=== PATIENT | male | born 1955 | race Caucasian/White ===

== ENCOUNTER 2018-11-03 14:06 | Inpatient (IN) ==
[2018-11-03 16:13] LABS: URINE SOURCE CLEAN CATCH
[2018-11-03 16:16] LABS: BASO# 0.05 X1000 (0.0-0.2); BASO% 0.5 % (0.0-0.8); EOS# 0.14 X1000 (0.0-0.7); EOS% 1.4 % (0.0-10.0); HEMATOCRIT 35.3 % (42.0-52.0); IMM GRAN# 0.03 X1000 (0.0-0.04); IMM GRAN% 0.3 % (0.0-0.5); LYMPH# 1.68 X1000 (1.2-3.4); LYMPH% 16.9 % (20.5-51.1); MCH 27.2 PG (27-31); MCHC 31.2 g/dL (33-37); MCV 87.4 FL (81-99); MONO# 0.92 X1000 (0.11-0.59); MONO% 9.3 % (1.7-9.3); MPV 10.6 FL (7.4-10.4); NEUT% 71.6 % (42.2-75.2); PLT 271 X1000 (130-400); RBC 4.04 XMIL (4.7-6.1); RDW 17.8 % (11.5-14.5); WBC 9.92 X1000 (4.8-10.8)
[2018-11-03 16:20] LABS: BILIRUBIN URINE NEGATIVE (NEGATIVE); BLOOD URINE NEGATIVE (NEGATIVE); COLOR YELLOW; GLUCOSE URINE 100 mg/dL (NEGATIVE); KETONE URINE NEGATIVE (NEGATIVE); LEUKOCYTES URINE NEGATIVE (NEGATIVE); NITRITE URINE NEGATIVE (NEGATIVE); PROTEIN URINE 30 mg/dL (NEGATIVE); SP GRAVITY URINE 1.003; TURBIDITY URINE CLEAR (CLEAR); UROBILINOGEN URINE NORMAL (NORMAL)
[2018-11-03 16:21] LABS: UR EPITHELIAL CELLS <10 /HPF (<10); URINE BACTERIA NEGATIVE /HPF; URINE RBC <10 /HPF (<10); URINE WBC <10 /HPF (<10)
[2018-11-03 16:33] LABS: ALB/GLOB RATIO 1.2; ALBUMIN 3.8 g/dL (3.5-5.0); CALCIUM 8.9 mg/dL (8.8-10.2); CREATININE 3.8 mg/dL (0.7-1.2); POTASSIUM 4.4 mmol/L (3.5-5.1); TOTAL BILIRUBIN 0.21 mg/dL (0.20-1.00)
--- NOTE | 2018-11-03 16:39 | Diag Imaging Result Doc PS360 ---
CT HEAD W/O CONTRAST - 11/03/2018 INDICATION: syncope COMPARISON: 08/20/2018 FINDINGS: The ventricles and sulci are normal in size and contour. There is stable mild cerebral white matter chronic microvascular disease. No intracranial mass or hemorrhage. The skull is intact. The sinuses mastoids and middle ears are clear. IMPRESSION: No acute disease or change from prior. This exam was performed using automated exposure control, adjustment of mA or kV according to patient size, and/or use of iterative reconstruction technique Electronically signed by Prakash Butts 11/03/2018 4:37 PM
--- NOTE | 2018-11-03 17:52 | PROVIDER DOCUMENTATION ---
This chart was entered by Angelica Sullivan Scribe, acting as scribe for Andres Townsend MD. HPI-Syncope/Dizziness - General Chief Complaint: Syncope Stated Complaint: SYNCOPE Time Seen by Provider: 11/03/18 14:38 Source: patient, EMS Allergies/Adverse Reactions: Patient Allergies Allergy/AdvReac Type Severity Reaction Status Date / Time ketorolac tromethamine * Allergy Mild RASH Verified 10/14/18 16:54 [From Toradol] levofloxacin Allergy Mild SHORTNESS Verified 10/14/18 16:54 OF BREATH almond Allergy Unknown Verified 10/14/18 16:54 doxazosin mesylate * Allergy SHORTNESS Verified 10/14/18 16:54 [From Cardura] OF BREATH ibuprofen [From Motrin] Allergy FLUSHING Verified 10/14/18 16:54 Home Medications: Home Medication List Medication Instructions Recorded Confirmed Last Taken Type Aspirin [Ecotrin] 81 mg PO QAM 12/11/14 10/14/18 10/14/18 History Potassium Chloride 10 meq PO QAM 12/11/14 10/14/18 10/14/18 History ATORVAstatin [Lipitor] 40 mg PO QHS #90 tab 12/19/17 10/14/18 10/14/18 Rx Allopurinol [Zyloprim] 100 mg PO DAILY #30 tab 12/19/17 10/14/18 10/14/18 Rx Fluticasone/Salmet 250/50 INH 1 puff INH RTBID #1 inhaler 12/19/17 10/14/1803/27 Rx [Advair 250/50 Diskus] Insulin Glargine [Lantus] 120 unit SUBQ BID #2 insuln.pen 12/19/17 10/14/1803/27 Rx Montelukast Sodium [Singulair] 10 mg PO QHS #90 tab 12/19/17 10/14/18 10/14/18 Rx Clonidine HCl 0.2 mg PO TID #90 tab 01/10/18 10/14/18 10/14/18 Rx Isosorbide Dinitrate [Isordil] 20 mg PO TID 04/30/18 10/14/18 10/14/18 History Metoprolol Succinate E.r. [Toprol 50 mg PO BID 06/10/14/18 10/14/18 History Xl] Nitroglycerin [Nitroquick] 0.4 mg SL DIRECTED PRN 04/30/18 10/14/18 10/14/18 History [place]-3 Fatty Acids/Fish Oil [Fish 1 each PO DAILY 04/30/18 10/14/18 10/14/18 History Oil 1,000 mg Softgel] Omeprazole 40 mg PO DAILY 04/30/18 10/14/18 10/14/18 History Clobetasol Propionate 1 each TOP BID 05/11/18 10/14/18 10/14/18 History Clonazepam [Klonopin] 0.5 mg PO TID 05/11/18 10/14/18 10/14/18 History Folic Acid 1 mg PO DAILY #90 tab 08/26/18 10/14/18 10/14/18 Rx Amlodipine [Norvasc] 10 mg PO DAILY 30 Days #30 tab 09/19/18 10/14/18 10/14/18 Rx Furosemide [Lasix] 80 mg PO BID #90 tab 09/19/18 10/14/18 10/14/18 Rx Hydralazine [Apresoline] 100 mg PO TID #120 tab 09/19/18 10/14/18 10/14/18 Rx Hydrocodone/Acetaminophen 7.5 mg PO BID 10 Days #20 tab 09/19/18 10/14/18 Rx [Hydrocodone-Acetamin 7.5-325] Lactulose 30 ml PO BID udc 09/19/18 10/14/18 10/14/18 Rx Docusate Sodium [Colace] 100 mg PO DAILY PRN #20 cap 09/24/18 10/14/18 10/14/18 Rx Polyethylene Glycol 3350 [Miralax] 17 gm PO DAILY 09/24/18 10/14/18 10/14/18 History Triamcinolone [Kenalog in Orabase] 1 applicatn TOP BID 10/15/18 10/15/18 Unknown History ATORVAstatin [Lipitor] 40 mg PO QHS tablet 10/16/18 Unknown Rx Nitroglycerin Sl [Nitroglycerin] 0.4 mg SL Q5M PRN PRN tablet 10/16/18 Unknown Rx Tamsulosin [Flomax] 0.4 mg PO DAILY capsule 10/16/18 Unknown Rx - History of Present Illness-Syncope/Dizzy Nature of Presenting Problem: 63 yof presents with cc of syncope x3 today with dizziness past few days. Reports has had ringing in his ears since this morning. States witnessed syncopable episodes today where he was sitting on bed and just passed out for 15 minutes at a time. Denies cp,sob,fever. Reports hx of chf,[place] x4, stents, copd , diabetes, chronic back pain and arthritis. Reports unable to walk due to back and diabetes. States has felt confused since syncopable episodes. Has drunk feeling. Prior Episodes: reports: no prior history Onset/Duration: reports: this morning Timing: reports: intermittent Position/Activity at time of episode: reports: sitting Recently Seen Here or By Another Healthcare Provider: No Review of Systems - Adult - REVIEW OF SYSTEMS - ADULT Constitutional: denies: chills, fever, fatique Eyes: reports: no symptoms reported Ears, Nose, Mouth & Throat: reports: see HPI, tinnitus. denies: sinus problem, throat pain Cardiovascular: reports: syncope. denies: chest pain, irregular heart rate, orthopnea Respiratory: denies: cough, shortness of breath, wheezing Gastrointestinal: denies: abdominal pain, nausea, vomiting Genitourinary: reports: no symptoms reported Musculoskeletal: denies: bone pain, back pain, joint pain, joint swelling, muscle aches Integumentary: reports: no symptoms reported Neurological: reports: see HPI, syncope. denies: ataxia, dizziness/vertigo, headache/migraines, loss of balance, numbness, paresthesia, seizure, slurred speech, tremors Psychiatric: reports: no symptoms reported Endocrine: reports: no symptoms reported Hematologic/Lymphatic: reports: no symptoms reported Allergic/Immunologic: reports: no symptoms reported All Other Systems: Reviewed and Negative Past History - Adult - PAST MEDICAL HISTORY-ADULT Review of Records: reports: Nursing Assessment Review, Medications Reviewed Major Childhood Illnesses: reports: history unknown Cardiovascular: reports: CHF (ECHO 08/2015 EF 55% ), HTN, hyperlipidemia, [place] Respiratory: reports: asthma, COPD (severe on 4liters O2 qHS) Gastrointestinal: reports: GERD Obstetrical/Gynecological: reports: denies history Genitourinary: reports: kidney disease (CRI) Musculoskeletal: reports: arthritis, chronic pain Neurological: reports: denies history Psychiatric: reports: anxiety Endocrine/Immune: reports: Diabetes Other Conditions: reports: denies history - PRIOR SURGERIES/PROCEDURES Surgical/Procedure History: reports: cardiac stent (x2 last one 7 years ago), orthopedic (extremity) (thumb) - IMMUNIZATION STATUS Childhood Immunizations: See Nurse Assessment Flu Vaccine: See Nurse Assessment - FAMILY HISTORY Family History: reviewed, not pertinent - SOCIAL HISTORY Smoking: other (former) Substance Use: none/never Physical Exam-General - PHYSICAL EXAM-ADULT Initial Vital Signs Reviewed: Yes - CONSTITUTIONAL General Appearance: alert, no apparent distress, obese - EYES Eyes: PERRL/EOMI, pink conjunctivae - HEAD, EARS, NOSE, MOUTH & THROAT HENMT: moist mucous membranes, normal ENT inspection, TMs normal, pharynx normal - NECK Neck: non-tender, full range of motion, supple, normal inspection - RESPIRATORY Respiratory: chest non-tender, lungs clear, normal breath sounds, no pleuratic chest pain, no respiratory distress, no accessory muscle use - CARDIOVASCULAR Cardiovascular: regular rate, rhythm, no gallop, no JVD, no murmur, other ( distant heart sounds) - GASTROINTESTINAL (ABDOMEN) Abdominal Exam: non tender, soft, no organomegaly, no pulsatile mass - MUSCULOSKELETAL Extremity: normal range of motion, non-tender - SKIN Integumentary: normal color, warm/dry - 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 as 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, grossly normal, no motor/sensory deficits - PSYCHIATRIC Psych/Mental Status: normal mood/affect, normal thought content, normal thought process, oriented x 3 Progress - PLAN OF CARE/RESULTS Progress/Plan/Lab Results: Vital Signs - 8 hr 11/03/18 15:00 Pulse Rate 57 L Respiratory Rate 20 Blood Pressure 119/78 O2 Sat by Pulse Oximetry 100 Laboratory Results - last 24 hr 11/03/18 11/03/18 11/03/18 13:17 14:52 14:54 WBC RBC Hgb Hct MCV MCH MCHC RDW Std Deviation Plt Count MPV Immature Gran % (Auto) Neut % (Auto) Lymph % (Auto) [place] % (Auto) Eos % (Auto) Baso % (Auto) Immature Gran # (Auto) Neut # (Auto) Lymph # (Auto) [place] # (Auto) Eos # (Auto) Baso # (Auto) Sodium Potassium Chloride Carbon Dioxide Anion Gap BUN Creatinine Estimated GFR/1.73 m2 BUN/Creatinine Ratio Glucose POC Glucose 206 H Calculated Osmolality Calcium Total Bilirubin AST ALT Alkaline Phosphatase Troponin T < 0.010 Total Protein Albumin Globulin Albumin/Globulin Ratio Urine Source CLEAN CATCH Urine Color YELLOW Urine Turbidity CLEAR Urine pH 7.0 Ur Specific [place] 1.003 Urine Protein 30 A Ur Glucose (Stick) 100 A Ur Ketones (Stick) NEGATIVE Urine Blood NEGATIVE Urine Nitrite NEGATIVE Urine Bilirubin NEGATIVE Urobilinogen Dipstick NORMAL Urine Leukocytes NEGATIVE Urine WBC (Auto) <10 Urine RBC (Auto) <10 U Epithel Cells (Auto) <10 Urine Bacteria (Auto) NEGATIVE 11/03/18 11/03/18 14:54 14:54 WBC 9.92 RBC 4.04 L Hgb 11.0 L Hct 35.3 L MCV 87.4 MCH 27.2 MCHC 31.2 L RDW Std Deviation 17.8 H Plt Count 271 MPV 10.6 H Immature Gran % (Auto) 0.3 Neut % (Auto) 71.6 Lymph % (Auto) 16.9 L [place] % (Auto) 9.3 Eos % (Auto) 1.4 Baso % (Auto) 0.5 Immature Gran # (Auto) 0.03 Neut # (Auto) 7.10 H Lymph # (Auto) 1.68 [place] # (Auto) 0.92 H Eos # (Auto) 0.14 Baso # (Auto) 0.05 Sodium 142 Potassium 4.4 Chloride 97 L Carbon Dioxide 29 Anion Gap 16 BUN 56 H Creatinine 3.8 H Estimated GFR/1.73 m2 16 BUN/Creatinine Ratio 15 Glucose 209 H POC Glucose Calculated Osmolality 305 Calcium 8.9 Total Bilirubin 0.21 AST 11 ALT 15 Alkaline Phosphatase 133 H Troponin T Total Protein 7.0 Albumin 3.8 Globulin 3.2 Albumin/Globulin Ratio 1.2 Urine Source Urine Color Urine Turbidity Urine pH Ur Specific [place] Urine Protein Ur Glucose (Stick) Ur Ketones (Stick) Urine Blood Urine Nitrite Urine Bilirubin Urobilinogen Dipstick Urine Leukocytes Urine WBC (Auto) Urine RBC (Auto) U Epithel Cells (Auto) Urine Bacteria (Auto) Orders Category Date Time Status Orthostatic Vital Signs Q12-HR ASSESS Care 11/03/18 17:32 Active Diabetic Diet Diet 11/03/18 16:[address] HEAD W/O CONTRAST [CT] Stat Exams 11/03/18 15:56 Completed CBC WITH ELECTRONIC DIFF [HEME] Stat Lab 11/03/18 14:54 Completed CMP [COMPREHENSIVE METABOLIC PANEL] [CHEM] Stat Lab 11/03/18 14:54 Completed TROPONIN T Stat Lab 11/03/18 14:54 Completed URINALYSIS W/POSS RFLX CULT [URINALYSIS] Stat Lab 11/03/18 13:17 Completed EKG [EKG] Stat Ther 11/03/18 16:58 Ordered Result Diagrams: 11/03/18 14:54 11/03/18 14:54 - REASSESSMENT Reassessment #1 Time Reassessed: 16:02 Status: improving (Patient feel ok, denies complaints. vitals stable.) - EKG 1 Time of EKG reading by physician:: 14:32 EKG Read and Signed by:: Andres Townsend EKG Interpretation (*Must complete 3 of following elements*): Abnormal Rate: 58 Rhythm: sinus charlie [place]: normal QRS: RBB (incomplete) TN Interval: normal ST Wave: normal - CONSULTS/PCP/HOSPITALIST Notification #1 *Consult/PCP/Hospitalist*: LINE PALLETIZER Fabiana Time Discussed: 16:58 Consult Disposition: Admit (Accepted.) Departure - Departure Date of Disposition Decision: 11/03/18 Time of Disposition Decision: 16:58 DIAGNOSIS: Syncope Qualifiers: Syncope type: unspecified Qualified Code(s): R55 - Syncope and collapse Disposition: ADMITTED INPATIENT 09 Certified Medical Emergency: Emergent Condition: Stable Referrals and Follow-Ups: Terrie Judge [Primary Care Provider] - - Critical Care Note This patient required my direct & personal management of CC.: No Attestation - Physician/ KOJO Attestation Patient care was provided by Advanced Practice Provider:: No The physician spent face to face time with patient:: Yes Advanced Practice Provider documentation review:: Supervising physician onsite and consulted in the evaluation and care of this patient. The physician did have a face to face encounter with the patient. This chart was documented by the indicated scribe, (Angelica Sullivan Scribe) and accurately reflects the services I performed and decisions made by me, Andres Townsend MD, as attested by the provider's signature.
[2018-11-03] MEDS ORDERED: TYLENOL PO PRN (18:02)
[2018-11-03] MEDS ORDERED: DUONEB (A & A) INH PRN (18:02)
--- NOTE | 2018-11-03 19:54 | HISTORY AND PHYSICAL ---
PRIMARY CARE PROVIDER: Dr. Terrie Judge. Last time he followed up with her is around a month ago. He has another appointment for next December. CHIEF COMPLAINT: Passing out. HISTORY OF PRESENT ILLNESS: Mr. Adam La is a 63-year-old male who is very well known to our service and has had 17 ER visits this year and 10 admissions, including this one this year, all for different reasons, whether it be chest pain, shortness of breath, or COPD. This time he is being admitted for syncope. So, over the last couple of days he has complained of having this dizziness, drunk feeling, and a left-sided headache. 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 States that around 9:00 a.m. when she was making him breakfast, she noticed that he appeared to be passed out in bed. He was there for about 45 minutes, but she thought he was asleep. When he woke up he was complaining of buzzing in his ears, a left-sided headache, he felt dizzy and drunk and she said that his eyes did not look right. He continued to have these spells of dizziness and drunk feeling throughout the day along with the buzzing ears. He had a second time where he passed out around 2:30 and this time she called an ambulance. He feels like he hit his head on the bed. There is no obvious wound signs. His head CT was negative. He had a third time he passed out while he was in the ambulance on the way here. He claims that there have not been any changes in his medications and that he is taking all of his medications as prescribed. Currently, he still feels a little bit drunk, dizzy, and complaining of the tinnitus in both ears with the left headache. His heart rate is in the 50s and it is sinus rhythm or sinus bradycardia. He states that he routinely checks his oxygen saturation and the monitor always tells him his heart rate is in the 50s. He is on a beta trung. He is also on multiple antihypertensives. Blood pressure currently is stable at 119/78. First cardiac enzymes are negative. EKG is pending. Again, his head CT was negative for any acute findings. So, will admit for syncopal workup. PAST MEDICAL HISTORY: 1. COPD, on chronic home O2. 2. Diabetes mellitus, type 2, insulin dependent. 3. Hypertensive heart disease. 4. Chronic diastolic heart failure. 5. Chronic venous insufficiency. 6. Hyperlipidemia. 7. Obstructive sleep apnea. 8. Cor pulmonale. 9. CKD stage 4. 10.Morbid obesity with a BMI of currently 34.1. 11.Coronary artery disease, status post PTCA. 12.Irritable bowel syndrome. 13.Peripheral arterial disease. 14.Gout. PAST SURGICAL HISTORY: 1. Left hand surgery. 2. PTCA. SOCIAL HISTORY: Lives alone. He is from his , but his is his cloth cutting machine operator who comes over almost daily to care for him. He quit smoking around four years ago but prior to that smoked one pack per day for many years. Denies alcohol or illicit drug use. FAMILY HISTORY: Positive for diabetes and hypertension. ALLERGIES: Toradol, Levaquin, almonds, doxazosin, and Ibuprofen. HOME MEDICATIONS: Have not been fully verified, but he has several, several medications and he was most recently here earlier this month, so there is likely not a big change. He is on aspirin. There is: 1. Clobetasol propionate topical twice daily 2. Klonopin. 3. Isosorbide dinitrate. 4. Metoprolol twice a day or Toprol 50 once a day - that will have to be corrected. 5. Nitroglycerin 0.4 mg sublingual as needed for chest pain. 6. [place] 3 fish oil. 7. Omeprazole. 8. MiraLAX. 9. Potassium chloride. 10. Triamcinolone. 11. Lipitor. 12. Singulair. 13. Allopurinol. 14. Norvasc. 15. Clonidine. 16. Colace. 17. Advair 250/50. 18. Folic acid. 19. Lasix. 20. Apresoline. 21. [place] 7.5. 22. Insulin Lantus 120 twice a day. 23. Lactulose. 24. Flomax. Again, these medications have not been reconciled by the nurse. REVIEW OF SYSTEMS: A 14-point review of systems was complete, and all were negative except for those mentioned in the above HPI. He did note he had some sore throat and sinus drainage in addition to that. He denies any chest pain. PHYSICAL EXAMINATION: VITAL SIGNS: Temperature not recorded, heart rate 57, respiratory rate 20, blood pressure 119/78, O2 saturation is 100% on nasal cannula 2 L. He is 6 ft 4 inches tall, 280 pounds, with a BMI of 34.1. GENERAL: Mr. Adam La is a 63-year-old unkempt, male, well known to our service. He is in no acute distress. He is able to answer questions appropriately. HEENT: Atraumatic and normocephalic. Pupils are equal, round and reactive to light. Extraocular movements were intact. Mucous membranes are moist. NECK: Trachea midline. CARDIOVASCULAR: S1, S2. Bradycardic rate and rhythm. No rubs, gallops, or murmurs. 1 to 2+ lower extremity edema. Plus 1 dorsalis pedal pulses and +2 radial pulses. Negative for JVD or carotid bruits. PULMONARY: Clear to auscultation with bilateral breath sounds. No accessory muscle use or work of breathing noted. Tolerating nasal cannula. GASTROINTESTINAL: Soft, round, nondistended. Positive bowel sounds x4. EXTREMITIES: Moves all extremities equally with full range of motion. NEUROLOGICAL: Alert and oriented x3. Follows commands. Sensory is decreased in the lower extremities. SKIN: Warm, dry, and intact except for lower extremities chronic venous stasis. LABORATORY DATA: White blood cells 9,000, hemoglobin 11, hematocrit 35, platelet count 271. Sodium is 142, potassium 4.4, BUN is 56, creatinine 2.8, glucose 209, calcium 8.9, bilirubin 0.21, AST is 11, ALT is 15. Troponin less than 0.01. Albumin 3.8. Urinalysis with 30 protein, 100 glucose. IMAGING: Head CT with no acute disease or change from prior. EKG pending. ASSESSMENT AND PLAN: 1. Syncope. Possibly related to polypharmacy. He is on multiple antihypertensives. Blood pressure is currently stable. He has missed his 3:00 p.m. medication dosing , but he also had some posterior cerebral artery type symptoms, like tinnitus and feeling like he was drunk or dizzy. Initial head CT is negative. Will go ahead and get MRI/MRA of the brain and carotid ultrasound tomorrow. May possibly consult Cardiology tomorrow given his medical history. 2. Diabetes mellitus, type 2. Will do patterned blood glucose, sliding scale insulin, and follow up on his home dosing of insulin. 3. Chronic obstructive pulmonary disease, on home oxygen. No exacerbation. Continue home oxygen and nebulizers as needed. 4. Hypertension. Currently stable. Will need to resume some of his antihypertensives and likely his beta-trung back. 5. Chronic diastolic heart failure. No signs of acute heart failure at this time. 6. Chronic kidney disease, stage 4, currently at baseline. 7. Deep venous thrombosis prophylaxis with sequential compression devices for now. Dictated by ALPESH Sol for Charissa Zhang MD cc: ALPESH Sol MD I performed a face to face encounter on the patient. I reviewed all imaging and labs on the patient. I agree with the H&P as dictated. [facility]
--- NOTE | 2018-11-03 20:33 | Diag Imaging Result Doc PS360 ---
CHEST-PORTABLE - 11/03/2018 INDICATION: dyspnea COMPARISON: 10/15/2018 FINDINGS: Stable cardiomegaly and pulmonary vascular congestion. No overt edema. No pneumothorax or pleural effusion. No infiltrates. IMPRESSION: Cardiomegaly and pulmonary vascular congestion. Electronically signed by Parkash Butts 11/03/2018 8:31 PM
[2018-11-03] MEDS: HUMULIN R SUBQ SCH (20:48)
[2018-11-03] MEDS: NORCO-7.5 PO PRN (20:49)
[2018-11-03] MEDS: DUONEB (A & A) INH SCH (21:18)
[2018-11-03] MEDS: ADVAIR 250/50 DISKUS INH SCH (21:18)
[2018-11-04] MEDS: BASAGLAR SUBQ SCH ×3 (00:50→21:48)
[2018-11-04] MEDS ORDERED: INSULIN PEN NEEDLES ONE ×2 (00:51→21:39)
[2018-11-04] MEDS: LASIX PO SCH ×3 (00:54→21:48)
[2018-11-04] MEDS: SINGULAIR PO SCH ×2 (00:54→21:47)
[2018-11-04] MEDS: KLONOPIN PO SCH ×3 (00:54→21:47)
[2018-11-04] MEDS: LIPITOR PO SCH ×2 (00:55→21:48)
[2018-11-04 02:30] LABS: CK INDEX 1.9 (0.0-2.5); CK-MB 4.01 ng/mL (0.0-5.0)
[2018-11-04] MEDS: DUONEB (A & A) INH SCH ×4 (03:46→22:45)
[2018-11-04 05:55] LABS: BASO# 0.04 X1000 (0.0-0.2); BASO% 0.5 % (0.0-0.8); EOS# 0.11 X1000 (0.0-0.7); EOS% 1.4 % (0.0-10.0); HEMATOCRIT 32.3 % (42.0-52.0); IMM GRAN# 0.02 X1000 (0.0-0.04); IMM GRAN% 0.3 % (0.0-0.5); LYMPH# 1.85 X1000 (1.2-3.4); LYMPH% 24.3 % (20.5-51.1); MCH 27.2 PG (27-31); MCV 87.8 FL (81-99); MONO# 0.73 X1000 (0.11-0.59); MONO% 9.6 % (1.7-9.3); MPV 9.7 FL (7.4-10.4); NEUT# 4.86 X1000 (1.4-6.5); NEUT% 63.9 % (42.2-75.2); PLT 224 X1000 (130-400); RBC 3.68 XMIL (4.7-6.1); RDW 17.7 % (11.5-14.5); WBC 7.61 X1000 (4.8-10.8)
[2018-11-04 06:12] LABS: INR 0.99; PROTIME 13.9 Seconds (11.0-16.0)
[2018-11-04 06:13] LABS: PTT 43.2 Seconds (22.3-41.8)
[2018-11-04] MEDS: HUMULIN R SUBQ SCH ×4 (06:33→21:49)
[2018-11-04] MEDS: NORCO-7.5 PO PRN ×2 (06:41→23:19)
[2018-11-04 06:46] LABS: ALBUMIN 3.4 g/dL (3.5-5.0); CALCIUM 8.4 mg/dL (8.8-10.2); CREATININE 3.5 mg/dL (0.7-1.2); MAGNESIUM 2.2 mg/dL (1.5-2.7); POTASSIUM 3.6 mmol/L (3.5-5.1); TOTAL BILIRUBIN 0.19 mg/dL (0.20-1.00); TOTAL PROTEIN 6.8 g/dL (6.3-8.3)
--- NOTE | 2018-11-04 07:22 | EKG Report ---
Test Performed on : 11/04/2018 06:19:36 AM Test Reason : chest pain Blood Pressure : / mmHG Vent. Rate : 054 BPM Atrial Rate : 054 BPM P-R Int : 154 ms QRS Dur : 114 ms QT Int : 478 ms P-R-T Axes : 020 015 055 degrees QTc Int : 453 ms Sinus bradycardia. Nonspecific T wave abnormality Abnormal ECG When compared with ECG of 03-NOV-2018 14:32, (Unconfirmed) No significant change was found Confirmed by Shiloh MARINELLI, Abhijeet Can ([id number]) on 11/06/2018 8:45:09 AM
--- NOTE | 2018-11-04 07:27 | EKG Report ---
Test Performed on : 11/03/2018 2:32:19 PM Test Reason : syncope Blood Pressure : / mmHG Vent. Rate : 058 BPM Atrial Rate : 058 BPM P-R Int : 136 ms QRS Dur : 118 ms QT Int : 470 ms P-R-T Axes : 024 019 067 degrees QTc Int : 461 ms Sinus bradycardia. Incomplete right bundle branch block Borderline ECG When compared with ECG of 15-OCT-2018 07:06, Criteria for Septal infarct are no longer present Unconfirmed Result
[2018-11-04] MEDS: ADVAIR 250/50 DISKUS INH SCH ×2 (09:52→22:45)
[2018-11-04] MEDS: ASPIRIN EC PO SCH (10:08)
[2018-11-04] MEDS: FLOMAX PO SCH (10:09)
[2018-11-04 10:23] LABS: CK-MB 4.46 ng/mL (0.0-5.0)
--- NOTE | 2018-11-04 13:36 | CARDIOLOGY CONSULTATION ---
DATE: 11/04/2018 HISTORY OF PRESENT ILLNESS: The patient has multiple medical problems. A 63-year-old gentleman was trying to lift a heavy wood stove with his . After that, he felt dizzy, had to lay down. He did not pass out. Does not complain of chest pain. He has episodes of palpitations and at times, after taking all these medications, he feels dizzy. He has also noticed some buzzing in his ears. He came to the emergency room. At the time of my examination patient was pain-free, felt comfortable, did not complain of any chest pain. When he came to the emergency room, his blood pressure was 119/78. He is on multiple medications. He is noted to be in sinus bradycardia with heart rate of 50s. REVIEW OF SYSTEM: General: A fourteen-point review of systems was done. GI System: There is no history of nausea, vomiting, or diarrhea. There is no history of hematemesis or melena. Central nervous system: No focal weakness to suggest a CVA, TIA. System: There is no dysuria or hematuria. PAST MEDICAL HISTORY: 1. Chronic chest pain syndrome. 2. Known atherosclerotic disease; the last cardiac catheterization 2015 revealed patent stent to the left anterior descending artery. A 50 to 60 percent proximal RCA. Diffuse atherosclerosis in the other vessels. Ejection fraction 60%. 3. Chronic kidney disease. 4. Diastolic heart failure. 5. Obstructive sleep apnea. 6. Obesity. 7. Hypertension. 8. COPD on oxygen at home. 9. Cor pulmonale. 10. Peripheral arterial disease. 11. Gout. 12. Diabetes mellitus. 13. Left hand surgery. SOCIAL HISTORY: Lives at home. 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 ALLERGIES: He is allergic to Toradol, Levaquin, almonds, doxazosin and ibuprofen. HOME MEDICATIONS: His home medications include: 1. Potassium supplements. 2. Enteric-coated aspirin 81 mg a day. 3. Allopurinol 100 mg a day. 4. Atorvastatin 40. 5. Inhalers. 6. Clonidine 0.2 mg p.o. t.i.d. 7. Metoprolol 50 mg p.o. b.i.d., 8. Isosorbide dinitrate 60 mg p.o. t.i.d. 9. Clonazepam 0.4 p.o. q.a.m. 10. Folic acid. 11. Amlodipine 10. 12. Lasix 80 b.i.d. 13. Hydralazine 100 t.i.d. 14. Tamsulosin. 15. Clonazepam. 16. Insulin as directed PHYSICAL EXAMINATION: Vital Signs: On examination, blood pressure was 134/77. Cardiovascular System: Normal jugular venous pressure. There no thyromegaly. There is no carotid bruit. First and second heart sounds were heard. Respiratory System: Scattered expiratory wheeze. Abdomen: Soft, nontender. There was no guarding or rigidity. Bowel sounds were heard. Extremities: Examination of extremities revealed mild pedal edema. HEENT: Atraumatic, normocephalic. Pupils were equal and reacting to light. LABORATORY EXAMINATION: Revealed a sodium 141, potassium 3.6. BUN 53, creatinine 3.5. ProBNP was 421. Cardiac enzymes unremarkable. DIAGNOSTIC DATA: Chest x-ray revealed features of congestion and cardiomegaly. ASSESSMENT AND PLAN: Mr. Adam La is a 63-year-old gentleman with multiple medical problems including chronic chest pain syndrome, chronic kidney disease, coronary artery disease status post stent placement in the past, hypertension, diabetes, morbid obesity, chronic obstructive pulmonary disease, who comes in with complaints of having felt dizzy and has episodes of dizziness on taking his medications. He has also noticed some palpitations. RECOMMENDATIONS: 1. From a cardiac standpoint, I suspect his symptoms are secondary to polypharmacy and has multiple medications for hypertension as well. We will decrease his clonidine to 0.1 mg p.o. twice a day. 2. He is on Norvasc hydralazine, as well as beta blockers for hypertension, diastolic heart failure. I have not made any other changes to his medication. 3. History of diastolic heart failure. I have not made any other changes to medication. 4. Diabetes. Continue with his insulin. 5. For COPD, he is on oxygen and inhalers at home. I have not made any changes. Thank you for the consult. We will follow hospital course. cc: Juanpablo Leggett MD
--- NOTE | 2018-11-04 13:52 | Diag Imaging Result Doc PS360 ---
EXAM: MRI BRAIN W/O CONTRAST INDICATION: posterior cva symptoms COMPARISON: None. FINDINGS: There is mild patchy T2/FLAIR hyperintensity in the periventricular and subcortical white matter suggesting mild microangiopathy. There is no evidence of acute infarct. There is no discrete intracranial mass, mass effect, or intracranial hemorrhage. The surrounding soft tissues and bony structures are essentially unremarkable. IMPRESSION: Suggestion of mild white matter microangiopathy. No evidence of acute intracranial pathology. Electronically signed by Jake Serna 11/04/2018 1:50 PM
--- NOTE | 2018-11-04 14:02 | Diag Imaging Result Doc PS360 ---
EXAM: MRA BRAIN W/O CONTRAST INDICATION: posterior cva symptoms TECHNIQUE: 3-D [id number] axial images and 3-D MIPS were obtained in usual fashion. COMPARISON: None. FINDINGS: There is no evidence of flow-limiting stenosis, vascular malformation, or cerebral aneurysm involving the arteries comprising the [place] including the anterior, posterior, and middle circulations. The basilar artery and the distal ICAs are also patent. IMPRESSION: Unremarkable MRA brain with no evidence of flow-limiting stenosis. Electronically signed by Jake Serna 11/04/2018 2:00 PM
[2018-11-04] MEDS: VITAMIN D PO SCH (14:54)
--- NOTE | 2018-11-04 19:54 | PROGRESS NOTE ---
DATE: 11/04/2018 SUBJECTIVE: The patient states that he feels a lot better today than he did yesterday. He has had no further syncopal episodes while in the hospital. OBJECTIVE: Vital Signs: Temperature 98.3, blood pressure 171/70, heart rate 73 , respirations 18, O2 saturation 98% on 4 L nasal cannula. Urine output 1.7 L. General: This is a morbidly obese male lying in bed in no acute distress. HEENT: Head normocephalic, atraumatic. Heart: S1, S2 normal. Regular rate and rhythm. Lungs: Clear to auscultation bilaterally. Diminished breath sounds at the bases. Abdomen: Positive bowel sounds. Soft, obese, nontender. Extremities: Trace pedal edema. No cyanosis. No calf tenderness. Neurologic: The patient is alert and oriented x 3. LABS: White blood cell count 7.6, hemoglobin 10, hematocrit 32, platelets 224, 000. INR is 0.9. Sodium 141, potassium 3.6, chloride 99, CO2 27, BUN 53, creatinine 3.5, glucose 196, magnesium 2.2. AST 9, ALT 13, alkaline phosphatase 127. Albumin 3.4, vitamin D level 14. ASSESSMENT AND PLAN: 1. Syncope. The patient has been seen by Cardiology and the working diagnosis is possible polypharmacy. The patient's medications have been adjusted. We will continue to monitor the patient closely. 2. Chronic kidney disease stage IV. Stable. The patient is scheduled to follow up with Dr. Brown on 11/16/2018. We will continue on the current medications. 3. Chronic diastolic CHF. Stable. 4. Diabetes mellitus type 2. Continue on long-acting insulin plus sliding scale insulin. 5. Cor pulmonale. Aware. 6. Hypertension. Continue on the current antihypertensive regimen. 7. Morbid obesity. Aware. 8. COPD. Stable. Continue with bronchodilator therapy. 9. Anxiety disorder. Continue on Klonopin. 10. BPH. Continue on Flomax. 11. Vitamin D deficiency. Continue on vitamin D replacement. 12. DVT prophylaxis. Continue on heparin. cc: Charissa Zhang MD [facility]
[2018-11-05] MEDS: DUONEB (A & A) INH SCH ×4 (03:53→21:15)
[2018-11-05] MEDS: HUMULIN R SUBQ SCH ×4 (06:30→21:15)
[2018-11-05 06:59] LABS: HEMOGLOBIN 10.8 g/dL (14.0-18.0); MCH 27.3 PG (27-31); MCHC 30.9 g/dL (33-37); MCV 88.4 FL (81-99); MPV 10.4 FL (7.4-10.4); RBC 3.96 XMIL (4.7-6.1); RDW 17.8 % (11.5-14.5); WBC 7.97 X1000 (4.8-10.8)
[2018-11-05 07:33] LABS: CALCIUM 9.1 mg/dL (8.8-10.2); CREATININE 3.5 mg/dL (0.7-1.2); MAGNESIUM 2.3 mg/dL (1.5-2.7); POTASSIUM 3.6 mmol/L (3.5-5.1)
[2018-11-05] MEDS: BASAGLAR SUBQ SCH ×2 (09:21→21:16)
[2018-11-05] MEDS: ASPIRIN EC PO SCH (09:21)
[2018-11-05] MEDS: LASIX PO SCH ×2 (09:22→21:11)
[2018-11-05] MEDS: FLOMAX PO SCH (09:22)
[2018-11-05] MEDS: NORCO-7.5 PO PRN ×2 (09:30→21:31)
[2018-11-05] MEDS: KLONOPIN PO SCH ×2 (09:30→21:12)
[2018-11-05] MEDS: ADVAIR 250/50 DISKUS INH SCH ×2 (10:23→21:15)
--- NOTE | 2018-11-05 18:33 | PROGRESS NOTE ---
DATE: 11/05/2018 SUBJECTIVE: The patient states that he has not had a bowel movement yet. OBJECTIVE: Vital Signs: Temperature 98.1 degrees, blood pressure 150/80, heart rate 75, respirations 20, O2 saturation 98% on 4 L nasal cannula. General: This is a chronically ill- appearing elderly male lying in bed in no acute distress. Heart: S1, S2 normal. Regular rate and rhythm. Lungs: Equal air entry bilaterally. Mild expiratory wheezes at the bases. Abdomen: Positive bowel sounds. Soft, obese, nontender, nondistended. Extremities: No edema. No cyanosis. Neurologic: The patient is alert and oriented x3. LABS: Reviewed. ASSESSMENT AND PLAN: 1. Syncope. Likely medication induced. The patient has had no further syncopal episodes while hospitalized. His medications have been adjusted by the curriculum coordinator. 2. Constipation. We will start the patient on MiraLAX and lactulose. 3. Chronic kidney disease stage 4. Stable. 4. Chronic diastolic congestive heart failure. Stable. 5. Cor pulmonale. Aware. 6. Diabetes mellitus type 2. Continue on the current insulin regimen. 7. Hypertension. Continue on the current antihypertensive regimen. 8. Chronic obstructive pulmonary disease. Continue with bronchodilator therapy and supplemental oxygen. 9. Benign prostatic hypertrophy. Continue on Flomax. 10. Anxiety disorder. Continue on Klonopin. 11. Disposition. The patient can likely be discharged home once cleared by the curriculum coordinator. cc: Charissa Zhang MD
[2018-11-05] MEDS: APRESOLINE PO SCH ×2 (18:59→21:11)
[2018-11-05] MEDS: LACTULOSE PO SCH ×2 (19:00→23:22)
--- NOTE | 2018-11-05 19:03 | Carotid Study ---
DATE: 11/04/2018 PROCEDURE: Bilateral carotid duplex imaging. REFERRING PHYSICIAN: Dr. Zhang. INTERPRETING PHYSICIAN: Dr. Maria Antonia Bateman TECH: [place]. INDICATIONS: Syncope. OBSERVED DATA RIGHT LEFT Brachial Blood Pressure Carotid Pulse Bruits: Carotid/Sub DIAGRAM OF ULTRASOUND IMAGING R L RIGHT INT EXT INT EXT LEFT [place] (cm/s) [place] (cm/s) Subclavian 91/0 Subclavian 127/0 CCA Proximal 77/8 CCA Proximal 86/9 CCA Distal 62/9 CCA Distal 76/11 Bulb 54/8 Bulb 70/7 ICA Proximal 54/15 ICA Proximal 58/8 ICA Mid 82/16 ICA Mid 61/16 ICA Distal 100/14 ICA Distal 72/14 ECA 117/7 ECA 112/9 Vertebral 46/11 A Vertebral 44/11 A ICA/CCA Ratio 1.31 ICA/CCA Ratio 0.84 % Stenosis 0-39% % Stenosis 0-39% FINDINGS: Very minimal atherosclerotic changes noted bilaterally, most notable in the left carotid bulb and the proximal internal carotid artery, but no hemodynamically significant lesion noted. cc: MD Fabiana Martinez CRNP
[2018-11-05] MEDS: SINGULAIR PO SCH (21:10)
[2018-11-05] MEDS: LIPITOR PO SCH ×3 (21:11→21:47)
[2018-11-05] MEDS: TOPROL XL PO SCH (21:11)
[2018-11-05] MEDS: MIRALAX PO SCH (21:20)
[2018-11-06] MEDS ORDERED: HALL'S COUGH LOZENGE MT PRN (01:11)
[2018-11-06] MEDS: DUONEB (A & A) INH SCH ×4 (03:20→23:20)
[2018-11-06] MEDS: LACTULOSE PO SCH ×4 (06:31→22:34)
[2018-11-06] MEDS: HUMULIN R SUBQ SCH ×4 (06:33→22:43)
[2018-11-06 07:11] LABS: HEMOGLOBIN 11.3 g/dL (14.0-18.0); MCH 27.6 PG (27-31); MCHC 31.4 g/dL (33-37); MPV 10.3 FL (7.4-10.4); RBC 4.09 XMIL (4.7-6.1); RDW 17.6 % (11.5-14.5); WBC 8.45 X1000 (4.8-10.8)
[2018-11-06 07:48] LABS: CALCIUM 9.5 mg/dL (8.8-10.2); CREATININE 3.2 mg/dL (0.7-1.2); POTASSIUM 3.6 mmol/L (3.5-5.1)
--- NOTE | 2018-11-06 08:05 | Diag Imaging Result Doc PS360 ---
EXAM: CHEST-2 VIEWS 11/06/2018 HISTORY: hypoxia TECHNIQUE: PA and lateral chest COMMENT: There is some questionable opacity over the right upper lobe which may be due to overlying soft tissues. Compared to the previous study of 11/03/2018 the left lower lobe is better expanded and there is less atelectatic opacity. Otherwise, there has been no significant change. IMPRESSION: Improved left-sided atelectasis. Questionable right upper lobe opacity. Electronically signed by Jason Bernstein 11/06/2018 8:02 AM
[2018-11-06] MEDS: TOPROL XL PO SCH ×2 (08:08→22:31)
[2018-11-06] MEDS: ZYLOPRIM PO SCH (08:08)
[2018-11-06] MEDS: FLOMAX PO SCH (08:09)
[2018-11-06] MEDS: ASPIRIN EC PO SCH (08:09)
[2018-11-06] MEDS: LASIX PO SCH ×2 (08:09→22:31)
[2018-11-06] MEDS: BASAGLAR SUBQ SCH ×2 (08:10→22:32)
[2018-11-06] MEDS: NORVASC PO SCH (08:10)
[2018-11-06] MEDS: MIRALAX PO SCH ×2 (08:10→22:32)
[2018-11-06] MEDS: APRESOLINE PO SCH ×3 (08:10→17:15)
[2018-11-06] MEDS: KLONOPIN PO SCH ×2 (08:19→21:15)
[2018-11-06] MEDS ORDERED: KLONOPIN PO SCH (09:00)
[2018-11-06] MEDS ORDERED: PRILOSEC PO ONE (09:28)
[2018-11-06] MEDS ORDERED: KLONOPIN PO ONE (09:30)
[2018-11-06] MEDS: ADVAIR 250/50 DISKUS INH SCH ×2 (09:36→23:20)
[2018-11-06] MEDS: KLONOPIN PO PRN (15:20)
--- NOTE | 2018-11-06 18:45 | Diag Imaging Result Doc PS360 ---
EXAM: CT THORAX W/O CONTRAST 11/06/2018 HISTORY: pneumonia TECHNIQUE: This exam was performed using automated exposure control, adjustment of mA or kV according to patient size, and/or use of iterative reconstruction technique. COMMENT: The current examination is compared to the previous study of 12/12/2017. There is a small diverticulum apparently arising from the posterior lateral trachea on the right on image 13. This was present at the time the previous study. There is a calcified node in the right hilum. There is extensive coronary calcification particularly in the left anterior descending artery. There are patchy opacities present posteriorly in the left upper lobe including some tree-in-bud type opacities. This was not present at the time the previous study. It most likely represents bronchopneumonia. There is a small nodular opacity adjacent to the major fissure in the superior segment of the right lower lobe on image 66 which has not changed significantly since the previous study. There is a nodule in the right middle lobe on image 67 which if anything is slightly smaller and less dense than on the previous study. There is some apparent atelectasis or fibrosis in the posterior costophrenic sulcus of the right lower lobe which was at least in part present previously. IMPRESSION: Left upper lobe bronchopneumonia. Otherwise stable since 12/12/2017. Electronically signed by Jason Bernstein 11/06/2018 6:42 PM
[2018-11-06] MEDS: MAXIPIME 1 GM in NS 50 ML IV SCH (20:30)
--- NOTE | 2018-11-06 20:42 | PROGRESS NOTE ---
DATE: 11/06/2018 SUBJECTIVE: The patient is sitting up in bed resting. No acute events noted overnight. OBJECTIVE: Vital Signs: Temperature 98, blood pressure 161/74, heart rate 79, respirations 16, O2 saturations 99% on 4 L nasal cannula. General: This is a chronically ill- appearing, morbidly obese male sitting in bed in no acute distress. Heart: S1, S2 normal. Regular rate and rhythm. Lungs: Equal air entry bilaterally. Diminished breath sounds at the bases. Abdomen: Positive bowel sounds. Soft, nontender, nondistended. Extremities: No edema, no cyanosis. Neurologic: The patient is alert and oriented x3. LABS: White blood cell count 8.4, hemoglobin 11, hematocrit 36, platelets 264, 000, sodium 142, potassium 3.6, chloride 99, CO2 28, BUN 49, creatinine 3.2, glucose 69. ASSESSMENT AND PLAN: 1. Syncope. Likely medication induced. No further recurrence noted. 2. Pneumonia. The CT thorax shows pneumonia. Will start Cefepime and Zyvox. 3. Labile hypertension. The patient's antihypertensive is being adjusted by the pie chef. 4. Chronic kidney disease stage 4. Stable. 5. Constipation. Continue with scheduled laxative therapy. 6. Chronic diastolic congestive heart failure. Stable. 7. Cor pulmonale. Aware. 8. Diabetes mellitus type 2. Continue on the current insulin regimen. 9. Chronic obstructive pulmonary disease. Continue with bronchodilator therapy and supplemental oxygen. 10. Benign prostatic hypertrophy. Continue on Flomax. 11. Anxiety disorder. Continue on Klonopin. cc: Charissa Zhang MD [facility]
[2018-11-06] MEDS: NORCO-7.5 PO PRN (21:14)
[2018-11-06] MEDS: SINGULAIR PO SCH (22:31)
[2018-11-06] MEDS: LIPITOR PO SCH (22:31)
[2018-11-06] MEDS: MYCOLOG CREAM TOP SCH (22:32)
[2018-11-06] MEDS: ZYVOX 600 MG/D5W 600 MG/300 ML IVPB IV SCH (22:44)
[2018-11-07] MEDS: NORCO-7.5 PO PRN ×3 (03:27→21:15)
[2018-11-07] MEDS: DUONEB (A & A) INH SCH ×4 (03:50→21:46)
[2018-11-07 06:00] LABS: HEMATOCRIT 36.6 % (42.0-52.0); HEMOGLOBIN 11.4 g/dL (14.0-18.0); MCH 27.5 PG (27-31); MCHC 31.1 g/dL (33-37); MCV 88.2 FL (81-99); MPV 9.7 FL (7.4-10.4); RBC 4.15 XMIL (4.7-6.1); RDW 17.5 % (11.5-14.5); WBC 6.78 X1000 (4.8-10.8)
[2018-11-07] MEDS: LACTULOSE PO SCH ×4 (06:13→23:58)
[2018-11-07] MEDS: PRILOSEC PO SCH (06:14)
[2018-11-07] MEDS: MAXIPIME 1 GM in NS 50 ML IV SCH ×2 (06:14→18:09)
[2018-11-07] MEDS: HUMULIN R SUBQ SCH ×4 (06:34→21:18)
[2018-11-07 06:47] LABS: CALCIUM 9.5 mg/dL (8.8-10.2); CREATININE 3.5 mg/dL (0.7-1.2); POTASSIUM 3.7 mmol/L (3.5-5.1)
[2018-11-07] MEDS: ZYVOX 600 MG/D5W 600 MG/300 ML IVPB IV SCH ×2 (09:01→21:17)
[2018-11-07] MEDS: MIRALAX PO SCH ×2 (09:04→21:16)
[2018-11-07] MEDS: APRESOLINE PO SCH ×3 (09:05→16:43)
[2018-11-07] MEDS: TOPROL XL PO SCH ×2 (09:05→21:15)
[2018-11-07] MEDS: LASIX PO SCH ×2 (09:06→21:15)
[2018-11-07] MEDS: KLONOPIN PO PRN (09:06)
[2018-11-07] MEDS: ZYLOPRIM PO SCH (09:06)
[2018-11-07] MEDS: ASPIRIN EC PO SCH (09:06)
[2018-11-07] MEDS: FLOMAX PO SCH (09:06)
[2018-11-07] MEDS: BASAGLAR SUBQ SCH ×2 (09:06→21:15)
[2018-11-07] MEDS: NORVASC PO SCH (09:06)
[2018-11-07] MEDS: ADVAIR 250/50 DISKUS INH SCH ×2 (09:17→21:47)
[2018-11-07] MEDS: MYCOLOG CREAM TOP SCH ×2 (11:01→21:24)
--- NOTE | 2018-11-07 11:44 | PROGRESS NOTE ---
DATE: 11/07/2018 SUBJECTIVE: The patient is resting comfortably in bed. He has no complaints. OBJECTIVE: Vital Signs: Temperature 97.8 degrees, blood pressure 158/75, heart rate 69, respirations 16, oxygen saturation 98% on 4 L nasal cannula. General: This is a morbidly obese male, lying in bed, in no acute distress. Heart: S1, S2 normal. Regular rate and rhythm. Lungs: Equal air entry bilaterally. Diminished breath sounds at the bases. Abdomen: Positive bowel sounds. Soft, obese, nontender, nondistended. Extremities: No edema, no cyanosis. Neurologic: The patient is alert and oriented x3. LABS: Hemoglobin 11, hematocrit 36, platelets 232,000. Sodium 140, potassium 3.7, chloride 98, CO2 29, BUN 49, creatinine 3.5. ASSESSMENT AND PLAN: 1. Pneumonia. Continue on cefepime and Zyvox. 2. Syncope. Resolved. 3. Labile hypertension. Continue on the current antihypertensive regimen. 4. Chronic kidney disease stage 4. Stable. 5. Chronic diastolic congestive heart failure. Stable. 6. Cor pulmonale. Aware. 7. Diabetes mellitus type 2. Continue on the current insulin regimen. 8. Chronic obstructive pulmonary disease. Continue on bronchodilator therapy and supplemental oxygen. 9. Benign prostatic hypertrophy. Continue on Flomax. 10. Anxiety disorder. Continue on Klonopin. cc: Charissa Zhang MD
--- NOTE | 2018-11-07 14:42 | CARDIOLOGY PROGRESS NOTE ---
DATE: 11/07/2018 SUBJECTIVE: Mr. La reports he is doing well today. He has no complaints. His CT scan from the demonstrated a left upper lobe bronchopneumonia. PHYSICAL EXAMINATION: Vital Signs: He is afebrile. His heart rate is 70. His blood pressure is 146/83. General: He is in no acute distress. Cardiovascular: He sounds to be in a regular rate and rhythm with somewhat distant heart sounds. Warm and well perfused lower extremities. Chest: His chest exam is clear bilaterally. No increased work of breathing. Abdomen: Soft, nontender, nondistended. No obvious organomegaly. LAB DATA: Shows a white count of 6.7, hematocrit 36, platelet count 232,000. Sodium is 140, potassium 3.7, BUN 49, creatinine 3.5, which is relatively stable. ASSESSMENT: Mr. La is a 63-year-old gentleman will chronic kidney disease, obstructive sleep apnea and diastolic failure. PLAN: I have no acute recommendations from a cardiovascular standpoint. At this point, please contact us if we can be of further assistance. cc: Elijah Abdullahi MD
[2018-11-07] MEDS: SINGULAIR PO SCH (21:16)
[2018-11-07] MEDS: LIPITOR PO SCH (21:16)
[2018-11-07] MEDS: KLONOPIN PO SCH (21:27)
[2018-11-08] MEDS: DUONEB (A & A) INH SCH ×4 (03:30→23:15)
[2018-11-08] MEDS: LACTULOSE PO SCH ×5 (06:00→23:17)
[2018-11-08 06:08] LABS: HEMATOCRIT 34.8 % (42.0-52.0); HEMOGLOBIN 10.8 g/dL (14.0-18.0); MCH 27.3 PG (27-31); MCV 88.1 FL (81-99); MPV 9.4 FL (7.4-10.4); RBC 3.95 XMIL (4.7-6.1); RDW 17.4 % (11.5-14.5); WBC 6.82 X1000 (4.8-10.8)
[2018-11-08] MEDS: MAXIPIME 1 GM in NS 50 ML IV SCH ×4 (06:23→19:44)
[2018-11-08] MEDS: PRILOSEC PO SCH (06:24)
[2018-11-08] MEDS: HUMULIN R SUBQ SCH ×3 (06:24→21:31)
[2018-11-08 06:38] LABS: CALCIUM 8.3 mg/dL (8.8-10.2); CREATININE 3.8 mg/dL (0.7-1.2); POTASSIUM 3.3 mmol/L (3.5-5.1)
[2018-11-08] MEDS ORDERED: HUMALOG SUBQ SCH (07:00)
[2018-11-08] MEDS ORDERED: KLOR-CON PO ONE ×2 (08:00→16:30)
[2018-11-08] MEDS: ADVAIR 250/50 DISKUS INH SCH ×2 (09:32→23:15)
[2018-11-08] MEDS: FLOMAX PO SCH (10:26)
[2018-11-08] MEDS: ASPIRIN EC PO SCH (10:26)
[2018-11-08] MEDS: APRESOLINE PO SCH ×3 (10:26→19:48)
[2018-11-08] MEDS: NORVASC PO SCH (10:26)
[2018-11-08] MEDS: ZYLOPRIM PO SCH (10:27)
[2018-11-08] MEDS: BASAGLAR SUBQ SCH ×2 (10:27→21:33)
[2018-11-08] MEDS: MIRALAX PO SCH ×2 (10:27→21:32)
[2018-11-08] MEDS: TOPROL XL PO SCH ×2 (10:27→21:32)
[2018-11-08] MEDS: ZYVOX 600 MG/D5W 600 MG/300 ML IVPB IV SCH ×2 (10:32→21:33)
--- NOTE | 2018-11-08 15:17 | PROGRESS NOTE ---
DATE: 11/08/2018 SUBJECTIVE: The patient states that he feels sleepy this morning. Otherwise, he has no other complaints. OBJECTIVE: Vital Signs: Temperature 97.6 degrees, blood pressure 145/59, heart rate 71, respirations 16, O2 saturation is 100% on 4 L nasal cannula. General: This is a morbidly obese male lying in bed, in no acute distress. Head: Normocephalic, atraumatic. Heart: S1, S2 normal. Regular rate and rhythm. Lungs: Equal air entry bilaterally. Diminished breath sounds at the bases. Abdomen: Positive bowel sounds. Soft, obese, nontender, nondistended. Extremities: No edema. No cyanosis. No calf tenderness. Neurologic: The patient is alert and oriented x4. LABS: White blood cell count 6.8, hemoglobin 10.8, hematocrit 34.8, platelets 208,000. Sodium 142, potassium 3.3, chloride 99, CO2 30, BUN 46, creatinine 3.8, glucose 151, calcium 8.3. ASSESSMENT AND PLAN: 1. Left upper lobe pneumonia. Will order a two-view chest x-ray for tomorrow. Continue with broad-spectrum antibiotic therapy, as well as bronchodilator therapy. 2. Syncope. Resolved. 3. Hypertension. Continue on the current antihypertensive regimen. 4. Chronic kidney disease stage 4. The patient's creatinine is mildly elevated today. We will continue to monitor closely. Will hold the Lasix today. 5. Morbid obesity. Aware. 6. Chronic diastolic congestive heart failure. Stable. 7. Cor pulmonale. Aware. 8. Chronic obstructive pulmonary disease. Stable. Continue with bronchodilator therapy and supplemental oxygen. 9. Diabetes mellitus type 2. Continue with sliding scale insulin and long- acting insulin. 10. Benign prostatic hypertrophy. Continue on Flomax. 11. Anxiety disorder. Continue on Klonopin. 12. Will consult physical therapy. cc: Charissa Zhang MD [facility]
--- NOTE | 2018-11-08 16:08 | Diag Imaging Result Doc PS360 ---
EXAM: ABDOMEN FLAT/UPRIGHT INDICATION: constipation TECHNIQUE: 2 views COMPARISON: 11/10/2017 FINDINGS: There is abundant stool in the colon and rectum suggesting at least moderate constipation. There is no obstructive bowel pattern. There is no evidence of large volume free abdominal gas. IMPRESSION: Suggestion of constipation as described. Electronically signed by Jake Serna 11/08/2018 4:06 PM
[2018-11-08] MEDS: ZOFRAN IV PRN ×2 (16:35→21:35)
[2018-11-08] MEDS: NORCO-7.5 PO PRN (16:35)
[2018-11-08] MEDS: MYCOLOG CREAM TOP SCH ×2 (19:46→21:32)
[2018-11-08] MEDS: SINGULAIR PO SCH (21:32)
[2018-11-08] MEDS: KLONOPIN PO SCH (21:32)
[2018-11-08] MEDS: LIPITOR PO SCH (21:32)
[2018-11-08] MEDS: HEPARIN SUBQ SCH (21:33)
[2018-11-09] MEDS: DUONEB (A & A) INH SCH ×4 (03:30→21:50)
[2018-11-09 06:29] LABS: HEMATOCRIT 36.8 % (42.0-52.0); HEMOGLOBIN 11.3 g/dL (14.0-18.0); MCH 27.5 PG (27-31); MCHC 30.7 g/dL (33-37); MCV 89.5 FL (81-99); MPV 9.6 FL (7.4-10.4); RBC 4.11 XMIL (4.7-6.1); RDW 17.7 % (11.5-14.5); WBC 7.14 X1000 (4.8-10.8)
[2018-11-09] MEDS: MAXIPIME 1 GM in NS 50 ML IV SCH ×2 (06:33→18:46)
[2018-11-09] MEDS: LACTULOSE PO SCH ×5 (06:33→23:04)
[2018-11-09] MEDS: HUMULIN R SUBQ SCH ×6 (06:33→23:08)
[2018-11-09] MEDS: PRILOSEC PO SCH (06:34)
[2018-11-09] MEDS: ZOFRAN IV PRN ×3 (06:50→17:15)
[2018-11-09 07:21] LABS: ALBUMIN 3.9 g/dL (3.5-5.0); CALCIUM 9.5 mg/dL (8.8-10.2); CREATININE 3.5 mg/dL (0.7-1.2); DIRECT BILIRUBIN 0.1 mg/dL (0.00-0.20); POTASSIUM 4.1 mmol/L (3.5-5.1); TOTAL BILIRUBIN 0.34 mg/dL (0.20-1.00); TOTAL PROTEIN 7.9 g/dL (6.3-8.3)
[2018-11-09] MEDS: BASAGLAR SUBQ SCH ×2 (09:34→23:06)
[2018-11-09] MEDS: TOPROL XL PO SCH ×2 (09:40→23:05)
[2018-11-09] MEDS: APRESOLINE PO SCH ×3 (09:40→18:45)
[2018-11-09] MEDS: FLOMAX PO SCH (09:40)
[2018-11-09] MEDS: NORVASC PO SCH (09:41)
[2018-11-09] MEDS: KLONOPIN PO PRN ×2 (09:41→15:13)
[2018-11-09] MEDS ORDERED: INSULIN PEN NEEDLES ONE (09:41)
[2018-11-09] MEDS: ZYLOPRIM PO SCH (09:41)
[2018-11-09] MEDS: HEPARIN SUBQ SCH ×2 (09:41→23:05)
[2018-11-09] MEDS: MIRALAX PO SCH ×2 (09:43→23:05)
[2018-11-09] MEDS: ASPIRIN EC PO SCH (09:46)
[2018-11-09] MEDS: MYCOLOG CREAM TOP SCH ×2 (09:48→23:09)
[2018-11-09] MEDS: ZYVOX 600 MG/D5W 600 MG/300 ML IVPB IV SCH ×2 (09:49→23:07)
[2018-11-09] MEDS: ADVAIR 250/50 DISKUS INH SCH ×2 (10:06→21:50)
--- NOTE | 2018-11-09 10:48 | Diag Imaging Result Doc PS360 ---
EXAM: CHEST-1 VIEW 11/09/2018 HISTORY: SYNCOPE TECHNIQUE: AP upright portable at 1030 COMMENT: The appearance of the chest has not changed significantly since 11/06/2018. IMPRESSION: Stable chest. Electronically signed by Jason Bernstein 11/09/2018 10:46 AM
--- NOTE | 2018-11-09 12:50 | PROGRESS NOTE ---
DATE: 11/09/2018 SUBJECTIVE: The patient reports feeling better, no SOB but he reports feeling nauseated and it has been for a long period of time. OBJECTIVE: Vital Signs: Temperature 99.6 degrees, heart rate 88, respiratory rate 20, blood pressure 142/52, O2 saturation 99% on 4 L nasal cannula. General Examination: This is a chronically ill-looking, morbidly obese, 63-year-old male, lying in bed, in no acute. HEENT: Head is normocephalic, atraumatic. Neck: No JVD noted. No carotid bruits. Cardiovascular: S1, S2 heard. No murmurs, gallops, or rubs. Regular rate and rhythm. Respiratory: Decreased air entry globally, mostly noted in both bases. Patient is not using any accessory muscles or having work of breathing. Abdomen: Soft. Distended. Nontender to palpation. Bowel sounds present. No organomegaly. Extremities: No clubbing, cyanosis, or edema. Peripheral pulses present in both legs. Neurological: Patient is alert and oriented x3. Moves 4 extremities. LABORATORY DATA: CBC and BMP unremarkable. Blood sugar 112. ASSESSMENT AND PLAN: 1. Left upper lobe pneumonia. X-ray from today showed no changes. We will continue with Zyvox and cefepime, day #3 for both medications. 2. Syncope, resolved. 3. Hypertension. Blood pressure is under control. We will continue with same management. 4. Chronic kidney disease stage 4. Creatinine is at his baseline. We will continue with the same management. 5. Chronic diastolic congestive heart failure. Patient is on home medications. We will continue with the same management. 6. Chronic obstructive pulmonary disease, not in exacerbation. We will continue with breathing treatments as needed. 7. Diabetes mellitus type 2. We will continue with sliding scale insulin and Accu-Cheks before meals and also at bedtime. We are going to check hemoglobin A1c as well. 8. Benign prostatic hypertrophy. We will continue with Flomax. 9. Physical deconditioning. Physical therapy is working with this patient. 10. Recurrent nausea. I think this patient could have gastroparesis considering his history of diabetes, not well controlled. At this point, we are going to order a gastric emptying study and we will see what it shows. cc: MD JIM Benoit
[2018-11-09 12:52] LABS: HEMOGLOBIN A1C 8.9 % (4.8-6.0)
[2018-11-09] MEDS: SINGULAIR PO SCH (23:05)
[2018-11-09] MEDS: LIPITOR PO SCH (23:34)
[2018-11-09] MEDS: NORCO-7.5 PO PRN (23:35)
[2018-11-09] MEDS: KLONOPIN PO SCH (23:35)
[2018-11-10] MEDS: DUONEB (A & A) INH SCH ×4 (03:25→23:17)
[2018-11-10] MEDS: LACTULOSE PO SCH ×5 (05:53→23:38)
[2018-11-10 06:27] LABS: HEMATOCRIT 32.3 % (42.0-52.0); HEMOGLOBIN 10.1 g/dL (14.0-18.0); MCH 27.9 PG (27-31); MCHC 31.3 g/dL (33-37); MCV 89.2 FL (81-99); MPV 9.7 FL (7.4-10.4); RBC 3.62 XMIL (4.7-6.1); RDW 17.3 % (11.5-14.5); WBC 6.21 X1000 (4.8-10.8)
[2018-11-10] MEDS: HUMULIN R SUBQ SCH ×3 (06:30→18:15)
[2018-11-10] MEDS: PRILOSEC PO SCH (06:31)
[2018-11-10] MEDS: MAXIPIME 1 GM in NS 50 ML IV SCH (06:31)
[2018-11-10 06:59] LABS: CALCIUM 8.7 mg/dL (8.8-10.2); CREATININE 3.2 mg/dL (0.7-1.2); POTASSIUM 3.6 mmol/L (3.5-5.1)
[2018-11-10] MEDS: ADVAIR 250/50 DISKUS INH SCH ×2 (10:09→23:17)
[2018-11-10] MEDS: BASAGLAR SUBQ SCH (10:40)
[2018-11-10] MEDS: APRESOLINE PO SCH ×3 (10:40→16:50)
[2018-11-10] MEDS: ZYVOX 600 MG/D5W 600 MG/300 ML IVPB IV SCH ×2 (10:40→20:55)
[2018-11-10] MEDS: NORVASC PO SCH (10:40)
[2018-11-10] MEDS: MIRALAX PO SCH ×2 (10:41→21:36)
[2018-11-10] MEDS: TOPROL XL PO SCH ×2 (10:41→20:55)
[2018-11-10] MEDS: ASPIRIN EC PO SCH (10:41)
[2018-11-10] MEDS: HEPARIN SUBQ SCH ×2 (10:41→20:55)
[2018-11-10] MEDS: ZYLOPRIM PO SCH (10:41)
[2018-11-10] MEDS: FLOMAX PO SCH (10:42)
[2018-11-10] MEDS: ZOFRAN IV PRN ×2 (12:56→21:26)
[2018-11-10] MEDS: NORCO-7.5 PO PRN ×2 (14:53→21:26)
--- NOTE | 2018-11-10 15:47 | PROGRESS NOTE ---
DATE: 11/10/2018 SUBJECTIVE: Patient reports continuing to be nauseated. Even smelling food makes him feel sick. He is breathing better though. OBJECTIVE: Vital Signs: Temperature 98.0, heart rate 66, respiratory rate 16, blood pressure 154/80, O2 sat 99% on 2 L nasal cannula. General: This is a chronically ill- looking, morbidly obese 63-year-old male lying in bed in no acute distress. Cardiovascular: S1, S2 heard. No murmurs, gallops or rubs. Regular rate and rhythm. Respiratory: Clear bilaterally to auscultation. No work of breathing or using accessory muscles. Abdomen: Soft , nontender to palpation. Bowel sounds. No organomegaly. Extremities: Cyanosis. Mild edema in both lower extremities. Neurologic: Patient alert oriented x 3. Moves 4 extremities. LABORATORY DATA: Reviewed. ASSESSMENT AND PLAN: 1. Left upper lobe pneumonia. Patient is on Zyvox and cefepime, day #4 for both medications. Clinically, he is doing fine using oxygen at the same rate that he is using at home. We will continue with the same management. 2. Recurrent nausea and vomiting. We are going to do gastric emptying studies to confirm our suspicions which is diabetic gastroparesis. 3. Chronic kidney disease stage IV. Creatinine at baseline. We will continue with same management. 4. COPD. Patient is not in exacerbation. We will provide breathing treatment as needed. 5. Diabetes mellitus type 2. We will continue with sliding scale insulin. Accu -Chek performed before meals and also at bedtime. 6. Disposition: I think if this patient is better after the procedure and we confirm his diagnosis and we start Reglan on this patient, if that is okay we can discharge him day after tomorrow. cc: Ric Keith MD [facility]TDD
[2018-11-10] MEDS ORDERED: INSULIN PEN NEEDLES ONE (20:52)
[2018-11-10] MEDS: LIPITOR PO SCH (20:55)
[2018-11-10] MEDS: KLONOPIN PO SCH (20:55)
[2018-11-10] MEDS: SINGULAIR PO SCH (20:55)
[2018-11-11] MEDS: MYCOLOG CREAM TOP SCH ×3 (00:27→22:48)
[2018-11-11] MEDS: ZYVOX 600 MG/D5W 600 MG/300 ML IVPB IV SCH ×2 (00:27→15:29)
[2018-11-11] MEDS: HUMULIN R SUBQ SCH ×5 (00:28→22:49)
[2018-11-11] MEDS: BASAGLAR SUBQ SCH ×3 (00:28→22:56)
[2018-11-11] MEDS: DUONEB (A & A) INH SCH ×4 (03:59→21:10)
[2018-11-11] MEDS: MAXIPIME 1 GM in NS 50 ML IV SCH (06:09)
[2018-11-11] MEDS: LACTULOSE PO SCH ×6 (08:07→22:50)
[2018-11-11] MEDS: PRILOSEC PO SCH (08:09)
[2018-11-11] MEDS: APRESOLINE PO SCH ×4 (08:41→18:17)
--- NOTE | 2018-11-11 14:40 | Diag Imaging Result Doc PS360 ---
EXAM: GASTRIC EMPTYING HISTORY: recurrent vomiting. Long history of DM TECHNIQUE: Nuclear medicine gastric emptying exam COMPARISON: None. FINDINGS: 525 uCi of sulfur colloid taken with an egg. Imaging for two hours obtained. T1/2 is calculated to be 56 minutes. This falls within the normal range. IMPRESSION: Normal gastric emptying. Electronically signed by Jordan Madera 11/11/2018 2:37 PM
[2018-11-11] MEDS: MIRALAX PO SCH ×2 (15:11→21:27)
[2018-11-11] MEDS: ADVAIR 250/50 DISKUS INH SCH ×2 (15:15→21:10)
[2018-11-11] MEDS: NORCO-7.5 PO PRN (15:29)
[2018-11-11] MEDS: NORVASC PO SCH (15:30)
[2018-11-11] MEDS: HEPARIN SUBQ SCH ×2 (15:30→21:28)
[2018-11-11] MEDS: VITAMIN D PO SCH (15:30)
[2018-11-11] MEDS: FLOMAX PO SCH (15:30)
[2018-11-11] MEDS: ZYLOPRIM PO SCH (15:30)
[2018-11-11] MEDS: TOPROL XL PO SCH ×2 (15:30→21:28)
[2018-11-11] MEDS: ASPIRIN EC PO SCH (15:30)
[2018-11-11] MEDS: SINGULAIR PO SCH (21:27)
[2018-11-11] MEDS: LIPITOR PO SCH (21:28)
[2018-11-11] MEDS: KLONOPIN PO SCH (21:38)
[2018-11-12] MEDS: DUONEB (A & A) INH SCH ×2 (03:45→11:28)
--- NOTE | 2018-11-12 04:19 | PROGRESS NOTE ---
DATE: 11/11/2018 SUBJECTIVE: Patient seen. Notes that overall he is starting to feel a little bit better. Still having some fatigue and some nausea but states that the nausea is improving. Still having a cough but nonproductive. PHYSICAL EXAMINATION: Vital Signs: Temperature 98.3, pulse 63, respiratory rate 18, BP 168/71. General: The patient is awake and alert. He is currently ill-appearing but no current respiratory distress. HEENT: Normocephalic. Neck: Supple. Cardiovascular: Regular rate. No murmurs. Respiratory: No apparent crackles. Chest clear and unlabored. No wheezing. Abdomen: Soft, nondistended, nontender. Extremities: Moves all extremities. ASSESSMENT: 1. Left upper lobe pneumonia. 2. Recurrent nausea and vomiting. Gastric emptying studies are pending. 3. Chronic kidney disease. 4. Chronic obstructive pulmonary disease. 5. Diabetes. PLAN: We will continue Zyvox and cefepime. Continue to follow. We will adjust blood sugar medications. Further orders as needed. cc: Thanh Livingston MD
[2018-11-12] MEDS: ZYVOX 600 MG/D5W 600 MG/300 ML IVPB IV SCH (04:45)
[2018-11-12] MEDS: NORCO-7.5 PO PRN (04:46)
[2018-11-12] MEDS: PRILOSEC PO SCH ×2 (05:00→08:51)
[2018-11-12] MEDS: LACTULOSE PO SCH ×2 (05:03→12:01)
[2018-11-12 06:23] LABS: HEMATOCRIT 32.5 % (42.0-52.0); HEMOGLOBIN 10.1 g/dL (14.0-18.0); MCH 27.5 PG (27-31); MCHC 31.1 g/dL (33-37); MCV 88.6 FL (81-99); MPV 9.9 FL (7.4-10.4); RBC 3.67 XMIL (4.7-6.1); RDW 17.2 % (11.5-14.5); WBC 5.89 X1000 (4.8-10.8)
[2018-11-12 06:45] LABS: ALB/GLOB RATIO 0.8; ALBUMIN 3.4 g/dL (3.5-5.0); CALCIUM 8.9 mg/dL (8.8-10.2); CREATININE 3.1 mg/dL (0.7-1.2); MAGNESIUM 2.6 mg/dL (1.5-2.7); POTASSIUM 3.7 mmol/L (3.5-5.1); TOTAL BILIRUBIN 0.3 mg/dL (0.20-1.00); TOTAL PROTEIN 7.8 g/dL (6.3-8.3)
[2018-11-12] MEDS: MAXIPIME 1 GM in NS 50 ML IV SCH (07:57)
[2018-11-12] MEDS: HUMULIN R SUBQ SCH ×2 (08:52→12:01)
[2018-11-12] MEDS: HEPARIN SUBQ SCH (09:18)
[2018-11-12] MEDS: BASAGLAR SUBQ SCH (09:19)
[2018-11-12] MEDS: TOPROL XL PO SCH (09:19)
[2018-11-12] MEDS: FLOMAX PO SCH (09:19)
[2018-11-12] MEDS: ASPIRIN EC PO SCH (09:20)
[2018-11-12] MEDS: NORVASC PO SCH (09:20)
[2018-11-12] MEDS: ZYLOPRIM PO SCH (09:20)
[2018-11-12] MEDS: APRESOLINE PO SCH ×2 (09:20→12:15)
[2018-11-12] MEDS: MIRALAX PO SCH (09:24)
[2018-11-12] MEDS: MYCOLOG CREAM TOP SCH (09:36)
[2018-11-12] MEDS: ADVAIR 250/50 DISKUS INH SCH (11:30)
[2018-11-12] MEDS: KLONOPIN PO PRN (12:15)
[2018-11-12 15:13] VITALS: BP 183/138
--- NOTE | 2018-11-12 18:33 | DISCHARGE SUMMARY ---
ADMISSION DATE: 11/03/2018 DISCHARGE DATE: 11/12/2018 DISCHARGE DIAGNOSES: 1. Syncope, resolved. 2. Diabetes mellitus type 2. 3. Left upper lobe pneumonia. 4. Recurrent nausea and vomiting, resolved. 5. Chronic kidney disease stage IV, stable. 6. Chronic obstructive pulmonary disease. 7. Diabetes mellitus type 2.. CONSULTATIONS: Dr. Leggett from Cardiology. PROCEDURES: 1. Head CT showed no acute disease or change from prior. 2. Chest x-ray on admission showed cardiomegaly and pulmonary vascular congestion. 3. Brain MRI showed suggestion of mild white matter microangiopathy, but no evidence of acute intracranial pathology. 4. Brain MRA was unremarkable. 5. Carotid Doppler study showed very minimal atherosclerotic changes noted bilaterally. 6. CT of the thorax showed left upper lobe bronchopneumonia. 7. Gastric emptying studies showed normal gastric emptying. HOSPITAL COURSE: This is a 63-year-old male very well known to our service who apparently was admitted to the hospital because he passed out. When he woke up he was complaining of his ears with buzzing and left-sided headaches so he was admitted to the hospital for evaluation of syncope. Blood pressure was also low and we know that this patient also has history of polypharmacy. All the workup done as we mentioned above including MRI and MRA of the brain and carotid Doppler ultrasound was negative. He was having also for pronounced cough and the CT of the chest confirmed left bronchopneumonia, so he was started on cefepime and Zyvox. Apparently, he was complaining of some nausea related to this medication, but because of his long-term diabetes I prefer to do gastric emptying studies to rule out any gastroparesis, but the exam was completely normal. Considering he is breathing better, no complaint of any nausea or abdominal pain the patient is going to be discharged in stable condition with oral antibiotics. He is supposed to see his primary care physician in a week. DISCHARGE PHYSICAL EXAMINATION: Vital Signs: Temperature 98.2, heart rate 64, respiratory rate 20, blood pressure 152/67, O2 saturation 98% on 4 L nasal cannula. General: This is a chronically ill-looking and morbidly obese 63-year-old male, lying in bed in no acute distress. HEENT: Head is normocephalic, atraumatic. Neck: No JVD noted. No carotid bruits. No lymphadenopathy. No thyromegaly. Cardiovascular: S1, S2 heard. No murmurs , gallops or rubs. Regular rate and rhythm. Respiratory: Minimal coarse breath sounds in both bases. Patient not using any accessory muscles or having work of breathing. Abdomen: Soft, nontender to palpation. Bowel sounds present. No organomegaly. Extremities: No clubbing, cyanosis. Peripheral pulses present. Edema 1+ in both lower extremities. Neurologic: Patient is alert and oriented x 3. Moves 4 extremities. DISCHARGE DISPOSITION: Home to self-care. MEDICATIONS: 1. Cefuroxime 500 mg 1 tablet p.o. b.i.d. for a week. 2. Vitamin D 50,000 units oral per week. 3. DuoNeb every 4 hours as needed. 4. Potassium chloride 10 mEq 1 tablet p.o. daily. 5. Aspirin 81 mg 1 tablet p.o. daily. 6. Allopurinol 100 mg 1 tablet p.o. daily. 7. Atorvastatin 40 mg 1 tablet p.o. at bedtime. 8. Advair 250/50 one puff by inhalation twice daily. 9. Montelukast 10 mg 1 tab p.o. daily. 10. Clonidine 0.2 mg p.o. 3 times per day. 11. Metoprolol 50 mg 1 tablet p.o. b.i.d. 12. Isordil 60 mg 1 tablet p.o. 3 times per day. 13. Amlodipine 10 mg 1 tablet p.o. daily. 14. Lasix 80 mg p.o. b.i.d. 15. Hydralazine 100 mg p.o. 3 times per day. 16. Amlodipine 5 mg 1 tablet p.o. daily. 17. Flomax 0.4 mg 1 tablet p.o. daily. 18. Clonazepam 2 mg 1 tablet p.o. at bedtime. 19. Lantus 120 mg subcutaneous twice daily. TIME SPENT: Time to discharge the patient is 33 minutes. cc: MD JIM Benoit
== END 2018-11-12 16:54 | disposition home or self-care (01) | DRG 312 ==
LOC: ED 14:06 → SUATTDRO 18:36 → 4N 18:36 → EDIPHOLD 18:49 → 4N 21:13
PROVIDERS: ATTEND Internal Medicine
CPT/HCPCS: 36415; 70450; 70544; 70551; 71010; 71020; 71045; 71046; 71250; 74019; 74020; 78264; 80048; 80053; 80076; 81001; 82306; 82550; 82553; 82948; 83036; 83735; 83880; 84145; 84484; 85025; 85027; 85610; 85730; 93005; 93010; 93880; 94640; 94761; 94799; 96372; 99285; A9270; A9541; J0692; J1644; J1815; J2020; J2405; XXXXX

== ENCOUNTER 2018-11-23 22:45 | Inpatient (IN) ==
[2018-11-23] MEDS ORDERED: MORPHINE IV ONE (22:57)
[2018-11-23] MEDS ORDERED: NITROGLYCERIN TOP ONE (22:57)
[2018-11-23 23:20] LABS: BASO# 0.04 X1000 (0.0-0.2); BASO% 0.5 % (0.0-0.8); EOS% 1.3 % (0.0-10.0); HEMATOCRIT 34.3 % (42.0-52.0); HEMOGLOBIN 10.8 g/dL (14.0-18.0); IMM GRAN# 0.02 X1000 (0.0-0.04); IMM GRAN% 0.3 % (0.0-0.5); LYMPH# 1.41 X1000 (1.2-3.4); LYMPH% 18.1 % (20.5-51.1); MCH 27.4 PG (27-31); MCHC 31.5 g/dL (33-37); MCV 87.1 FL (81-99); MONO# 0.72 X1000 (0.11-0.59); MONO% 9.3 % (1.7-9.3); MPV 10.6 FL (7.4-10.4); NEUT# 5.48 X1000 (1.4-6.5); NEUT% 70.5 % (42.2-75.2); PLT 209 X1000 (130-400); RBC 3.94 XMIL (4.7-6.1); RDW 17.5 % (11.5-14.5); WBC 7.77 X1000 (4.8-10.8)
[2018-11-23 23:48] LABS: ALB/GLOB RATIO 1.1; ALBUMIN 3.7 g/dL (3.5-5.0); CALCIUM 8.6 mg/dL (8.8-10.2); CREATININE 3.2 mg/dL (0.7-1.2); POTASSIUM 4.2 mmol/L (3.5-5.1); TOTAL BILIRUBIN 0.19 mg/dL (0.20-1.00)
[2018-11-24] MEDS ORDERED: LASIX IV ONE ×2 (00:33→01:25)
[2018-11-24] MEDS ORDERED: HUMULIN R IV ONE (00:33)
--- NOTE | 2018-11-24 01:07 | PROVIDER DOCUMENTATION ---
This chart was entered by Kevin Rodriguez Scribe, acting as scribe for Ryanne Shrestha MD. HPI-Chest Pain - General Chief Complaint: Chest Pain Stated Complaint: cp Time Seen by Provider: 11/23/18 22:46 Source: patient Allergies/Adverse Reactions: Patient Allergies Allergy/AdvReac Type Severity Reaction Status Date / Time ketorolac tromethamine * Allergy Mild RASH Verified 10/14/18 16:54 [From Toradol] levofloxacin Allergy Mild SHORTNESS Verified 10/14/18 16:54 OF BREATH almond Allergy Unknown Verified 10/14/18 16:54 doxazosin mesylate * Allergy SHORTNESS Verified 10/14/18 16:54 [From Cardura] OF BREATH ibuprofen [From Motrin] Allergy FLUSHING Verified 10/14/18 16:54 Home Medications: Home Medication List Medication Instructions Recorded Confirmed Last Taken Type Aspirin [Ecotrin] 81 mg PO QAM 12/11/14 11/03/18 10/14/18 History Potassium Chloride 10 meq PO QAM 12/11/14 11/03/18 10/14/18 History ATORVAstatin [Lipitor] 40 mg PO QHS #90 tab 12/19/17 11/03/18 10/14/18 Rx Allopurinol [Zyloprim] 100 mg PO DAILY #30 tab 12/19/17 11/03/18 10/14/18 Rx Fluticasone/[place] 250/50 INH 1 puff INH RTBID #1 inhaler 12/19/17 11/03/1803/27 Rx [Advair 250/50 Diskus] Montelukast Sodium [Singulair] 10 mg PO QHS #90 tab 12/19/17 11/03/18 10/14/18 Rx Clonidine HCl 0.2 mg PO TID #90 tab 01/10/18 11/03/18 10/14/18 Rx Isosorbide Dinitrate [Isordil] 60 mg PO TID 04/30/18 11/03/18 10/14/18 History Metoprolol Succinate E.r. [Toprol 50 mg PO BID 04/30/18 11/03/18 10/14/18 History Xl] [place]-3 Fatty Acids/Fish Oil [Fish 1 each PO DAILY 04/30/18 11/03/18 10/14/18 History Oil 1,000 mg Softgel] Clobetasol Propionate 1 each TOP BID 05/11/18 11/03/18 10/14/18 History Clonazepam [Klonopin] 0.5 mg PO QAM 05/11/18 11/03/18 10/14/18 History Folic Acid 1 mg PO DAILY #90 tab 08/26/18 11/03/18 10/14/18 Rx Amlodipine [Norvasc] 10 mg PO DAILY 30 Days #30 tab 09/19/18 11/03/18 10/14/18 Rx Furosemide [Lasix] 80 mg PO BID #90 tab 09/19/18 11/03/18 10/14/18 Rx Hydralazine [Apresoline] 100 mg PO TID #120 tab 09/19/18 11/03/18 10/14/18 Rx Hydrocodone/Acetaminophen 7.5 mg PO BID 10 Days #20 tab 09/19/18 11/03/18 Rx [Hydrocodone-Acetamin 7.5-325] Tamsulosin [Flomax] 0.4 mg PO DAILY capsule 10/16/18 11/03/18 Unknown Rx Clonazepam 2 tab PO QHS 11/03/18 11/03/18 Unknown History Insulin Glargine [Lantus] 120 unit SUBQ BID 11/03/18 11/03/18 Unknown History Insulin NPH Hum/Reg Insulin Hm 35 unit SQ DIRECTED 11/03/18 11/03/18 Unknown History [Humulin 70/30 Kwikpen] Albuterol 2.5MG/Ipratrop 0.5MG 3 ml INH Q4H PRN PRN neb 11/12/18 Unknown Rx [Duoneb (A & A)] Cefuroxime Axetil [Cefuroxime] 500 mg PO BID #14 tab 11/12/18 Unknown Rx Ergocalciferol (Vitamin D2) 50,000 unit PO Q7D capsule 11/12/18 Unknown Rx [Vitamin D] - History of Present Illness-CP Nature of Presenting Problem: Pt is a 63 y/o m presents to the ED with chest pain that began around noon with SOB. He reports a pounding heart beat and pressure like sensation in his chest. With this had had dyspnea and diaphoresis. No cough, no fever, no recent illness. No pedal edema Pt wears 4L of O2 at home. Pt reports an extensive cardiac hx with stents. Location: reports: substernal Chest Pain Radiation: reports: back Quality of Pain: reports: aching Severity in ED: moderate Onset/Duration: this afternoon Timing: still present Context/Activities at Onset: reports: none Modifying Factors: improves with: nothing Associated Symptoms: reports: denies symptoms Aspirin Treatment Today: 325 mg x 1, provided by EMS Prior Chest Pain/Cardiac Workup: reports: cardiac cath Similar Symptoms Previously?: Yes Recently Seen Here or By Another Healthcare Provider: Yes Review of Systems - Adult - REVIEW OF SYSTEMS - ADULT Constitutional: denies: chills, fever Eyes: reports: no symptoms reported Ears, Nose, Mouth & Throat: reports: no symptoms reported Cardiovascular: reports: chest pain, palpitations. denies: edema Respiratory: reports: cough, shortness of breath Gastrointestinal: reports: no symptoms reported Genitourinary: reports: no symptoms reported Musculoskeletal: reports: no symptoms reported Integumentary: reports: no symptoms reported Neurological: reports: no symptoms reported Psychiatric: reports: no symptoms reported Endocrine: reports: no symptoms reported Hematologic/Lymphatic: reports: no symptoms reported Allergic/Immunologic: reports: no symptoms reported All Other Systems: Reviewed and Negative Past History - Adult - PAST MEDICAL HISTORY-ADULT Review of Records: reports: Old Records Reviewed, Nursing Assessment Review, Medications Reviewed Major Childhood Illnesses: reports: history unknown Cardiovascular: reports: CHF (ECHO 08/2015 EF 55% ), HTN, hyperlipidemia, [place] Respiratory: reports: asthma, COPD (severe on 4liters O2 qHS) Gastrointestinal: reports: GERD Obstetrical/Gynecological: reports: denies history Genitourinary: reports: kidney disease (CRI) Musculoskeletal: reports: arthritis, chronic pain Neurological: reports: denies history Psychiatric: reports: anxiety Endocrine/Immune: reports: Diabetes Other Conditions: reports: denies history - PRIOR SURGERIES/PROCEDURES Surgical/Procedure History: reports: cardiac stent (x2 last one 7 years ago), orthopedic (extremity) (thumb) - IMMUNIZATION STATUS Childhood Immunizations: See Nurse Assessment Flu Vaccine: See Nurse Assessment - FAMILY HISTORY Family History: reviewed, not pertinent - SOCIAL HISTORY Smoking: cigarettes, greater than 1 pack/day Substance Use: none/never Living Situation: family Physical Exam-General - PHYSICAL EXAM-ADULT Initial Vital Signs Reviewed: Yes - CONSTITUTIONAL General Appearance: alert, no apparent distress, obese, other (poor hygiene) - EYES Eyes: PERRL/EOMI, pink conjunctivae - HEAD, EARS, NOSE, MOUTH & THROAT HENMT: moist mucous membranes, pharynx normal - NECK Neck: non-tender, full range of motion, supple, normal inspection - RESPIRATORY Respiratory: lungs clear, normal breath sounds, no pleuratic chest pain, no respiratory distress, no accessory muscle use - CARDIOVASCULAR Cardiovascular: normal peripheral pulses, regular rate, rhythm - GASTROINTESTINAL (ABDOMEN) Abdominal Exam: non tender, soft - MUSCULOSKELETAL Back Exam: normal inspection, no CVA tenderness, no vertebral tenderness Extremity: normal range of motion, non-tender, normal gait, normal inspection, pedal edema - SKIN Integumentary: normal color, normal turgor, warm/dry - NEUROLOGIC Neurologic: grossly normal, no motor/sensory deficits - PSYCHIATRIC Psych/Mental Status: normal mood/affect, normal thought content, normal thought process, oriented x 3 Progress - PLAN OF CARE/RESULTS Progress/Plan/Lab Results: Vital Signs - 8 hr 11/23/18 22:55 Temperature 98.1 F Pulse Rate 70 Respiratory Rate 18 Blood Pressure 180/78 O2 Sat by Pulse Oximetry 99 Laboratory Results - last 24 hr 11/23/18 11/23/18 11/23/18 21:06 21:06 21:06 WBC 7.77 RBC 3.94 L Hgb 10.8 L Hct 34.3 L MCV 87.1 MCH 27.4 MCHC 31.5 L RDW Std Deviation 17.5 H Plt Count 209 MPV 10.6 H Immature Gran % (Auto) 0.3 Neut % (Auto) 70.5 Lymph % (Auto) 18.1 L [place] % (Auto) 9.3 Eos % (Auto) 1.3 Baso % (Auto) 0.5 Immature Gran # (Auto) 0.02 Neut # (Auto) 5.48 Lymph # (Auto) 1.41 [place] # (Auto) 0.72 H Eos # (Auto) 0.10 Baso # (Auto) 0.04 Sodium Potassium Chloride Carbon Dioxide Anion Gap BUN Creatinine Estimated GFR/1.73 m2 BUN/Creatinine Ratio Glucose Calculated Osmolality Calcium Total Bilirubin AST ALT Alkaline Phosphatase Troponin T 0.071 Why-F-Zrziiwnmmlf Pept 642 H Total Protein Albumin Globulin Albumin/Globulin Ratio Lipase 11/23/18 21:06 WBC RBC Hgb Hct MCV MCH MCHC RDW Std Deviation Plt Count MPV Immature Gran % (Auto) Neut % (Auto) Lymph % (Auto) [place] % (Auto) Eos % (Auto) Baso % (Auto) Immature Gran # (Auto) Neut # (Auto) Lymph # (Auto) [place] # (Auto) Eos # (Auto) Baso # (Auto) Sodium 138 Potassium 4.2 Chloride 96 L Carbon Dioxide 23 L Anion Gap 19 BUN 63 H Creatinine 3.2 H Estimated GFR/1.73 m2 20 BUN/Creatinine Ratio 20 Glucose 375 H Calculated Osmolality 309 Calcium 8.6 L Total Bilirubin 0.19 L AST 15 ALT 30 Alkaline Phosphatase 149 H Troponin T Avy-Y-Ufmfmbgzvuv Pept Total Protein 7.0 Albumin 3.7 Globulin 3.3 Albumin/Globulin Ratio 1.1 Lipase 61 H Orders Category Date Time Status IV Insertion ORDERED Care 11/23/18 22:57 Completed CHEST-1 VIEW [RAD] Stat Exams 11/23/18 22:57 Taken CBC WITH DIFF [HEME] Stat Lab 11/23/18 21:06 Completed COMPREHENSIVE METABOLIC PANEL [CHEM] Stat Lab 11/23/18 21:06 Completed LIPASE [CHEM] Stat Lab 11/23/18 21:06 Completed PRO B-NATRIURETIC PEPTIDE Stat Lab 11/23/18 21:06 Completed TROPONIN T Stat Lab 11/23/18 21:06 Completed Furosemide [Lasix] Med 11/24/18 00:33 Discontinued 40 mg IV NOW ONE Insulin Human Regular [Humulin R] Med 11/24/18 00:33 Discontinued 8 unit IV NOW ONE Morphine Med 11/23/18 22:57 Discontinued 4 mg IV NOW ONE Nitroglycerin Med 11/23/18 22:57 Discontinued 1 inch TOP NOW ONE chest pain and dyspnea will further evaluate for causes including but not limited to ACS, arrythmia, chf, pna, ptx, gi causes. Result Diagrams: 11/23/18 21:06 11/23/18 21:06 - REASSESSMENT Reassessment #1 Status: improving (feeling better, chest pain improved, mild CHF on CXR and mildly elevated BNP treated wtih lasix and will admit for further evaluation and treatment. Disucssed case with Dr. Carvalho, Hospitalist who will see and admit pt.) - EKG 1 Time of EKG reading by physician:: 23:10 EKG Read and Signed by:: Ryanne Shrestha EKG Interpretation (*Must complete 3 of following elements*): Normal Rate: 68 Rhythm: Sinus with PVC's QRS: RBB (Incomplete) Comments: Borderline ECG - XRAY 1 XRAY Study: Chest (poor inspiratory effort, no infiltrate, no ptx, slight pulmonary vascular congestion, cardiomegally) - CONSULTS/PCP/HOSPITALIST Notification #1 *Consult/PCP/Hospitalist*: Hospitalist- Dr Carvalho Time Discussed: 00:46 Reason/Comments: Review HPI for admission Consult Disposition: Will see in ED Departure - Departure Date of Disposition Decision: 11/24/18 Time of Disposition Decision: 00:55 DIAGNOSIS: Chest pain Qualifiers: Chest pain type: unspecified Qualified Code(s): R07.9 - Chest pain, unspecified CHF (congestive heart failure) Qualifiers: Heart failure type: unspecified Heart failure chronicity: unspecified Qualified Code(s): I50.9 - Heart failure, unspecified Disposition: ADMITTED INPATIENT 09 Certified Medical Emergency: Emergent Condition: Fair Referrals and Follow-Ups: Terrie Judge [Primary Care Provider] - - Critical Care Note This patient required my direct & personal management of CC.: No Attestation - Physician/ KOJO Attestation Patient care was provided by Advanced Practice Provider:: No The physician spent face to face time with patient:: Yes Advanced Practice Provider documentation review:: Supervising physician onsite and consulted in the evaluation and care of this patient. The physician did have a face to face encounter with the patient. This chart was documented by the indicated scribe, (Kevin Rodriguez Scribe) and accurately reflects the services I performed and decisions made by me, Ryanne Shrestha MD, as attested by the provider's signature.
[2018-11-24] MEDS ORDERED: DUONEB (A & A) INH ONE (01:25)
[2018-11-24] MEDS ORDERED: LASIX IV SCH (02:28)
[2018-11-24] MEDS: HEPARIN IV SCH ×3 (02:28→21:18)
[2018-11-24] MEDS ORDERED: TYLENOL PO PRN (02:28)
[2018-11-24] MEDS ORDERED: MORPHINE IV PRN (02:28)
[2018-11-24] MEDS ORDERED: ZOFRAN IV PRN (02:28)
--- NOTE | 2018-11-24 03:52 | HISTORY AND PHYSICAL ---
PRIMARY CARE PHYSICIAN: Terrie Judge MD REASON FOR ADMISSION: Chest pain and shortness of breath which started about 12 hours ago. HISTORY OF PRESENT ILLNESS: Mr Adam La is a 63-year-old man who is well known to our service. He was admitted on 11/03/2018 for a syncope spell and workup was essentially unremarkable. He comes in today complaining of sudden sharp pain, retrosternal , not radiating, associated with palpitations and worsening shortness of breath. He denies any antecedent PND, orthopnea or leg swelling. He says he is taking his home medications, i.e. blood pressure and pain medications appropriately. He says the pain continued to get progressively worse and he called his sister who measured his blood pressure and noticed his blood pressure had got up from his baseline in the 120s systolically ranging to 190s. He decided to come to get this assessed. Since he has been in the ER he has received Lasix, nitroglycerin paste and morphine, and says this has significantly helped his pain, reports only mild dull residual pain. He admits to having a 1-week antecedent history of coughing up whitish thick sputum, but no fever or chills. His exercise tolerance, he says, is slightly worsening. He denies any GI or complaints, no focal neurological complaints. No dizziness. REVIEW OF SYSTEMS: A 12-system review was only positive as per HPI. ALLERGIES: Toradol, Levaquin, almonds, Cardura and ibuprofen. HOME MEDICATIONS: DuoNebs q.4, allopurinol 100 mg daily, Norvasc 10 mg daily, aspirin 81 mg daily, atorvastatin 40 mg at bedtime, clobetasol cream 1 application twice daily , clonazepam 1 mg at bedtime and 0.5 mg in the morning, clonidine 0.2 mg t.i.d., Advair 250/350 one puff b.i.d., folic acid 1 mg daily, Lasix 80 mg b.i.d., hydralazine 100 mg t.i.d., [place] 7.5 mg b.i.d. p.r.n., Lantus 170 mg b.i.d., 70/30 Humulin 35 units as directed, Isordil 60 mg t.i.d., Toprol 60 mg b.i.d., Singulair 10 mg at bedtime, [place]-3 1000 mg daily, omeprazole 40 mg daily, Flomax 0.4 mg daily, potassium chloride 10 mEq daily. PAST SURGICAL HISTORY: He has had carpal tunnel surgery and debridement of infected left hand, stent placement. SOCIAL HISTORY: He lives alone. Smokes 1/2 pack a day. No illicit drug use or alcohol. FAMILY HISTORY: Notable for diabetes and heart disease. LABORATORY WORK: EKG not immediately available for my review, but chest x-ray shows borderline cardiomegaly with blunting of the left costophrenic angle and increased vascular marking. White count 7.5, hemoglobin 10, hematocrit 34, platelets 209,000. BUN 63, creatinine 3.2, glucose 375, alkaline phosphatase 149. ProBNP 643. Lipase 61. PAST MEDICAL HISTORY: COPD on home O2, type 2 diabetes insulin-dependent, hypertensive heart disease, chronic diastolic heart failure, chronic venous insufficiency, obstructive sleep apnea, hyperlipidemia, CKD stage 4, morbid obese, coronary artery disease with stents, peripheral arterial disease, gout and BPH. PHYSICAL EXAMINATION: GENERAL/VITAL SIGNS: Morbidly obese man who is 180/78 blood pressure , heart rate y0, respirations 18, temperature 98.1. He is 99% on 4 L. He is alert and oriented to person, place and time, resting comfortably in bed, not in acute distress. He is A and O x3 with normal mood and affect. HEENT: Head is normocephalic, atraumatic. Eyes: PERRLA. EOMI. He is anicteric and not pale. ENT and oropharynx exam is grossly normal. No central cyanosis. NECK: Short and thick. No JVD or carotid bruit. No thyromegaly noted. CHEST: Significantly decreased air entry in both lung dillon with no crepitations and a few wheezes. CARDIOVASCULAR: First and second heart sounds heard. No gallops, murmurs, rubs. Rhythm is regular. ABDOMEN: Protuberant, soft without tenderness or visceromegaly. Bowel sounds are hypoactive at this time. RECTAL: Deferred at this time. EXTREMITIES: The patient has no noticeable edema. His pulses distally have good volume, regular rhythm and are symmetrical in all extremities. The patient has no peripheral cyanosis or clubbing. The patient has 2+ peripheral pulses distally in his upper extremities and 1+ in his lower extremities. NEUROLOGICAL: No focal deficits, asterixis or tremors. SKIN: The patient has noticeable hyperpigmented changes over the distal aspect of his lower extremities consistent with chronic venous insufficiency. NEUROMUSCULAR: Exam is grossly normal. ASSESSMENT: 1. Acute diastolic heart failure. 2. Chest pain syndrome probably related to congestive heart failure, cannot rule out underlying ischemic etiology. 3. Hypertensive heart disease. 4. Type 2 diabetes with nephropathy. 5. Hyperlipidemia. 6. Obstructive sleep apnea. 7. Gout. 8. Benign prostatic hypertrophy. 9. Peripheral arterial disease. 10.Chronic venous insufficiency. 11.Chronic obstructive pulmonary disease on home O2. PLAN: Will do serial cardiac enzymes. Will then do follow-up echocardiogram to ensure that the patient has not progressed to worsening LV function which may affect his eventual management of his medications. I would suggest increasing the dose of Lasix from 80 mg b.i.d. to t.i.d. to achieve optimal diuresis and blood pressure control in this patient, and because he has up until this point of time normal EF, no role for PILI inhibitors, ARBs and Aldactone. Will also apply nitroglycerin paste to help with blood pressure and perceived chest pain. P.r.n. morphine for pain control. DuoNebs will also be administered to assist with dyspnea. Regarding diuresis Zaroxolyn would have been helpful, however, the patient has a history of gout and this may exacerbate this. The patient's blood sugars are notably elevated and may consider increasing the dose of Lantus from 120 b.i.d. to 124 b.i.d. In the interim will recommend starting the patient on moderate dose insulin. DVT prophylaxis will be continued for now with use of heparin. cc: MD Laci Celis MD MTDD
[2018-11-24] MEDS: DUONEB (A & A) INH SCH ×5 (03:55→22:55)
[2018-11-24] MEDS: NITROGLYCERIN TOP SCH ×4 (05:09→22:56)
--- NOTE | 2018-11-24 07:25 | Diag Imaging Result Doc PS360 ---
EXAM: CHEST-1 VIEW 11/23/2018 HISTORY: chest pain TECHNIQUE: AP portable at 2314 COMMENT: The heart size and pulmonary vascularity are within normal limits. There is ill-defined opacity in the left apex which is worse than on 11/09/2018 or 11/06/2018. IMPRESSION: Left upper lobe pneumonia. Advise follow-up until clear or stable. Follow-up with upright PA and lateral radiographs may be desirable. Electronically signed by Jason Bernstein 11/24/2018 7:23 AM
[2018-11-24] MEDS: PRILOSEC PO SCH (07:42)
[2018-11-24] MEDS: HUMULIN R SUBQ SCH ×4 (08:07→21:27)
[2018-11-24] MEDS ORDERED: KLONOPIN PO PRN (08:16)
[2018-11-24] MEDS ORDERED: VANCOMYCIN IV PER PHARMACY MISC SCH (08:30)
[2018-11-24] MEDS ORDERED: CATAPRES PO SCH (09:00)
[2018-11-24] MEDS ORDERED: KLONOPIN PO SCH ×2 (09:00→21:00)
[2018-11-24] MEDS ORDERED: LANTUS SUBQ SCH (09:00)
[2018-11-24] MEDS ORDERED: ASPIRIN PO SCH (09:00)
--- NOTE | 2018-11-24 09:10 | EKG Report ---
Test Performed on : 11/23/2018 11:10:49 PM Test Reason : ED. NO EKG ORDER FOR MUSE Blood Pressure : / mmHG Vent. Rate : 068 BPM Atrial Rate : 068 BPM P-R Int : 166 ms QRS Dur : 106 ms QT Int : 432 ms P-R-T Axes : 016 010 007 degrees QTc Int : 459 ms Sinus rhythm. with occasional premature ventricular complexes. Incomplete right bundle branch block Borderline ECG When compared with ECG of 04-NOV-2018 06:19, premature ventricular complexes. are now present Unconfirmed Result
[2018-11-24] MEDS: ADVAIR 250/50 DISKUS INH SCH ×2 (10:00→20:02)
[2018-11-24] MEDS: VANCOMYCIN 2 GM in NS 500 ML IV SCH (10:02)
[2018-11-24] MEDS: APRESOLINE PO SCH ×3 (10:32→17:57)
[2018-11-24] MEDS: FOLIC ACID PO SCH (10:33)
[2018-11-24] MEDS: FLOMAX PO SCH (10:33)
[2018-11-24] MEDS: ASPIRIN EC PO SCH (10:33)
[2018-11-24] MEDS: NORCO-7.5 PO SCH ×2 (10:35→21:16)
[2018-11-24] MEDS: KLOR-CON PO SCH (10:35)
[2018-11-24] MEDS: NORVASC PO SCH (10:36)
[2018-11-24] MEDS: ZYLOPRIM PO SCH (10:37)
[2018-11-24] MEDS: TOPROL XL PO SCH ×2 (10:37→21:16)
--- NOTE | 2018-11-24 11:17 | Diag Imaging Result Doc PS360 ---
EXAM: CT THORAX W/O CONTRAST INDICATION: ? pneumonia, ? CHF TECHNIQUE: This exam was performed using automated exposure control, adjustment of mA or kV according to patient size, and/or use of iterative reconstruction technique. COMPARISON: 11/06/2018 FINDINGS: The left upper lobe consolidation seen on the previous study has worsened indicating worsening pneumonia. There is mild fullness of the left hilum that is probably due to reactive lymph nodes. However, there is narrowing of a few of the central branches of the left mainstem bronchus leading to the left upper lobe and one becomes focally occluded. This is probably due to mucous plugging. However, an obstructing central bronchial lesion is difficult to completely exclude leading to postobstructive pneumonia. Note that no well-defined mass can be identified. There are a few small nodules in the right lung that are unchanged compared to the recent prior study. There is no pleural fluid collection and no pneumothorax. The heart is not significantly enlarged. There are calcified right hilar lymph nodes indicating prior granulomatous disease. Limited views of the upper abdomen are essentially unremarkable. IMPRESSION: 1.Interval worsening of the left upper lobe pneumonia with narrowing of a few of the central branches of the left mainstem bronchus indicating at least mucous plugging. Please see above discussion. 2.Otherwise, the chest is essentially stable. Electronically signed by Jake Serna 11/24/2018 11:15 AM
[2018-11-24] MEDS ORDERED: BASAGLAR SUBQ SCH (11:30)
[2018-11-24] MEDS: TEMOVATE 0.05% CREAM TOP SCH ×2 (11:38→21:23)
[2018-11-24] MEDS: MAXIPIME 2 GM in NS 100 ML IV SCH (12:50)
--- NOTE | 2018-11-24 13:48 | PROGRESS NOTE ---
DATE: 11/24/2018 Patient pain much improved. Blood pressure was significantly elevated to 180/ 78 on admission somewhat improved now. 158/69 last check. Concern for volume overload related to heart failure on admission. Related to diastolic heart failure on admission. However CT chest suggests a left upper lobe pneumonia with partial occlusion of the left main branches suggestive of most likely mucous plugging but endobronchial lesion is not entirely excluded. Does not show clear evidence of CHF. Will back off on aggressive diuresis. Start on antibiotics with vanc and cefepime given recent hospitalization also with pneumonia. Otherwise largely stable. Will consult wine master for mucous plugging versus endobronchial lesion. [facility]
[2018-11-24] MEDS: LASIX IV SCH (21:16)
[2018-11-24] MEDS: LIPITOR PO SCH (21:16)
--- NOTE | 2018-11-24 22:48 | ECHO REPORT ---
ORDER DATE: 11/24/2018 SUMMARY: 1. Very difficult study for interpretation due to very limited acoustic window quality. 2. Aortic valve was without evidence of structural abnormality and opens adequately on 2- dimensional images. Peak gradient across aortic valve is less than 10 mmHg. Mitral and tricuspid valves are without gross structural abnormality with trace tricuspid regurgitation. Pulmonic valve not seen. Aortic root is normal in size. 3. Normal left ventricular chamber size with moderate concentric left hypertrophy suggested. Estimated left ejection fraction appears to be at least 60%. No obvious wall motion abnormality can be appreciated. Left atrium is moderately enlarged. Right atrium, right ventricle are grossly normal in size with grossly preserved right ventricular systolic function. 4. No pericardial effusion. 5. Appearance of inferior vena cava suggests normal central venous pressure. cc: MD Laci Vallejo MD
[2018-11-25] MEDS: DUONEB (A & A) INH SCH ×5 (01:46→21:44)
[2018-11-25] MEDS: NITROGLYCERIN TOP SCH ×3 (04:34→17:33)
[2018-11-25 06:17] LABS: BASO# 0.04 X1000 (0.0-0.2); BASO% 0.5 % (0.0-0.8); EOS# 0.17 X1000 (0.0-0.7); HEMATOCRIT 33.8 % (42.0-52.0); HEMOGLOBIN 10.6 g/dL (14.0-18.0); IMM GRAN# 0.02 X1000 (0.0-0.04); IMM GRAN% 0.2 % (0.0-0.5); LYMPH# 1.61 X1000 (1.2-3.4); LYMPH% 19.1 % (20.5-51.1); MCH 27.4 PG (27-31); MCHC 31.4 g/dL (33-37); MCV 87.3 FL (81-99); MONO# 0.72 X1000 (0.11-0.59); MONO% 8.5 % (1.7-9.3); MPV 10.3 FL (7.4-10.4); NEUT# 5.88 X1000 (1.4-6.5); NEUT% 69.7 % (42.2-75.2); PLT 217 X1000 (130-400); RBC 3.87 XMIL (4.7-6.1); RDW 17.5 % (11.5-14.5); WBC 8.44 X1000 (4.8-10.8)
[2018-11-25] MEDS: HUMULIN R SUBQ SCH ×4 (06:32→23:06)
[2018-11-25] MEDS: PRILOSEC PO SCH (06:32)
[2018-11-25 07:11] LABS: AGAP 15; BUN 62 mg/dL (8-22); CALCIUM 8.4 mg/dL (8.8-10.2); CHLORIDE 99 mmol/L (98-107); CHOLESTEROL 112 mg/dL (0-200); COSMO 299; ESTIMATED GFR 21; GLUCOSE 139 mg/dL (70-104); HDL 24 mg/dL (35-55); LDL 41 mg/dL; MAGNESIUM 1.9 mg/dL (1.5-2.7); POTASSIUM 3.7 mmol/L (3.5-5.1); SODIUM 140 mmol/L (136-145); TCO2 26 mmol/L (25-35); TRIGLYCERIDES 237 mg/dL (39-160); VLDL 47 mg/dL
--- NOTE | 2018-11-25 08:19 | Diag Imaging Result Doc PS360 ---
EXAM: CHEST-2 VIEWS - 11/25/2018 HISTORY: Chest Pain TECHNIQUE: Chest two views COMPARISON: 11/23/2018 one view chest FINDINGS: Heart size appears within normal limits. There is infiltrate with possible subsegmental atelectasis at the superior left upper lobe. This appears stable to mildly decreased compared to prior. There is minimal linear atelectasis at the right base. There is no other consolidation, pleural effusion, or pneumothorax identified. IMPRESSION: Infiltrate at superior left upper lobe. This appears stable to mildly decreased compared to prior. Electronically signed by Haresh Higgins 11/25/2018 8:16 AM
[2018-11-25] MEDS: ADVAIR 250/50 DISKUS INH SCH ×2 (09:00→21:44)
[2018-11-25] MEDS: NORCO-7.5 PO SCH ×2 (09:08→23:12)
[2018-11-25] MEDS: MAXIPIME 2 GM in NS 100 ML IV SCH (10:16)
[2018-11-25] MEDS: APRESOLINE PO SCH ×3 (10:17→23:07)
[2018-11-25] MEDS: ZYLOPRIM PO SCH (10:17)
[2018-11-25] MEDS: NORVASC PO SCH (10:17)
[2018-11-25] MEDS: FLOMAX PO SCH (10:17)
[2018-11-25] MEDS: ASPIRIN EC PO SCH (10:17)
[2018-11-25] MEDS: TOPROL XL PO SCH ×2 (10:18→22:58)
[2018-11-25] MEDS: FOLIC ACID PO SCH (10:18)
[2018-11-25] MEDS: KLOR-CON PO SCH (10:18)
[2018-11-25] MEDS: HEPARIN IV SCH ×2 (10:18→22:59)
[2018-11-25] MEDS: LASIX IV SCH ×2 (10:19→22:59)
[2018-11-25] MEDS: MUCOMYST 20% INH SCH ×2 (12:37→21:44)
[2018-11-25] MEDS: TEMOVATE 0.05% CREAM TOP SCH ×2 (13:00→23:10)
--- NOTE | 2018-11-25 13:23 | PROGRESS NOTE ---
DATE: 11/25/2018 INTERVAL HISTORY: The patient's respiratory status continues to improve slowly. He reports significantly less dyspnea on exertion this morning. No further major elevations in blood pressure. No acute events overnight. REVIEW OF SYSTEMS: 12-point review of systems negative as per interval history. LABS: WBC 8.4, hemoglobin 10.6, hematocrit 36.8, platelets 217,000, BUN 62, creatinine 3, glucose 155 to 339. VITALS: T-max 98.5 degrees, pulse 61, respirations 20, blood pressure 155/68, O2 saturation 99% on 4 L by nasal cannula. IMAGING: Chest x-ray with infiltrates. Left upper lobe chest CT with interval worsening of left upper lobe pneumonia nearing a few central branches of the left mainstem bronchus including mucus plugging versus endobronchial mass. PHYSICAL EXAMINATION: General: No acute distress. Vitals: As above. HEENT: Normocephalic, atraumatic. Moist mucous membranes. No cervical adenopathy. Cardiovascular: Regular rate and rhythm. No murmurs, rubs, or gallops. Pulmonary: Moderately decreased air entry throughout. No wheezing, rales, or rhonchi identified. Abdomen: Obese, soft, nontender. Bowel sounds positive. Extremity: Trace edema bilaterally. No chronic venous stasis changes. Neurologic: Cranial nerves 2 through 12 grossly intact. No focal deficits identified. Psychiatric normal mood and affect. Awake, alert, and oriented x 3. Skin: Hyperpigmentation associated with venous stasis of the lower extremities. No new rashes or lesions identified. ASSESSMENT AND PLAN: 1. Left upper lobe pneumonia. Patient with admission a few weeks ago for the same although in a different location. On antibiotics with vancomycin and cefepime given healthcare associated pneumonia. Given repeated pneumonia as well as possible mucous plugging versus endobronchial lesion noted on CT, we are asking pulmonology to evaluate the patient. May end up needing bronchoscopy. Symptomatically improving on antibiotics as above. Continue to monitor and wean oxygen if possible. 2. COPD and chronic hypoxic respiratory failure. The patient with COPD and possible Pickwickian syndrome on 2 L of oxygen at home. Pretty close to that here. No wheezing to suggest COPD exacerbation. 3. Chronic diastolic CHF. BNP only mildly elevated and similar to what he has had in the past. No convincing evidence of edema on chest CT. Low suspicion for CHF exacerbation at this point. We will continue Lasix at current dosing which is similar to what he takes at home. 4. Hypertension. Moderate elevations but no major increased blood pressure as he had on admission. On Lasix, hydralazine 100 t.i.d., and Toprol-XL 50 b.i.d. Will consider adding clonidine versus isosorbide if blood pressure remains elevated. 5. Diabetes mellitus. Glucose control is suboptimal on current sliding scale insulin. Will restart basal insulin and monitor. 6. Hyperlipidemia. Continue statin. 7. CKD 4. Creatinine stable. Monitor labs. 8. Gout. Continue home allopurinol. 9. Coronary artery disease. Continue home aspirin and statin. 10. Deep vein thrombosis prophylaxis, heparin. MTDD
[2018-11-25] MEDS: BASAGLAR SUBQ SCH ×2 (17:03→22:58)
[2018-11-25] MEDS: LIPITOR PO SCH (22:58)
[2018-11-26] MEDS: NITROGLYCERIN TOP SCH ×4 (01:32→17:40)
[2018-11-26] MEDS: DUONEB (A & A) INH SCH ×4 (03:14→21:05)
--- NOTE | 2018-11-26 06:11 | CONSULTATION ---
DATE OF CONSULTATION: 11/25/2018 REQUESTING PROVIDER: Dr. Bruce Reno. REASON FOR CONSULTATION: Recurrent pneumonia, mucous plug versus lesion on CT. HISTORY OF PRESENT ILLNESS: This is a 63-year-old male, who is very well known to our service. He had frequent ER visits last year for chest pain, shortness of breath, and COPD. He was last admitted on 11/03/2018 to 11/12/2018 for syncope and left lower lobe pneumonia. He has a medical history as noted below, including chronic chest pain syndrome, congestive heart failure, hypertensive heart disease, hyperlipidemia, diabetes, coronary artery disease, asthma, COPD, gastroesophageal reflux disease, morbid obesity with obstructive sleep apnea, cor pulmonale, benign prostatic hyperplasia, etc. He presented to the ER on 11/23/2018, with acute chest pain, shortness of breath and diaphoresis. His blood pressure upon arrival was significantly elevated to 180/78. ProBNP was mildly elevated at 642, troponin T 0.071, BUN 63, creatinine 3.2, glucose 375, lipase 61. Chest x-ray revealed a left upper lobe pneumonia. Chest CT on the next day revealed interval worsening left upper lobe pneumonia, with narrowing of a few of the central branches of the left mainstem bronchus, indicating at least mucous plugging, and an obstructing central bronchial lesion which is difficult to completely exclude, leading to post obstructive pneumonia. The patient has been admitted inpatient to the medical floor for further evaluation and treatment. At the time of my examination, he states he always has severe dyspnea on exertion and severe back pain so that he is unable to ambulate. He is able to take 2 or 3 steps and transfer himself, but become very winded while trying to get to his power chair. He also has paroxysmal nocturnal dyspnea secondary to CHF. He reports a productive cough, with white creamy sputum. He had pounding heart beats before arrival, which is resolved at this time. He denies chest pain and palpitations at this time. He has irritable bowel syndrome, and has constipation most of the time. He denied fever, headache, nausea, vomiting. PAST MEDICAL AND SURGICAL HISTORY: 1. Chronic chest pain syndrome. 2. Congestive heart failure, diastolic. Left ventriculogram on 09/23/2016 showed EF 60%. He has PND and is on home portable Trilogy ventilator to help his breathing at bedtime. 3. Hypertensive heart disease. 4. Hyperlipidemia. 5. Diabetes mellitus type 2, insulin-dependent. 6. Nonatherosclerotic coronary disease, status post myocardial infarction x4, status post PCI, with cardiac stent x2, last one done over 10 years ago at [facility] in [place], [place]. The last cardiac catheterization in 09/2016. 7. Asthma. 8. COPD, severe, on chronic home oxygen at 4 L at bedtime. He takes Advair 250/ 50, and Singulair 10 mg at home. 9. Gastroesophageal reflux disease. 10. Chronic kidney disease stage 4. 11. Arthritis. 12. Anxiety. 13. Chronic venous insufficiency. 14. Peripheral arterial disease. 15. Gout. 16. Morbid obesity, with obstructive sleep apnea. BMI currently 34.1. He sleeps with a Trilogy ventilator. 17. Cor pulmonale. 18. Benign prostatic hyperplasia. 19. Irritable bowel syndrome with constipation. 20. Left hand carpal tunnel surgery and debridement. SOCIAL HISTORY: The patient lives at home. He is from his , and is currently being cared for by his . She comes to take care of him on a daily basis. He is on disability secondary to severe chronic back pain. He has a more than [id number] history of smoking, but has been weaning down to 1 cigar every meal, for more than 5 years. He denies any history of alcohol or illicit drug use. FAMILY HISTORY: Both of his parents are secondary to lung cancer of unclear etiology. He has 1 sister who is secondary lung cancer, too. She was an extensive smoker. ALLERGIES: Toradol, Levaquin, almond, doxazosin,and ibuprofen. REVIEW OF SYSTEMS: A 10-point review of systems was conducted, and the pertinent is listed within the HPI, otherwise noncontributory. PHYSICAL EXAMINATION: Vital Signs: Temperature 97.9, blood pressure 162/71, pulse 64, respiratory rate 18, oxygen saturation 98% on nasal cannula at 4. General: Morbidly obese, middle aged male, lying in bed, in no acute distress. He is alert, responsive, and cooperative. HEENT: Atraumatic. Neck: Trachea midline. Respiratory: The patient is not using accessory muscles to facilitate respirations at this time. Expiration prolonged, with diminished breathing sounds bibasilarly, otherwise, clear to auscultation. No wheezing or crackles. Cardiovascular: Regular rate and rhythm, without appreciable murmur. Gastrointestinal: Normoactive bowel sounds in all 4 quadrants. Soft, nontender, distended. Extremities: No pedal edema. No cyanosis. Grade 1 clubbing noted. Lichenification of the skin of lower extremities bilaterally, likely related to chronic venous stasis. Otherwise, no breakdown noted. Onychomycosis of the toenails noted. Neurologic: Alert, oriented x3. Able to follow commands. Speech is fluent. DIAGNOSTIC DATA: Chest x-ray reveals stable to mildly decreased infiltrates at superior left upper lobe. LAB DATA: White blood cells 8.44, hemoglobin 10.6, hematocrit 33.8, platelets 217,000. Sodium 140, potassium 3.7, chloride 99, carbon dioxide 26, BUN 62, creatinine 3.0, glucose 139. ASSESSMENT AND PLAN: This is a 63-year-old male with a medical history of chronic chest pain syndrome, congestive heart failure, diastolic, hypertensive heart disease, hyperlipidemia, diabetes type 2, known atherosclerotic coronary disease, asthma, COPD, gastroesophageal reflux disease, chronic kidney disease stage 4, arthritis, anxiety, chronic venous insufficiency, peripheral arterial disease, gout, morbid obesity with obstructive sleep apnea, cor pulmonale, benign prostatic hyperplasia, irritable bowel syndrome. The patient has been admitted inpatient to the medical floor with diastolic heart failure exacerbation with chest pain syndrome and recurrent MARIBEL pneumonia. 1. Diastolic heart failure exacerbation, with chest pain syndrome and PND. Lab with serial cardiac enzymes is negative. Has been on aggressive diuresis on admission, and is currently back off. 2. Recurrent pneumonia. Continue two broad-spectrum antibiotics as prescribed. 3. Mucus plugging versus endobronchial lesion. Will consider bronchoscopy if appropriate. 4. Dyspnea. Continue supplemental oxygen and bronchodilators. Patient is currently on a NC with oxygen 4L and at home he only uses oxygen at bedtime. Dyspnea noted when he gets up from bed. 5. Obstructive sleep apnea. The patient is going to use his portable Trilogy ventilator at bedtime. 6. Continue GI and DVT prophylaxis. Thank you for the courtesy of this consult. Dictated by ALPESH Goode for Michael Guevara MD cc: ALPESH Goode MD [facility]
[2018-11-26] MEDS: PRILOSEC PO SCH (06:49)
[2018-11-26] MEDS: HUMULIN R SUBQ SCH ×4 (06:51→23:53)
[2018-11-26] MEDS: MAXIPIME 2 GM in NS 100 ML IV SCH (10:11)
[2018-11-26] MEDS: BASAGLAR SUBQ SCH ×2 (10:13→23:52)
[2018-11-26] MEDS: LASIX IV SCH ×2 (10:14→23:52)
[2018-11-26] MEDS: APRESOLINE PO SCH ×3 (10:14→17:39)
[2018-11-26] MEDS: HEPARIN IV SCH ×2 (10:14→23:52)
[2018-11-26] MEDS: NORCO-7.5 PO SCH ×2 (10:15→23:51)
[2018-11-26] MEDS: ZYLOPRIM PO SCH (10:15)
[2018-11-26] MEDS: KLOR-CON PO SCH (10:15)
[2018-11-26] MEDS: FOLIC ACID PO SCH (10:15)
[2018-11-26] MEDS: TOPROL XL PO SCH ×2 (10:15→23:51)
[2018-11-26] MEDS: ASPIRIN EC PO SCH (10:15)
[2018-11-26] MEDS: NORVASC PO SCH (10:15)
[2018-11-26] MEDS: TEMOVATE 0.05% CREAM TOP SCH (10:17)
[2018-11-26] MEDS: FLOMAX PO SCH (10:17)
[2018-11-26] MEDS ORDERED: INSULIN PEN NEEDLES ONE (10:20)
[2018-11-26] MEDS: ADVAIR 250/50 DISKUS INH SCH ×2 (11:09→21:05)
[2018-11-26] MEDS: MUCOMYST 20% INH SCH ×2 (11:09→21:05)
[2018-11-26] MEDS: VANCOMYCIN 2 GM in NS 500 ML IV SCH (11:43)
[2018-11-26] MEDS: LIPITOR PO SCH (23:52)
[2018-11-27] MEDS: TEMOVATE 0.05% CREAM TOP SCH ×3 (00:08→21:46)
[2018-11-27] MEDS: DUONEB (A & A) INH SCH ×6 (03:35→21:00)
--- NOTE | 2018-11-27 04:37 | PROGRESS NOTE ---
DATE: 11/26/2018 SUBJECTIVE: The patient has no major complaints. Breathing is better, but still kind of marginal. He is coughing up a decent amount of sputum. OBJECTIVE: Blood pressure 134/52, heart rate of 75, respiratory rate of 20, and temperature 97.9 degrees.Cardiovascular: Regular rate and rhythm. Pulmonary: Bilateral breath sounds diminished at the bases. GI: Soft, nontender, and nondistended. Bowel sounds are positive. PROBLEM LIST: 1. Congestive heart failure exacerbation and left upper lobe pneumonia with possible mucus plug. He is on vancomycin and cefepime. He is complaining that with these medications he does not feel good with them, but there is concern that he may still be mucous plugging. Dr. Guevara has evaluated the patient and repeating a CT tomorrow, and to decide about bronchoscopy and intervention. 2. Chronic obstructive pulmonary disease exacerbation. Continue treatment. He is on oxygen and intermittent BiPAP. 3. Chronic diastolic heart failure is stable. Continue his regular medications. 4. Hypertension is overall improved. We will continue his current medications. 5. Diabetes. We will continue insulin and follow closely. 6. Chronic renal stage 4. His kidney function has been so far stable. We will continue to monitor. DISPOSITION: Pending his clinical status. cc: Fredo Carbajal MD
[2018-11-27] MEDS: PRILOSEC PO SCH (06:33)
[2018-11-27] MEDS: HUMULIN R SUBQ SCH ×4 (06:35→21:35)
[2018-11-27 07:16] LABS: BASO# 0.04 X1000 (0.0-0.2); BASO% 0.5 % (0.0-0.8); EOS# 0.24 X1000 (0.0-0.7); EOS% 2.9 % (0.0-10.0); HEMATOCRIT 34.2 % (42.0-52.0); HEMOGLOBIN 10.8 g/dL (14.0-18.0); IMM GRAN# 0.02 X1000 (0.0-0.04); IMM GRAN% 0.2 % (0.0-0.5); LYMPH# 1.46 X1000 (1.2-3.4); LYMPH% 17.8 % (20.5-51.1); MCH 27.5 PG (27-31); MCHC 31.6 g/dL (33-37); MONO# 0.83 X1000 (0.11-0.59); MONO% 10.1 % (1.7-9.3); MPV 10.1 FL (7.4-10.4); NEUT# 5.61 X1000 (1.4-6.5); NEUT% 68.5 % (42.2-75.2); PLT 248 X1000 (130-400); RBC 3.93 XMIL (4.7-6.1); RDW 17.2 % (11.5-14.5)
[2018-11-27] MEDS: MUCOMYST 20% INH SCH ×2 (07:19→21:00)
[2018-11-27] MEDS: ADVAIR 250/50 DISKUS INH SCH ×2 (07:19→21:00)
[2018-11-27 07:51] LABS: CALCIUM 9.2 mg/dL (8.8-10.2); CREATININE 3.2 mg/dL (0.7-1.2); POTASSIUM 3.5 mmol/L (3.5-5.1)
[2018-11-27] MEDS: NORVASC PO SCH (09:37)
[2018-11-27] MEDS: IMDUR PO SCH (09:37)
[2018-11-27] MEDS: KLOR-CON PO SCH (09:37)
[2018-11-27] MEDS: FLOMAX PO SCH (09:38)
[2018-11-27] MEDS: APRESOLINE PO SCH ×3 (09:38→16:32)
[2018-11-27] MEDS: TOPROL XL PO SCH ×2 (09:38→21:33)
[2018-11-27] MEDS: FOLIC ACID PO SCH (09:38)
[2018-11-27] MEDS: ASPIRIN EC PO SCH (09:38)
[2018-11-27] MEDS: ZYLOPRIM PO SCH (09:38)
[2018-11-27] MEDS: LASIX IV SCH (09:39)
[2018-11-27] MEDS: HEPARIN IV SCH ×2 (09:39→21:42)
[2018-11-27] MEDS: BASAGLAR SUBQ SCH ×2 (09:40→21:36)
[2018-11-27] MEDS: NORCO-7.5 PO SCH ×2 (09:43→21:33)
[2018-11-27] MEDS: MAXIPIME 2 GM in NS 100 ML IV SCH (09:49)
--- NOTE | 2018-11-27 09:50 | Diag Imaging Result Doc PS360 ---
EXAM: CT THORAX W/O CONTRAST INDICATION: SOB TECHNIQUE: This exam was performed using automated exposure control, adjustment of mA or kV according to patient size, and/or use of iterative reconstruction technique. COMPARISON: 11/24/2018 FINDINGS: The left upper lobe consolidation near the apex has improved slightly. The narrowing of a few of the central branches of the left mainstem bronchus seen on the previous study appears to have improved. This was probably due to mucous plugging. Still no discrete mass can be identified. There are stable right lung nodules discussed on the recent previous study. There is no pleural fluid collection and no pneumothorax. The mediastinum is unchanged. No new lymphadenopathy is identified. IMPRESSION: Slightly improved left upper lobe pneumonia. Electronically signed by Jake Serna 11/27/2018 9:48 AM
--- NOTE | 2018-11-27 18:11 | PROGRESS NOTE ---
DATE: 11/27/2018 SUBJECTIVE: The patient has no major complaints. He is sitting up in bed off his BiPAP. He is doing pretty well. OBJECTIVE: Vital Signs: Blood pressure is 141/70, heart rate of 77, respiratory rate 17, temperature 97.9 degrees. He is afebrile, O2 requirement is stable. Cardiovascular: Regular rate and rhythm. Pulmonary: Bilateral breath sounds clear to auscultation. Gastrointestinal: Abdomen soft, nontender, nondistended. Bowel sounds are positive. His lungs are really clear from my perspective. PROBLEM LIST: 1. Left upper lobe pneumonia. His CT appears better so I think the mucus plug has broken up. He is on vancomycin and cefepime. I would consider discharging him on Omnicef or Ceftin per recommendations from Dr. Guevara. 2. Congestive heart failure appears to be fairly well compensated. We will continue his regular medications. 3. Chronic obstructive pulmonary disease. He is on oxygen and it looks like he has trilogy or home vent that seems to be assisting him. 4. Diabetes appears to be fairly well controlled. He is still on diuretics. I think I am going to switch him to p.o. though. DISPOSITION: I anticipate discharge soon. We will see what Dr. Guevara says. I think he could probably go home either later today or in the morning. cc: Fredo Carbajal MD
[2018-11-27] MEDS: LIPITOR PO SCH (21:33)
[2018-11-27] MEDS: LASIX PO SCH (21:42)
[2018-11-27] MEDS ORDERED: INSULIN PEN NEEDLES ONE (21:43)
[2018-11-28] MEDS: DUONEB (A & A) INH SCH ×3 (03:18→16:14)
[2018-11-28] MEDS: HUMULIN R SUBQ SCH ×3 (06:24→17:05)
[2018-11-28] MEDS: PRILOSEC PO SCH (06:24)
[2018-11-28 06:37] LABS: BASO# 0.05 X1000 (0.0-0.2); BASO% 0.6 % (0.0-0.8); EOS# 0.28 X1000 (0.0-0.7); EOS% 3.3 % (0.0-10.0); HEMATOCRIT 34.5 % (42.0-52.0); HEMOGLOBIN 10.8 g/dL (14.0-18.0); IMM GRAN# 0.02 X1000 (0.0-0.04); IMM GRAN% 0.2 % (0.0-0.5); LYMPH# 1.65 X1000 (1.2-3.4); LYMPH% 19.6 % (20.5-51.1); MCH 27.6 PG (27-31); MCHC 31.3 g/dL (33-37); MONO# 0.86 X1000 (0.11-0.59); MONO% 10.2 % (1.7-9.3); MPV 10.2 FL (7.4-10.4); NEUT# 5.55 X1000 (1.4-6.5); NEUT% 66.1 % (42.2-75.2); PLT 254 X1000 (130-400); RBC 3.92 XMIL (4.7-6.1); RDW 17.2 % (11.5-14.5); WBC 8.41 X1000 (4.8-10.8)
[2018-11-28 07:00] LABS: CREATININE 3.2 mg/dL (0.7-1.2)
[2018-11-28] MEDS: ADVAIR 250/50 DISKUS INH SCH (10:14)
[2018-11-28] MEDS: MUCOMYST 20% INH SCH (10:15)
[2018-11-28] MEDS: VANCOMYCIN 2 GM in NS 500 ML IV SCH (10:30)
[2018-11-28] MEDS: NORVASC PO SCH (10:31)
[2018-11-28] MEDS: ASPIRIN EC PO SCH (10:32)
[2018-11-28] MEDS: TOPROL XL PO SCH (10:33)
[2018-11-28] MEDS: IMDUR PO SCH (10:33)
[2018-11-28] MEDS: KLOR-CON PO SCH (10:33)
[2018-11-28] MEDS: APRESOLINE PO SCH ×2 (10:33→15:35)
[2018-11-28] MEDS: FOLIC ACID PO SCH (10:33)
[2018-11-28] MEDS: ZYLOPRIM PO SCH (10:34)
[2018-11-28] MEDS: LASIX PO SCH (10:34)
[2018-11-28] MEDS: FLOMAX PO SCH (10:34)
[2018-11-28] MEDS: TEMOVATE 0.05% CREAM TOP SCH (10:34)
[2018-11-28] MEDS: HEPARIN IV SCH (10:35)
[2018-11-28] MEDS: MAXIPIME 2 GM in NS 100 ML IV SCH (10:35)
[2018-11-28] MEDS: BASAGLAR SUBQ SCH (10:35)
[2018-11-28] MEDS: NORCO-7.5 PO SCH (10:44)
[2018-11-28 16:50] VITALS: BP 106/62
--- NOTE | 2018-11-28 21:51 | DISCHARGE SUMMARY ---
ADMISSION DATE: 11/24/2018 DISCHARGE DATE: 11/28/2018 DISCHARGE DIAGNOSIS: 1. Was left upper lobe pneumonia. 2. Congestive heart failure with mild exacerbation. 3. Chronic obstructive pulmonary disease with exacerbation . 4. Diabetes. CONSULTATIONS: Dr. Guevara. PROCEDURES: None. IMAGING: Echocardiogram on 11/24 showing an EF of 60%, left ventricular hypertrophy. No major abnormality but had poor acoustic windows. Chest CT showed left upper lobe pneumonia with concern over mucus plugging of left mainstem, repeat chest CT on the showed improved left upper lobe pneumonia no mass. Briefly this 63-year-old male obese with sleep apnea and shortness of breath on chronic home oxygen. He came in with elevated blood pressure. He was treated mostly for cardiovascular illness initially felt to be diastolic failure. He had chest pains. Workup was really unremarkable. He was seen by Dr. Jduge. Echocardiogram though showed a normal EF so he had at best diastolic dysfunction. Dr. Reno evaluated patient and his blood pressure was adjusted. CT of the chest was analyzed. Pulmonary was consulted. He was given vancomycin and cefepime. He slowly clinically improved. Dr. Guevara recommended pneumonia treatment and follow. Repeat chest CT which was done on the showed improvement in left upper lobe consolidation as well as decrease in the mucus plugging or absence the mucus plugging. He was breathing comfortably on 96% on his usual oxygen of 4 L. He was afebrile, felt to be stable for discharge on the . DISCHARGE MEDICATIONS: Klonopin 2 at bedtime mg, aspirin 81 daily, Klonopin 0.5 in the morning, Lantus 120 daily, he is also on 70/30 NPH regular 35 units if his blood sugars above 350, Isordil 60 t.i.d., Toprol 50 b.i.d., fish oil daily, Prilosec 40 daily, Klor-Con 10 daily, Lipitor 40 daily, Singulair 10 daily, DuoNeb q.4, Zyloprim 100 daily, Norvasc 10 daily, Augmentin 875 1 p.o. q.12 for 10 days new medication, clonidine 0.2 t.i.d., Advair 250/50 inhaled b.i.d., folic acid 1 daily, Lasix 80 b.i.d., hydralazine 100 t.i.d., [place] 7.5 b.i.d. p.r.n., Flomax 0.4 daily. DISCHARGE CONDITION: Is stable. Hemoglobin and hematocrit 10, 34, white count 8, BUN and creatinine is 60 and 3.2. Left upper lobe pneumonia. Will treat with antibiotics and see how he does. Follow up with Dr. Guevara 2 to 4 weeks, he will need followup chest x-ray that time, follow up with PCP in 1 week. Return for worsening shortness of breath, cough or fever. TIME SPENT: 35 minutes. cc: Michael Guevara MD
== END 2018-11-28 18:36 | disposition home or self-care (01) | DRG 291 ==
LOC: ED 22:45 → EDIPHOLD 11-24 02:42 → SUATTDRO 11-24 02:42 → 3N 11-24 18:37
PROVIDERS: ATTEND Internal Medicine
CPT/HCPCS: 36415; 71010; 71020; 71045; 71046; 71250; 80048; 80053; 80061; 82948; 83690; 83735; 83880; 84484; 85025; 93005; 93306; 94640; 94667; 94668; 94761; 94799; 96365; 96366; 96367; 96372; 96375; 96376; 99285; A9270; C8929; J0692; J1644; J1940; J2270; J3370; J7040; Q9957; XXXXX

== ENCOUNTER 2019-01-21 10:34 | Inpatient (IN) ==
--- NOTE | 2019-01-21 10:49 | EKG Report ---
Test Performed on : 01/21/2019 10:45:56 AM Test Reason : cp/sob Blood Pressure : / mmHG Vent. Rate : 066 BPM Atrial Rate : 066 BPM P-R Int : 152 ms QRS Dur : 108 ms QT Int : 414 ms P-R-T Axes : 048 044 063 degrees QTc Int : 434 ms Normal sinus rhythm. Incomplete right bundle branch block Nonspecific T wave abnormality Abnormal ECG When compared with ECG of 23-NOV-2018 23:10, (Unconfirmed) premature ventricular complexes. are no longer present Nonspecific T wave abnormality, worse in Lateral leads Unconfirmed Result
--- NOTE | 2019-01-21 11:16 | Diag Imaging Result Doc PS360 ---
CHEST-2 VIEWS - 01/21/2019 INDICATION: cp/sob COMPARISON: 11/25/2018 FINDINGS: There is worsening in a dense focal infiltrate in the left upper lobe. Stable cardiomegaly and pulmonary vascular congestion. No pneumothorax or pleural effusion. IMPRESSION: Worsening dense consolidation/pneumonia in the left upper lobe. Electronically signed by Prakash Butts 01/21/2019 11:14 AM
[2019-01-21 11:37] LABS: BASO# 0.03 X1000 (0.0-0.2); BASO% 0.3 % (0.0-0.8); EOS# 0.12 X1000 (0.0-0.7); EOS% 1.2 % (0.0-10.0); HEMATOCRIT 34.5 % (42.0-52.0); HEMOGLOBIN 10.8 g/dL (14.0-18.0); IMM GRAN# 0.02 X1000 (0.0-0.04); IMM GRAN% 0.2 % (0.0-0.5); LYMPH# 1.65 X1000 (1.2-3.4); LYMPH% 16.9 % (20.5-51.1); MCH 26.7 PG (27-31); MCHC 31.3 g/dL (33-37); MCV 85.2 FL (81-99); MONO# 0.87 X1000 (0.11-0.59); MONO% 8.9 % (1.7-9.3); MPV 10.4 FL (7.4-10.4); NEUT# 7.07 X1000 (1.4-6.5); NEUT% 72.5 % (42.2-75.2); PLT 219 X1000 (130-400); RBC 4.05 XMIL (4.7-6.1); RDW 16.7 % (11.5-14.5); WBC 9.76 X1000 (4.8-10.8)
[2019-01-21 11:43] LABS: INR 1.03; PROTIME 14.4 Seconds (11.0-16.0)
[2019-01-21 12:09] LABS: ALB/GLOB RATIO 0.9; ALBUMIN 3.9 g/dL (3.5-5.0); CALCIUM 9.5 mg/dL (8.8-10.2); CREATININE 3.1 mg/dL (0.7-1.2); POTASSIUM 3.6 mmol/L (3.5-5.1); TOTAL BILIRUBIN 0.32 mg/dL (0.20-1.00); TOTAL PROTEIN 8.1 g/dL (6.3-8.3)
--- NOTE | 2019-01-21 13:59 | EKG Report ---
Test Performed on : 01/21/2019 1:39:05 PM Test Reason : chest pain Blood Pressure : / mmHG Vent. Rate : 060 BPM Atrial Rate : 060 BPM P-R Int : 140 ms QRS Dur : 116 ms QT Int : 470 ms P-R-T Axes : -07 027 048 degrees QTc Int : 470 ms Normal sinus rhythm. Incomplete right bundle branch block Nonspecific T wave abnormality Prolonged QT Abnormal ECG When compared with ECG of 21-JAN-2019 10:45, (Unconfirmed) No significant change was found Unconfirmed Result
[2019-01-21] MEDS ORDERED: ROCEPHIN 1 GM in NS 50 ML IV ONE (15:36)
[2019-01-21] MEDS ORDERED: ZITHROMAX 500 MG/NS 500 MG/250 ML IVPB IV ONE (15:37)
--- NOTE | 2019-01-21 16:29 | PROVIDER DOCUMENTATION ---
This chart was entered by Janie Forrest Scribe, acting as scribe for Ange Majano CRNP. HPI-Respiratory General - General Chief Complaint: Chest Pain Stated Complaint: cp Time Seen by Provider: 01/21/19 15:12 Source: patient Allergies/Adverse Reactions: Patient Allergies Allergy/AdvReac Type Severity Reaction Status Date / Time ketorolac tromethamine * Allergy Mild RASH Verified 10/14/18 16:54 [From Toradol] levofloxacin Allergy Mild SHORTNESS Verified 10/14/18 16:54 OF BREATH almond Allergy Unknown Verified 10/14/18 16:54 doxazosin mesylate * Allergy SHORTNESS Verified 10/14/18 16:54 [From Cardura] OF BREATH ibuprofen [From Motrin] Allergy FLUSHING Verified 10/14/18 16:54 Home Medications: Home Medication List Medication Instructions Recorded Confirmed Last Taken Type Aspirin [Ecotrin] 81 mg PO QAM 12/11/14 11/24/18 11/23/18 07:00 History Potassium Chloride 10 meq PO QAM 12/11/14 11/24/18 11/23/18 07:00 History ATORVAstatin [Lipitor] 40 mg PO QHS #90 tab 12/19/17 11/24/18 11/22/18 20:00 Rx Allopurinol [Zyloprim] 100 mg PO DAILY #30 tab 12/19/17 11/24/18 11/23/18 07:00 Rx Fluticasone/Salmet 250/50 INH 1 puff INH RTBID #1 inhaler 12/19/17 11/24/18 11/23/18 07:00 Rx [Advair 250/50 Diskus] Montelukast Sodium [Singulair] 10 mg PO QHS #90 tab 12/19/17 11/24/18 11/22/18 20:00 Rx Clonidine HCl 0.2 mg PO TID #90 tab 01/10/18 11/24/18 11/23/18 13:00 Rx Isosorbide Dinitrate [Isordil] 60 mg PO TID 04/30/18 11/24/18 11/23/18 13:00 History Metoprolol Succinate E.r. [Toprol 50 mg PO BID 04/30/18 11/24/18 11/23/18 07:00 History Xl] Summers-3 Fatty Acids/Fish Oil [Fish 1 each PO DAILY 04/30/18 11/24/18 11/23/18 07:00 History Oil 1,000 mg Softgel] Clobetasol Propionate 1 each TOP BID 05/11/18 11/24/18 11/23/18 07:00 History Clonazepam [Klonopin] 0.5 mg PO QAM 05/11/18 11/24/18 11/23/18 07:00 History Folic Acid 1 mg PO DAILY #90 tab 08/26/18 11/24/18 11/23/18 07:00 Rx Amlodipine [Norvasc] 10 mg PO DAILY 30 Days #30 tab 09/19/18 11/24/18 11/23/18 07:00 Rx Furosemide [Lasix] 80 mg PO BID #90 tab 09/19/18 11/24/18 11/23/18 07:00 Rx Hydralazine [Apresoline] 100 mg PO TID #120 tab 09/19/18 11/24/18 11/23/18 13:00 Rx Hydrocodone/Acetaminophen 7.5 mg PO BID 10 Days #20 tab 09/19/18 11/24/18 10/14/18 Rx [Hydrocodone-Acetamin 7.5-325] Tamsulosin [Flomax] 0.4 mg PO DAILY capsule 10/16/18 11/24/18 11/23/18 07:00 Rx Clonazepam 2 tab PO QHS 11/03/18 11/24/18 11/22/18 20:00 History Insulin Glargine [Lantus] 120 unit SUBQ BID 11/03/18 11/24/18 11/23/18 07:00 History Insulin NPH Hum/Reg Insulin Hm 35 unit SQ DIRECTED 11/03/18 11/24/18 Unknown History [Humulin 70/30 Kwikpen] Albuterol 2.5MG/Ipratrop 0.5MG 3 ml INH Q4H PRN PRN neb 11/12/18 11/24/18 Unknown Rx [Duoneb (A & A)] Omeprazole 40 mg PO DAILY 11/24/18 11/24/18 11/23/18 07:00 History Amoxicillin/Potassium Clav 1 ea PO Q12H #20 tab 11/28/18 Unknown Rx [Augmentin 875-125 Tablet] CefDINIR [Omnicef] 300 mg PO BID #14 cap 11/30/18 Unknown Rx - History of Present Illness-Resp Nature of Presenting Problem: 63 yowm presents to the ed with c/o sob and chest wall pain. worsening chest wall pain x2 days. also c/o productive cough x1 week. denies any fever/chills. pt was in pt with PNA 2 months prior and sts he feels the same. has hx of COPD, CHF, ND, DM. Quality of Pain: reports: fullness Severity in ED: reports: moderate Onset/Duration: reports: 2 days ago (CP), 1 week ago (Productive cough) Timing: reports: still present, constant Exposure: reports: unknown cause Cough Quality/Degree: reports: moderate, productive cough Episode Frequency: frequent episodes Current Respiratory Medication Therapy: Initiated see nurses note Modifying Factors: improves with: oxygen, sitting upright. worse with: exertion, lying down Associated Symptoms: reports: chest pain/soreness, cough, dizziness, hurts to breathe, shortness of breath, short of breath. denies: fever/chills, muscle/bodyaches, nasal congestion, wheezing Similar Symptoms Previously?: Yes (pna 2 months prior) Recently seen or treated by another doctor?: No Review of Systems - Adult - REVIEW OF SYSTEMS - ADULT Constitutional: denies: chills, fever Eyes: reports: no symptoms reported Ears, Nose, Mouth & Throat: reports: no symptoms reported Cardiovascular: reports: see HPI, chest pain (with cough). denies: palpitations, syncope Respiratory: reports: see HPI, cough, dyspnea on exertion, excessive sputum production, shortness of breath. denies: hemoptysis, wheezing Gastrointestinal: denies: abdominal pain, diarrhea, nausea, vomiting Genitourinary: reports: no symptoms reported Musculoskeletal: denies: back pain, neck pain Integumentary: reports: no symptoms reported Neurological: reports: no symptoms reported. denies: headache/migraines, numbness, paresthesia, slurred speech, syncope, tremors Psychiatric: reports: no symptoms reported Endocrine: reports: no symptoms reported Hematologic/Lymphatic: reports: no symptoms reported Allergic/Immunologic: reports: no symptoms reported All Other Systems: Reviewed and Negative Past History - Adult - PAST MEDICAL HISTORY-ADULT Review of Records: reports: Old Records Reviewed, Nursing Assessment Review, Medications Reviewed, Social history reviewed & non-contributory. Major Childhood Illnesses: reports: history unknown Cardiovascular: reports: CAD, CHF (ECHO 08/2015 EF 55% ), HTN, hyperlipidemia, ND Respiratory: reports: asthma, COPD (severe on 4liters O2 qHS), pneumonia Gastrointestinal: reports: GERD Genitourinary: reports: kidney disease (CRI) Musculoskeletal: reports: arthritis, chronic pain Neurological: reports: denies history Psychiatric: reports: anxiety Endocrine/Immune: reports: Diabetes Diabetes Type: Type 2 Other Conditions: reports: denies history - PRIOR SURGERIES/PROCEDURES Surgical/Procedure History: reports: cardiac stent (x2 last one 7 years ago), orthopedic (extremity) (thumb) - IMMUNIZATION STATUS Childhood Immunizations: See Nurse Assessment Flu Vaccine: See Nurse Assessment - FAMILY HISTORY Family History: reviewed, not pertinent - SOCIAL HISTORY Smoking: cigarettes, greater than 1 pack/day Provider spent 3-5 mins advising pt. on dangers of tobacco.: Discussed manners to quit use, and f/u contacts for add'l counseling. Substance Use: denies Living Situation: family Physical Exam-General - PHYSICAL EXAM-ADULT Initial Vital Signs Reviewed: Yes - CONSTITUTIONAL General Appearance: alert, mild distress, obese - EYES Eyes: PERRL/EOMI, pink conjunctivae - HEAD, EARS, NOSE, MOUTH & THROAT HENMT: normocephalic/atraumatic, moist mucous membranes, dental decay - NECK Neck: full range of motion, supple, normal inspection - RESPIRATORY Respiratory: no accessory muscle use, decreased breath sounds (L lobe), rhonchi, increased rate (22) - CARDIOVASCULAR Cardiovascular: normal peripheral pulses, regular rate, rhythm, no gallop - GASTROINTESTINAL (ABDOMEN) Abdominal Exam: normal bowel sounds, soft, tenderness (chronic constipation). negative: rigid, rebound - LYMPHATIC Lymphatic: no adenopathy - MUSCULOSKELETAL Back Exam: normal inspection, no CVA tenderness, no vertebral tenderness - SKIN Integumentary: normal color, normal turgor, warm/dry - NEUROLOGIC Neurologic: grossly normal, no motor/sensory deficits - PSYCHIATRIC Psych/Mental Status: normal mood/affect, normal thought content, normal thought process, oriented x 3 - HEART Score HEART Score: History: Slightly Suspicious HEART Score: ECG: Non-Specific Repolarization Disturbance/LBBB/PM HEART Score: Age: 45-65 Years HEART Score: Risk Factors for Atherosclerotic Disease: > or = 3 Risk Factors or History of Atherosclerotic Disease HEART Score: Troponin: 1-3x Normal Limit Total HEART Score:: 5 Progress - PLAN OF CARE/RESULTS Progress/Plan/Lab Results: Vital Signs - 8 hr 01/21/19 13:28 Temperature 98.8 F Pulse Rate 58 L Respiratory Rate 18 Blood Pressure 139/77 O2 Sat by Pulse Oximetry 96 Laboratory Results - last 24 hr 01/21/19 01/21/19 01/21/19 10:50 10:50 10:50 WBC 9.76 RBC 4.05 L Hgb 10.8 L Hct 34.5 L MCV 85.2 MCH 26.7 L MCHC 31.3 L RDW Std Deviation 16.7 H Plt Count 219 MPV 10.4 Immature Gran % (Auto) 0.2 Neut % (Auto) 72.5 Lymph % (Auto) 16.9 L Crook % (Auto) 8.9 Eos % (Auto) 1.2 Baso % (Auto) 0.3 Immature Gran # (Auto) 0.02 Neut # (Auto) 7.07 H Lymph # (Auto) 1.65 Crook # (Auto) 0.87 H Eos # (Auto) 0.12 Baso # (Auto) 0.03 PT INR PTT (Actin FS) Sodium 140 Potassium 3.6 Chloride 98 Carbon Dioxide 26 Anion Gap 16 BUN 59 H Creatinine 3.1 H Estimated GFR/1.73 m2 20 BUN/Creatinine Ratio 19 Glucose 106 H Calculated Osmolality 296 Calcium 9.5 Total Bilirubin 0.32 AST 10 ALT 15 Alkaline Phosphatase 151 H Creatine Kinase 132 Troponin T Qga-S-Pvsqnourofw Pept 396 H Total Protein 8.1 Albumin 3.9 Globulin 4.2 Albumin/Globulin Ratio 0.9 01/21/19 01/21/19 01/21/19 10:50 10:50 13:35 WBC RBC Hgb Hct MCV MCH MCHC RDW Std Deviation Plt Count MPV Immature Gran % (Auto) Neut % (Auto) Lymph % (Auto) Crook % (Auto) Eos % (Auto) Baso % (Auto) Immature Gran # (Auto) Neut # (Auto) Lymph # (Auto) Crook # (Auto) Eos # (Auto) Baso # (Auto) PT 14.4 INR 1.03 PTT (Actin FS) 43.0 H Sodium Potassium Chloride Carbon Dioxide Anion Gap BUN Creatinine Estimated GFR/1.73 m2 BUN/Creatinine Ratio Glucose Calculated Osmolality Calcium Total Bilirubin AST ALT Alkaline Phosphatase Creatine Kinase 163 Troponin T 0.110 H Uvw-Y-Pqsebfuxwsa Pept Total Protein Albumin Globulin Albumin/Globulin Ratio 01/21/19 13:35 WBC RBC Hgb Hct MCV MCH MCHC RDW Std Deviation Plt Count MPV Immature Gran % (Auto) Neut % (Auto) Lymph % (Auto) [place] % (Auto) Eos % (Auto) Baso % (Auto) Immature Gran # (Auto) Neut # (Auto) Lymph # (Auto) Crook # (Auto) Eos # (Auto) Baso # (Auto) PT INR PTT (Actin FS) Sodium Potassium Chloride Carbon Dioxide Anion Gap BUN Creatinine Estimated GFR/1.73 m2 BUN/Creatinine Ratio Glucose Calculated Osmolality Calcium Total Bilirubin AST ALT Alkaline Phosphatase Creatine Kinase Troponin T 0.105 H Ogh-U-Ajzwkxzgucd Pept Total Protein Albumin Globulin Albumin/Globulin Ratio Orders Category Date Time Status Saline Loc NOW Care 01/21/19 15:35 Active CHEST-2 VIEWS [RAD] Stat Exams 01/21/19 10:44 Completed BLOOD CULTURE [BLDCUL] Stat Lab 01/21/19 15:59 Results CBC WITH ELECTRONIC DIFF [HEME] Stat Lab 01/21/19 10:50 Completed CK PROFILE [SP CHEM] Stat Lab 01/21/19 10:50 Completed CK PROFILE [SP CHEM] Stat Lab 01/21/19 13:35 Completed COMPREHENSIVE METABOLIC PANEL [CHEM] Stat Lab 01/21/19 10:50 Completed PRO B-NATRIURETIC PEPTIDE Stat Lab 01/21/19 10:50 Completed PROTIME WITH INR [COAG] Stat Lab 01/21/19 10:50 Completed PTT [COAG] Stat Lab 01/21/19 10:50 Completed TROPONIN T Stat Lab 01/21/19 10:50 Completed TROPONIN T Stat Lab 01/21/19 13:35 Completed Azithromycin 500 mg/Ns [Zithromax 500 mg/Ns] Med 01/21/19 15:37 Discontinued 500 mg in 250 ml IV NOW CefTRIAXONE [Rocephin] 1 gm Med 01/21/19 15:36 Discontinued 0.9% Sodium Chloride Inj [Ns] 50 ml IV NOW CP/SOB/Palp >45 yrs of Age Stat Oth 01/21/19 10:44 Ordered EKG [EKG] Stat Ther 01/21/19 10:44 Draft EKG [EKG] Stat Ther 01/21/19 13:29 Draft Transfer/Admit Order [TRANSFER] Routine Transfer 01/21/19 16:07 Ordered Result Diagrams: 01/21/19 10:50 01/21/19 10:50 - REASSESSMENT Reassessment #1 Time Reassessed: 15:01 Status: unchanged Reassessment #2 Time Reassessed: 15:36 Status: unchanged - EKG 1 Time of EKG reading by physician:: 10:45 EKG Read and Signed by:: Jose Sullivan EKG Interpretation (*Must complete 3 of following elements*): Abnormal Rate: 66 Rhythm: nsr [place]: normal QRS: RBB (incomplete) NH Interval: normal ST Wave: normal Comments: nonspecific T wave abnormality - XRAY 1 XRAY: Bilateral XRAY Study: Chest Impression: See EMR Report (CHEST-2 VIEWS - 01/21/2019 INDICATION: cp/sob COMPARISON: 11/25/2018 FINDINGS: There is worsening in a dense focal infiltrate in the left upper lobe. Stable cardiomegaly and pulmonary vascular congestion. No pneumothorax or pleural effusion. IMPRESSION: Worsening dense consolidation/pneumonia in the left upper lobe. Electronically signed by Prakash Butts 01/21/2019 11:14 AM 01/21/19 1114 Interpreting Physician: Prakash Butts MD Dictated Date/Time: 01/21/19 1113 cc: Jose Sullivan MD; Terrie Judge) - CONSULTS/PCP/HOSPITALIST Notification #1 *Consult/PCP/Hospitalist*: dr russo ([facility]) hospitalist Time Discussed: 15:37 Consult Disposition: Admit Departure - Departure Date of Disposition Decision: 01/21/19 Time of Disposition Decision: 15:36 DIAGNOSIS: SOB (shortness of breath), COPD with exacerbation, Tobacco use disorder Dyspnea Qualifiers: Dyspnea type: dyspnea on exertion Qualified Code(s): R06.09 - Other forms of dyspnea Pneumonia Qualifiers: Pneumonia type: due to unspecified organism Laterality: unspecified laterality Lung location: unspecified part of lung Qualified Code(s): J18.9 - Pneumonia, unspecified organism Disposition: ADMITTED INPATIENT 09 Certified Medical Emergency: Emergent Condition: Stable Referrals and Follow-Ups: Terrie Judge [Primary Care Provider] - - Critical Care Note This patient required my direct & personal management of CC.: Yes Total Time (mins): 36 Critical Care Statement: This patient required my direct personal management to treat or rule out processes, the absence of which, could potentiallly result in sudden, clinically significant life or limb threatening deterioration. Attestation - Physician/ KOJO Attestation Patient care was provided by Advanced Practice Provider:: Yes Advanced Practice Provider:: Ange Majano Advanced Practice Provider documentation review:: The Mid-level provider documentation, treatment plan and medical decision making was reviewed by the physician who agrees with all treatment and medical decision making by the MLP. The physician spent face to face time with patient:: No Advanced Practice Provider documentation review:: Supervising physician onsite and consulted in the evaluation and care of this patient. The physician did not have a face to face encounter with the patient. This chart was documented by the indicated scribe, (Janie Forrest Scribe) and accurately reflects the services I performed and decisions made by me, Ange Majano CRNP, as attested by the provider's signature.
--- NOTE | 2019-01-21 17:12 | HISTORY AND PHYSICAL ---
PRIMARY CARE PHYSICIAN: Dr. Terrie Judge. CHIEF COMPLAINT: Difficulty in breathing and pleuritic chest pain. HISTORY OF PRESENT ILLNESS: This is a 63-year-old male, very well known to our service for multiple admissions to the hospital. He was recently admitted here in November 2017 for pneumonia. This time he reports that 1 week ago he started noticing shortness of breath that is getting progressively worse and also chest wall pain. That pain is getting worse for the last couple of days. He also is producing more cough with frothy sputum for a week. He denies any fever or chills. He denies any sick contacts. He reports that he has the same symptoms that he had in November. Upon ER evaluation, the x-ray revealed worsening dense consolidation versus pneumonia in the left upper lobe, so we are going to admitted him for further evaluation and treatment. PAST MEDICAL HISTORY: 1. COPD, on home oxygen 3 L. 2. Diabetes mellitus type 2, insulin dependent. 3. Hypertensive heart disease. 4. Chronic diastolic heart failure. 5. Chronic venous insufficiency. 6. Hyperlipidemia. 7. Obstructive sleep apnea. 8. Cor pulmonale. 9. CKD stage 4. 10. Morbid obesity with BMI of 34. 11. Coronary artery disease status post PTCA. 12. Irritable bowel syndrome. 13. Peripheral arterial disease. 14. Gout. PAST SURGICAL HISTORY: 1. Left hand surgery. 2. PTCA. SOCIAL HISTORY: The patient is but his ex- takes care of him. He apparently quit smoking 6 years ago but he was smoking 1 pack per day for many years before. He denies drinking alcohol or using illicit drugs. FAMILY HISTORY: Positive for diabetes and hypertension. ALLERGIES: The patient is allergic to Toradol, Levaquin, almonds, doxazosin, and ibuprofen. REVIEW OF SYSTEMS: Eleven systems were reviewed and all symptoms are related to HPI. PHYSICAL EXAMINATION: VITAL SIGNS: Temperature 97.4 degrees, heart rate 58, respiratory rate 18, blood pressure 139/77, O2 saturation 96% on room air. GENERAL EXAMINATION: This is a chronically ill-appearing, 63-year-old male, lying in bed, in no acute distress. HEENT: Head is normocephalic, atraumatic. Mucous membranes dry. Pupils equal, round, reactive to light and accommodation. NECK: Supple. No JVD noted. No carotid bruits. No lymphadenopathy. No thyromegaly. CARDIOVASCULAR: S1, S2 heard. No murmurs, gallops, or rubs. Regular rate and rhythm. RESPIRATORY: Decreased breath sounds with minimal wheezing in both pulmonary bases. The patient is not using any accessory muscles or having work of breathing. ABDOMEN: Soft. Nontender to palpation. Bowel sounds present. No organomegaly. EXTREMITIES: No clubbing or cyanosis. Mild pedal edema in both lower extremities. NEUROLOGICAL: Patient is alert and oriented x3. Moves 4 extremities. LABORATORY DATA: White cell count 9.76, hemoglobin 10.8, hematocrit 34.5, platelets 219,000. BMP remarkable for creatinine 3.1. Troponin today is 0.105. ASSESSMENT AND PLAN: 1. Left upper lobe pneumonia. That is the reason why this patient is going to be admitted to the hospital. We will start broad-spectrum antibiotics with Teflaro and Zosyn, doses renally adjusted. We are going to provide breathing treatments, in this case it is DuoNeb every 4 hours scheduled and every 2 hours p.r.n. Considering his history of diabetes and the fact that his blood sugars tend to go really high with steroids and the fact that this patient is not requiring any oxygen supplementation at this time considering that he uses 3 L of oxygen at home, I prefer to just continue with the medication that we described before but no IV steroids at this point. 2. Chronic kidney disease stage 3. Creatinine is at its baseline. We will continue to monitor BMP. 3. Diastolic congestive heart failure. Not in exacerbation. We will continue home medications. 4. Hypertension. Blood pressure is in the ER is under control, in the range of 120s and 130s, so we will continue with the same management. 5. Chronic obstructive pulmonary disease, in mild exacerbation. We will provide breathing treatments that were mentioned before. We will continue to monitor this patient closely. cc: Ric Keith MD
[2019-01-21] MEDS ORDERED: ZOFRAN IV PRN (20:13)
[2019-01-21] MEDS: DUONEB (A & A) INH SCH ×2 (20:41→22:32)
[2019-01-21] MEDS: ADVAIR 250/50 DISKUS INH SCH (20:42)
[2019-01-21] MEDS ORDERED: TEFLARO IV SCH (21:00)
[2019-01-21] MEDS: TEFLARO 400 MG in NS 250 ML IV SCH (23:50)
[2019-01-21] MEDS: ZOSYN 2.25 GM in NS 50 ML IV SCH (23:50)
[2019-01-21] MEDS: BASAGLAR SUBQ SCH (23:54)
[2019-01-21] MEDS: LOVENOX SUBQ SCH (23:55)
[2019-01-21] MEDS: APRESOLINE PO SCH (23:55)
[2019-01-21] MEDS: ISORDIL PO SCH (23:56)
[2019-01-21] MEDS: LIPITOR PO SCH (23:56)
[2019-01-21] MEDS: LASIX PO SCH (23:56)
[2019-01-22 01:14] LABS: BASO# 0.03 X1000 (0.0-0.2); BASO% 0.3 % (0.0-0.8); EOS# 0.14 X1000 (0.0-0.7); EOS% 1.6 % (0.0-10.0); HEMATOCRIT 33.1 % (42.0-52.0); HEMOGLOBIN 10.3 g/dL (14.0-18.0); IMM GRAN# 0.02 X1000 (0.0-0.04); IMM GRAN% 0.2 % (0.0-0.5); LYMPH# 1.64 X1000 (1.2-3.4); LYMPH% 18.8 % (20.5-51.1); MCH 26.8 PG (27-31); MCHC 31.1 g/dL (33-37); MONO# 0.82 X1000 (0.11-0.59); MONO% 9.4 % (1.7-9.3); MPV 9.7 FL (7.4-10.4); NEUT# 6.07 X1000 (1.4-6.5); NEUT% 69.7 % (42.2-75.2); PLT 218 X1000 (130-400); RBC 3.85 XMIL (4.7-6.1); RDW 16.7 % (11.5-14.5); WBC 8.72 X1000 (4.8-10.8)
[2019-01-22 01:32] LABS: CALCIUM 8.3 mg/dL (8.8-10.2); CREATININE 3.2 mg/dL (0.7-1.2); POTASSIUM 3.4 mmol/L (3.5-5.1)
[2019-01-22] MEDS: ZOSYN 2.25 GM in NS 50 ML IV SCH ×4 (03:04→22:04)
[2019-01-22] MEDS: DUONEB (A & A) INH SCH ×6 (03:07→23:38)
[2019-01-22] MEDS: ADVAIR 250/50 DISKUS INH SCH ×2 (07:58→19:14)
[2019-01-22] MEDS: PRILOSEC PO SCH (09:07)
[2019-01-22] MEDS: ISORDIL PO SCH ×3 (09:07→18:42)
[2019-01-22] MEDS: ZYLOPRIM PO SCH (09:07)
[2019-01-22] MEDS: APRESOLINE PO SCH ×3 (09:07→18:42)
[2019-01-22] MEDS: FLOMAX PO SCH (09:07)
[2019-01-22] MEDS: BASAGLAR SUBQ SCH ×2 (09:08→22:04)
[2019-01-22] MEDS: NORVASC PO SCH (09:08)
[2019-01-22] MEDS: KLOR-CON PO SCH (09:08)
[2019-01-22] MEDS: LASIX PO SCH ×2 (09:08→22:04)
[2019-01-22] MEDS: FOLIC ACID PO SCH (09:08)
[2019-01-22] MEDS: ASPIRIN EC PO SCH (09:08)
[2019-01-22] MEDS: TEFLARO 400 MG in NS 250 ML IV SCH (09:22)
--- NOTE | 2019-01-22 14:26 | PROGRESS NOTE ---
DATE: 01/22/2019 SUBJECTIVE: Patient reports a little bit better. Less frothy sputum noted. No pleuritic chest pain noted today. OBJECTIVE: Vital Signs: Temperature 97.8 degrees, heart rate 74, respiratory rate 18, blood pressure 175/85, O2 saturation 99% on room air. General Examination: This is a chronically ill- appearing, 63-year-old, obese male lying in bed, in no acute distress. Cardiovascular: S1, S2 heard. No murmurs, gallops, or rubs. Regular rate and rhythm. Respiratory: Decreased breath sounds globally. Minimal wheezing in both pulmonary bases, mostly noted in the left base. The patient is not using any accessory muscles or having work of breathing. Abdomen: Soft. Nontender to palpation. Bowel sounds present. No organomegaly. Extremities: No clubbing or cyanosis. Mild pedal edema in both lower extremities. Neurological: Patient is alert and oriented x3. Moves 4 extremities. LABORATORY DATA: Reviewed. ASSESSMENT AND PLAN: 1. Left upper lobe pneumonia. Patient continues to be on Teflaro and Zosyn. Clinically the patient is doing good. The patient at home usually uses 2 L of oxygen but here he is sometimes on room air or 1 L/minute. In any case, we will continue to monitor this patient here in the hospital. We do not want to start steroids on him considering that every time he is on those blood sugars going really high. At this point, we will continue with the same management. 2. Chronic kidney disease stage 3. Creatinine is at his baseline. We will continue to monitor BMP. 3. Diastolic congestive heart failure. Not in exacerbation. We will continue to monitor. 4. Hypertension. Blood pressure is a little bit elevated. We are going to restart blood pressure medications from home. 5. Chronic obstructive pulmonary disease, mild exacerbation. We will provide breathing treatments, in this case DuoNeb every 4 hours scheduled. 6. Disposition. We will continue to monitor this patient closely. cc: Ric Keith MD
[2019-01-22] MEDS: LACTULOSE PO SCH ×2 (14:46→21:55)
[2019-01-22] MEDS: MIRALAX PO SCH ×2 (14:46→21:54)
[2019-01-22] MEDS: TEMOVATE 0.05% CREAM TOP SCH ×2 (14:48→22:11)
[2019-01-22] MEDS: LOVENOX SUBQ SCH (22:04)
[2019-01-22] MEDS: KLONOPIN PO SCH (22:04)
[2019-01-22] MEDS: LIPITOR PO SCH (22:04)
[2019-01-22] MEDS: TOPROL XL PO SCH (22:04)
[2019-01-22] MEDS: NORCO-7.5 PO SCH (22:05)
[2019-01-23] MEDS: DUONEB (A & A) INH SCH ×6 (03:39→22:57)
[2019-01-23] MEDS: ZOSYN 2.25 GM in NS 50 ML IV SCH ×4 (05:21→22:06)
[2019-01-23] MEDS: TEFLARO 400 MG in NS 250 ML IV SCH ×2 (05:45→16:16)
[2019-01-23] MEDS: ADVAIR 250/50 DISKUS INH SCH ×2 (08:00→19:19)
[2019-01-23] MEDS: SPIRIVA INH SCH ×2 (08:01→08:29)
--- NOTE | 2019-01-23 09:41 | PROGRESS NOTE ---
DATE: 01/23/2019 SUBJECTIVE: This patient states that he is feeling better. He has no wheezing today, but as per the patient, he is always short of breath early in the morning. He uses a trilogy machine. He stopped smoking around 5 years ago. He has been having bowel movements. I will repeat the x-ray tomorrow morning to see how he does. Because of his recurrent infections, I will ask for immunoglobulin levels. OBJECTIVE: Vital Signs: Temperature 98.1 degrees, pulse 77, respiratory rate 20, blood pressure 140/66, oxygen saturation 98 on 2 L of nasal cannula. HEENT: Head normocephalic. No trauma. PERRLA. Neck: Supple. No JVD. Central trachea. Chest: Decreased breath sounds globally, no wheezing. Prolonged expiratory phase. Some crepitus at the bases, mostly on the left side, and some crepitus also at the level of the left upper lung area. Abdomen: Soft, obese, protuberant. Positive bowel sounds. Extremities: No clubbing. No cyanosis. 1+ edema. Neurological examination: Alert and oriented x3. No focal deficits. LABORATORY: Glucose 199. ASSESSMENT AND PLAN: 1. Left upper lobe pneumonia. This patient has been having this recurrent infection. The patient has been placed on Zosyn and Teflaro. Clinically he seems to be doing better. He uses a trilogy machine at home and also here. We did not start this patient on steroids because of his severe hyperglycemia with this kind of treatment. I will ask for immunoglobulin levels as well. 2. Chronic kidney disease stage III, baseline. Continue to monitor. 3. Diastolic congestive heart failure not in exacerbation. We will continue to monitor. 4. Hypertension. Blood sugar seems to be more stable today compared with yesterday. 5. Chronic obstructive pulmonary disease, mild exacerbation, improved with breathing treatment. No steroids for now. 6. Disposition: I will ask for a new x-ray in the morning. I asked for immunoglobulin levels. We will monitor this patient closely. Apparently this patient is not able to walk, even though I know he has been walking to the bathroom. cc: Tyrone Lorenzo MD
[2019-01-23] MEDS: MIRALAX PO SCH ×2 (10:20→20:56)
[2019-01-23] MEDS: APRESOLINE PO SCH ×3 (10:20→20:57)
[2019-01-23] MEDS: TOPROL XL PO SCH ×2 (10:21→20:57)
[2019-01-23] MEDS: FLOMAX PO SCH (10:21)
[2019-01-23] MEDS: NORVASC PO SCH (10:21)
[2019-01-23] MEDS: LASIX PO SCH ×2 (10:21→20:57)
[2019-01-23] MEDS: ZYLOPRIM PO SCH (10:21)
[2019-01-23] MEDS: LACTULOSE PO SCH ×3 (10:22→21:01)
[2019-01-23] MEDS: ISORDIL PO SCH ×3 (10:22→20:56)
[2019-01-23] MEDS: KLONOPIN PO SCH ×2 (10:22→20:57)
[2019-01-23] MEDS: FOLIC ACID PO SCH (10:22)
[2019-01-23] MEDS: PRILOSEC PO SCH (10:22)
[2019-01-23] MEDS: KLOR-CON PO SCH (10:22)
[2019-01-23] MEDS: ASPIRIN EC PO SCH (10:22)
[2019-01-23] MEDS: TEMOVATE 0.05% CREAM TOP SCH ×2 (10:24→20:57)
[2019-01-23] MEDS: NORCO-7.5 PO SCH ×2 (10:33→20:57)
[2019-01-23] MEDS: BASAGLAR SUBQ SCH ×2 (11:00→20:55)
[2019-01-23] MEDS: TESSALON PO SCH (16:16)
[2019-01-23] MEDS: LOVENOX SUBQ SCH (20:57)
[2019-01-23] MEDS: LIPITOR PO SCH (20:57)
[2019-01-24] MEDS: ZOSYN 2.25 GM in NS 50 ML IV SCH ×4 (03:49→22:21)
[2019-01-24] MEDS: DUONEB (A & A) INH SCH ×6 (03:50→23:19)
[2019-01-24] MEDS: TEFLARO 400 MG in NS 250 ML IV SCH ×2 (04:27→17:34)
[2019-01-24 06:47] LABS: BASO# 0.02 X1000 (0.0-0.2); BASO% 0.2 % (0.0-0.8); EOS# 0.22 X1000 (0.0-0.7); EOS% 2.7 % (0.0-10.0); HEMATOCRIT 31.8 % (42.0-52.0); HEMOGLOBIN 9.6 g/dL (14.0-18.0); LYMPH# 1.15 X1000 (1.2-3.4); MCH 26.6 PG (27-31); MCHC 30.2 g/dL (33-37); MCV 88.1 FL (81-99); MONO# 0.83 X1000 (0.11-0.59); MONO% 10.1 % (1.7-9.3); MPV 9.9 FL (7.4-10.4); NEUT# 5.98 X1000 (1.4-6.5); PLT 222 X1000 (130-400); RBC 3.61 XMIL (4.7-6.1); RDW 16.6 % (11.5-14.5)
[2019-01-24 07:22] LABS: ALBUMIN 3.5 g/dL (3.5-5.0); CALCIUM 8.6 mg/dL (8.8-10.2); CREATININE 4.3 mg/dL (0.7-1.2); POTASSIUM 4.1 mmol/L (3.5-5.1); TOTAL BILIRUBIN 0.25 mg/dL (0.20-1.00)
[2019-01-24] MEDS: ADVAIR 250/50 DISKUS INH SCH ×2 (07:46→20:11)
[2019-01-24] MEDS: SPIRIVA INH SCH (07:46)
--- NOTE | 2019-01-24 08:19 | Diag Imaging Result Doc PS360 ---
CHEST-PORTABLE - 01/24/2019 INDICATION: dyspnea COMPARISON: 01/21/2019 FINDINGS: Lung volumes are much lower. Stable cardiomegaly and pulmonary vascular congestion. Stable left upper lobe infiltrate or atelectasis. No new infiltrates. IMPRESSION: Lower lung volumes. Otherwise no change from prior. Electronically signed by Prakash Butts 01/24/2019 8:17 AM
[2019-01-24] MEDS: TESSALON PO SCH ×3 (09:39→22:21)
[2019-01-24] MEDS: APRESOLINE PO SCH ×3 (09:39→22:21)
[2019-01-24] MEDS: LASIX PO SCH ×2 (09:39→22:21)
[2019-01-24] MEDS: FLOMAX PO SCH (09:39)
[2019-01-24] MEDS: NORVASC PO SCH (09:39)
[2019-01-24] MEDS: TOPROL XL PO SCH ×2 (09:39→22:21)
[2019-01-24] MEDS: ASPIRIN EC PO SCH (09:39)
[2019-01-24] MEDS: ZYLOPRIM PO SCH (09:40)
[2019-01-24] MEDS: FOLIC ACID PO SCH (09:40)
[2019-01-24] MEDS: ISORDIL PO SCH ×3 (09:40→22:21)
[2019-01-24] MEDS: PRILOSEC PO SCH (09:40)
[2019-01-24] MEDS: TEMOVATE 0.05% CREAM TOP SCH ×2 (09:41→22:21)
[2019-01-24] MEDS: NORCO-7.5 PO SCH ×2 (09:41→22:22)
[2019-01-24] MEDS: LACTULOSE PO SCH ×2 (09:41→22:17)
[2019-01-24] MEDS: KLOR-CON PO SCH (09:41)
[2019-01-24] MEDS: KLONOPIN PO SCH ×2 (09:41→22:21)
[2019-01-24] MEDS: MIRALAX PO SCH ×2 (09:41→22:21)
[2019-01-24] MEDS ORDERED: BASAGLAR SUBQ ONE (09:52)
[2019-01-24] MEDS: BASAGLAR SUBQ SCH ×2 (09:57→20:43)
[2019-01-24 11:05] LABS: ALLEN TEST YES; BE 3.7 mmoll (-3.0-3.0); BLOOD TYPE ARTERIAL; HCO3-(ACT) 27.8 mmoll (20.0-26.0); METHB 0.5 % (0.0-1.5); O2(CT) 15.3 mL/dL (15.0-23.0); O2HB 96.3 % (95.0-99.0); PCO2(98.6) 43 mmHg (35-45); PO2(98.6) 89 mmHg (60-100); SAMPLE BLOOD; SAO2 97.5 % (95.0-100.0); THB 11.2 g/dL (11.5-17.4); pH(98.6) 7.43 (7.35-7.45)
[2019-01-24 11:06] LABS: MODALITY CANNULA
--- NOTE | 2019-01-24 11:59 | PROGRESS NOTE ---
DATE: 01/24/2019 SUBJECTIVE: It looks like this patient had an episode of hypoglycemia during the night. I will decrease the amount of insulin that he is getting on a daily basis. I have requested an evaluation by Pulmonary Department. This patient has a chronic respiratory issue, COPD, and now he is coming with recurrent pneumonia. He has been placed on antibiotics. He has been using the Trilogy machine at home and also during this hospitalization. OBJECTIVE: Vital Signs: Temperature 98 degrees, pulse 75, respiratory rate 21, blood pressure 148/72, oxygen saturation 97% on 4 L of nasal cannula. HEENT: Head normocephalic. No trauma. PERRLA. Neck: Supple. No JVD. No masses. Central trachea. Chest: Decreased breath sounds globally. No wheezing. Prolonged expiratory phase. Some crepitus at the bases, mostly on the left side with some rhonchi/crepitus at the level of the left upper lung area. Abdomen: Soft, obese, protuberant. Positive bowel sounds. Extremities: No clubbing, no cyanosis, 1+ edema. Neurological: Alert and oriented x3. LABORATORY: WBC 8.2, hemoglobin 9.6, hematocrit 31.8, platelets 222,000. Sodium 142, potassium 4.1, chloride 99, bicarbonate 29, BUN 60, creatinine 4.3, glucose 146, calcium 8.6. ASSESSMENT AND PLAN: 1. Left upper lobe pneumonia. This patient has been having recurrent infections. This patient has been placed on Zosyn and Teflaro. Clinically he seems to be a little bit better compared with admission, but he is still complaining of shortness of breath. We did not put this patient on steroids because of his severe hyperglycemia with this kind of treatment, pending immunoglobulin levels, resolved. I have requested an evaluation by Pulmonary Department. 2. Chronic kidney disease stage 3. This is his baseline. Continue to monitor. 3. Diastolic congestive heart failure, not in exacerbation. Continue to monitor. Continue with the same management that he is getting at home. 4. Hypertension. Stable. 5. Diabetes. It looks like he got an episode of borderline low blood sugar and he had some symptoms because of that, I will decrease the dose of the insulin that he has been getting twice a day and will monitor. cc: Tyrone Lorenzo MD
--- NOTE | 2019-01-24 14:10 | Diag Imaging Result Doc PS360 ---
CT THORAX W/O CONTRAST - 01/24/2019 INDICATION: MARIBEL obstruction COMPARISON: 11/27/2018 FINDINGS: The airways are all clear. On some of the prior CTs, there was apparent obstruction of the apical segmental bronchus of the left upper lobe. There is a persistent left upper lobe infiltrate that has been waxing and waning since 11/06/2018. There are a few air bronchograms in side. No other significant infiltrates. Heart size remains normal. Stable severe coronary artery disease. IMPRESSION: Waxing and waning infiltrate in the medial left upper lobe. No airway obstruction at this time. This exam was performed using automated exposure control, adjustment of mA or kV according to patient size, and/or use of iterative reconstruction technique Electronically signed by Prakash Butts 01/24/2019 2:08 PM
[2019-01-24] MEDS: MUCOMYST 20% INH SCH (20:11)
--- NOTE | 2019-01-24 20:54 | PULMONOLOGY CONSULTATION ---
DATE: 01/24/2019 PULMONARY CONSULTATION: REQUESTING PHYSICIAN: Dr. Loco. REASON FOR CONSULTATION: Left upper lobe pneumonia with respiratory failure. HISTORY OF PRESENT ILLNESS: Mr. La is a 63-year-old white male with severe COPD on a Trilogy device, obesity, chronic renal insufficiency, with multiple admissions to the hospital. His most recent hospitalizations have included CT scans with infiltrates in the left upper lobe. Most recent CT scan before this admission was in mid November. The patient presented to the emergency room 01/21/2019 with shortness of breath with increased cough and sputum production for approximately 1 week. He denied fevers or chills. He reports he has not been evaluated since his discharge in November and, therefore, no chest x-ray has documented clearing of his left upper lobe pneumonia. PAST MEDICAL HISTORY: 1. COPD. 2. Obesity with weight loss over the last 2 years. 3. Chronic hypoxemic respiratory failure. 4. Chronic hypercapnic respiratory failure on a Trilogy device. 5. Pneumonia in the left upper lobe diagnosed in October and November. 6. Diabetes mellitus. 7. Cor pulmonale/pulmonary hypertension. 8. Diastolic heart failure. 9. Chronic venous insufficiency. 10. Obstructive sleep apnea. 11. Stage 4 chronic kidney disease. 12. Coronary artery disease status post PTCA. 13. Peripheral vascular disease. SOCIAL HISTORY: The patient has been a nonsmoker for over 5 years. He currently lives with his ex-. No alcohol or drug use. FAMILY HISTORY: Positive for hypertension and diabetes mellitus. REVIEW OF SYSTEMS: As noted in HPI. PHYSICAL EXAMINATION: General: Reveals an obese white male resting comfortably in no distress. Vital Signs: BP 145/75, heart rate 80, respiratory rate 20, oxygen saturation 98% on 4 L per nasal cannula. HEENT: Pupils are equal and reactive. Oropharynx is clear. Neck: Supple. Chest: Reveals prolonged expiratory phase. Cardiac: S1, S2. Abdomen: Obese and soft. Extremities: Without cyanosis or edema. There is chronic venous insufficiency. LABORATORY DATA: CT scan of the thorax was ordered after I reviewed his chest x-ray. All airways appeared patent in the left upper lobe. Previous left upper lobe segment appeared to be obstructed. There is an infiltrate in the left upper lobe, which has been waxing and waning over the last 3 months. Arterial blood gas with pH 7.43, pCO2 43, PO2 of 89. White blood count 8.20, hemoglobin 9.6, platelet count 222,000. IMPRESSION: A 63-year-old male with severe chronic obstructive pulmonary disease, chronic hypoxemic respiratory failure, with consolidation/mass in the left upper lobe. It is not clear if this represents a recurrent pneumonia or represents a single process. His airways do appear to be patent. Bronchoscopy would be considered, but with the current radiographic findings I think the yield might be low. At this juncture, recommend a course of antibiotics and steroids along with enhanced mucolytics. 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 RECOMMENDATIONS: 1. Continue current regimen of antibiotics. 2. Initiate steroids. 3. Add Mucomyst to his current regimen. 4. Recommend a 3-to-4 week course of prednisone at 20 mg per day with followup CT scan in 4-to-5 weeks. cc: Kale Yo MD MTDD
[2019-01-24] MEDS: LIPITOR PO SCH (22:21)
[2019-01-24] MEDS: LOVENOX SUBQ SCH (22:22)
[2019-01-25] MEDS: DUONEB (A & A) INH SCH ×6 (03:51→23:21)
[2019-01-25] MEDS: ZOSYN 2.25 GM in NS 50 ML IV SCH ×4 (04:30→21:42)
[2019-01-25] MEDS: PREDNISONE PO SCH ×2 (05:38→09:15)
[2019-01-25] MEDS: TEFLARO 400 MG in NS 250 ML IV SCH ×2 (05:40→17:59)
[2019-01-25 07:33] LABS: ALB/GLOB RATIO 0.9; ALBUMIN 3.5 g/dL (3.5-5.0); CALCIUM 8.5 mg/dL (8.8-10.2); CREATININE 4.3 mg/dL (0.7-1.2); TOTAL BILIRUBIN 0.16 mg/dL (0.20-1.00); TOTAL PROTEIN 7.4 g/dL (6.3-8.3)
[2019-01-25] MEDS ORDERED: MUCOMYST 20% ONE (07:55)
[2019-01-25] MEDS: SPIRIVA INH SCH (07:55)
[2019-01-25] MEDS: ADVAIR 250/50 DISKUS INH SCH ×2 (07:56→19:30)
[2019-01-25] MEDS: MUCOMYST 20% INH SCH ×2 (07:56→19:30)
[2019-01-25] MEDS: TEMOVATE 0.05% CREAM TOP SCH ×2 (09:05→20:42)
[2019-01-25] MEDS: ASPIRIN EC PO SCH (09:10)
[2019-01-25] MEDS: TOPROL XL PO SCH ×2 (09:10→20:22)
[2019-01-25] MEDS: NORVASC PO SCH (09:10)
[2019-01-25] MEDS: PRILOSEC PO SCH (09:10)
[2019-01-25] MEDS: APRESOLINE PO SCH ×3 (09:10→16:57)
[2019-01-25] MEDS: NORCO-7.5 PO SCH ×2 (09:11→20:21)
[2019-01-25] MEDS: FLOMAX PO SCH (09:12)
[2019-01-25] MEDS: LASIX PO SCH ×2 (09:12→20:22)
[2019-01-25] MEDS: TESSALON PO SCH ×3 (09:12→16:57)
[2019-01-25] MEDS: FOLIC ACID PO SCH (09:12)
[2019-01-25] MEDS: ISORDIL PO SCH ×3 (09:12→17:58)
[2019-01-25] MEDS: ZYLOPRIM PO SCH (09:12)
[2019-01-25] MEDS: KLOR-CON PO SCH (09:12)
[2019-01-25] MEDS: BASAGLAR SUBQ SCH ×2 (09:13→20:22)
[2019-01-25] MEDS: KLONOPIN PO SCH ×2 (09:21→20:21)
--- NOTE | 2019-01-25 10:52 | PROGRESS NOTE ---
DATE: 01/25/2019 SUBJECTIVE: This patient has been evaluated by the Pulmonary Department. He has some infiltrates at the level of the left upper lobe, no airway obstruction at this time. He has been placed on steroids. I will increase he is insulin again to his home dose because now he is getting steroids. He seems to be feeling a little bit better. We will continue to monitor. OBJECTIVE: Vital Signs: Temperature 97.8 degrees, pulse 71, respiratory rate 20, blood pressure 160/72, oxygen saturation 96 on 4 L of nasal cannula. HEENT: Head normocephalic. No trauma. PERRLA. Neck: Supple. No JVD. No masses. Central trachea. Chest: Decreased breath sounds globally. No wheezing. Prolonged expiratory phase. Some crepitus at the bases and left upper thoracic area. Abdomen: Soft, obese, protuberant. Nontender, nondistended. No hepatosplenomegaly. Extremities: No clubbing. No cyanosis. 1+ edema. Neurological: Alert and oriented x3. No focal deficits. LABORATORY DATA: Sodium 141, potassium 4, chloride 101, bicarbonate 27, BUN 58, creatinine 4.3, glucose 203, calcium 8.5, alkaline phosphatase 114. ASSESSMENT AND PLAN: 1. Left upper lobe pneumonia. Continue with antibiotics. Pulmonary department following this patient. CT scan showed infiltrate in the medial left upper lobe, no airway obstruction at this time. He has been recommended to continue with current antibiotics, steroids. Add Mucomyst to his current regimen and follow up with a CT scan in 4 to 5 weeks. 2. Chronic obstructive pulmonary disease, not in exacerbation at this time. We will continue with the same management. 3. Chronic kidney disease stage 3. This is his baseline. Continue to monitor. 4. Diastolic congestive heart failure, not in exacerbation. Continue to monitor. Continue with same management. 5. Hypertension, stable. 6. Diabetes I have increased the dose of his insulin again to his home dose due to his current steroid use. 7. Obesity with a body mass index of 34.1, aware. Diet and exercise have been discussed. cc: Tyrone Lorenzo MD [facility]
[2019-01-25] MEDS: MIRALAX PO SCH ×2 (12:05→20:24)
[2019-01-25] MEDS: LACTULOSE PO SCH ×2 (12:05→20:24)
[2019-01-25] MEDS: LIPITOR PO SCH (20:22)
[2019-01-25] MEDS: LOVENOX SUBQ SCH (20:22)
[2019-01-26] MEDS: DUONEB (A & A) INH SCH ×6 (03:20→23:25)
[2019-01-26] MEDS: ZOSYN 2.25 GM in NS 50 ML IV SCH ×4 (04:22→22:15)
[2019-01-26] MEDS: TEFLARO 400 MG in NS 250 ML IV SCH ×2 (04:52→18:30)
[2019-01-26 06:47] LABS: BASO# 0.03 X1000 (0.0-0.2); BASO% 0.4 % (0.0-0.8); EOS% 1.2 % (0.0-10.0); HEMATOCRIT 30.7 % (42.0-52.0); HEMOGLOBIN 9.1 g/dL (14.0-18.0); IMM GRAN# 0.02 X1000 (0.0-0.04); IMM GRAN% 0.2 % (0.0-0.5); LYMPH# 1.32 X1000 (1.2-3.4); LYMPH% 16.1 % (20.5-51.1); MCH 26.2 PG (27-31); MCHC 29.6 g/dL (33-37); MCV 88.5 FL (81-99); MONO% 12.2 % (1.7-9.3); MPV 9.6 FL (7.4-10.4); NEUT# 5.71 X1000 (1.4-6.5); NEUT% 69.9 % (42.2-75.2); PLT 240 X1000 (130-400); RBC 3.47 XMIL (4.7-6.1); RDW 16.7 % (11.5-14.5); WBC 8.18 X1000 (4.8-10.8)
[2019-01-26] MEDS: MUCOMYST 20% INH SCH ×2 (07:27→19:20)
[2019-01-26] MEDS: ADVAIR 250/50 DISKUS INH SCH ×2 (07:28→19:20)
[2019-01-26] MEDS: SPIRIVA INH SCH (07:28)
[2019-01-26 07:46] LABS: CALCIUM 8.5 mg/dL (8.8-10.2); CREATININE 4.8 mg/dL (0.7-1.2); POTASSIUM 3.8 mmol/L (3.5-5.1)
[2019-01-26] MEDS: ISORDIL PO SCH ×3 (09:02→17:45)
[2019-01-26] MEDS: NORVASC PO SCH (09:03)
[2019-01-26] MEDS: KLOR-CON PO SCH (09:03)
[2019-01-26] MEDS: PRILOSEC PO SCH (09:03)
[2019-01-26] MEDS: FOLIC ACID PO SCH (09:03)
[2019-01-26] MEDS: PREDNISONE PO SCH (09:03)
[2019-01-26] MEDS: TOPROL XL PO SCH ×2 (09:03→22:17)
[2019-01-26] MEDS: LASIX PO SCH ×2 (09:04→22:18)
[2019-01-26] MEDS: ASPIRIN EC PO SCH (09:05)
[2019-01-26] MEDS: FLOMAX PO SCH (09:05)
[2019-01-26] MEDS: ZYLOPRIM PO SCH (09:05)
[2019-01-26] MEDS: LACTULOSE PO SCH ×2 (09:05→22:18)
[2019-01-26] MEDS: APRESOLINE PO SCH ×3 (09:05→17:45)
[2019-01-26] MEDS: TESSALON PO SCH ×3 (09:05→17:35)
[2019-01-26] MEDS: MIRALAX PO SCH ×2 (09:06→22:19)
[2019-01-26] MEDS: BASAGLAR SUBQ SCH ×2 (09:07→22:16)
[2019-01-26] MEDS: TEMOVATE 0.05% CREAM TOP SCH ×2 (09:09→22:17)
[2019-01-26] MEDS: NORCO-7.5 PO SCH ×2 (09:32→22:38)
[2019-01-26] MEDS: KLONOPIN PO SCH ×2 (09:32→22:38)
--- NOTE | 2019-01-26 14:21 | PROGRESS NOTE ---
DATE: 01/26/2019 SUBJECTIVE: The patient states that he is feeling a little bit better. BUN and creatinine trending up. I have decreased the dose of the Lasix today. Will continue to monitor. We will continue with the same management otherwise. OBJECTIVE: Vital Signs: Temperature 98.5 degrees, pulse 75, respiratory rate 22, blood pressure 159/76, oxygen saturation 95 on nasal cannula. HEENT: Head normocephalic. No trauma. PERRLA. Neck: Supple. No JVD. No masses. Central trachea. Chest: Decreased breath sounds globally. No wheezing. Prolonged expiratory phase. Crepitus at the bases and left upper thoracic area. Abdomen: Soft, protuberant, nontender, nondistended. No hepatosplenomegaly. Extremities: There is 1+ lower extremity edema. No clubbing. No cyanosis. Neurological examination: The patient is alert and oriented x3. No focal deficits. LABORATORY: WBC 8.1, hemoglobin 9.1, hematocrit 30.7, platelets 240. Sodium 142, potassium 3.8, chloride 101, bicarbonate 26. BUN 60, creatinine 4.8, glucose 135, calcium 8.5. ASSESSMENT AND PLAN: 1. Left upper lobe pneumonia. Continue with antibiotics. Pulmonary Department following this patient. CT scan showed infiltrates in the medial left upper lobe. No airway obstruction at this time. He has been recommended to continue with antibiotics and steroids. Add Mucomyst to his medications, and likely CT scan in 4 to 5 weeks. 2. Chronic obstructive pulmonary disease, not in exacerbation at this time. We will continue with the same management. 3. Chronic kidney disease stage III. The BUN and creatinine increasing. I have decreased the dose of the Lasix for now. Will monitor. 4. Diastolic congestive heart failure not in exacerbation. Continue to monitor. Continue with diuretics, but the dose has been decreased. 5. Hypertension, stable. 6. Diabetes. I will continue with the same management. 7. Obesity with a body mass index of 34.1, aware. Diet and exercise have been discussed. cc: Tyrone Lorenzo MD
[2019-01-26] MEDS ORDERED: INSULIN PEN NEEDLES ONE (14:46)
--- NOTE | 2019-01-26 21:38 | PULMONOLOGY PROGRESS NOTE ---
DATE: 01/26/2019 SUBJECTIVE: The patient is awake, alert, and conversant. He reports his shortness of breath is decreasing. OBJECTIVE: Vital Signs: The patient has been afebrile for the last 24 hours. Blood pressure 155/84, heart rate 77, respiratory rate 22, oxygen saturation 99% on 2 L per nasal cannula. HEENT: Pupils are equal and reactive. Oropharynx is clear. Neck: Reveals prolonged expiratory phase. Cardiac exam: S1, S2. Abdomen: Soft and obese. Extremities: Without edema. IMPRESSION: A 63-year-old with: 1. Severe chronic obstructive pulmonary disease. 2. Chronic hypoxemic respiratory failure. 3. Consolidation/mass in the left upper lobe, which has been waxing and waning since November of this year. No definite endobronchial obstruction. RECOMMENDATIONS: 1. Continue current antibiotic regimen. 2. Continue steroids. 3. Continue bronchial hygiene and Mucomyst. 4. Two-view chest x-ray tomorrow. The patient has only been on steroids for 48 hours, but a chest x-ray will be performed to see if he has had any clinical improvement. cc: Kale Yo MD
[2019-01-26] MEDS: LIPITOR PO SCH (22:16)
[2019-01-26] MEDS: LOVENOX SUBQ SCH (22:19)
[2019-01-27] MEDS: DUONEB (A & A) INH SCH ×6 (03:15→23:17)
[2019-01-27] MEDS: ZOSYN 2.25 GM in NS 50 ML IV SCH ×4 (04:09→21:43)
[2019-01-27] MEDS: TEFLARO 400 MG in NS 250 ML IV SCH (04:57)
[2019-01-27] MEDS: MUCOMYST 20% INH SCH ×2 (07:30→19:40)
[2019-01-27] MEDS: ADVAIR 250/50 DISKUS INH SCH ×2 (07:31→19:41)
[2019-01-27] MEDS: SPIRIVA INH SCH (07:31)
[2019-01-27 08:04] LABS: ALBUMIN 3.4 g/dL (3.5-5.0); CALCIUM 8.3 mg/dL (8.8-10.2); CREATININE 4.6 mg/dL (0.7-1.2); POTASSIUM 3.8 mmol/L (3.5-5.1); TOTAL BILIRUBIN 0.15 mg/dL (0.20-1.00); TOTAL PROTEIN 6.7 g/dL (6.3-8.3)
--- NOTE | 2019-01-27 08:52 | Diag Imaging Result Doc PS360 ---
EXAM: CHEST-2 VIEWS 01/27/2019 HISTORY: abnormal exam TECHNIQUE: PA and lateral chest COMMENT: There is volume loss and opacity in the posterior left upper lobe. This was also apparently present on 01/24/2019 and 01/21/2019. There may be adenopathy or a mass in the left hilum superiorly. Some degree of atelectasis was also present in the left upper lobe on 11/25/2018. The heart size is at the upper limits of normal. The pulmonary vascularity is also prominent. Review of the CT of the chest on 11/27/2018 and the subsequent examination on 01/24/2019 reveals persistent stenosis of the apical posterior segmental bronchus on the left. The possibility of an endobronchial mass cannot be excluded and further evaluation is recommended. IMPRESSION: Persistent atelectasis and possible postobstructive pneumonia in the left upper lobe. Advise further evaluation. Electronically signed by Jason Bernstein 01/27/2019 8:49 AM
[2019-01-27] MEDS: ISORDIL PO SCH ×3 (10:02→19:27)
[2019-01-27] MEDS: PRILOSEC PO SCH (10:02)
[2019-01-27] MEDS: BASAGLAR SUBQ SCH ×2 (10:02→21:44)
[2019-01-27] MEDS: MIRALAX PO SCH ×2 (10:02→21:45)
[2019-01-27] MEDS: LACTULOSE PO SCH ×2 (10:05→21:45)
[2019-01-27] MEDS: FLOMAX PO SCH (10:05)
[2019-01-27] MEDS: ZYLOPRIM PO SCH (10:06)
[2019-01-27] MEDS: ASPIRIN EC PO SCH (10:06)
[2019-01-27] MEDS: TOPROL XL PO SCH ×2 (10:06→21:46)
[2019-01-27] MEDS: NORVASC PO SCH (10:06)
[2019-01-27] MEDS: TESSALON PO SCH ×3 (10:06→19:27)
[2019-01-27] MEDS: FOLIC ACID PO SCH (10:06)
[2019-01-27] MEDS: APRESOLINE PO SCH ×4 (10:06→19:26)
[2019-01-27] MEDS: KLOR-CON PO SCH (10:06)
[2019-01-27] MEDS: LASIX PO SCH ×2 (10:07→21:44)
[2019-01-27] MEDS: PREDNISONE PO SCH (10:12)
[2019-01-27] MEDS: TEMOVATE 0.05% CREAM TOP SCH ×2 (10:12→22:02)
[2019-01-27] MEDS: KLONOPIN PO SCH ×2 (10:25→21:57)
[2019-01-27] MEDS: NORCO-7.5 PO SCH ×2 (10:25→21:58)
--- NOTE | 2019-01-27 12:20 | PROGRESS NOTE ---
DATE: 01/27/2019 SUBJECTIVE: This patient is feeling a little bit better. Creatinine is decreased a little bit compared with yesterday. The patient is making good urine. We will continue with the same management. X-ray today showed a persistent atelectasis and possible postobstructive pneumonia in the left upper lobe. Pulmonary Department is following this patient. I will follow his recommendations. OBJECTIVE: Vital Signs: Temperature 98.5 degrees, pulse 66, respiratory rate 20, blood pressure 153/75, and oxygen saturation 99 on room air. HEENT: Head normocephalic. No trauma. PERRLA. Neck: Supple. No JVD. No masses. Central trachea. Chest: Decreased breath sounds globally. No wheezing. Prolonged expiratory phase. Crepitus at the left base and the left upper thoracic area. Abdomen: Soft, protuberant, nontender, and nondistended. No hepatosplenomegaly. Extremities: 1+ lower extremity edema. No clubbing. No cyanosis. Neurological: The patient is alert and oriented x3. No focal deficits. LABORATORY: Sodium 142, potassium 3.8, chloride 103, bicarbonate 25, BUN 67, creatinine 4.6, glucose 174, calcium 8.3, and albumin 3. ASSESSMENT AND PLAN: 1. Left upper lobe pneumonia. Continue with antibiotics. Pulmonary Department is on board. X- ray showed a persistent atelectasis and possible post obstructive pneumonia in the left upper lobe. We will continue with the same management for now. I will await for recommendations. 2. Chronic obstructive pulmonary disease, not in exacerbation at this time. We will continue with the same management. This patient is using a Trilogy machine. 3. Chronic kidney disease stage 3. BUN and creatinine a little bit elevated compared with his baseline, but he is making good urine. We will monitor. 4. Diastolic CHF, not in exacerbation. Continue to monitor. Continue with diuretics, but I have decreased the dose a little bit. 5. Hypertension stable. 6. Diabetes. Continue with same management. 7. Obesity with a body mass index of 34.1. Aware. Diet and exercise has been discussed. cc: Tyrone Lorenzo MD
[2019-01-27] MEDS: LIPITOR PO SCH (21:44)
[2019-01-27] MEDS: LOVENOX SUBQ SCH (21:45)
[2019-01-27] MEDS: TEFLARO 300 MG in NS 250 ML IV SCH (21:46)
[2019-01-27] MEDS: NS 1,000 ML IV SCH (21:58)
--- NOTE | 2019-01-27 21:59 | PULMONOLOGY PROGRESS NOTE ---
DATE: 01/27/2019 NOTE: A full note was dictated prior to this note. The system did not prompt me at the completion of the note, so it is not clear that it was transcribed. In brief, chest x-ray continues to reveal consolidation/masslike area in the left upper lobe worrisome for possible endobronchial obstruction. A bronchoscopy will be scheduled and performed on Friday morning. This has been discussed with the patient. cc: Kale Yo MD
--- NOTE | 2019-01-27 22:02 | PULMONOLOGY PROGRESS NOTE ---
DATE: 01/27/2019 SUBJECTIVE: The patient is awake, alert and conversant. He is without new complaints. OBJECTIVE: Blood pressure 148/77, heart rate 73, respiratory rate 20, oxygen saturation 94% on 2 L per nasal cannula. HEENT: Pupils are equal and reactive. Oropharynx is clear. Neck is supple. Chest reveals prolonged expiratory phase. Cardiac exam: S1, S2. Abdomen is obese and soft. Extremities are without edema. DIAGNOSTIC DATA: Chest x-ray 01/27/2019 reveals continued atelectasis versus pneumonia in the left upper lobe. LABORATORY DATA: Microbiology: Sputum cultures reveal no growth. IMPRESSION: A 63-year-old with: 1. Severe chronic obstructive pulmonary disease. 2. Chronic hypoxemic respiratory failure. 3. Consolidation/mass in the left upper lobe, which has been waxing and waning but has never resolved. RECOMMENDATIONS: 1. Continue current antibiotic regimen. 2. Continue steroids. 3. Continue bronchial hygiene and Mucomyst. 4. We will plan on bronchoscopy on Friday morning to rule out airway obstruction in the left upper lobe. cc: Kale Yo MD
[2019-01-28] MEDS: ZOSYN 2.25 GM in NS 50 ML IV SCH ×4 (03:13→22:54)
[2019-01-28] MEDS: DUONEB (A & A) INH SCH ×6 (03:21→23:15)
[2019-01-28] MEDS ORDERED: INSULIN PEN NEEDLES ONE (06:31)
[2019-01-28] MEDS: ADVAIR 250/50 DISKUS INH SCH ×2 (07:53→19:15)
[2019-01-28] MEDS: MUCOMYST 20% INH SCH ×2 (07:53→19:15)
[2019-01-28] MEDS: SPIRIVA INH SCH (07:54)
[2019-01-28 08:08] LABS: CALCIUM 8.5 mg/dL (8.8-10.2); CREATININE 4.1 mg/dL (0.7-1.2); POTASSIUM 3.9 mmol/L (3.5-5.1)
[2019-01-28] MEDS: BASAGLAR SUBQ SCH ×2 (10:12→20:49)
[2019-01-28] MEDS: NORCO-7.5 PO SCH ×2 (10:13→20:47)
[2019-01-28] MEDS: MIRALAX PO SCH ×2 (10:14→20:42)
[2019-01-28] MEDS: KLONOPIN PO SCH ×2 (10:14→20:47)
[2019-01-28] MEDS: LACTULOSE PO SCH ×2 (10:15→20:42)
[2019-01-28] MEDS: NORVASC PO SCH (10:15)
[2019-01-28] MEDS: APRESOLINE PO SCH ×3 (10:16→20:47)
[2019-01-28] MEDS: ISORDIL PO SCH ×3 (10:16→20:47)
[2019-01-28] MEDS: FLOMAX PO SCH (10:16)
[2019-01-28] MEDS: PRILOSEC PO SCH (10:17)
[2019-01-28] MEDS: PREDNISONE PO SCH (10:17)
[2019-01-28] MEDS: TESSALON PO SCH ×3 (10:17→20:47)
[2019-01-28] MEDS: ZYLOPRIM PO SCH (10:17)
[2019-01-28] MEDS: TOPROL XL PO SCH ×2 (10:17→20:48)
[2019-01-28] MEDS: KLOR-CON PO SCH (10:17)
[2019-01-28] MEDS: FOLIC ACID PO SCH (10:18)
[2019-01-28] MEDS: LASIX PO SCH ×2 (10:18→20:46)
--- NOTE | 2019-01-28 11:59 | PROGRESS NOTE ---
DATE: 01/28/2019 SUBJECTIVE: No big changes compared with yesterday. BUN and creatinine are getting better. Patient is making urine. X-ray showed a persistent atelectasis and possible post obstructive pneumonia in the left upper lobe. Pulmonary Department evaluated this patient, and they will schedule this patient for a bronchoscopy tomorrow. OBJECTIVE: Vital Signs: Temperature 97.2 degrees, pulse 71, respiratory rate 22, blood pressure 183/80, and oxygen saturation 100% on 4 L of nasal cannula. HEENT: Head normocephalic. No trauma. PERRLA. Neck: Supple. No JVD. No masses. Central trachea. Chest: Decreased breath sounds globally. No wheezing. Prolonged expiratory phase. Crepitus at the level of the left base and left upper thoracic area. Abdomen: Soft, protuberant, nontender, and nondistended. No hepatosplenomegaly. Extremities: 1+ lower extremity edema. No clubbing. No cyanosis. Neurological: The patient is alert and oriented x3. No focal deficits. LABORATORY: Sodium 143, potassium 3.9, chloride 103, bicarbonate 26, BUN 64, creatinine 4.1, glucose 182, and calcium 8.5. ASSESSMENT AND PLAN: 1. Left upper lobe pneumonia. Continue with antibiotics. Pulmonary Department following this patient, and they will try to do a bronchoscopy tomorrow. X-ray showed a persistent atelectasis and possible postobstructive pneumonia in the left upper lobe. We will continue with the same management for now. I will continue to follow with recommendations. 2. Chronic obstructive pulmonary disease, not in exacerbation at this time. Continue with same management. 3. Chronic kidney disease stage 3. BUN and creatinine are getting better, continue to monitor. 4. Diastolic CHF, not in exacerbation. Continue to monitor. Continue with gentle diuresis. 5. Hypertension stable. 6. Diabetes. Continue with same management. 7. Obesity with a body mass index of 34.1. Diet and exercise have been discussed. cc: Tyrone Lorenzo MD
[2019-01-28] MEDS: TEFLARO 300 MG in NS 250 ML IV SCH ×2 (12:00→20:42)
[2019-01-28] MEDS: TEMOVATE 0.05% CREAM TOP SCH ×2 (12:04→22:55)
--- NOTE | 2019-01-28 20:08 | PULMONOLOGY PROGRESS NOTE ---
DATE: 01/28/2019 SUBJECTIVE: The patient reports he has shortness of breath, but it has improved since admission. OBJECTIVE: Vital Signs: The patient has been afebrile for the last 24 hours. Blood pressure 114/55, heart rate 79, respiratory rate 22, oxygen saturation 99% on 4 L per nasal cannula. HEENT: Pupils are equal and reactive. Oropharynx is clear. Neck: Supple. Chest: Reveals prolonged expiratory phase. Cardiac: S1, S2. Abdomen: Soft and obese. Extremities: Reveal trace edema. LABORATORIES: Sodium 143, potassium 3.9, chloride 103, bicarbonate 26, BUN 64, creatinine 4.1, glucose 182. IMPRESSION: A 63-year-old with: 1. Persistent consolidation in the left upper lobe dating back to November. 2. Severe COPD. 3. Chronic hypoxemic respiratory failure. 4. Chronic kidney failure. RECOMMENDATIONS: 1. Schedule patient for bronchoscopy tomorrow morning. 2. N.p.o. after midnight. 3. Continue current antibiotic regimen. 4. Continue steroids. 5. Continue bronchial hygiene and Mucomyst. 6. All questions were answered. The patient is aware that the risks for the procedure include acute respiratory failure due to his marginal pulmonary status, hemoptysis, pneumothorax, and infection. cc: Kale Yo MD
[2019-01-28] MEDS: LIPITOR PO SCH (20:47)
[2019-01-28] MEDS: NS 1,000 ML IV SCH (20:49)
[2019-01-29] MEDS: DUONEB (A & A) INH SCH ×6 (03:15→23:25)
[2019-01-29] MEDS: ZOSYN 2.25 GM in NS 50 ML IV SCH ×4 (04:05→23:52)
[2019-01-29] MEDS ORDERED: XYLOCAINE-MPF 2% ONE (07:04)
[2019-01-29] MEDS ORDERED: DIPRIVAN 1% ONE (07:04)
[2019-01-29 07:06] LABS: BASO# 0.08 X1000 (0.0-0.2); EOS# 0.06 X1000 (0.0-0.7); EOS% 0.8 % (0.0-10.0); HEMATOCRIT 31.3 % (42.0-52.0); HEMOGLOBIN 9.2 g/dL (14.0-18.0); IMM GRAN# 0.09 X1000 (0.0-0.04); IMM GRAN% 1.1 % (0.0-0.5); LYMPH# 1.71 X1000 (1.2-3.4); LYMPH% 21.6 % (20.5-51.1); MCH 26.4 PG (27-31); MCHC 29.4 g/dL (33-37); MCV 89.7 FL (81-99); MONO# 1.03 X1000 (0.11-0.59); MPV 9.5 FL (7.4-10.4); NEUT# 4.94 X1000 (1.4-6.5); NEUT% 62.5 % (42.2-75.2); PLT 258 X1000 (130-400); RBC 3.49 XMIL (4.7-6.1); RDW 16.9 % (11.5-14.5); WBC 7.91 X1000 (4.8-10.8)
[2019-01-29] MEDS: MUCOMYST 20% INH SCH ×2 (07:31→19:34)
[2019-01-29] MEDS: ADVAIR 250/50 DISKUS INH SCH ×2 (07:32→19:34)
[2019-01-29] MEDS: SPIRIVA INH SCH (07:32)
[2019-01-29] MEDS ORDERED: XYLOCAINE 1% ONE (07:34)
[2019-01-29] MEDS ORDERED: XYLOCAINE 2% VISCOUS ONE (07:38)
[2019-01-29] MEDS ORDERED: XYLOCAINE 2% ONE (07:38)
[2019-01-29] MEDS ORDERED: ROBINUL ONE ×2 (07:51→09:57)
[2019-01-29] MEDS ORDERED: ZOFRAN ONE (07:51)
[2019-01-29] MEDS ORDERED: DECADRON ONE (07:51)
[2019-01-29] MEDS: APRESOLINE PO SCH ×4 (08:01→20:42)
[2019-01-29] MEDS: ISORDIL PO SCH ×4 (08:01→20:41)
[2019-01-29] MEDS: LACTULOSE PO SCH ×3 (08:01→20:42)
[2019-01-29] MEDS: MIRALAX PO SCH ×3 (08:02→20:42)
[2019-01-29] MEDS: TESSALON PO SCH ×4 (08:03→20:42)
[2019-01-29] MEDS: BASAGLAR SUBQ SCH ×2 (08:09→20:43)
[2019-01-29] MEDS ORDERED: SODIUM CHLORIDE 0.9% 20 ML ONE ×2 (08:10→09:52)
[2019-01-29] MEDS ORDERED: EPINEPHRINE ONE ×2 (08:11→09:52)
[2019-01-29 08:24] LABS: CALCIUM 8.3 mg/dL (8.8-10.2); CREATININE 4.3 mg/dL (0.7-1.2); POTASSIUM 4.3 mmol/L (3.5-5.1)
[2019-01-29] MEDS ORDERED: VENTOLIN HFA ONE (09:22)
[2019-01-29] MEDS ORDERED: NEOSTIGMINE ONE (09:57)
[2019-01-29] MEDS: FLOMAX PO SCH (11:11)
[2019-01-29] MEDS: PRILOSEC PO SCH (11:11)
[2019-01-29] MEDS: KLONOPIN PO SCH ×2 (11:11→20:43)
[2019-01-29] MEDS: ZYLOPRIM PO SCH (11:11)
[2019-01-29] MEDS: KLOR-CON PO SCH (11:12)
[2019-01-29] MEDS: NORVASC PO SCH (11:12)
[2019-01-29] MEDS: FOLIC ACID PO SCH (11:12)
[2019-01-29] MEDS: TOPROL XL PO SCH ×2 (11:13→20:41)
[2019-01-29] MEDS: PREDNISONE PO SCH (11:13)
[2019-01-29] MEDS: LASIX PO SCH ×2 (11:13→20:42)
[2019-01-29] MEDS: NORCO-7.5 PO SCH ×2 (11:15→20:41)
[2019-01-29] MEDS: TEMOVATE 0.05% CREAM TOP SCH ×2 (11:18→20:51)
--- NOTE | 2019-01-29 11:45 | OPERATIVE NOTE ---
PROCEDURE DATE: PROCEDURE PERFORMED: Bronchoscopy with endobronchial biopsies. CLINICAL INDICATIONS: Persistent atelectasis of the left upper lobe. FINDINGS: 1. Cobblestoning of the vocal cord mucosa. 2. Necrotic debris with possible tumor in the apical segment of the right upper lobe. 3. 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 4. Small nodule at the entrance of the basilar segments of the left lower lobe. DESCRIPTION OF PROCEDURE: The patient was identified in the holding area in the operating room prior to the procedure. All questions were answered. This case discussed with Anesthesia, and due to his obesity and degree of COPD, an LMA route with general anesthesia was discussed and pursued. The patient was re-identified in the operating room. The patient had already been sedated and an LMA was in place. Radiology was therefore fluoroscopy assistance, but this was not utilized, and they were subsequently dismissed. A time-out was performed and all agreed with the procedure and the patient identifiers. The bronchoscope was advanced through an established LMA. The vocal cords were visualized, and due to general anesthesia were not moving, and therefore movement could not be evaluated. The vocal cords were thickened with cobblestoning bilaterally, and an ENT evaluation might be considered in the future. The bronchoscope was advanced through the vocal cords into the trachea. There was increased tracheal secretions noted which were suctioned for culture and cytology. The bronchoscope was advanced. No endotracheal lesions were identified. The bronchoscope was directed to the right mainstem and subsequent right upper lobe. In the right upper lobe, necrotic appearing debris could be seen in the apical segment of the right upper lobe. Video image was obtained. With washing, this was removed. The airway was edematous with possible tumor present. Multiple biopsies were taken from this area and labeled right upper lobe. Airways to the right middle lobe and right lower lobe were patent without lesions. Evaluation of the left bronchial tree revealed tumor at the dividing point of the anterior and apical posterior segment. This had the appearance of a malignancy. Video image was obtained. The bronchoscope was directed toward the lower lobes. On the anterior wall of the entrance of the lower lobe just prior to the airflow dividers of the basilar segments, a nodule could be identified which obscured less than 5% of the airway. Video image was obtained. Multiple biopsies were taken from this area and the area was flat at the completion of the biopsies. A followup image was obtained. The bronchoscope was retracted back to the left upper lobe. Multiple biopsies were taken from the tumor affecting the left upper lobe entrance. When the tumor was adequately biopsied, both airway segments to the left upper lobe could be identified. IMPRESSION: 1. Cobblestoning of the vocal cords as outlined above. 2. Necrotic-appearing material with mucous obstruction of the apically directed segment of the right upper lobe. This airway segment was suctioned clear and multiple biopsies were taken. 3. Tumor obstructing the left upper lobe entrance as outlined above. Multiple biopsies were taken. 4. Small nodule just prior to entrance of the left lower lobe. Multiple biopsies were taken. 5. The patient had transient hypoxemia during the procedure. His oxygen saturation improved with placing him in reverse Trendelenburg. cc: MD Michael Thorpe MD MTDD
[2019-01-29] MEDS: TEFLARO 300 MG in NS 250 ML IV SCH ×2 (12:38→20:50)
--- NOTE | 2019-01-29 16:03 | PROGRESS NOTE ---
DATE: 01/29/2019 SUBJECTIVE: This patient had a bronchoscopy done today. The bronchoscopy report showed a cobblestoning of the vocal cords, necrotic-appearing material with mucous obstruction of the typically directed segment of the right upper lobe. This airway segment was suctioned clear and multiple biopsies were taken. Tumor obstructing the left upper lobe entrance, multiple biopsies were taken. A small nodule just prior to entrance of the left lower lobe with multiple biopsies were taken as well. The patient had a transient hypoxemia during the procedure. His oxygen saturation improved with placing him in reverse Trendelenburg. At the moment of my physical exam after the procedure, he was more stable. He was using oxygen supplementation, and the oxygen saturation was stable, as well as heart rate and respiratory rate. We will go ahead and continue with the same management and, hopefully in the next 24 to 48 hours, I will send this patient home. He will continue with his trilogy machine and follow up with Pulmonary Department as an outpatient for biopsy results and further treatment. OBJECTIVE: Vital Signs: Temperature 98 degrees, pulse 85, respiratory rate 18, blood pressure 144/85, oxygen saturation 100% on 4 L of nasal cannula. HEENT: Head normocephalic. No trauma. PERRLA. Neck: Supple. No JVD. No masses. Central trachea. Chest: Decreased breath sounds globally. No wheezing. Prolonged expiratory phase. Crepitus at the level of the left base and left upper thoracic area. Abdomen: Soft, protuberant, nontender, nondistended. No hepatosplenomegaly. Extremities: 1+ extremity edema. No clubbing. No cyanosis. Neurological examination: This patient is alert and oriented x3. No focal neurological deficits. LABORATORY: WBC 7.9, hemoglobin 9.2, hematocrit 31.3, platelets 258. Sodium 148, potassium 4.3, chloride 106, bicarbonate 28. BUN 72, creatinine 4.3, glucose 219, calcium 8.3. ASSESSMENT AND PLAN: 1. Left upper lobe pneumonia. Continue with antibiotics, breathing treatment, oxygen supplementation. 2. Possible malignancy at the level of the left upper and right upper lobe, pending biopsy results. Also, there is a small nodule to the entrance of the left lower lobe. 3. Chronic obstructive pulmonary disease, not in exacerbation at this time. Continue with the same management. 4. Chronic kidney disease stage III. BUN and creatinine stable. Continue to monitor. 5. Diastolic congestive heart failure, not in exacerbation. Continue to monitor. Continue with gentle diuresis. 6. Hypertension, stable. 7. Diabetes. Continue with same management. 8. Obesity with a body mass index of 34.1, Diet and exercise have been discussed. cc: Tyrone Lorenzo MD
[2019-01-29] MEDS: NS 1,000 ML IV SCH (20:38)
[2019-01-29] MEDS: LIPITOR PO SCH (20:42)
[2019-01-29] MEDS ORDERED: INSULIN PEN NEEDLES ONE (20:49)
[2019-01-30] MEDS: DUONEB (A & A) INH SCH ×7 (03:20→23:03)
[2019-01-30] MEDS: ZOSYN 2.25 GM in NS 50 ML IV SCH ×4 (05:38→23:36)
[2019-01-30 07:39] LABS: BASO# 0.02 X1000 (0.0-0.2); BASO% 0.2 % (0.0-0.8); HEMATOCRIT 30.1 % (42.0-52.0); HEMOGLOBIN 8.7 g/dL (14.0-18.0); IMM GRAN# 0.11 X1000 (0.0-0.04); IMM GRAN% 1.2 % (0.0-0.5); LYMPH# 1.11 X1000 (1.2-3.4); LYMPH% 12.5 % (20.5-51.1); MCH 25.8 PG (27-31); MCHC 28.9 g/dL (33-37); MCV 89.3 FL (81-99); MONO# 1.21 X1000 (0.11-0.59); MONO% 13.6 % (1.7-9.3); MPV 9.8 FL (7.4-10.4); NEUT# 6.45 X1000 (1.4-6.5); NEUT% 72.5 % (42.2-75.2); PLT 256 X1000 (130-400); RBC 3.37 XMIL (4.7-6.1); RDW 17.1 % (11.5-14.5)
[2019-01-30 08:17] LABS: CALCIUM 8.4 mg/dL (8.8-10.2); CREATININE 4.3 mg/dL (0.7-1.2); POTASSIUM 3.8 mmol/L (3.5-5.1)
[2019-01-30] MEDS: APRESOLINE PO SCH ×3 (08:57→21:11)
[2019-01-30] MEDS: ZYLOPRIM PO SCH (08:57)
[2019-01-30] MEDS: LASIX PO SCH ×2 (08:57→21:10)
[2019-01-30] MEDS: TOPROL XL PO SCH ×2 (08:57→21:10)
[2019-01-30] MEDS: MIRALAX PO SCH ×2 (08:57→21:11)
[2019-01-30] MEDS: PRILOSEC PO SCH (08:57)
[2019-01-30] MEDS: KLONOPIN PO SCH ×2 (08:57→21:12)
[2019-01-30] MEDS: TESSALON PO SCH ×3 (08:57→21:11)
[2019-01-30] MEDS: LACTULOSE PO SCH ×2 (08:58→21:12)
[2019-01-30] MEDS: NORVASC PO SCH (08:58)
[2019-01-30] MEDS: FOLIC ACID PO SCH (08:58)
[2019-01-30] MEDS: ISORDIL PO SCH ×3 (08:58→21:10)
[2019-01-30] MEDS: FLOMAX PO SCH (08:59)
[2019-01-30] MEDS: NORCO-7.5 PO SCH ×2 (08:59→21:11)
[2019-01-30] MEDS: PREDNISONE PO SCH ×2 (08:59→14:28)
[2019-01-30] MEDS: KLOR-CON PO SCH (08:59)
[2019-01-30] MEDS: BASAGLAR SUBQ SCH ×2 (08:59→21:25)
[2019-01-30] MEDS: TEMOVATE 0.05% CREAM TOP SCH ×2 (10:31→21:12)
[2019-01-30] MEDS: MUCOMYST 20% INH SCH ×2 (11:18→19:27)
[2019-01-30] MEDS: ADVAIR 250/50 DISKUS INH SCH ×2 (11:25→19:36)
[2019-01-30] MEDS: SPIRIVA INH SCH (11:25)
[2019-01-30] MEDS: TEFLARO 300 MG in NS 250 ML IV SCH ×2 (11:35→21:12)
[2019-01-30] MEDS: ASPIRIN EC PO SCH (11:35)
--- NOTE | 2019-01-30 12:30 | PROGRESS NOTE ---
DATE: 01/30/2019 SUBJECTIVE: As per the patient, he was confused during the night. His sodium level is 149. At this moment, he is oriented, he is following commands. I asked the patient to drink more free water today. I will continue with the same management and hopefully today in the afternoon or tomorrow morning I will discharge this patient home. OBJECTIVE: Vital Signs: Temperature 97.5 degrees, pulse 80, respiratory rate 18, blood pressure 150/89, oxygen saturation 95% on nasal cannula. HEENT: Head normocephalic, no trauma. PERRLA. Neck: Neck is supple. No JVD. No masses. Central trachea. Chest: Decreased breath sounds globally. No wheezing. Prolonged expiratory phase. Crepitus at the level of the left base and a little bit at the level of the left upper thoracic area. Abdomen: Soft, protuberant, nontender, nondistended. No hepatosplenomegaly. Extremities: 1+ lower extremity edema. No clubbing. No cyanosis. Neurological examination: The patient at this moment is alert and oriented x3, but he felt confused during the night multiple times. No focal deficits. LABORATORY: WBC 8.9, hemoglobin 8.7, hematocrit 30.1, platelets 256. Sodium 149, potassium 3.8, chloride 107, bicarbonate 23. BUN 73, calcium 4.3, glucose 158, calcium 8.4. ASSESSMENT AND PLAN: 1. Left upper lobe pneumonia. Continue with antibiotics, breathing treatment, oxygen supplementation. 2. Possible malignancy at the level of the left upper and right upper lobe, pending biopsy results. Also, there is a small nodule in the entrance of the left lower lobe. 3. Chronic obstructive pulmonary disease, not in exacerbation at this time. Continue with the same management. 4. Hypernatremia with some confusion during the night. I will increase the free water on this patient. We will monitor. I will ask for a new basic metabolic panel in the afternoon. 5. Chronic kidney disease, stage III-IV. Continue with same management, stable. 6. Diastolic congestive heart failure, not in exacerbation. 7. Hypertension, stable. 8. Diabetes. Continue with same management. 9. Obesity with a body mass index of 34.1. Diet and exercise has been discussed. cc: Tyrone Lorenzo MD
--- NOTE | 2019-01-30 13:50 | Diag Imaging Result Doc PS360 ---
EXAM: CHEST-2 VIEWS INDICATION: atelectasis TECHNIQUE: 2 views COMPARISON: 01/27/2019 FINDINGS: The dense left upper lobe consolidation is stable. No new consolidation is appreciated. Cardiac silhouette is stable. IMPRESSION: Stable chest. Electronically signed by Jake Serna 01/30/2019 1:48 PM
[2019-01-30 17:01] LABS: CALCIUM 8.4 mg/dL (8.8-10.2); CREATININE 3.9 mg/dL (0.7-1.2); POTASSIUM 4.4 mmol/L (3.5-5.1)
--- NOTE | 2019-01-30 19:37 | PULMONOLOGY PROGRESS NOTE ---
DATE: 01/30/2019 SUBJECTIVE: The patient is awake, alert, and conversant. By report, he had some confusion earlier in the day but this has resolved. He reports his breathing has improved. OBJECTIVE: Vital Signs: The patient has been afebrile over the last 24 hours. Blood pressure 150/64, heart rate 70, respiratory rate 16, oxygen saturation 97% on 4 L per nasal cannula. HEENT: Pupils are equal and reactive. Oropharynx appears clear. Neck: Is supple. Chest: Reveals good air entry bilaterally without wheezing or rhonchi. Cardiac exam: S1-S2. Abdomen: Is obese and soft. Extremities: Without edema. LABORATORIES: Chest x-ray reveals slight decrease consolidation atelectasis in the left upper lobe although the radiologist indicates no change. Washings of the trachea revealed no growth. White blood count 8.9, hemoglobin 8.7, platelet count 256,000. Sodium 149 (normal saline discontinued), potassium 3.8, chloride 107, bicarbonate 23, BUN 73 and stable, creatinine 4.3 and stable. IMPRESSION: A 63-year-old with lesion at entrance of the right upper lobe, lesion at the entrance of the left upper lobe with atelectasis, bronchial nodule at the entrance of the left lower lobe, chronic hypoxemic respiratory failure, morbid obesity, chronic renal insufficiency. Biopsies have been performed and are pending. RECOMMENDATIONS: 1. Agree with discontinuing normal saline. 2. Continue current antibiotic regimen. 3. Begin steroid weaning. 4. Anticipate discharge 01/31/2019 if he continues to improve. 5. The patient is scheduled to follow up in my office at 11 o'clock on Friday morning 02/03/2019. He should attempt to be at the office 15 minutes prior to that visit. The patient will need outpatient PET scan pending results of his biopsies. Malignancy is anticipated. cc: Kale Yo MD
[2019-01-30] MEDS: LOVENOX SUBQ SCH (21:11)
[2019-01-30] MEDS: LIPITOR PO SCH (21:11)
[2019-01-30] MEDS ORDERED: INSULIN PEN NEEDLES ONE (21:13)
[2019-01-31] MEDS: DUONEB (A & A) INH SCH ×3 (03:08→11:01)
[2019-01-31] MEDS: ZOSYN 2.25 GM in NS 50 ML IV SCH (05:24)
[2019-01-31 07:59] LABS: CALCIUM 8.2 mg/dL (8.8-10.2); CREATININE 3.8 mg/dL (0.7-1.2); POTASSIUM 3.9 mmol/L (3.5-5.1)
[2019-01-31] MEDS: MUCOMYST 20% INH SCH (08:12)
[2019-01-31 08:14] VITALS: BP 149/76
[2019-01-31] MEDS: ADVAIR 250/50 DISKUS INH SCH (08:32)
[2019-01-31] MEDS: SPIRIVA INH SCH (08:33)
[2019-01-31] MEDS: BASAGLAR SUBQ SCH (09:40)
[2019-01-31] MEDS: NORVASC PO SCH (09:41)
[2019-01-31] MEDS: PREDNISONE PO SCH (09:41)
[2019-01-31] MEDS: TOPROL XL PO SCH (09:41)
[2019-01-31] MEDS: ISORDIL PO SCH (09:41)
[2019-01-31] MEDS: LASIX PO SCH (09:42)
[2019-01-31] MEDS: PRILOSEC PO SCH (09:42)
[2019-01-31] MEDS: ASPIRIN EC PO SCH (09:44)
[2019-01-31] MEDS: FLOMAX PO SCH (09:44)
[2019-01-31] MEDS: ZYLOPRIM PO SCH (09:45)
[2019-01-31] MEDS: TESSALON PO SCH (09:45)
[2019-01-31] MEDS: KLONOPIN PO SCH (09:46)
[2019-01-31] MEDS: APRESOLINE PO SCH (09:46)
[2019-01-31] MEDS: KLOR-CON PO SCH (09:46)
[2019-01-31] MEDS: LACTULOSE PO SCH (09:47)
[2019-01-31] MEDS: FOLIC ACID PO SCH (09:47)
[2019-01-31] MEDS: NORCO-7.5 PO SCH (09:47)
[2019-01-31] MEDS: MIRALAX PO SCH (09:47)
[2019-01-31] MEDS: TEMOVATE 0.05% CREAM TOP SCH (09:49)
--- NOTE | 2019-01-31 15:10 | DISCHARGE SUMMARY ---
ADMISSION DATE: 01/21/2019 DISCHARGE DATE: 01/31/2019 ADMITTING DIAGNOSES: 1. Left upper lobe pneumonia. 2. Chronic kidney disease stage 3. 3. Diastolic congestive heart failure. 4. Hypertension. 5. Chronic obstructive pulmonary disease exacerbation. 6. Obstructive sleep apnea. 7. Cor pulmonale. 8. Morbid obesity. 9. Coronary artery disease. 10.Irritable bowel syndrome. 11.Peripheral arterial disease. 12.Gout. DISCHARGE DIAGNOSES: 1. Left upper lobe pneumonia. 2. Possible malignancy at the level of the left upper and right upper lobe, status post bronchoscopy. 3. Chronic kidney disease stage 3. 4. Diastolic congestive heart failure. 5. Hypertension. 6. Chronic obstructive pulmonary disease exacerbation. 7. Obstructive sleep apnea. 8. Cor pulmonale. 9. Morbid obesity. 10.Coronary artery disease. 11.Irritable bowel syndrome. 12.Peripheral arterial disease. 13.Gout. CONSULTATIONS: Dr. Kale oY with Pulmonary. DIAGNOSTIC PROCEDURES AND FINDINGS: Chest x-ray on 01/21/2019 shows worsening dense consolidation and pneumonia in the left upper lobe. EKG on 01/21/2019 is sinus rhythm with nonspecific T changes. Chest x-ray on 01/24/2019 with lower lung volumes. No change from prior chest CT. On 01/24/2019, waxing and waning infiltrate in the medial left upper lobe, no airway obstruction at this time. Chest x-ray on 01/27/2019 shows persistent atelectasis and possible postobstructive pneumonia in the left upper lobe, advise further evaluation. Chest x-ray on 01/30/2019 shows the dense left upper lobe consolidation is stable. No new consolidations appreciated. OPERATIVE PROCEDURES: Bronchoscopy with endobronchial biopsies by Dr. Yo on 01/29/2019 showed cobblestoning of the vocal cords, necrotic appearing material with mucus obstruction of the atypically directed segment of the right upper lobe. The airway segment was suctioned clear. Multiple biopsies taken. Tumor obstructing the left upper lobe entrance. Small nodule prior to the entrance of the left upper lobe. HOSPITAL COURSE: Mr. La is a 63-year-old male well known to our service with multiple admissions, admitted for progressive shortness of breath. Found to have left upper lobe pneumonia. He has multiple other comorbidities and quit smoking 6 years prior. He was admitted. Blood cultures were obtained. He was started on antibiotics, and we also consulted Pulmonary. He did not have any improvement with antibiotics, breathing treatments and pulmonary toilet, and CT revealed possibility of something more nefarious than just pneumonia, possibly postobstruction. The plan then was to do a bronchoscopy which Dr. Yo did on 01/29/2019. During the bronchoscopy, he noted obstructing tumor at the entrance of the left upper lobe and necrotic debris with possible tumor in the apical segment of the left upper lobe. Biopsies were taken and are currently pending. He did experience some transient hypoxia just after his procedure. He was placed in reverse Trendelenburg and high flow O2 which improved. Over the next 24 to 48 hours, he improved symptomatically. Chest x-ray done on 01/30/2019 did show stable dense left upper lobe consolidation. It was felt ultimately that the patient could go home now that biopsies have been taken. He is feeling better. He will be following up with Dr. Yo on 02/03/2019 for his biopsy results, but there is high likelihood, per Dr. Yo's notes, that this is malignant in nature. Overall, he is stable for discharge, and he has reached maximum benefit of inpatient hospitalization. DISCHARGE MEDICATIONS: Potassium chloride 10 mEq p.o. daily, aspirin 81 mg daily, allopurinol 100 mg daily, atorvastatin 40 mg daily, Singulair 10 mg at bedtime, clonidine 0.2 mg p.o. t.i.d., fish oil 1 daily, metoprolol XL 50 mg daily, isosorbide dinitrate 60 mg t.i.d., clobetasol propionate cream as directed, Klonopin 0.5 mg p.o. t.i.d., folic acid 1 mg daily, Norvasc 10 mg daily, hydralazine 100 mg p.o. t.i.d., [place] 7.5, Flomax 0.4 mg daily, Lantus insulin 120 units subcutaneously b.i.d., DuoNeb SIS 3 mL inhaled q.4 hours as needed, omeprazole 40 mg p.o. daily, Lispro insulin 100 units subcutaneously before meals and at bedtime, Spiriva 1 puff daily, Advair 250/50 Diskus 1 puff b.i.d., lactulose 30 mL b.i.d., Lasix 40 mg b.i.d., MiraLAX 17 g b.i.d., Tessalon Perles 100 mg p.o. t.i.d., prednisone 10 mg daily, doxycycline 100 mg daily, Augmentin 875/125 one p.o. daily. DISCHARGE DIET: Diabetic. DISCHARGE ACTIVITY: Resume activity as tolerated. DISCHARGE LABS: Chemistry shows sodium 143, potassium 3.9, chloride 105, CO2 is 24, anion gap 14, BUN is 17, creatinine 3.8, glucose 235, calcium 8.2. DISPOSITION AND OTHER DISCHARGE INSTRUCTIONS: The patient is discharged home to self care. He is to follow up with Dr. Yo on 02/03/2019 as directed. He is to continue home medications and return to the ER or call 911 with worsening complaints or concerns. All questions answered. Discharge time is greater than 35 minutes. Dictated by ALPESH Guajardo for Tyrone Lorenzo MD cc: ALPESH Guajardo MD James E. Boyle, MD
--- NOTE | 2019-01-31 16:41 | PULMONOLOGY PROGRESS NOTE ---
DATE: 01/31/2019 SUBJECTIVE: The patient is awake, alert, and conversant. He reports his breathing has actually improved. OBJECTIVE: Vital Signs: The patient has been afebrile for the last 24 hours. Blood pressure 139/41, heart rate 67, respiratory rate 17, oxygen saturation 97% on 4 L per nasal cannula. HEENT: Pupils are equal and reactive. Oropharynx is clear. Neck: Is supple . Chest: Reveals prolonged expiratory phase. Cardiac exam: Distant heart sounds. Normal S1, normal S2. Abdomen: Obese and soft. Extremities: Reveal trace edema. LABORATORIES: Bronchial washings from the trachea reveal no growth. IMPRESSION: 63-year-old status post bronchoscopy. The patient had a lesion in the right upper lobe and a lesion in the left lower lobe along with a small endobronchial nodule just prior to the entrance of the basilar segments of the left lower lobe. Biopsies from all of these areas were obtained on Friday and pathology reports are pending. The patient's hyponatremia has resolved. He is anxious to be discharged home. He will follow up in my clinic next Friday on 02/03/2019. The patient is aware of that followup and he did repeat the time and date this morning. RECOMMENDATIONS: 1. Continue bronchial hygiene at discharge. 2. Continue steroid weaning. 3. Follow up in my office as outlined above. cc: Kale Yo MD
== END 2019-01-31 13:15 | disposition home or self-care (01) | DRG 180 ==
LOC: SUPCPDRO → ED 10:34 → SUATTDRO 19:57 → 3N 19:57
PROVIDERS: ATTEND Internal Medicine
CPT/HCPCS: 71010; 71020; 71045; 71046; 71250; 80048; 80053; 82550; 82784; 82805; 82948; 83880; 84484; 85025; 85610; 85730; 87015; 87040; 87070; 87102; 87116; 87147; 87205; 87206; 88305; 89220; 93005; 94640; 94761; 96365; 96366; 96367; 99285; 99291; A9270; J0171; J0456; J0696; J0712; J1100; J1650; J2405; J2543; J7030; J7050; J7506; J7512; XXXXX

== ENCOUNTER 2019-02-09 01:00 | Inpatient (IN) ==
[2019-02-09] MEDS ORDERED: ASPIRIN ONE (01:15)
[2019-02-09] MEDS ORDERED: SOLU-MEDROL IV ONE (01:15)
[2019-02-09] MEDS ORDERED: DUONEB (A & A) INH ONE (01:15)
[2019-02-09 01:38] LABS: ALLEN TEST YES; BE -4.2 mmoll (-3.0-3.0); BLOOD TYPE ARTERIAL; HCO3-(ACT) 21.6 mmoll (20.0-26.0); METHB 0.5 % (0.0-1.5); PCO2(98.6) 42 mmHg (35-45); PO2(98.6) 106 mmHg (60-100); SAMPLE BLOOD; SAO2 98.1 % (95.0-100.0); THB 8.9 g/dL (11.5-17.4); pH(98.6) 7.32 (7.35-7.45)
[2019-02-09 01:40] LABS: MODALITY CANNULA
[2019-02-09] MEDS ORDERED: ROCEPHIN 1 GM in NS 50 ML IV ONE (01:51)
[2019-02-09 01:56] LABS: BASO# 0.05 X1000 (0.0-0.2); BASO% 0.7 % (0.0-0.8); EOS# 0.05 X1000 (0.0-0.7); EOS% 0.7 % (0.0-10.0); HEMATOCRIT 29.1 % (42.0-52.0); HEMOGLOBIN 8.7 g/dL (14.0-18.0); LYMPH# 1.05 X1000 (1.2-3.4); LYMPH% 15.4 % (20.5-51.1); MCHC 29.9 g/dL (33-37); MCV 90.4 FL (81-99); MONO# 0.87 X1000 (0.11-0.59); MONO% 12.8 % (1.7-9.3); MPV 11.7 FL (7.4-10.4); NEUT# 4.79 X1000 (1.4-6.5); NEUT% 70.4 % (42.2-75.2); PLT 214 X1000 (130-400); RBC 3.22 XMIL (4.7-6.1); RDW 18.8 % (11.5-14.5); WBC 6.81 X1000 (4.8-10.8)
--- NOTE | 2019-02-09 02:00 | PROVIDER DOCUMENTATION ---
This chart was entered by Shirley Serna Scribe, acting as scribe for Rajesh Frias MD. HPI-Respiratory General - General Source: patient - History of Present Illness-Resp Quality of Pain: reports: pressure Severity in ED: reports: mild <Rajesh Frias - Last Filed: 02/09/19 02:00> <Marlon Walter - Last Filed: 02/09/19 03:31> - General Chief Complaint: Shortness of Breath Stated Complaint: resp. distress Time Seen by Provider: 02/09/19 01:01 Allergies/Adverse Reactions: Patient Allergies Allergy/AdvReac Type Severity Reaction Status Date / Time ketorolac tromethamine * Allergy Mild RASH Verified 10/14/18 16:54 [From Toradol] levofloxacin Allergy Mild SHORTNESS Verified 10/14/18 16:54 OF BREATH almond Allergy Unknown Verified 10/14/18 16:54 doxazosin mesylate * Allergy SHORTNESS Verified 10/14/18 16:54 [From Cardura] OF BREATH ibuprofen [From Motrin] Allergy FLUSHING Verified 10/14/18 16:54 Home Medications: Home Medication List Medication Instructions Recorded Confirmed Last Taken Type Aspirin [Ecotrin] 81 mg PO QAM 12/11/14 01/22/19 01/21/19 History Potassium Chloride 10 meq PO QAM 12/11/14 01/22/19 01/21/19 History ATORVAstatin [Lipitor] 40 mg PO QHS #90 tab 12/19/17 01/22/19 01/21/19 Rx Allopurinol [Zyloprim] 100 mg PO DAILY #30 tab 12/19/17 01/22/19 01/21/19 Rx Fluticasone/Salmet 250/50 INH 1 puff INH RTBID #1 inhaler 12/19/17 11/24/18 11/23/18 07:00 Rx [Advair 250/50 Diskus] Montelukast Sodium [Singulair] 10 mg PO QHS #90 tab 12/19/17 11/24/18 11/22/18 20:00 Rx Isosorbide Dinitrate [Isordil] 60 mg PO TID 04/30/18 01/22/19 01/21/19 History Metoprolol Succinate E.r. [Toprol 50 mg PO BID 04/30/18 01/22/19 01/21/19 History Xl] Lawrence-3 Fatty Acids/Fish Oil [Fish 1 each PO DAILY 04/30/18 01/22/19 01/21/19 History Oil 1,000 mg Softgel] Clobetasol Propionate 1 each TOP BID 05/11/18 11/24/18 11/23/18 07:00 History Clonazepam [Klonopin] 0.5 mg PO TID 05/11/18 01/22/19 01/21/19 History Folic Acid 1 mg PO DAILY #90 tab 08/26/18 01/22/19 01/21/19 Rx Amlodipine [Norvasc] 10 mg PO DAILY 30 Days #30 tab 09/19/18 01/22/19 01/21/19 Rx Hydralazine [Apresoline] 100 mg PO TID #120 tab 09/19/18 01/22/19 11/23/18 13:00 Rx Hydrocodone/Acetaminophen 7.5 mg PO BID 10 Days #20 tab 09/19/18 01/22/19 01/20/19 Rx [Hydrocodone-Acetamin 7.5-325] Tamsulosin [Flomax] 0.4 mg PO DAILY capsule 10/16/18 01/22/19 01/21/19 Rx Insulin Glargine [Lantus] 120 unit SUBQ BID 11/03/18 01/22/19 01/21/19 History Albuterol 2.5MG/Ipratrop 0.5MG 3 ml INH Q4H PRN PRN neb 11/12/18 01/22/19 01/21/19 Rx [Duoneb (A & A)] Omeprazole 40 mg PO DAILY 11/24/18 01/22/19 01/21/19 History Fluticasone/Salmet 250/50 INH 1 puff PO BID 01/22/19 01/22/19 01/21/19 History [Advair 250/50 Diskus] Insulin Lispro [Humalog Kwikpen 100 unit SQ AC + HS 01/22/19 01/22/19 01/21/19 History U-100] Tiotropium [place] Inhaler 1 puff PO DAILY 01/22/19 01/22/19 01/21/19 History [Spiriva] Amoxicillin/Potassium Clav 1 ea PO Q12H #8 tab 01/31/19 Unknown Rx [Augmentin 875-125 Tablet] Benzonatate [Tessalon] 100 mg PO TID #15 cap 01/31/19 Unknown Rx Doxycycline 100 mg PO BID #8 tab 01/31/19 Unknown Rx Furosemide [Lasix] 40 mg PO BID #120 tab 01/31/19 Unknown Rx Lactulose 30 ml PO BID udc 01/31/19 Unknown Rx Polyethylene Glycol 3350 [Miralax] 17 gm PO BID powder, packet 01/31/19 Unknown Rx Prednisone 10 mg PO DAILY #10 tab 01/31/19 Unknown Rx - History of Present Illness-Resp Nature of Presenting Problem: 63 yom c/o sob getting worse as day progresses and cp substernal and 05/19 w/consistent pain. pt states pain started at 1900. pt has hx chf, mi, copd, and ckd. pt was admitted 01/21 for left lower lobe pneumonia. pt denies nvd, headache, and fever. (Rajesh Frias) Review of Systems - Adult - REVIEW OF SYSTEMS - ADULT Constitutional: reports: no symptoms reported. denies: chills, fever Eyes: reports: no symptoms reported Ears, Nose, Mouth & Throat: reports: no symptoms reported Cardiovascular: reports: see HPI, chest pain (substernal). denies: irregular heart rate, orthopnea, palpitations, syncope Respiratory: reports: see HPI, shortness of breath. denies: chronic cough, coug h, dyspnea on exertion, wheezing Gastrointestinal: reports: no symptoms reported. denies: diarrhea, nausea, vomiting Genitourinary: reports: no symptoms reported Musculoskeletal: reports: no symptoms reported Integumentary: reports: no symptoms reported Neurological: reports: no symptoms reported. denies: headache/migraines Psychiatric: reports: no symptoms reported Endocrine: reports: no symptoms reported Hematologic/Lymphatic: reports: no symptoms reported Allergic/Immunologic: reports: no symptoms reported All Other Systems: Reviewed and Negative <Rajesh Frias - Last Filed: 02/09/19 02:00> Past History - Adult - PAST MEDICAL HISTORY-ADULT Review of Records: reports: Old Records Reviewed, Nursing Assessment Review, Medications Reviewed, Social history reviewed & non-contributory. Major Childhood Illnesses: reports: history unknown Cardiovascular: reports: CHF (ECHO 08/2015 EF 55% ), HTN, hyperlipidemia, DC Respiratory: reports: asthma, COPD (severe on 4liters O2 qHS) Gastrointestinal: reports: GERD Obstetrical/Gynecological: reports: denies history Genitourinary: reports: kidney disease (CRI) Musculoskeletal: reports: arthritis, chronic pain Neurological: reports: denies history Psychiatric: reports: anxiety Endocrine/Immune: reports: Diabetes Other Conditions: reports: denies history - PRIOR SURGERIES/PROCEDURES Surgical/Procedure History: reports: cardiac stent (x2 last one 7 years ago), orthopedic (extremity) (thumb) - IMMUNIZATION STATUS Childhood Immunizations: See Nurse Assessment Flu Vaccine: See Nurse Assessment - FAMILY HISTORY Family History: reviewed, not pertinent - SOCIAL HISTORY Smoking: other (former) Substance Use: none/never <Rajesh Frias - Last Filed: 02/09/19 02:00> - PAST MEDICAL HISTORY-ADULT Review of Records: reports: Old Records Reviewed <Marlon Walter - Last Filed: 02/09/19 03:31> Physical Exam-General - PHYSICAL EXAM-ADULT Initial Vital Signs Reviewed: Yes - CONSTITUTIONAL General Appearance: alert, moderate distress - EYES Eyes: PERRL/EOMI - HEAD, EARS, NOSE, MOUTH & THROAT HENMT: normocephalic/atraumatic, moist mucous membranes, normal ENT inspection - NECK Neck: non-tender, full range of motion, supple, normal inspection - RESPIRATORY Respiratory: chest non-tender, lungs clear, normal breath sounds, no pleuratic chest pain, no respiratory distress, no accessory muscle use. negative: respira tory distress, decreased breath sounds, crackles, rales, rhonchi, stridor, wheezing - CARDIOVASCULAR Cardiovascular: normal peripheral pulses, regular rate, rhythm, no edema, no gallop, no JVD, no murmur. negative: JVD, bradycardia, tachycardia - GASTROINTESTINAL (ABDOMEN) Abdominal Exam: normal bowel sounds, non tender, soft. negative: guarding, rigid, rebound - LYMPHATIC Lymphatic: no adenopathy - MUSCULOSKELETAL Back Exam: normal inspection, no CVA tenderness, no vertebral tenderness Extremity: normal range of motion, non-tender, normal inspection Peripheral Pulses: radial (R): 2+, radial (L): 2+ - SKIN Integumentary: normal color, normal turgor, warm/dry - NEUROLOGIC Neurologic: development associate II-XII nml as tested, grossly normal, no motor/sensory deficits - PSYCHIATRIC Psych/Mental Status: normal mood/affect, normal thought content, normal thought process, oriented x 3 <Rajesh Frias - Last Filed: 02/09/19 02:00> - HEART Score HEART Score: History: Slightly Suspicious HEART Score: ECG: Non-Specific Repolarization Disturbance/LBBB/PM HEART Score: Age: 45-65 Years HEART Score: Risk Factors for Atherosclerotic Disease: 1 or 2 Risk Factors HEART Score: Troponin: < or = Normal Limit Total HEART Score:: 3 <Marlon Walter - Last Filed: 02/09/19 03:31> Progress - PLAN OF CARE/RESULTS Result Diagrams: 02/09/19 01:19 - EKG 1 Time of EKG reading by physician:: 01:08 EKG Read and Signed by:: Rajesh Frias EKG Interpretation (*Must complete 3 of following elements*): Abnormal Rate: 63 Rhythm: NSR QRS: RBB (incomplete rbb) ST Wave: normal - CHANGE OF SHIFT REPORT (ED Provider) 1 Report Given and Care Transferred to:: marlon walter Time of Transfer: 01:59 Items Pending: Labs <Rajesh Frias - Last Filed: 02/09/19 02:00> - PLAN OF CARE/RESULTS Result Diagrams: 02/09/19 01:19 02/09/19 01:19 - REASSESSMENT Reassessment #1 Time Reassessed: 03:30 Status: worsening (JUST AFTER TALKING TO DR LOPEZ, PT BEGAN TO C/O CRAMPING PAIN IN PMI AREA OF CHEST: REPEATING EKG N TROPONIN) - CONSULTS/PCP/HOSPITALIST Notification #1 *Consult/PCP/Hospitalist*: DR LOPEZ Time Discussed: 03:26 Consult Disposition: Admit <Marlon Walter - Last Filed: 02/09/19 03:31> - PLAN OF CARE/RESULTS Progress/Plan/Lab Results: Vital Signs - 8 hr 02/09/19 01:00 02/09/19 01:20 02/09/19 02:02 Temperature 98.7 F Pulse Rate 63 89 60 Respiratory Rate 14 22 18 Blood Pressure 180/83 181/79 O2 Sat by Pulse Oximetry 99 100 99 02/09/19 02:16 02/09/19 02:20 02/09/19 02:30 Temperature Pulse Rate 59 L 59 L 64 Respiratory Rate 18 14 19 Blood Pressure O2 Sat by Pulse Oximetry 99 99 98 02/09/19 02:32 02/09/19 02:40 Temperature Pulse Rate 61 57 L Respiratory Rate 21 18 Blood Pressure 170/89 O2 Sat by Pulse Oximetry 99 99 Laboratory Results - last 24 hr 02/09/19 02/09/19 02/09/19 01:19 01:19 01:19 WBC 6.81 RBC 3.22 L Hgb 8.7 L Hct 29.1 L MCV 90.4 MCH 27.0 MCHC 29.9 L RDW Std Deviation 18.8 H Plt Count 214 MPV 11.7 H Neut % (Auto) 70.4 Lymph % (Auto) 15.4 L [place] % (Auto) 12.8 H Eos % (Auto) 0.7 Baso % (Auto) 0.7 Neut # (Auto) 4.79 Lymph # (Auto) 1.05 L [place] # (Auto) 0.87 H Eos # (Auto) 0.05 Baso # (Auto) 0.05 Specimen Type Sample Site pH pCO2 pO2 HCO3 Base Excess Oxyhemoglobin ABG O2 Sat (Calculated) ABG O2 Saturation ABG Carboxyhemoglobin ABG Methemoglobin Abhijeet Test A-a O2 Difference Total Hemoglobin Lactate Liter Flow Blood Gas Modality FiO2 % Sodium 138 Potassium 4.9 Chloride 100 Carbon Dioxide 22 L Anion Gap 16 BUN 73 H Creatinine 3.4 H Estimated GFR/1.73 m2 18 BUN/Creatinine Ratio 21 Glucose 685 H* Calculated Osmolality 330 Calcium 8.4 L Total Bilirubin 0.16 L AST 26 ALT 102 H Alkaline Phosphatase 181 H Creatine Kinase 139 Troponin T 0.072 Total Protein 6.6 Albumin 3.6 Globulin 3.0 Albumin/Globulin Ratio 1.2 Lipase 61 H Plasma Lactate 02/09/19 02/09/19 01:28 01:47 WBC RBC Hgb Hct MCV MCH MCHC RDW Std Deviation Plt Count MPV Neut % (Auto) Lymph % (Auto) [place] % (Auto) Eos % (Auto) Baso % (Auto) Neut # (Auto) Lymph # (Auto) [place] # (Auto) Eos # (Auto) Baso # (Auto) Specimen Type ARTERIAL Sample Site L RADIAL pH 7.32 L pCO2 42 pO2 106 H HCO3 21.6 Base Excess -4.2 L Oxyhemoglobin 94.0 L ABG O2 Sat (Calculated) 12.0 L ABG O2 Saturation 98.1 ABG Carboxyhemoglobin 3.70 H ABG Methemoglobin 0.5 Abhijeet Test YES A-a O2 Difference 127.0 Total Hemoglobin 8.9 L Lactate 1.40 Liter Flow 5.0 Blood Gas Modality CANNULA FiO2 % 40.0 Sodium Potassium Chloride Carbon Dioxide Anion Gap BUN Creatinine Estimated GFR/1.73 m2 BUN/Creatinine Ratio Glucose Calculated Osmolality Calcium Total Bilirubin AST ALT Alkaline Phosphatase Creatine Kinase Troponin T Total Protein Albumin Globulin Albumin/Globulin Ratio Lipase Plasma Lactate 1.5 Orders Category Date Time Status Saline Loc NOW Care 02/09/19 01:13 Active CHEST-2 VIEWS [RAD] Stat Exams 02/09/19 01:15 Taken ABG [RESP] Routine Lab 02/09/19 01:28 Completed BLOOD CULTURE [BLDCUL] Stat Lab 02/09/19 01:19 Results CBC WITH ELECTRONIC DIFF [HEME] Stat Lab 02/09/19 01:19 Completed CK PROFILE [SP CHEM] Stat Lab 02/09/19 01:19 Completed COMPREHENSIVE METABOLIC PANEL [CHEM] Stat Lab 02/09/19 01:19 Completed LACTATE, PLASMA [CHEM] Stat Lab 02/09/19 01:47 Completed LIPASE [CHEM] Stat Lab 02/09/19 01:19 Completed TROPONIN T Stat Lab 02/09/19 01:19 Completed 0.9% Sodium Chloride Inj [Ns] 1,000 ml Med 02/09/19 02:35 Active IV 999 mls/hr 0.9% Sodium Chloride Inj [Ns] 100 ml Med 02/09/19 02:45 Active Insulin Human Regular [Humulin R] 100 unit IV 6 mls/hr Albuterol 2.5MG/Ipratrop 0.5MG [Duoneb (A & A)] Med 02/09/19 01:15 Discontinued 3 ml INH NOW ONE Aspirin Med 02/09/19 01:15 Discontinued 325 mg .ROUTE .STK-MED ONE CefTRIAXONE [Rocephin] 1 gm Med 02/09/19 01:51 Discontinued 0.9% Sodium Chloride Inj [Ns] 50 ml IV NOW Insulin Human Regular [Humulin R] Med 02/09/19 02:35 Discontinued 10 unit IV NOW ONE Methylprednisolone Sod Succ [Solu-Medrol] Med 02/09/19 01:15 Discontinued 60 mg IV NOW ONE Aerosol Treatments Routine Oth 02/09/19 01:16 Active Aerosol Treatments Stat Oth 02/09/19 01:16 Active EKG [EKG] Stat Ther 02/09/19 01:00 Ordered Departure <Rajesh Frias - Last Filed: 02/09/19 02:00> - Departure Date of Disposition Decision: 02/09/19 Time of Disposition Decision: 03:26 Certified Medical Emergency: Emergent - Critical Care Note This patient required my direct & personal management of CC.: No <Marlon Walter - Last Filed: 02/09/19 03:31> - Departure DIAGNOSIS: CHF (congestive heart failure), COPD (chronic obstructive pulmonary disease), SOB (shortness of breath), Renal insufficiency, Hyperglycemia, unspecified, Chest pain of uncertain etiology Disposition: ADMITTED INPATIENT 09 Condition: Stable Referrals and Follow-Ups: Terrie Judge [Primary Care Provider] - Attestation - Physician/ KOJO Attestation Patient care was provided by Advanced Practice Provider:: No The physician spent face to face time with patient:: Yes Advanced Practice Provider documentation review:: Supervising physician onsite and consulted in the evaluation and care of this patient. The physician did have a face to face encounter with the patient. <Rajesh Frias - Last Filed: 02/09/19 02:00> - Physician/ KOJO Attestation Patient care was provided by Advanced Practice Provider:: No The physician spent face to face time with patient:: Yes Advanced Practice Provider documentation review:: Supervising physician onsite and consulted in the evaluation and care of this patient. The physician did have a face to face encounter with the patient. <Marlon Walter - Last Filed: 02/09/19 03:31> This chart was documented by the indicated scribe, (Shirley eSrna Scribe) and accurately reflects the services I performed and decisions made by me, Rajesh Frias MD, as attested by the provider's signature.
[2019-02-09 02:23] LABS: ALB/GLOB RATIO 1.2; ALBUMIN 3.6 g/dL (3.5-5.0); CALCIUM 8.4 mg/dL (8.8-10.2); CREATININE 3.4 mg/dL (0.7-1.2); POTASSIUM 4.9 mmol/L (3.5-5.1); TOTAL BILIRUBIN 0.16 mg/dL (0.20-1.00); TOTAL PROTEIN 6.6 g/dL (6.3-8.3)
[2019-02-09] MEDS ORDERED: NS 1,000 ML IV ONE (02:35)
[2019-02-09] MEDS ORDERED: HUMULIN R IV ONE (02:35)
[2019-02-09] MEDS ORDERED: HUMULIN R 100 UNIT in NS 100 ML IV SCH ×2 (02:45→08:57)
[2019-02-09] MEDS ORDERED: ZOFRAN IV PRN (04:03)
[2019-02-09] MEDS ORDERED: LASIX IV ONE (04:27)
[2019-02-09] MEDS: HEPARIN SUBQ SCH ×3 (05:30→20:47)
[2019-02-09 05:51] LABS: URINE SOURCE CATH
[2019-02-09 05:58] LABS: BILIRUBIN URINE NEGATIVE (NEGATIVE); BLOOD URINE NEGATIVE (NEGATIVE); COLOR STRAW; GLUCOSE URINE >1000 mg/dL (NEGATIVE); KETONE URINE NEGATIVE (NEGATIVE); LEUKOCYTES URINE NEGATIVE (NEGATIVE); NITRITE URINE NEGATIVE (NEGATIVE); PH URINE 5.5; PROTEIN URINE 50 mg/dL (NEGATIVE); TURBIDITY URINE CLEAR (CLEAR); UROBILINOGEN URINE NORMAL (NORMAL)
[2019-02-09 05:59] LABS: UR EPITHELIAL CELLS <10 /HPF (<10); URINE BACTERIA NEGATIVE /HPF; URINE RBC <10 /HPF (<10); URINE WBC <10 /HPF (<10)
[2019-02-09] MEDS: DOXYCYCLINE 100 MG in NS 250 ML IV SCH ×2 (06:35→17:50)
--- NOTE | 2019-02-09 07:39 | EKG Report ---
Test Performed on : 02/09/2019 01:08:40 AM Test Reason : SOB Blood Pressure : / mmHG Vent. Rate : 063 BPM Atrial Rate : 063 BPM P-R Int : 128 ms QRS Dur : 108 ms QT Int : 436 ms P-R-T Axes : 016 037 048 degrees QTc Int : 446 ms Normal sinus rhythm. Incomplete right bundle branch block Borderline ECG When compared with ECG of 21-JAN-2019 13:39, (Unconfirmed) No significant change was found Unconfirmed Result
--- NOTE | 2019-02-09 07:48 | Diag Imaging Result Doc PS360 ---
EXAM: CHEST-2 VIEWS HISTORY: CP/SOB TECHNIQUE: Chest two views COMPARISON: 01/30/2019 FINDINGS: The lungs are well expanded. The heart is not enlarged. The vessels are mildly distended. There are no infiltrates. There is a tiny left pleural effusion. IMPRESSION: Mild pulmonary edema with a tiny left pleural effusion Electronically signed by Jordan Madera 02/09/2019 7:46 AM
--- NOTE | 2019-02-09 08:26 | EKG Report ---
Test Performed on : 02/09/2019 03:29:30 AM Test Reason : CP Blood Pressure : / mmHG Vent. Rate : 065 BPM Atrial Rate : 065 BPM P-R Int : 124 ms QRS Dur : 106 ms QT Int : 436 ms P-R-T Axes : 019 026 017 degrees QTc Int : 453 ms Normal sinus rhythm. with sinus arrhythmia. Incomplete right bundle branch block Borderline ECG When compared with ECG of 09-FEB-2019 01:08, (Unconfirmed) Nonspecific T wave abnormality now evident in Inferior leads Unconfirmed Result
[2019-02-09 08:37] LABS: MAGNESIUM 1.9 mg/dL (1.5-2.7); PHOSPHORUS 4.8 mg/dL (2.7-4.5)
--- NOTE | 2019-02-09 08:46 | HISTORY AND PHYSICAL ---
PRIMARY CARE PROVIDER: Terrie Judge MD CHIEF COMPLAINT: Shortness of breath. HISTORY OF PRESENT ILLNESS: Mr. La is a 63-year-old male very well known to our service, has had multiple admissions to the hospital. He is followed outpatient by Dr. Terrie Judge. He was last admitted to our service on 01/21/2019. The patient has multiple medical issues such as COPD with home O2, diabetes mellitus, CKD stage 4, cor pulmonale, obstructive sleep apnea. He is morbidly obese. Coronary artery disease. The patient was concerned about having increased swelling in bilateral lower extremities. He increased his Lasix which was not helping. Started having cramping in his legs and chest. When he started having pleuritic chest pain with increased shortness of breath he came into the emergency room. He will be admitted for further evaluation and treatment. PAST MEDICAL HISTORY: COPD with chronic 3 L home O2, diabetes mellitus type 2 insulin-dependent, hypertensive heart disease, chronic diastolic heart failure, chronic venous insufficiency, hyperlipidemia, obstructive sleep apnea, cor pulmonale, CKD stage 4, morbid obesity with a BMI of 35, coronary artery disease status post PTCA, irritable bowel syndrome, peripheral artery disease, gout. PREVIOUS SURGICAL HISTORY: Left hand surgery, PTCA. SOCIAL HISTORY: , but his ex- takes care of him. Quit smoking around 6 years ago, was a 1-pack per day smoker for many years before that. Denies alcohol or illicit drugs. FAMILY HISTORY: Positive for diabetes and hypertension. ALLERGIES: Levaquin, Toradol, almonds, doxazosin and ibuprofen. HOME MEDICATIONS: A list of home medications has not been reconciled. An order was placed for Nursing to reconcile home medications in the computer. REVIEW OF SYSTEMS: Fourteen-point review of systems gone over with the patient. Pertinent positives listed above in the HPI. All other systems reviewed and found to be negative. PHYSICAL EXAMINATION: VITAL SIGNS: Temperature 98.7, pulse 61, respirations 21, blood pressure 170/89, oxygen saturation 99% on 4 L nasal cannula. GENERAL: Unkept, chronically ill-appearing 63-year-old male lying in the ER stretcher, answers all questions appropriately, is in no acute distress. HEENT: Head is atraumatic, normocephalic. Pupils equal, round, reactive to light. Extraocular eye movements intact. Sclerae are anicteric. Conjunctivae are pale. Oral mucosa is moist. NECK: Short and thick. JVD cannot be assessed. No carotid bruit. No thyromegaly. Trachea is midline. CARDIAC: S1, S2 appreciated. No murmurs, gallops, rubs. LUNGS: Decreased bilaterally. Mild expiratory wheezing. Crepitations noted in bilateral bases. No increased work of breathing. No accessory muscle use. Symmetric rise and fall with respirations. ABDOMEN: Protuberant, soft, nondistended, nontender. Bowel sounds present in all 4 quadrants, normoactive. No pulsatile mass. No organomegaly. EXTREMITIES: No cyanosis. Grade 1 clubbing; 2 to 3+ bilateral lower extremity edema with color change related to chronic venous stasis. One-plus pedal pulses. GENITOURINARY: No bladder distention. Otherwise deferred. NEUROLOGICAL: Alert and oriented x3. No focal motor deficits. Otherwise nonfocal examination. DIAGNOSTIC DATA: Chest x-ray shows cardiomegaly, increased pulmonary vascular congestion, however, the film is poorly penetrated related to body habitus. LABORATORY DATA: WBC 6.81, hemoglobin 8.7, hematocrit 29.1, platelet count 214,000. ABGs: pH 7.32, pCO2 42, pO2 106, bicarbonate 21.6. Sodium 138, potassium 4.9, chloride 100, carbon dioxide 22, BUN 73, creatinine 3.4, glucose 685. After recheck he is at 297. Plasma lactate 1.5. ASSESSMENT AND PLAN: 1. Congestive heart failure with exacerbation. Will give 80 of Lasix. In the emergency room he was originally given a fluid bolus. Will continue Lasix 40 mg IV q.12 hours. Rodriguez catheter will be placed. Strict intake and output. 2. Congestive heart failure with mild exacerbation. Mr. La's blood sugars tend to run very high. He was given Solu-Medrol in the emergency room. Will not continue this. Will use his home bronchodilators and inhaled steroids as well as DuoNebs. Will place the patient on doxycycline 100 mg IV q.12 hours. 3. Mild open anion gap acidosis. This is compensated and will likely resolve. 4. Diabetes mellitus type [address] on ICU insulin protocol and then transition to sliding scale insulin. Will check phosphorus, magnesium, potassium, BMP every 4 hours x4 checks. 5. Chest pain rule out acute myocardial infarction. Trend cardiac enzymes. Repeat EKG. Further recommendations per the patient's clinical course. Dictated by ALPESH Alcantara for Tacos Henley MD I have performed a face to face diagnostic evaluation. Lab/ Xrays- reviewed. Exam- chest - rales, CV- regular. A/P- CHF exacerbation- Admit, IV lasix, cardiology consult. Dr. Henley cc: MD Will Celis CRNP Lloyd James, MD [facility]
[2019-02-09 08:55] LABS: CREATININE 3.3 mg/dL (0.7-1.2); POTASSIUM 4.8 mmol/L (3.5-5.1)
[2019-02-09] MEDS: HUMULIN R 100 UNIT in NS 100 ML IV SCH ×8 (09:14→20:51)
[2019-02-09] MEDS: DUONEB (A & A) INH SCH ×3 (09:49→22:05)
[2019-02-09] MEDS: ADVAIR 250/50 DISKUS INH SCH ×2 (09:49→22:05)
[2019-02-09] MEDS: SPIRIVA INH SCH (09:49)
[2019-02-09] MEDS: CATAPRES PO SCH ×2 (10:10→20:43)
[2019-02-09] MEDS: APRESOLINE PO SCH ×3 (10:10→21:40)
[2019-02-09] MEDS: ZYLOPRIM PO SCH (10:10)
[2019-02-09] MEDS: ASPIRIN EC PO SCH (10:10)
[2019-02-09] MEDS: TOPROL XL PO SCH ×2 (10:10→20:44)
[2019-02-09] MEDS: NORVASC PO SCH (10:10)
[2019-02-09] MEDS: ISORDIL PO SCH ×3 (10:10→21:39)
[2019-02-09] MEDS: FLOMAX PO SCH (10:10)
[2019-02-09] MEDS: OXY IR PO PRN ×3 (10:23→21:39)
[2019-02-09 12:09] LABS: CALCIUM 8.9 mg/dL (8.8-10.2); CREATININE 3.6 mg/dL (0.7-1.2)
[2019-02-09 12:15] LABS: ALLEN TEST YES; BE -4.4 mmoll (-3.0-3.0); BLOOD TYPE ARTERIAL; HCO3-(ACT) 21.5 mmoll (20.0-26.0); METHB 0.8 % (0.0-1.5); O2(CT) 12.5 mL/dL (15.0-23.0); O2HB 94.9 % (95.0-99.0); PCO2(98.6) 39 mmHg (35-45); PO2(98.6) 83 mmHg (60-100); SAMPLE BLOOD; SAO2 96.9 % (95.0-100.0); THB 9.3 g/dL (11.5-17.4); pH(98.6) 7.34 (7.35-7.45)
[2019-02-09 12:17] LABS: MODALITY CANNULA
[2019-02-09 12:24] LABS: BASO# 0.03 X1000 (0.0-0.2); BASO% 0.3 % (0.0-0.8); EOS# 0.01 X1000 (0.0-0.7); EOS% 0.1 % (0.0-10.0); HEMATOCRIT 29.6 % (42.0-52.0); HEMOGLOBIN 9.1 g/dL (14.0-18.0); IMM GRAN# 0.05 X1000 (0.0-0.04); IMM GRAN% 0.6 % (0.0-0.5); LYMPH# 0.51 X1000 (1.2-3.4); LYMPH% 5.8 % (20.5-51.1); MCH 26.5 PG (27-31); MCHC 30.7 g/dL (33-37); MCV 86.3 FL (81-99); MONO# 0.26 X1000 (0.11-0.59); NEUT# 7.93 X1000 (1.4-6.5); NEUT% 90.2 % (42.2-75.2); PLT 232 X1000 (130-400); RBC 3.43 XMIL (4.7-6.1); RDW 18.3 % (11.5-14.5); WBC 8.79 X1000 (4.8-10.8)
[2019-02-09 13:01] LABS: LYMPHS 4 % (21-51); MONO 2 % (1-9); SEGS 94 % (42-75)
[2019-02-09] MEDS: LASIX IV SCH (16:55)
[2019-02-09] MEDS: LIPITOR PO SCH (21:40)
[2019-02-09 23:19] LABS: CREATININE 3.8 mg/dL (0.7-1.2); POTASSIUM 4.7 mmol/L (3.5-5.1)
[2019-02-10] MEDS: OXY IR PO PRN ×4 (01:17→22:26)
[2019-02-10 02:48] LABS: CALCIUM 8.6 mg/dL (8.8-10.2); CREATININE 3.7 mg/dL (0.7-1.2); POTASSIUM 4.3 mmol/L (3.5-5.1)
[2019-02-10] MEDS: DUONEB (A & A) INH SCH ×4 (03:05→21:59)
[2019-02-10] MEDS: DOXYCYCLINE 100 MG in NS 250 ML IV SCH ×2 (04:05→18:12)
[2019-02-10] MEDS: LASIX IV SCH ×2 (04:05→17:34)
[2019-02-10] MEDS: HEPARIN SUBQ SCH ×3 (04:06→21:21)
[2019-02-10] MEDS ORDERED: HUMULIN R SUBQ SCH (05:00)
[2019-02-10] MEDS: HUMULIN R SUBQ SCH ×5 (05:02→21:23)
[2019-02-10 05:20] LABS: BASO# 0.02 X1000 (0.0-0.2); BASO% 0.2 % (0.0-0.8); EOS# 0.06 X1000 (0.0-0.7); EOS% 0.6 % (0.0-10.0); HEMATOCRIT 26.8 % (42.0-52.0); HEMOGLOBIN 8.2 g/dL (14.0-18.0); IMM GRAN# 0.04 X1000 (0.0-0.04); IMM GRAN% 0.4 % (0.0-0.5); LYMPH# 1.72 X1000 (1.2-3.4); LYMPH% 16.1 % (20.5-51.1); MCH 26.3 PG (27-31); MCHC 30.6 g/dL (33-37); MCV 85.9 FL (81-99); MONO# 1.13 X1000 (0.11-0.59); MONO% 10.6 % (1.7-9.3); MPV 11.2 FL (7.4-10.4); NEUT# 7.71 X1000 (1.4-6.5); NEUT% 72.1 % (42.2-75.2); PLT 228 X1000 (130-400); RBC 3.12 XMIL (4.7-6.1); RDW 18.4 % (11.5-14.5); WBC 10.68 X1000 (4.8-10.8)
[2019-02-10 06:10] LABS: AGAP 13; ALBUMIN 3.2 g/dL (3.5-5.0); ALKALINE PHOSPHATASE 131 U/L (32-122); BUN 77 mg/dL (8-22); CALCIUM 8.7 mg/dL (8.8-10.2); CHLORIDE 104 mmol/L (98-107); COSMO 305; CREATININE 3.5 mg/dL (0.7-1.2); ESTIMATED GFR 18; GLUCOSE 154 mg/dL (70-104); GOT 18 U/L (10-34); GPT 71 U/L (10-44); POTASSIUM 4.4 mmol/L (3.5-5.1); SODIUM 140 mmol/L (136-145); TCO2 23 mmol/L (25-35); TOTAL BILIRUBIN < 0.15 mg/dL (0.20-1.00); TOTAL PROTEIN 6.4 g/dL (6.3-8.3)
[2019-02-10] MEDS: ISORDIL PO SCH ×3 (09:06→21:21)
[2019-02-10] MEDS: TOPROL XL PO SCH ×2 (09:09→21:21)
[2019-02-10] MEDS: NORVASC PO SCH (09:09)
[2019-02-10] MEDS: APRESOLINE PO SCH ×3 (09:09→21:21)
[2019-02-10] MEDS: ASPIRIN EC PO SCH (09:09)
[2019-02-10] MEDS: FLOMAX PO SCH (09:09)
[2019-02-10] MEDS: CATAPRES PO SCH ×2 (09:09→21:21)
[2019-02-10] MEDS: ZYLOPRIM PO SCH (09:09)
[2019-02-10] MEDS: ADVAIR 250/50 DISKUS INH SCH ×2 (09:30→21:59)
[2019-02-10] MEDS: SPIRIVA INH SCH (09:31)
[2019-02-10] MEDS: MUCOMYST 20% INH SCH ×2 (09:38→22:01)
--- NOTE | 2019-02-10 10:10 | PROGRESS NOTE ---
DATE: 02/10/2019 SUBJECTIVE: This patient is feeling better today. He is complaining of mild shortness of breath, blood sugar better controlled. I will put this patient on his home dose of insulin to see how he does, and I will monitor this patient closely. Pulmonary Department has been consulted, as well as Oncology Department. 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 OBJECTIVE: Vital signs: Temperature 98.1 degrees, pulse 64, respiratory rate 22, blood pressure 179/94, oxygen saturation 97% on 4 L of nasal cannula. HEENT: Head normocephalic, no trauma. PERRLA. Neck: Neck is supple. No JVD. Central trachea. Chest: Coarse breath sounds bilaterally. Prolonged expiratory phase. Decreased breath sounds mostly at the bases and expiratory wheezing. Abdomen: Soft, protuberant, nontender, nondistended. No hepatosplenomegaly. Extremities: 1+ lower extremity edema. No clubbing. No cyanosis. Neurological examination: The patient is alert and oriented x3. No focal deficits. LABORATORY: WBC 10.6, hemoglobin 8.2, hematocrit 26.8, platelets 228. Sodium 140, potassium 4.4, chloride 104, bicarbonate 23. BUN 77, creatinine 3.5, glucose 154, calcium 8.7. AST 18, ALT 71, alkaline phosphatase 131, albumin 3.2. ASSESSMENT AND PLAN: 1. Likely chronic obstructive pulmonary disease exacerbation in a patient with severe chronic obstructive pulmonary disease and chronic respiratory failure. We will continue with the same management. He is still complaining of some mild shortness of breath. We will continue with Lasix every 12 hours, strict intake and output. 2. Chronic obstructive pulmonary disease with mild exacerbation. He received a dose of steroids in the emergency department. We will continue with bronchodilator, inhaled steroids and DuoNeb. I will put also this patient on Mucomyst inhaler. Continue with antibiotics. 3. Uncontrolled type 2 diabetes. He was placed on insulin protocol and then he has been transitioned to sliding scale insulin. I will add today his home dose of Lantus to see how he does. We will continue with pattern of blood sugar. 4. 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 I will get Hematology/Oncology Department to evaluate this patient. 5. Chronic kidney disease stage III-IV. Continue with same management. Stable. 6. Diastolic congestive heart failure as per #1. 7. Hypertension. I put this patient back on his home medications. I will monitor. Blood pressure is still elevated. 8. Diabetes. Continue with same management. 9. Obesity with a body mass index of 39.2, aware. Diet and exercise has been discussed. During his previous hospitalization, his body mass index was 34.1. 10. History of gout, stable. 11. History of irritable bowel syndrome, aware. No issues at this moment. 12. History of coronary artery disease. No chest pain at this moment. 13. Peripheral vascular disease, aware. 14. Obstructive sleep apnea. I do believe this patient is using a Trilogy machine at home. We will encourage the patient to continue with this treatment. cc: Tyrone Lorenzo MD
[2019-02-10] MEDS ORDERED: INSULIN PEN NEEDLES ONE (10:18)
[2019-02-10] MEDS: BASAGLAR SUBQ SCH ×2 (10:34→21:22)
[2019-02-10] MEDS ORDERED: HALL'S COUGH LOZENGE MT PRN (12:51)
--- NOTE | 2019-02-10 20:15 | PULMONOLOGY CONSULTATION ---
DATE: 02/10/2019 REQUESTING PHYSICIAN: Tyrone Lorenzo MD. REASON FOR CONSULTATION: Severe COPD, lung cancer. HISTORY OF PRESENT ILLNESS: Mr. La is a 63-year-old male, with severe COPD who has had atelectasis in the left upper lobe intermittently since November. The patient was admitted to the hospital from 01/21/2019 until 01/31/2019 with left upper lobe pneumonia and a COPD exacerbation. The patient was evaluated by this practitioner and bronchoscopy was performed which revealed lesions in the left and right upper lobe entrances. Video images are available on the system for review. Both lesions were biopsied and revealed squamous cell carcinoma. The patient was scheduled to follow up in my office last week, but canceled that appointment when he developed diarrhea. He presented to the emergency room yesterday with chest pain and increasing shortness of breath. He reports his symptoms have resolved. PAST MEDICAL HISTORY/PROBLEM LIST: 1. Recent diagnosis of right upper lobe cancer as per above. 2. Recent diagnosis of left upper lobe cancer as per above. 3. Morbid obesity. 4. Diabetes mellitus. 5. Chronic hypoxemic respiratory failure on a Trilogy device due to prior chronic hypercapnic respiratory failure. 6. Cor pulmonale/pulmonary hypertension. 7. Diastolic heart failure. 8. Chronic venous insufficiency. 9. Obstructive sleep apnea. 10. Coronary artery disease status post PTCA. 11. Peripheral vascular disease. SOCIAL HISTORY: The patient lives with his ex-. He has been a nonsmoker for the last 5 years. No alcohol use. FAMILY HISTORY: Positive for hypertension and diabetes mellitus. REVIEW OF SYSTEMS: As noted in the HPI. PHYSICAL EXAMINATION: General: Reveals an obese white male, resting comfortably and in no distress. He is without specific complaints. Vital Signs: Blood pressure 156/63, heart rate 58, respiratory rate 20, oxygen saturation 100% on 4 L per nasal cannula. HEENT: Pupils are equal and reactive. Oropharynx is clear. Neck: Supple. Chest: Reveals prolonged expiratory phase. Cardiac: S1, S2. Abdomen: Obese and soft. Extremities: Reveal chronic venous insufficiency. LABORATORIES: Chest x-ray reveals clearing of left upper lobe atelectasis/infiltrate. He has significant flattening of the diaphragms on the lateral few. Generous cardiac silhouette. White blood count 10.68, hemoglobin 8.2, platelet count 228,000. Sodium 140, potassium 4.4, chloride 104, bicarbonate 23, BUN 77, creatinine 3.5, glucose 154. IMPRESSION: 1. A 63-year-old with squamous cell carcinoma involving the right upper lobe entrance and the left upper lobe entrance. I suspect that these are 2 separate primaries. He has not yet undergone a PET scan. He is not a candidate for a right upper lobectomy or a left upper lobectomy. 2. The patient has chronic kidney disease which appears stable. 3. The patient has chronic hypoxemic respiratory failure. 4. The patient has morbid obesity. RECOMMENDATIONS: 1. Agree with treatment of COPD exacerbation as you are doing. 2. Continue oxygen and nocturnal Trilogy for hypoxemic and hypercapnic respiratory failure. 3. Agree with oncology evaluation. The patient may be a candidate for stereotactic body radiotherapy to the entrance of the right upper lobe and the left upper lobe. I have discussed this with Dr. Cardozo and she will evaluate this possibility. cc: Kale Yo MD
[2019-02-10] MEDS: LIPITOR PO SCH (21:21)
[2019-02-11] MEDS: HUMULIN R SUBQ SCH ×6 (01:33→20:47)
[2019-02-11] MEDS: NORCO-7.5 PO SCH ×3 (03:34→20:47)
[2019-02-11] MEDS: DUONEB (A & A) INH SCH ×4 (03:35→21:27)
[2019-02-11 05:28] LABS: ALLEN TEST YES; BLOOD TYPE ARTERIAL; HCO3-(ACT) 22.6 mmoll (20.0-26.0); METHB 0.2 % (0.0-1.5); O2(CT) 14.2 mL/dL (15.0-23.0); O2HB 95.6 % (95.0-99.0); PCO2(98.6) 48 mmHg (35-45); PO2(98.6) 83 mmHg (60-100); SAMPLE BLOOD; THB 10.5 g/dL (11.5-17.4)
[2019-02-11 05:29] LABS: MODALITY CANNULA
[2019-02-11] MEDS: LASIX IV SCH ×2 (06:16→17:23)
[2019-02-11] MEDS: PRILOSEC PO SCH (06:16)
[2019-02-11] MEDS: HEPARIN SUBQ SCH ×3 (06:17→20:46)
[2019-02-11] MEDS: DOXYCYCLINE 100 MG in NS 250 ML IV SCH ×2 (06:17→17:28)
--- NOTE | 2019-02-11 07:18 | Diag Imaging Result Doc PS360 ---
EXAM: CHEST-PORTABLE 02/11/2019 HISTORY: dyspnea TECHNIQUE: AP portable at 0611 COMMENT: The central pulmonary vascularity is enlarged. There is some increase in interstitial opacity compared to the previous study of 02/09/2019. The left hemidiaphragm and heart border are more obscured. Some of this may be technical and due to differences in inspiration however. IMPRESSION: Worsened pulmonary edema. Electronically signed by Jason Bernstein 02/11/2019 7:16 AM
[2019-02-11 07:28] LABS: BASO# 0.04 X1000 (0.0-0.2); BASO% 0.5 % (0.0-0.8); EOS# 0.15 X1000 (0.0-0.7); HEMATOCRIT 27.6 % (42.0-52.0); HEMOGLOBIN 8.3 g/dL (14.0-18.0); IMM GRAN# 0.04 X1000 (0.0-0.04); IMM GRAN% 0.5 % (0.0-0.5); LYMPH% 23.7 % (20.5-51.1); MCH 26.2 PG (27-31); MCHC 30.1 g/dL (33-37); MCV 87.1 FL (81-99); MONO# 0.84 X1000 (0.11-0.59); MONO% 11.1 % (1.7-9.3); MPV 10.9 FL (7.4-10.4); NEUT# 4.71 X1000 (1.4-6.5); NEUT% 62.2 % (42.2-75.2); PLT 214 X1000 (130-400); RBC 3.17 XMIL (4.7-6.1); RDW 18.5 % (11.5-14.5); WBC 7.58 X1000 (4.8-10.8)
[2019-02-11 07:44] LABS: AGAP 16; ALBUMIN 3.2 g/dL (3.5-5.0); ALKALINE PHOSPHATASE 132 U/L (32-122); BUN 76 mg/dL (8-22); CALCIUM 8.2 mg/dL (8.8-10.2); CHLORIDE 103 mmol/L (98-107); COSMO 306; CREATININE 3.8 mg/dL (0.7-1.2); ESTIMATED GFR 16; GLUCOSE 145 mg/dL (70-104); GOT 12 U/L (10-34); GPT 53 U/L (10-44); POTASSIUM 3.9 mmol/L (3.5-5.1); SODIUM 141 mmol/L (136-145); TCO2 22 mmol/L (25-35); TOTAL BILIRUBIN < 0.15 mg/dL (0.20-1.00); TOTAL PROTEIN 6.4 g/dL (6.3-8.3)
[2019-02-11] MEDS: OXY IR PO PRN ×3 (08:08→21:52)
[2019-02-11] MEDS: NORVASC PO SCH (08:48)
[2019-02-11] MEDS: ISORDIL PO SCH ×3 (08:48→20:45)
[2019-02-11] MEDS: ASPIRIN EC PO SCH (08:49)
[2019-02-11] MEDS: ZYLOPRIM PO SCH (08:49)
[2019-02-11] MEDS: FOLIC ACID PO SCH (08:49)
[2019-02-11] MEDS: CATAPRES PO SCH ×2 (08:49→20:46)
[2019-02-11] MEDS: APRESOLINE PO SCH ×3 (08:49→20:46)
[2019-02-11] MEDS: FISH OIL CONCENTRATE PO SCH (08:49)
[2019-02-11] MEDS: FLOMAX PO SCH (08:49)
[2019-02-11] MEDS: TOPROL XL PO SCH ×2 (08:49→20:45)
[2019-02-11] MEDS: BASAGLAR SUBQ SCH ×3 (08:50→20:47)
--- NOTE | 2019-02-11 09:31 | CONSULTATION ---
DATE OF CONSULTATION: 02/11/2019 REQUESTING PHYSICIAN: Kale Yo MD REASON FOR CONSULTATION: Newly diagnosed lung cancer. I saw Mr. La briefly today at the request of Dr. Yo. He has been recently diagnosed with what looks to be 2 early stage lung cancers, one in each lung. He had been seen by Dr. Najera earlier today and is going to have completion of his staging over the next several days. If he is not found to have additional disease, I think he will be an excellent candidate for some sort of focused radiation, possibly stereotactic radiation therapy. I would like to get a PET scan as an outpatient to help localize the cancers, as they are not entirely evident on CT scan. My plan at this point is to see him when he gets discharged from the hospital. At that point, I will complete whatever workup necessary and get him started on treatment. cc: Petrona Cardozo MD
[2019-02-11] MEDS: SPIRIVA INH SCH (10:54)
[2019-02-11] MEDS: MUCOMYST 20% INH SCH ×2 (10:54→21:27)
[2019-02-11] MEDS: ADVAIR 250/50 DISKUS INH SCH ×2 (10:55→21:29)
--- NOTE | 2019-02-11 13:42 | PROGRESS NOTE ---
DATE: 02/11/2019 SUBJECTIVE: This patient is feeling better. He is still complaining of some shortness of breath, but compared with admission is better. Blood sugar controlled. We will try to do some images on this patient, so he can be discharged and follow up as an outpatient with Hematology/Oncology Department and probably Radiation Oncology. OBJECTIVE: Vital Signs: Temperature 98.1 degrees, pulse 64, respiratory rate 18, blood pressure 134/54, and oxygen saturation 94% on 4 L of nasal cannula. HEENT: Head normocephalic. No trauma. PERRLA. Neck: Supple. No JVD. Central trachea. Chest: Coarse breath sounds bilaterally. Prolonged expiratory phase. Decreased breath sounds mostly at the bases. Abdomen: Soft, protuberant, nontender, and nondistended. No hepatosplenomegaly. Extremities: 1+ lower extremity edema. No clubbing. No cyanosis. Neurological: The patient is alert and oriented x3. No focal deficits. LABORATORY: WBC 7.5, hemoglobin 8.3, hematocrit 27.6, and platelets 214,000. Sodium 141, potassium 3.9, chloride 103, bicarbonate 22, BUN 76, creatinine 3.8, glucose 145, calcium 8.2, AST 12, ALT 53, alkaline phosphatase 132, and albumin 3.2. ASSESSMENT AND PLAN: 1. Chronic obstructive pulmonary disease exacerbation in a patient with severe chronic obstructive pulmonary disease and chronic respiratory failure. We will continue with the same management. He is still a little bit short of breath, but he is getting much better. 2. Diastolic heart failure. Continue with the same management. He is on diuretics. 3. Uncontrolled type 2 diabetes. When this patient was admitted, he was placed on insulin drip. Now, I put him back on his home dose of Lantus and he is doing good. We will continue to monitor. 4. Right upper lobe and left upper lobe. Biopsy showed poorly-differentiated squamous cell carcinoma with tumour necrosis. Hematology/Oncology on board as well as Pulmonary Department. Radiation Oncology already evaluated this patient as well. Likely, we will get more some more images and probably this patient can be discharged in the next 24 hours. 5. CKD stage 3 to 4. Continue with same management. Stable. 6. Hypertension. Continue with home medications. 7. Diabetes. Continue with same management. 8. Obesity with a body mass index of 39.2, aware. Diet and exercise has been discussed. During his recent previous hospitalization, his body mass index was 34.1. 9. History of gout, stable. 10. History of IBS, aware. 11. History of coronary artery disease, no chest pain at this moment. 12. Peripheral vascular disease, aware. 13. Obstructive sleep apnea, continue with the Trilogy machine. cc: Tyrone Lorenzo MD
--- NOTE | 2019-02-11 14:18 | Diag Imaging Result Doc PS360 ---
MRI BRAIN W/WO CONTRAST - 02/11/2019 INDICATION: r/o mets COMPARISON: 11/04/2018 FINDINGS: There is no area of restricted diffusion. There is no intracranial mass or hemorrhage. There is no abnormal contrast enhancement. The ventricles and sulci are normal in size and contour. There is stable mild periventricular white matter chronic microvascular disease. IMPRESSION: No acute disease or change from prior. Electronically signed by Prakash Butts 02/11/2019 2:16 PM
--- NOTE | 2019-02-11 14:28 | Diag Imaging Result Doc PS360 ---
CT ABDOMEN/PELVIS W/O CONTRAST - 02/11/2019 INDICATION: r/o mets COMPARISON: 09/24/2018 FINDINGS: The lung bases are clear and the heart size is normal. There is a stable small nonobstructing stone in the lower pole the right kidney measuring about 2 mm. No hydronephrosis or hydroureter. No bowel obstruction or inflammation. Urinary bladder, prostate, and rectum are normal. There is significant body wall edema that has worsened since prior. No mass or adenopathy. There are moderate degenerative changes of the spine. No acute or suspicious bony lesion. IMPRESSION: Stable nonobstructing right renal stone. Stable vascular disease. Worsening body wall edema, nonspecific. This exam was performed using automated exposure control, adjustment of mA or kV according to patient size, and/or use of iterative reconstruction technique Electronically signed by Prakash Butts 02/11/2019 2:26 PM
[2019-02-11] MEDS: LIPITOR PO SCH (20:46)
[2019-02-12] MEDS: DUONEB (A & A) INH SCH ×4 (04:00→21:17)
[2019-02-12] MEDS: DOXYCYCLINE 100 MG in NS 250 ML IV SCH ×2 (05:59→18:02)
[2019-02-12] MEDS: LASIX IV SCH ×2 (06:01→18:05)
[2019-02-12] MEDS: HUMULIN R SUBQ SCH ×5 (06:01→22:32)
[2019-02-12] MEDS: HEPARIN SUBQ SCH ×3 (06:01→22:32)
[2019-02-12] MEDS: PRILOSEC PO SCH (07:42)
[2019-02-12] MEDS: FISH OIL CONCENTRATE PO SCH (09:46)
[2019-02-12] MEDS: ZYLOPRIM PO SCH (09:46)
[2019-02-12] MEDS: CATAPRES PO SCH ×2 (09:47→22:31)
[2019-02-12] MEDS: FLOMAX PO SCH (09:47)
[2019-02-12] MEDS: NORCO-7.5 PO SCH ×2 (09:47→22:31)
[2019-02-12] MEDS: ASPIRIN EC PO SCH (09:47)
[2019-02-12] MEDS: ISORDIL PO SCH ×3 (09:47→22:30)
[2019-02-12] MEDS: APRESOLINE PO SCH ×3 (09:47→22:30)
[2019-02-12] MEDS: FOLIC ACID PO SCH (09:47)
[2019-02-12] MEDS: TOPROL XL PO SCH ×2 (09:47→22:30)
[2019-02-12] MEDS: BASAGLAR SUBQ SCH ×2 (09:48→22:32)
[2019-02-12] MEDS: NORVASC PO SCH (09:51)
[2019-02-12] MEDS: OXY IR PO PRN ×2 (09:52→22:36)
[2019-02-12] MEDS: MUCOMYST 20% INH SCH ×2 (09:54→19:27)
[2019-02-12] MEDS: ADVAIR 250/50 DISKUS INH SCH ×2 (09:55→19:31)
[2019-02-12] MEDS: SPIRIVA INH SCH (09:55)
[2019-02-12 10:13] LABS: ALB/GLOB RATIO 1.1; ALBUMIN 3.2 g/dL (3.5-5.0); CALCIUM 8.2 mg/dL (8.8-10.2); CREATININE 3.5 mg/dL (0.7-1.2); POTASSIUM 3.9 mmol/L (3.5-5.1); TOTAL BILIRUBIN 0.15 mg/dL (0.20-1.00); TOTAL PROTEIN 6.1 g/dL (6.3-8.3)
--- NOTE | 2019-02-12 11:06 | PROGRESS NOTE ---
DATE: 02/12/2019 SUBJECTIVE: Patient is feeling better, his pain is better controlled, Hematology/Oncology Department has requested a bone scan. We will continue with the same management. OBJECTIVE: Vital Signs: Temperature 98.6 degrees, pulse 63, respiratory rate 18, blood pressure 154/72 oxygen saturation 98 on 4 L of nasal cannula. HEENT: Head normocephalic, no trauma. PERRLA. Neck: Supple. No JVD. Central trachea. Chest: Coarse breath sounds bilaterally. Prolonged expiratory phase. Decreased breath sounds at the bases. Abdomen: Soft, protuberant, nontender, nondistended. No hepatosplenomegaly. Extremities: 1+ lower extremity edema. No clubbing. No cyanosis. Neurological examination: The patient is alert and oriented x3. No focal deficits. LABORATORY: Sodium 145, potassium 3.9, chloride 106, bicarbonate 21. BUN 74, creatinine 3.5, glucose 80, calcium 8.2. ASSESSMENT AND PLAN: 1. Chronic obstructive pulmonary disease exacerbation in a patient with severe chronic obstructive pulmonary disease and chronic respiratory failure. Continue with the same management. He is still a little bit short of breath mostly with a little bit of physical activity, but he is getting better. 2. Diastolic heart failure. Continue with same management. He is on diuretics. 3. Uncontrolled type 2 diabetes. He was placed on an insulin drip upon admission, but now we put him back on his home Lantus, which I have decreased the dose because he has been having some hypoglycemia, mostly in the morning. I will decrease it from 120 twice a day to 80 twice a day to see how he does. 4. Right upper lobe and left upper lobe squamous cell carcinoma with tumor necrosis, probably two primary tumors. Hematology/Oncology Department and Pulmonary Department following this patient closely. Also Radiation Oncology evaluated this patient. Today he will have a bone scan. 5. Chronic kidney disease stage III-IV. Continue with same management. Stable. 6. Hypertension, stable. 7. Diabetes. Like I mentioned before, I have decreased the dose of the insulin Lantus because this patient is having some hypoglycemia. We will monitor. 8. History of gout, stable. 9. History of irritable bowel syndrome, aware. 10. History of coronary artery disease. No chest pain at this moment. 11. Peripheral vascular disease, aware. 12. Obstructive sleep apnea. Continue with the same management and trilogy machine. cc: Tyrone Lorenzo MD
--- NOTE | 2019-02-12 15:44 | Diag Imaging Result Doc PS360 ---
EXAM: BONE SCAN, TOTAL BODY 02/11/2019 HISTORY: R/o mets TECHNIQUE: 29.7 mCi of technetium 99m MDP with multiple spot images. COMMENT: There is activity present in the right axillary region and over the lower mid and left lower chest. Some of this may be due to skin contamination. The lateral views of the chest demonstrates a very superficial activity, however there may be abnormal uptake in the lower body of the sternum. No previous studies are available for comparison. There are no definite abnormality seen on the CT of the abdomen dated 02/11/2019 to correspond with the areas of abnormal uptake over the left upper quadrant. No abnormalities are demonstrated on the CT of the thorax dated 01/24/2019 corresponding to the right axillary activity. There are subchondral cysts present in the right glenoid however. There is increased activity in the acromioclavicular joints and right shoulder, which are probably due to arthritic change, similarly there is increased activity in the knees. IMPRESSION: No definite evidence of osseous metastatic disease. Electronically signed by Jason Bernstein 02/12/2019 3:41 PM
--- NOTE | 2019-02-12 20:32 | PULMONOLOGY PROGRESS NOTE ---
DATE: 02/12/2019 SUBJECTIVE: The patient is without specific complaints today. He looks considerably different with a shaved face and a shaved head. He previously had a mustache and long hair. OBJECTIVE: Vital Signs: Blood pressure 134/64, heart rate 61, temperature 98.1 degrees, oxygen saturation 94%. HEENT: Pupils are equal and reactive. Oropharynx is clear. Neck: Is supple. Chest: Reveals prolonged expiratory phase. Cardiac exam: S1, S2. Abdomen: Is obese and soft. Extremities: Reveal trace edema. LABORATORIES: MRI of the brain reveals no evidence of acute disease. CT scan of the abdomen and pelvis reveals body wall edema with nonobstructing right renal stone but no other evidence of metastasis. Bone scan reveals no evidence of osseous metastatic disease. IMPRESSION: A 63-year-old with presumptive early stage lung cancer in the right upper lobe, early stage lung cancer in the left upper lobe, severe chronic obstructive pulmonary disease, morbid obesity, diastolic heart failure, chronic hypoxemic respiratory failure on a Trilogy device at home, cor pulmonale/pulmonary hypertension, diastolic heart failure. Clinically, he is improving. He is being worked up for evidence of metastatic disease, but none has yet been found. RECOMMENDATIONS: 1. Complete workup for early stage lung cancer bilaterally and consider radiation therapy to the right upper lobe and left upper lobe to be decided by Dr. Petrona Cardozo. 2. Continue oxygen for hypoxemic respiratory failure. 3. Continue Trilogy for hypercapnic respiratory failure. 4. Recommend weight loss as a long-term goal. cc: Kale Yo MD
[2019-02-12] MEDS: LIPITOR PO SCH (22:31)
[2019-02-13] MEDS: HUMULIN R SUBQ SCH ×4 (04:21→15:10)
[2019-02-13] MEDS: HEPARIN SUBQ SCH ×2 (05:47→18:13)
[2019-02-13] MEDS: LASIX IV SCH (06:11)
[2019-02-13] MEDS: PRILOSEC PO SCH (06:11)
[2019-02-13] MEDS: DOXYCYCLINE 100 MG in NS 250 ML IV SCH (06:11)
[2019-02-13 08:04] LABS: ALB/GLOB RATIO 1.1; ALBUMIN 3.3 g/dL (3.5-5.0); CALCIUM 8.1 mg/dL (8.8-10.2); CREATININE 3.7 mg/dL (0.7-1.2); POTASSIUM 4.2 mmol/L (3.5-5.1); TOTAL BILIRUBIN 0.27 mg/dL (0.20-1.00); TOTAL PROTEIN 6.4 g/dL (6.3-8.3)
[2019-02-13 08:19] VITALS: BP 146/75
[2019-02-13] MEDS: FISH OIL CONCENTRATE PO SCH (08:41)
[2019-02-13] MEDS: FLOMAX PO SCH (08:41)
[2019-02-13] MEDS: CATAPRES PO SCH (08:41)
[2019-02-13] MEDS: ISORDIL PO SCH ×2 (08:41→16:00)
[2019-02-13] MEDS: ASPIRIN EC PO SCH (08:42)
[2019-02-13] MEDS: ZYLOPRIM PO SCH (08:42)
[2019-02-13] MEDS: TOPROL XL PO SCH (08:42)
[2019-02-13] MEDS: APRESOLINE PO SCH ×2 (08:42→16:00)
[2019-02-13] MEDS: FOLIC ACID PO SCH (08:42)
[2019-02-13] MEDS: BASAGLAR SUBQ SCH (08:44)
[2019-02-13] MEDS: NORCO-7.5 PO SCH (08:45)
[2019-02-13] MEDS: NORVASC PO SCH (11:04)
[2019-02-13] MEDS: DUONEB (A & A) INH SCH ×2 (11:52→16:24)
[2019-02-13] MEDS: MUCOMYST 20% INH SCH ×2 (11:52→19:03)
[2019-02-13] MEDS: ADVAIR 250/50 DISKUS INH SCH ×2 (11:54→19:05)
[2019-02-13] MEDS: SPIRIVA INH SCH (11:57)
--- NOTE | 2019-02-13 22:05 | DISCHARGE SUMMARY ---
ADMISSION DATE: 02/09/2019 DISCHARGE DATE: 02/13/2019 DIAGNOSES: 1. Chronic obstructive pulmonary disease acute on chronic exacerbation. 2. Chronic hypoxemic respiratory failure on home Trilogy device. 3. Diastolic heart failure. 4. Uncontrolled diabetes type 2. 5. Chronic kidney disease stage 3 to 4. 6. Hypertension. 7. History of gout. 8. History of irritable bowel syndrome. 9. Coronary artery disease. 10. Peripheral vascular disease . 11. Obstructive sleep apnea. 12. Right upper lobe and left upper lobe squamous cell carcinoma. CONSULTS: 1. Dr. Kale Yo, pulmonology. 2. Dr. Petrona Cardozo, radiation. DIAGNOSTICS: 1. 02/09/2019 chest x-ray revealed mild pulmonary edema with a tiny left pleural effusion. 2. 02/11/2019 chest x-ray revealed worsening pulmonary edema. 3. 02/11/2019 CT of the abdomen and pelvis revealed stable nonobstructing right renal stone approximately 2 mm, stable vascular disease, worsening body wall edema nonspecific. 4. 02/11/2019 brain MRI revealed no acute disease . 5. Body scan nuclear revealed no definite evidence of osseous metastatic disease. 6. Microbiology, blood cultures x2 revealed no growth after 48 hours . 7. Sputum culture revealed normal joslyn. HOSPITAL COURSE: Mr. La presented to emergency room complaining of shortness of breath. He was found to be in a congestive heart failure exacerbation for which he was diuresed with IV Lasix for accumulative negative balance of 6796 mL, he was initially placed on insulin protocol insulin drip. He was able to be transferred over to his home Lantus although he had been having episodes of hypoglycemia therefore his home medications insulin dosages were decreased . Blood sugars have been in the 119 to 220 range. He did have chest pain. He was ruled out. DISCHARGE PHYSICAL EXAM: Vital signs: Blood pressure is 146/75 with a heart rate of 62, respirations are 16, temperature is 99.1 degrees with O2 saturation 100% on nasal cannula. Cardiovascular: Regular rate and rhythm. S1 and S2 appreciated. He has no murmur. He does have 1+ bilateral lower extremity edema. Calves are nontender bilateral with peripheral pulses palpable x4 extremities. Pulmonary: Is coarse breath sounds throughout, expiratory phase is prolonged. Chest rises and falls symmetric with respiration. Chest wall is nontender to palpation. Gastrointestinal: Abdomen soft, nontender, nondistended with bowel sounds in all 4 quadrants. Neurologic: He is alert, oriented x3. DISCHARGE MEDICATIONS: 1. Spiriva 1 puff q.a.m. 2. Potassium chloride 10 mEq q.a.m. 3. OxyIR 5 mg p.o. q.6 hours p.r.n. 4. Lactulose 30 mL p.o. b.i.d. 5. Humalog. 6. Lasix 40 mg p.o. b.i.d. 7. Folic acid 1 mg p.o. daily. 8. Clonazepam 0.5 p.o. as directed. 9. Duo nebs q.4 hours p.r.n. wheezing. 10. Tamsulosin 0.4 mg p.o. daily. 11. Omeprazole 40 mg p.o. daily. 12. [place]-3 fatty acids 1 p.o. daily. 13. Metoprolol succinate ER 50 mg p.o. b.i.d. 14. Isordil 60 mg p.o. t.i.d. 15. Lantus insulin 120 mg subcu b.i.d. 16. Hydralazine 100 mg p.o. t.i.d. 17. Folic acid 1 mg p.o. daily. 18. Advair 50/250 one puff b.i.d. 19. Clonidine 0.2 mg p.o. b.i.d. 20. Atorvastatin 40 mg p.o. at bedtime. 21. Enteric-coated aspirin 81 mg p.o. daily. 22. Amlodipine 10 mg p.o. daily. 23. Allopurinol 100 mg p.o. q.a.m. FOLLOWUP: 1. Dr. Odell Najera 02/15/2019 at 10:30. 2. Kale Yo [id number] at 3:45. 3. Terrie Judge 02/16/2019 at 3:15. 4. Petrona Cardozo her office will call and schedule a followup. 5. He is being discharged home in stable condition with family members. TIME SPENT: Greater than 30 minutes. Dictated by ALPESH Turner for Tyrone Lorenzo MD This chart was documented by, ALPESH Turner and accurately reflects the services performed, treatment plan and medical decisions as attested by the providers signature Tyrone Lorenzo MD. cc: MD Tyrone Mcclellan MD MTDD
== END 2019-02-13 19:40 | disposition home health service (06) | DRG 291 ==
LOC: SUPCPDRO → ED 01:00 → SUATTDRO 04:33 → EDIPHOLD 04:33 → 3S 21:37 → 3N 02-10 16:23
PROVIDERS: ATTEND Internal Medicine
CPT/HCPCS: 70553; 71010; 71020; 71045; 71046; 74176; 78306; 80048; 80053; 81001; 82550; 82805; 82948; 83605; 83690; 83735; 84100; 84484; 85025; 87040; 87070; 87205; 93005; 94640; 94761; 94762; 94799; 96365; 96366; 96372; 96375; 96376; 99285; A9270; A9503; A9579; J0696; J1644; J1940; J2405; J2930; J7030; J7050; XXXXX

== ENCOUNTER 2019-02-18 21:25 | Inpatient (IN) ==
[2019-02-18 22:50] LABS: BASO# 0.04 X1000 (0.0-0.2); BASO% 0.6 % (0.0-0.8); EOS# 0.18 X1000 (0.0-0.7); EOS% 2.7 % (0.0-10.0); HEMATOCRIT 28.2 % (42.0-52.0); HEMOGLOBIN 8.5 g/dL (14.0-18.0); IMM GRAN# 0.03 X1000 (0.0-0.04); IMM GRAN% 0.5 % (0.0-0.5); LYMPH# 1.39 X1000 (1.2-3.4); LYMPH% 20.9 % (20.5-51.1); MCH 26.5 PG (27-31); MCHC 30.1 g/dL (33-37); MCV 87.9 FL (81-99); MONO# 0.78 X1000 (0.11-0.59); MONO% 11.7 % (1.7-9.3); MPV 10.2 FL (7.4-10.4); NEUT# 4.23 X1000 (1.4-6.5); NEUT% 63.6 % (42.2-75.2); PLT 182 X1000 (130-400); RBC 3.21 XMIL (4.7-6.1); RDW 18.7 % (11.5-14.5); WBC 6.65 X1000 (4.8-10.8)
[2019-02-18 23:31] LABS: AGAP 12; ALB/GLOB RATIO 1.2; ALBUMIN 3.5 g/dL (3.5-5.0); ALKALINE PHOSPHATASE 145 U/L (32-122); BUN 56 mg/dL (8-22); CALCIUM 8.2 mg/dL (8.8-10.2); CHLORIDE 103 mmol/L (98-107); COSMO 307; CREATININE 3.5 mg/dL (0.7-1.2); ESTIMATED GFR 18; GLUCOSE 243 mg/dL (70-104); GOT 11 U/L (10-34); GPT 25 U/L (10-44); POTASSIUM 4.6 mmol/L (3.5-5.1); SODIUM 142 mmol/L (136-145); TCO2 27 mmol/L (25-35); TOTAL BILIRUBIN < 0.15 mg/dL (0.20-1.00); TOTAL PROTEIN 6.4 g/dL (6.3-8.3)
[2019-02-19] MEDS ORDERED: SOLU-MEDROL IV ONE (00:22)
[2019-02-19] MEDS ORDERED: ROCEPHIN 1 GM in NS 50 ML IV ONE (00:26)
[2019-02-19] MEDS ORDERED: ZITHROMAX 500 MG/NS 500 MG/250 ML IVPB IV ONE (00:26)
[2019-02-19] MEDS ORDERED: DUONEB (A & A) INH ONE (00:27)
[2019-02-19] MEDS ORDERED: LASIX IV ONE ×2 (00:27→01:08)
--- NOTE | 2019-02-19 00:50 | PROVIDER DOCUMENTATION ---
This chart was entered by Shirley Serna Scribe, acting as scribe for Kp Gil MD. HPI-Respiratory General - General Chief Complaint: Shortness of Breath Stated Complaint: sob Time Seen by Provider: 02/18/19 22:12 Source: patient Allergies/Adverse Reactions: Patient Allergies Allergy/AdvReac Type Severity Reaction Status Date / Time ketorolac tromethamine * Allergy Mild RASH Verified 02/09/19 05:43 [From Toradol] levofloxacin Allergy Mild SHORTNESS Verified 02/09/19 05:43 OF BREATH almond Allergy Unknown Verified 02/09/19 05:43 doxazosin mesylate * Allergy SHORTNESS Verified 02/09/19 05:43 [From Cardura] OF BREATH ibuprofen [From Motrin] Allergy FLUSHING Verified 02/09/19 05:43 Home Medications: Home Medication List Medication Instructions Recorded Confirmed Last Taken Type Aspirin [Ecotrin] 81 mg PO QAM 12/11/14 02/09/19 02/08/19 09:00 History Potassium Chloride 10 meq PO QAM 12/11/14 02/09/19 02/08/19 09:00 History ATORVAstatin [Lipitor] 40 mg PO QHS #90 tab 12/19/17 02/09/19 02/08/19 21:00 Rx Fluticasone/[place] 250/50 INH 1 puff INH RTBID #1 inhaler 12/19/17 02/09/19 02/08/19 09:00 Rx [Advair 250/50 Diskus] Isosorbide Dinitrate [Isordil] 60 mg PO TID 04/30/18 02/09/19 02/08/19 21:00 History Metoprolol Succinate E.r. [Toprol 50 mg PO BID 04/30/18 02/09/19 02/08/19 09:00 History Xl] [place]-3 Fatty Acids/Fish Oil [Fish 1 each PO DAILY 04/30/18 02/09/19 01/21/19 History Oil 1,000 mg Softgel] Folic Acid 1 mg PO DAILY #90 tab 08/26/18 02/09/19 01/21/19 Rx Amlodipine [Norvasc] 10 mg PO DAILY 30 Days #30 tab 09/19/18 02/09/19 02/08/19 09:00 Rx Hydralazine [Apresoline] 100 mg PO TID #120 tab 09/19/18 02/09/19 02/08/19 21:00 Rx Tamsulosin [Flomax] 0.4 mg PO DAILY capsule 10/16/18 02/09/19 02/08/19 09:00 Rx Insulin Glargine [Lantus] 120 unit SUBQ BID 11/03/18 02/09/19 02/08/19 21:00 History Albuterol 2.5MG/Ipratrop 0.5MG 3 ml INH Q4H PRN PRN neb 11/12/18 02/09/19 01/21/19 Rx [Duoneb (A & A)] Omeprazole 40 mg PO DAILY 11/24/18 02/09/19 02/08/19 09:00 History Furosemide [Lasix] 40 mg PO BID #120 tab 01/31/19 02/09/19 02/08/19 09:00 Rx Lactulose 30 ml PO BID udc 01/31/19 02/09/19 Unknown Rx Allopurinol 100 mg PO QAM 02/09/19 02/09/19 Unknown History Clonazepam 1 ea PO DIRECTED 02/09/19 02/09/19 Unknown History Clonidine HCl 0.2 mg PO BID 02/09/19 02/09/19 Unknown History Folic Acid 1 mg PO QAM 02/09/19 02/09/19 Unknown History Insulin Lispro [Humalog Kwikpen 1 ea SUBQ DIRECTED 02/09/19 02/09/19 Unknown History U-100] Tiotropium [place] Inhaler 1 ea INH QAM 02/09/19 02/09/19 02/08/19 09:00 History [Spiriva] Doxycycline 100 mg PO BID #10 tab 02/11/19 Unknown Rx Oxycodone I.r. [Oxy Ir] 5 mg PO Q6H PRN PRN #20 tab 02/11/19 Unknown Rx - History of Present Illness-Resp Nature of Presenting Problem: 63 yom c/o sob for few days and progressively gotten worse. pt on 4 liters of o2 at home. pt has hx of lung cancer, chf, dm, mi, htn and copd. pt states he may be fluid overloaded, gained 1-2 pounds and noticeable swelling in legs. pt is a former smoker. Quality of Pain: reports: none Severity in ED: reports: mild Review of Systems - Adult - REVIEW OF SYSTEMS - ADULT Constitutional: reports: no symptoms reported Eyes: reports: no symptoms reported Ears, Nose, Mouth & Throat: reports: no symptoms reported Cardiovascular: reports: no symptoms reported. denies: chest pain Respiratory: reports: no symptoms reported, shortness of breath. denies: cough, excessive sputum production, hemoptysis, pleurisy, wheezing Gastrointestinal: reports: no symptoms reported Genitourinary: reports: no symptoms reported Musculoskeletal: reports: no symptoms reported Integumentary: reports: no symptoms reported Neurological: reports: no symptoms reported Psychiatric: reports: no symptoms reported Endocrine: reports: no symptoms reported Hematologic/Lymphatic: reports: no symptoms reported Allergic/Immunologic: reports: no symptoms reported All Other Systems: Reviewed and Negative Past History - Adult - PAST MEDICAL HISTORY-ADULT Review of Records: reports: Old Records Reviewed, Nursing Assessment Review, Medications Reviewed, Social history reviewed & non-contributory. Major Childhood Illnesses: reports: history unknown Cardiovascular: reports: CHF (ECHO 08/2015 EF 55% ), HTN, hyperlipidemia, [place] Respiratory: reports: asthma, COPD (severe on 4liters O2 qHS), cancer (lung) Gastrointestinal: reports: GERD Obstetrical/Gynecological: reports: denies history Genitourinary: reports: kidney disease (CRI) Musculoskeletal: reports: arthritis, chronic pain Neurological: reports: denies history Psychiatric: reports: anxiety Endocrine/Immune: reports: Diabetes Other Conditions: reports: denies history - PRIOR SURGERIES/PROCEDURES Surgical/Procedure History: reports: cardiac stent (x2 last one 7 years ago), orthopedic (extremity) (thumb) - IMMUNIZATION STATUS Childhood Immunizations: See Nurse Assessment Flu Vaccine: See Nurse Assessment - FAMILY HISTORY Family History: reviewed, not pertinent - SOCIAL HISTORY Smoking: cigarettes, other (former) Substance Use: none/never Physical Exam-General - PHYSICAL EXAM-ADULT Initial Vital Signs Reviewed: Yes - CONSTITUTIONAL General Appearance: appears well, alert, no apparent distress - EYES Eyes: PERRL/EOMI, pink conjunctivae - HEAD, EARS, NOSE, MOUTH & THROAT HENMT: normocephalic/atraumatic, moist mucous membranes, normal ENT inspection - NECK Neck: non-tender, full range of motion, supple, normal inspection - RESPIRATORY Respiratory: chest non-tender, lungs clear, normal breath sounds, no pleuratic chest pain, no respiratory distress, no accessory muscle use, other (pt on 2 liters of o2 and 95% sat). negative: respiratory distress, decreased breath sounds, accessory muscle use - CARDIOVASCULAR Cardiovascular: normal peripheral pulses, regular rate, rhythm, no edema, no gallop, no JVD, no murmur. negative: JVD, bradycardia, tachycardia - GASTROINTESTINAL (ABDOMEN) Abdominal Exam: non tender, soft - LYMPHATIC Lymphatic: no adenopathy - MUSCULOSKELETAL Back Exam: normal inspection, no CVA tenderness, no vertebral tenderness Extremity: normal range of motion, non-tender, normal inspection Peripheral Pulses: radial (R): 2+, radial (L): 2+ - SKIN Integumentary: normal color, normal turgor, warm/dry - NEUROLOGIC Neurologic: grossly normal, no motor/sensory deficits - PSYCHIATRIC Psych/Mental Status: normal mood/affect, normal thought content, normal thought process, oriented x 3 Progress - PLAN OF CARE/RESULTS Progress/Plan/Lab Results: Vital Signs - 8 hr 02/18/19 21:45 02/18/19 23:30 02/19/19 00:47 Temperature 98.9 F 98.1 F Pulse Rate 70 54 L 66 Respiratory Rate 18 22 22 Blood Pressure 173/73 165/82 O2 Sat by Pulse Oximetry 96 96 96 Laboratory Results - last 24 hr 02/18/19 02/18/19 02/18/19 22:38 22:38 22:38 WBC 6.65 RBC 3.21 L Hgb 8.5 L Hct 28.2 L MCV 87.9 MCH 26.5 L MCHC 30.1 L RDW Std Deviation 18.7 H Plt Count 182 MPV 10.2 Immature Gran % (Auto) 0.5 Neut % (Auto) 63.6 Lymph % (Auto) 20.9 [place] % (Auto) 11.7 H Eos % (Auto) 2.7 Baso % (Auto) 0.6 Immature Gran # (Auto) 0.03 Neut # (Auto) 4.23 Lymph # (Auto) 1.39 [place] # (Auto) 0.78 H Eos # (Auto) 0.18 Baso # (Auto) 0.04 Sodium 142 Potassium 4.6 Chloride 103 Carbon Dioxide 27 Anion Gap 12 BUN 56 H Creatinine 3.5 H Estimated GFR/1.73 m2 18 BUN/Creatinine Ratio 16 Glucose 243 H Calculated Osmolality 307 Calcium 8.2 L Total Bilirubin < 0.15 L AST 11 ALT 25 Alkaline Phosphatase 145 H Troponin T Sre-M-Cxpdxfcodnq Pept 1055 H Total Protein 6.4 Albumin 3.5 Globulin 2.9 Albumin/Globulin Ratio 1.2 02/18/19 22:38 WBC RBC Hgb Hct MCV MCH MCHC RDW Std Deviation Plt Count MPV Immature Gran % (Auto) Neut % (Auto) Lymph % (Auto) [place] % (Auto) Eos % (Auto) Baso % (Auto) Immature Gran # (Auto) Neut # (Auto) Lymph # (Auto) [place] # (Auto) Eos # (Auto) Baso # (Auto) Sodium Potassium Chloride Carbon Dioxide Anion Gap BUN Creatinine Estimated GFR/1.73 m2 BUN/Creatinine Ratio Glucose Calculated Osmolality Calcium Total Bilirubin AST ALT Alkaline Phosphatase Troponin T 0.068 Gzg-G-Cxkqebjfwer Pept Total Protein Albumin Globulin Albumin/Globulin Ratio Orders Category Date Time Status Nursing- Obtain EKG ONCE Care 02/18/19 22:18 Active cxr [CHEST-1 VIEW] [RAD] Stat Exams 02/18/19 22:17 Taken CBC WITH ELECTRONIC DIFF [HEME] Stat Lab 02/18/19 22:38 Completed COMPREHENSIVE METABOLIC PANEL [CHEM] Stat Lab 02/18/19 22:38 Completed PRO B-NATRIURETIC PEPTIDE Stat Lab 02/18/19 22:38 Completed TROPONIN T Stat Lab 02/18/19 22:38 Completed Albuterol 2.5MG/Ipratrop 0.5MG [Duoneb (A & A)] Med 02/19/19 00:27 Disco ntinued 3 ml INH NOW ONE Azithromycin 500 mg/Ns [Zithromax 500 mg/Ns] Med 02/19/19 00:26 Active 500 mg in 250 ml IV NOW CefTRIAXONE [Rocephin] 1 gm Med 02/19/19 00:26 Active 0.9% Sodium Chloride Inj [Ns] 50 ml IV NOW Furosemide [Lasix] Med 02/19/19 00:27 Discontinued 40 mg IV NOW ONE Methylprednisolone Sod Succ [Solu-Medrol] Med 02/19/19 00:22 Discontinued 125 mg IV NOW ONE Aerosol Treatments Routine Oth 02/19/19 00:27 Completed Aerosol Treatments Stat Oth 02/19/19 00:27 Completed EKG [EKG] Stat Ther 02/18/19 22:18 Ordered Result Diagrams: 02/18/19 22:38 02/18/19 22:38 - EKG 1 Time of EKG reading by physician:: 22:32 EKG Read and Signed by:: Kp Gil EKG Interpretation (*Must complete 3 of following elements*): Abnormal (borderline) Rate: 59 Rhythm: Sinus bradycardia [place]: normal QRS: RBB (incomoplete) Departure - Departure Date of Disposition Decision: 02/19/19 Time of Disposition Decision: 00:50 DIAGNOSIS: CHF exacerbation Qualifiers: Heart failure type: unspecified Qualified Code(s): I50.9 - Heart failure, unspecified Disposition: ADMITTED INPATIENT 09 Certified Medical Emergency: Emergent Condition: Stable Referrals and Follow-Ups: Terrie Judge [Primary Care Provider] - - Critical Care Note This patient required my direct & personal management of CC.: No Attestation - Physician/ KOJO Attestation Patient care was provided by Advanced Practice Provider:: No The physician spent face to face time with patient:: Yes Advanced Practice Provider documentation review:: Supervising physician onsite and consulted in the evaluation and care of this patient. The physician did have a face to face encounter with the patient. This chart was documented by the indicated scribe, (Shirley Serna, Dez) and accurately reflects the services I performed and decisions made by me, Kp Gil MD, as attested by the provider's signature.
[2019-02-19] MEDS ORDERED: NITROGLYCERIN SL PRN (01:27)
[2019-02-19] MEDS ORDERED: ZOFRAN IV PRN (01:27)
[2019-02-19] MEDS ORDERED: TYLENOL PO PRN (01:27)
[2019-02-19] MEDS ORDERED: LASIX IV SCH (01:30)
[2019-02-19] MEDS: OXY IR PO PRN ×3 (02:15→22:15)
[2019-02-19] MEDS: HEPARIN SUBQ SCH ×2 (02:15→15:01)
--- NOTE | 2019-02-19 02:50 | HISTORY AND PHYSICAL ---
PRIMARY CARE PHYSICIAN: Dr. Terrie Judge. REASON FOR ADMISSION: A 3 to 4 day history of worsening shortness of breath. HISTORY OF PRESENT ILLNESS: Mr. Adam La is a 63-year-old, man with past medical history of COPD on home O2, diastolic heart failure, coronary artery disease, peripheral arterial disease, chronic venous stasis, type 2 diabetes, gout, hyperlipidemia, obstructive sleep apnea, stage IV CKD, and more recently lung cancer within the last 1 month. Also, has a history of seasonal allergic rhinitis, BPH. Comes in today complaining of 3 to 4 day history of worsening acute on chronic dyspnea. The patient has also noticed simultaneous lower extremity swelling and abdominal distention. Complains of orthopnea, but very minimal cough. No chest pain per se. No PND. Also complains of easy satiety with meals. Denies any fever or chills. Denies any genitourinary complaints. Also complains of intermittent constipation. No bleeding from any orifice. No polyuria or polydipsia. He does admit to drinking a can or 2 of soda. Denies any pxln-rdn-panrczj use of NSAIDs. Denies any focal neurological complaints. REVIEW OF SYSTEMS: Twelve system review was done, positive for findings in HPI. ALLERGIES TO: Toradol, Levaquin, almonds, Cardura, and ibuprofen. HOME MEDICATIONS: Have not been reconciled at this point in time. SURGICAL HISTORY: Carpal tunnel surgery, debridement of the left hand, coronary stent placement. SOCIAL HISTORY: Patient lives alone. States he stopped smoking early this year. No alcohol or illicit drug use. FAMILY HISTORY: Notable for heart disease and diabetes. Both parents of cancer, cannot remember what type of cancer. LABORATORY DATA: White count 6000, hemoglobin and hematocrit 18 and 28, platelets 182,000. BUN is 56, creatinine 3.5. Glucose is 243. Troponin is 0.068. ProBNP 1065. Alkaline phosphatase 145. IMAGING: Chest x-ray reviewed by me shows poorly penetrated film, poor inspiratory film. However, patient does have cardiomegaly, possible left pleural effusion, and significantly increased marked vascular markings. EKG was ordered, it shows sinus bradycardia, rate of 59. Incomplete right bundle branch block. PHYSICAL EXAMINATION: GENERAL: Obese, middle-aged man who is in mild respiratory distress. He is alert and oriented to person, place, and time. Normal mood and affect. VITAL SIGNS: Blood pressure 165/82, pulse rate 60, respirations 22, temperature 98.1, saturation is 96% on 4 L nasal cannula. HEENT: Head is normocephalic, atraumatic. Eyes, DWAIN, EOMI. He is anicteric, but mildly pale. ENT and oropharynx exam is grossly normal. No central cyanosis. NECK: Short and thick. No visible JVD noted. No thyromegaly visualized. No carotid bruit. CHEST: Surprisingly significant good air in both lung dillon, but otherwise clear to auscultation. CARDIOVASCULAR: First and second heart sounds heard. No gallops, no rubs. Rhythm is regular. ABDOMEN: Distended, soft. No focal areas of tenderness. No masses appreciated. Bowel sounds are normal. RECTAL: Deferred at this time. EXTREMITIES: The patient has diminished pulse volume in all extremities. Rhythm is regular and symmetrical. Lower extremities show 1 to 2+ pitting edema in lower extremities. The left lower extremity is chronically erythematous. There is grade 1 clubbing but no peripheral cyanosis. NEUROLOGIC: No gross focal deficits and no tremors. SKIN: Grossly intact. No breakdown, lesions, or erythema noted elsewhere. MUSCULOSKELETAL: Grossly normal. ASSESSMENT: 1. Acute diastolic heart failure. 2. Acute on chronic respiratory failure secondary to acute diastolic heart failure and underlying chronic obstructive pulmonary disease. 3. Chronic obstructive pulmonary disease. 4. Coronary artery disease. 5. Peripheral artery disease. 6. Type 2 diabetes. 7. Hyperlipidemia. 8. Sleep apnea. 9. Gout. 10. Recently diagnosed for lung cancer, per patient. 11. Chronic kidney disease, stage 4. PLAN: The patient will be aggressively diuresed. I do suspect that when he is discharged they will have to alter the dose of his diuretics. Also, his blood pressure medications needs to optimize, as I feel that this is partly due to poorly controlled hypertension. Yet to review med rec as it has not been reconciled. Will make such modifications once reconciliation is done. Will continue with nebulizer treatments, both short and long-acting. Repeat chest film in 24 hours to document objective improvement. Follow up electrolytes closely also. Patient will benefit from dietary instruction regarding his meals. cc: MD Terrie Rosas MD [facility] HOSPITALShelly
[2019-02-19] MEDS: DUONEB (A & A) INH SCH ×5 (03:49→22:13)
[2019-02-19] MEDS: PRILOSEC PO SCH (06:53)
[2019-02-19] MEDS: HUMALOG SUBQ SCH ×3 (06:55→16:35)
--- NOTE | 2019-02-19 07:03 | EKG Report ---
Test Performed on : 02/18/2019 10:32:46 PM Test Reason : sob Blood Pressure : / mmHG Vent. Rate : 059 BPM Atrial Rate : 059 BPM P-R Int : 138 ms QRS Dur : 104 ms QT Int : 472 ms P-R-T Axes : -20 020 030 degrees QTc Int : 467 ms Sinus bradycardia. Incomplete right bundle branch block Borderline ECG When compared with ECG of 09-FEB-2019 03:29, (Unconfirmed) No significant change was found Unconfirmed Result
[2019-02-19] MEDS: BROVANA NEB INH SCH ×2 (08:00→19:34)
--- NOTE | 2019-02-19 08:01 | Diag Imaging Result Doc PS360 ---
EXAM: CHEST-1 VIEW INDICATION: sob TECHNIQUE: One view COMPARISON: 02/11/2019 FINDINGS: Pulmonary venous congestion and interstitial edema is approximately stable as compared to the previous study. No new consolidation is identified. There is cardiomegaly that is essentially stable. IMPRESSION: Approximately stable pulmonary edema. Electronically signed by Jkae Serna 02/19/2019 7:58 AM
[2019-02-19] MEDS: ASPIRIN EC PO SCH (09:58)
[2019-02-19] MEDS: CATAPRES PO SCH ×3 (09:58→22:03)
[2019-02-19] MEDS: APRESOLINE PO SCH ×3 (09:58→22:02)
[2019-02-19] MEDS: KLONOPIN PO SCH ×2 (09:59→22:02)
[2019-02-19] MEDS: FLOMAX PO SCH (09:59)
[2019-02-19] MEDS: KLOR-CON PO SCH (10:00)
[2019-02-19] MEDS: LACTULOSE PO SCH ×3 (10:00→22:21)
[2019-02-19] MEDS: NORVASC PO SCH (10:01)
[2019-02-19] MEDS ORDERED: INSULIN PEN NEEDLES ONE (10:02)
[2019-02-19] MEDS: TOPROL XL PO SCH ×2 (10:02→22:02)
[2019-02-19] MEDS: ISORDIL PO SCH ×3 (10:04→22:02)
[2019-02-19] MEDS: BASAGLAR SUBQ SCH ×2 (10:04→22:17)
[2019-02-19] MEDS: ZYLOPRIM PO SCH (10:05)
[2019-02-19] MEDS: LASIX IV SCH (15:00)
[2019-02-19] MEDS ORDERED: HALL'S COUGH LOZENGE MT PRN (20:47)
[2019-02-19] MEDS ORDERED: HUMULIN R SUBQ SCH (21:00)
[2019-02-19] MEDS: LIPITOR PO SCH (22:03)
[2019-02-20] MEDS: DUONEB (A & A) INH SCH ×4 (03:20→22:09)
[2019-02-20] MEDS: LASIX IV SCH ×2 (05:01→17:08)
[2019-02-20] MEDS: HEPARIN SUBQ SCH ×2 (05:02→17:08)
[2019-02-20] MEDS: PRILOSEC PO SCH (06:13)
[2019-02-20] MEDS: HUMULIN R SUBQ SCH ×4 (06:36→21:03)
[2019-02-20 07:23] LABS: BASO# 0.01 X1000 (0.0-0.2); BASO% 0.1 % (0.0-0.8); EOS# 0.02 X1000 (0.0-0.7); EOS% 0.2 % (0.0-10.0); HEMATOCRIT 27.3 % (42.0-52.0); HEMOGLOBIN 8.3 g/dL (14.0-18.0); LYMPH# 0.95 X1000 (1.2-3.4); LYMPH% 10.2 % (20.5-51.1); MCH 26.5 PG (27-31); MCHC 30.4 g/dL (33-37); MCV 87.2 FL (81-99); MONO# 0.82 X1000 (0.11-0.59); MONO% 8.8 % (1.7-9.3); MPV 10.4 FL (7.4-10.4); NEUT# 7.48 X1000 (1.4-6.5); NEUT% 80.7 % (42.2-75.2); PLT 191 X1000 (130-400); RBC 3.13 XMIL (4.7-6.1); RDW 18.3 % (11.5-14.5); WBC 9.28 X1000 (4.8-10.8)
[2019-02-20 07:48] LABS: CREATININE 3.2 mg/dL (0.7-1.2); MAGNESIUM 2.1 mg/dL (1.5-2.7); POTASSIUM 4.3 mmol/L (3.5-5.1)
[2019-02-20] MEDS: KLONOPIN PO SCH ×2 (08:14→21:03)
[2019-02-20] MEDS: LACTULOSE PO SCH ×2 (08:14→21:03)
[2019-02-20] MEDS: BASAGLAR SUBQ SCH (08:14)
[2019-02-20] MEDS: APRESOLINE PO SCH ×3 (08:14→21:02)
[2019-02-20] MEDS: ASPIRIN EC PO SCH (08:14)
[2019-02-20] MEDS: KLOR-CON PO SCH (08:14)
[2019-02-20] MEDS: TOPROL XL PO SCH ×2 (08:14→21:03)
[2019-02-20] MEDS: CATAPRES PO SCH ×3 (08:14→21:02)
[2019-02-20] MEDS: ZYLOPRIM PO SCH (08:15)
[2019-02-20] MEDS: ISORDIL PO SCH ×3 (08:15→21:02)
[2019-02-20] MEDS: FLOMAX PO SCH (08:15)
[2019-02-20] MEDS: OXY IR PO PRN ×2 (08:15→17:09)
[2019-02-20] MEDS: NORVASC PO SCH (08:15)
[2019-02-20] MEDS ORDERED: BROVANA NEB ONE (09:51)
[2019-02-20] MEDS: BROVANA NEB INH SCH ×2 (10:47→22:08)
--- NOTE | 2019-02-20 14:26 | Diag Imaging Result Doc PS360 ---
EXAM: CHEST-PORTABLE 02/20/2019 HISTORY: dyspnea TECHNIQUE: AP upright portable at 1354 COMMENT: The inspiration is slightly less optimal than on 02/18/2019. There is cardiomegaly and increased pulmonary vascularity. There is minimal platelike atelectasis in the left upper and lower lobes. This appears slightly improved since the previous study as more of the left heart border is visible at this time. IMPRESSION: Improved atelectasis versus pneumonia on the left. Cardiomegaly. Electronically signed by Jason Bernstein 02/20/2019 2:23 PM
--- NOTE | 2019-02-20 20:06 | PROGRESS NOTE ---
DATE: 02/20/2019 SUBJECTIVE: The patient is sitting up at the edge of the bed. He states that his breathing has improved overnight. No acute events noted overnight. OBJECTIVE: Vital Signs: Temperature 97.8, blood pressure 113/85, heart rate 57, respirations 18, O2 saturations 100% on 4 L nasal cannula. General: This is a morbidly obese male, sitting at the edge of the bed, in no acute distress. Heart: S1, S2 normal. Bradycardic. Lungs: Equal air entry bilaterally. No wheezing. No rales. No rhonchi. Abdomen: Positive bowel sounds. Soft, nontender, nondistended. Extremities: Trace pedal edema with chronic venous stasis. Neuro: The patient is alert and oriented x4. LABS: White blood cell count 9.2, hemoglobin 8.3, hematocrit 27, platelets 191. Sodium 138, potassium 4.3, chloride 99, CO2 of 25, BUN 68, creatinine 3.2, glucose 295. ASSESSMENT AND PLAN: 1. Acute on chronic diastolic congestive heart failure exacerbation. Improved. Continue with diuretic therapy. The patient has already improved clinically and on imaging. We will likely be able to transition back to oral diuretic therapy tomorrow. 2. Stage 4 chronic kidney disease. Stable. 3. Uncontrolled insulin-dependent diabetes mellitus. Will restart the patient's home dosage of glargine. Continue with sliding scale insulin. 4. Morbid obesity. Aware. 5. Squamous cell lung cancer. The patient is followed by Dr. Najera and has an appointment with him on Friday. 6. Hypertension. Continue on current antihypertensive regimen. 7. Obstructive sleep apnea. Continue with CPAP at night. 8. Chronic obstructive pulmonary disease. Stable. Continue with bronchodilator therapy. 9. Benign prostatic hypertrophy. Continue on Flomax. cc: Charissa Zhang MD MTDD
[2019-02-20] MEDS: LIPITOR PO SCH (21:03)
[2019-02-21] MEDS: DUONEB (A & A) INH SCH ×2 (03:16→09:55)
[2019-02-21] MEDS: PRILOSEC PO SCH (06:16)
[2019-02-21] MEDS: LASIX IV SCH (06:17)
[2019-02-21] MEDS: HUMULIN R SUBQ SCH ×2 (06:17→12:31)
[2019-02-21] MEDS ORDERED: BROVANA NEB ONE (07:35)
[2019-02-21 07:43] LABS: HEMATOCRIT 26.5 % (42.0-52.0); HEMOGLOBIN 7.9 g/dL (14.0-18.0); MCH 26.2 PG (27-31); MCHC 29.8 g/dL (33-37); MCV 87.7 FL (81-99); MPV 10.6 FL (7.4-10.4); RBC 3.02 XMIL (4.7-6.1); RDW 18.3 % (11.5-14.5); WBC 6.57 X1000 (4.8-10.8)
[2019-02-21 07:48] VITALS: BP 151/70
[2019-02-21 08:03] LABS: ALBUMIN 3.4 g/dL (3.5-5.0); CALCIUM 8.3 mg/dL (8.8-10.2); CREATININE 3.5 mg/dL (0.7-1.2); PHOSPHORUS 5.6 mg/dL (2.7-4.5); POTASSIUM 4.1 mmol/L (3.5-5.1)
[2019-02-21] MEDS ORDERED: BASAGLAR SUBQ SCH (09:00)
[2019-02-21] MEDS: BROVANA NEB INH SCH (09:54)
[2019-02-21] MEDS: TOPROL XL PO SCH (10:38)
[2019-02-21] MEDS: KLONOPIN PO SCH (10:38)
[2019-02-21] MEDS: ISORDIL PO SCH ×2 (10:38→15:00)
[2019-02-21] MEDS: ZYLOPRIM PO SCH (10:38)
[2019-02-21] MEDS: FLOMAX PO SCH (10:38)
[2019-02-21] MEDS: ASPIRIN EC PO SCH (10:38)
[2019-02-21] MEDS: APRESOLINE PO SCH ×2 (10:38→15:01)
[2019-02-21] MEDS: OXY IR PO PRN (10:38)
[2019-02-21] MEDS: NORVASC PO SCH (10:38)
[2019-02-21] MEDS: KLOR-CON PO SCH (10:38)
[2019-02-21] MEDS: CATAPRES PO SCH ×2 (10:38→15:01)
[2019-02-21] MEDS: LACTULOSE PO SCH (10:42)
[2019-02-21] MEDS: HEPARIN SUBQ SCH (10:42)
--- NOTE | 2019-02-25 01:54 | DISCHARGE SUMMARY ---
ADMISSION DATE: 02/19/2019 DISCHARGE DATE: 02/21/2019 FINAL DISCHARGE DIAGNOSES: 1. Acute on chronic diastolic congestive heart failure exacerbation. 2. Stage 4 chronic kidney disease. 3. Uncontrolled insulin-dependent diabetes mellitus. 4. Morbid obesity. 5. Squamous cell lung cancer. 6. Hypertension. 7. Obstructive sleep apnea. 8. Chronic obstructive pulmonary disease. 9. Benign prostatic hypertrophy. HOSPITAL COURSE: Mr. La is a 63-year-old male with a history of multiple admissions for CHF and COPD, who presented to the ER with a chief complaint of increased swelling and shortness of breath. On admission, the patient was noted to be in a heart failure exacerbation. The patient was admitted to the hospitalist service and started on diuretic therapy. The patient is under the care of Dr. Najera for squamous cell lung cancer. The patient responded well to diuretic therapy and his oxygen requirements returned to his baseline. The patient continued to improve clinically and was ultimately cleared for discharge home. DISCHARGE MEDICATIONS: 1. Potassium chloride 10 mEq oral every morning. 2. Aspirin 81 mg p.o. every morning. 3. Lipitor 40 mg p.o. at bedtime. 4. Toprol-XL 50 mg p.o. twice a day. 5. Isordil 60 mg p.o. 3 times a day. 6. Folic acid 1 mg p.o. daily. 7. Norvasc 10 mg p.o. daily. 8. Hydralazine 100 mg oral 3 times a day. 9. Flomax 0.4 mg p.o. daily. 10. Lantus 120 units subcutaneous twice a day. 11. Omeprazole 40 mg p.o. daily. 12. Lactulose 30 mL oral twice a day. 13. Lasix 40 mg p.o. twice a day. 14. Allopurinol 100 mg p.o. every morning. 15. Clonidine 0.2 mg oral 3 times a day. 16. Spiriva 18 mcg inhaled every morning. 17. Clonazepam 0.5 mg oral in the morning. 18. Oxy-IR 5 mg oral every 6 hours p.r.n. 19. Clonazepam 1 mg oral at bedtime. 20. DuoNeb 3 mL and nebulized every 6 hours p.r.n. for shortness of breath. 21. Advair 250/50 one puff inhaled twice a day. DISCHARGE DIET: An 1800 ADA diet, low-sodium diet. ACTIVITY: As tolerated. FOLLOWUP INSTRUCTIONS: The patient is scheduled to follow up with Dr. Najera for further discussion of his lung cancer treatment. The patient has been advised to keep that appointment as scheduled. cc: Charissa Zhang MD
== END 2019-02-21 16:16 | disposition home or self-care (01) | DRG 291 ==
LOC: ED 21:25 → EDIPHOLD 02-19 02:20 → SUATTDRO 02-19 02:20 → 3N 02-19 14:55
PROVIDERS: ATTEND Internal Medicine
CPT/HCPCS: 71010; 71045; 80048; 80053; 80069; 82948; 83735; 83880; 84145; 84443; 84484; 85025; 85027; 93005; 94640; 94761; 96365; 96367; 96372; 96375; 96376; 99285; A9270; J0456; J0696; J1644; J1815; J1940; J2930; XXXXX

== ENCOUNTER 2019-03-01 16:48 | Inpatient (IN) ==
[2019-03-01] MEDS ORDERED: NITROGLYCERIN TOP ONE (17:45)
[2019-03-01] MEDS ORDERED: LASIX IV ONE (17:45)
[2019-03-01 18:13] LABS: BASO# 0.05 X1000 (0.0-0.2); BASO% 0.6 % (0.0-0.8); EOS# 0.09 X1000 (0.0-0.7); EOS% 1.1 % (0.0-10.0); HEMOGLOBIN 8.7 g/dL (14.0-18.0); IMM GRAN# 0.04 X1000 (0.0-0.04); IMM GRAN% 0.5 % (0.0-0.5); LYMPH# 1.31 X1000 (1.2-3.4); LYMPH% 15.6 % (20.5-51.1); MCH 26.3 PG (27-31); MCV 87.6 FL (81-99); MONO# 0.82 X1000 (0.11-0.59); MONO% 9.8 % (1.7-9.3); MPV 10.5 FL (7.4-10.4); NEUT# 6.09 X1000 (1.4-6.5); NEUT% 72.4 % (42.2-75.2); PLT 223 X1000 (130-400); RBC 3.31 XMIL (4.7-6.1); RDW 18.7 % (11.5-14.5)
--- NOTE | 2019-03-01 18:14 | Diag Imaging Result Doc PS360 ---
EXAM: CHEST-2 VIEWS 03/01/2019 HISTORY: sob, chf TECHNIQUE: AP and lateral chest COMMENT: There is cardiomegaly and increased pulmonary vascularity. This was also the case on 02/24/2019. There is alveolar opacity in the left upper lobe posteriorly silhouetting the major fissure. This was also present previously. IMPRESSION: Cardiomegaly and increased pulmonary vascularity. Left upper lobe pneumonia. Electronically signed by Jason Bernstein 03/01/2019 6:12 PM
[2019-03-01] MEDS ORDERED: ROCEPHIN 1 GM in NS 50 ML IV ONE (18:31)
[2019-03-01 19:14] LABS: ALB/GLOB RATIO 0.9; ALBUMIN 3.5 g/dL (3.5-5.0); CALCIUM 8.7 mg/dL (8.8-10.2); CREATININE 3.2 mg/dL (0.7-1.2); POTASSIUM 4.4 mmol/L (3.5-5.1); TOTAL BILIRUBIN 0.22 mg/dL (0.20-1.00); TOTAL PROTEIN 7.3 g/dL (6.3-8.3)
[2019-03-01] MEDS: HEPARIN SUBQ SCH (22:27)
[2019-03-01] MEDS: LASIX IV SCH (22:27)
--- NOTE | 2019-03-01 22:47 | HISTORY AND PHYSICAL ---
PRIMARY CARE PHYSICIAN: Dr. Judge. CHIEF COMPLAINT: Lower extremity edema and shortness of breath. HISTORY OF PRESENTING ILLNESS: A 63-year-old obese male with a history of diabetes mellitus type 2, lung cancer, CHF, diastolic dysfunction, peripheral arterial disease, chronic kidney disease, COPD on home O2 had presented to emergency department with several days history of worsening shortness of breath and lower extremity edema. The patient states that his legs were getting more swollen and painful and subsequently he had come to the emergency department. In the ED, he was evaluated and due to his presenting symptoms, it was thought that he would need admission for further management. At the time of my examination, he had denied any headache, fever, chills, nausea, vomiting, diarrhea, hemoptysis, but complained of shortness of breath and lower extremity edema. PAST MEDICAL HISTORY: Includes lung cancer, diabetes mellitus type 2, CHF, diastolic dysfunction, hypertension peripheral artery disease, hyperlipidemia, chronic kidney disease stage 4, coronary artery disease, COPD on home O2, chronic venous stasis. PAST SURGICAL HISTORY: Coronary stent, left hand surgery. ALLERGIES: Levaquin, Toradol, Cardura, ibuprofen. CURRENT MEDICATIONS: Include: 1. DuoNebs q.6 hours. 2. Allopurinol 100 mg p.o. q.a.m. 3. Norvasc 10 mg p.o. daily. 4. Aspirin 81 mg p.o. q.a.m. 5. Lipitor 40 mg p.o. at bedtime. 6. Clonazepam 0.5 mg p.o. daily and 1 p.o. q. p.m. 7. Clonidine 0.2 mg p.o. t.i.d. 8. Folic acid 1 mg p.o. daily. 9. Lasix 40 mg p.o. b.i.d. 10. Hydralazine 100 mg p.o. t.i.d. 11. Lantus 120 units subcutaneous b.i.d. 12. Humalog sliding scale. 13. Isosorbide dinitrate 60 mg p.o. t.i.d. 14. Lactulose 30 mL p.o. b.i.d. 15. Omeprazole 40 mg p.o. daily. 16. Oxycodone 5 mg p.o. q.6 hours. 17. Flomax 0.4 mg p.o. daily. SOCIAL HISTORY: He is a former smoker. No history of alcohol or illicit drug use. FAMILY HISTORY: No history of coronary disease. REVIEW OF SYSTEMS: Fourteen-point review of systems is as in HPI. Other systems negative. PHYSICAL EXAMINATION: GENERAL: Cooperative, friendly male. He is resting more comfortably now. VITAL SIGNS: Temperature 98.4 degrees, pulse 76, respirations 20, blood pressure 133/90. He is saturating 93% on room air. HEENT: Atraumatic, normocephalic. Extraocular movements intact. PERRLA. NECK: No masses. CHEST: Bibasilar rales. CARDIOVASCULAR: Regular rate and rhythm. ABDOMEN: Soft. Positive bowel sounds. Obese. EXTREMITIES: +2-3 edema. NEUROLOGIC: He is awake, alert, oriented x3. GENITOURINARY: No bladder distention. SKIN: Warm. LABORATORIES AND STUDIES: Sodium 143, potassium 4.4, chloride 105, CO2 24, BUN is 43, creatinine is 3.2, glucose is 288. Troponin 0.093. ProBNP 1172. WBCs 8.40, hemoglobin 8.7, hematocrit 29.0. Platelets 223,000. ASSESSMENT: A 63-year-old male with a history of multiple medical problems including lung cancer, diabetes mellitus type 2, congestive heart failure, diastolic dysfunction, hypertension, chronic kidney disease, coronary artery disease, and chronic obstructive pulmonary disease who had presented to emergency department with complaint of worsening lower extremity edema and shortness of breath. He was evaluated in the emergency department. Due to his presenting symptoms, he will need admission for further management. 1. Acute congestive heart failure, diastolic dysfunction. 2. Lower extremity edema. 3. Coronary artery disease. 4. Elevated troponin in setting of chronic kidney disease. 5. Chronic kidney disease stage 4. 6. Diabetes mellitus type 2. 7. Hypertension. 8. Chronic obstructive pulmonary disease. PLAN: 1. We will admit patient to medical floor with telemetry. 2. We will continue with diuresis with Lasix. 3. We will trend his troponins. 4. We will monitor blood glucose, put patient on sliding scale insulin regimen. 5. We will monitor blood pressure, resume antihypertensive agent. 6. Continue with DuoNebs p.r.n. 7. We will continue to monitor his renal function. 8. Put patient on DVT prophylaxis with heparin. 9. We will continue to follow and reassess and make further recommendations based on patient's clinical course. cc: Tacos Henley MD MTDShelly
--- NOTE | 2019-03-01 22:55 | PROVIDER DOCUMENTATION ---
This chart was entered by Kevin Rodriguez Scribe, acting as scribe for Andres Harrison MD. HPI-General Adult - General Chief Complaint: Edema Stated Complaint: edema Time Seen by Provider: 03/01/19 17:32 Source: patient Allergies/Adverse Reactions: Patient Allergies Allergy/AdvReac Type Severity Reaction Status Date / Time doxazosin mesylate * Allergy Severe SHORTNESS Verified 02/19/19 01:19 [From Cardura] OF BREATH ketorolac tromethamine * Allergy Severe SHORTNESS Verified 02/19/19 01:19 [From Toradol] OF BREATH almond Allergy Intermediate RASH Verified 02/19/19 01:19 ibuprofen [From Motrin] AdvReac Intermediate FLUSHING Verified 02/19/19 01:19 levofloxacin AdvReac Mild NAUSEA Verified 02/19/19 01:19 Home Medications: Home Medication List Medication Instructions Recorded Confirmed Last Taken Type Aspirin [Ecotrin] 81 mg PO QAM 12/11/14 03/01/19 02/18/19 History Potassium Chloride 10 meq PO QAM 12/11/14 03/01/19 02/18/19 History ATORVAstatin [Lipitor] 40 mg PO QHS #90 tab 12/19/17 03/01/19 02/18/19 Rx Isosorbide Dinitrate [Isordil] 60 mg PO TID 04/30/18 03/01/19 02/18/19 History Metoprolol Succinate E.r. [Toprol 50 mg PO BID 04/30/18 03/01/19 02/18/19 History Xl] Folic Acid 1 mg PO DAILY #90 tab 08/26/18 03/01/19 02/18/19 Rx Amlodipine [Norvasc] 10 mg PO DAILY 30 Days #30 tab 09/19/18 03/01/19 02/18/19 Rx Hydralazine [Apresoline] 100 mg PO TID #120 tab 09/19/18 03/01/19 02/18/19 Rx Tamsulosin [Flomax] 0.4 mg PO DAILY capsule 10/16/18 03/01/19 02/18/19 Rx Insulin Glargine [Lantus] 120 unit SUBQ BID 11/03/18 03/01/19 02/18/19 History Omeprazole 40 mg PO DAILY 11/24/18 03/01/19 02/18/19 History Furosemide [Lasix] 40 mg PO BID #120 tab 01/31/19 03/01/19 02/18/19 Rx Lactulose 30 ml PO BID udc 01/31/19 03/01/19 02/18/19 Rx Allopurinol 100 mg PO QAM 02/09/19 03/01/19 02/18/19 History Clonazepam 0.5 mg PO DAILY 02/09/19 03/01/19 02/18/19 History Clonidine HCl 0.2 mg PO TID 02/09/19 03/01/19 02/18/19 History Insulin Lispro [Humalog Kwikpen See Protocol SUBQ DIRECTED 02/09/19 03/01/19 Unknown History [id number]] Tiotropium [place] Inhaler 1 cap INH QAM 02/09/19 03/01/19 02/18/19 History [Spiriva] Oxycodone I.r. [Oxy Ir] 5 mg PO Q6H PRN PRN #20 tab 02/11/19 03/01/19 02/18/19 Rx Albuterol 2.5MG/Ipratrop 0.5MG 3 ml INH Q6H PRN PRN 02/19/19 03/01/19 02/18/19 History [Duoneb (A & A)] Clonazepam 1 mg PO QPM 02/19/19 03/01/19 02/18/19 History Fluticasone/[place] 250/50 INH 1 puff INH RTBID 02/19/19 03/01/19 02/18/19 History [Advair 250/50 Diskus] Nitroglycerin 0.4 mg SUBLINGUAL Q5MX3 02/19/19 03/01/19 Unknown History [place]-3 Fatty Acids/Fish Oil [Fish 1 ea PO DAILY 02/19/19 03/01/19 Unknown History Oil 1,000 mg Softgel] Oxycodone I.r. [Oxy Ir] 5 mg PO Q6H PRN PRN #30 tab 02/21/19 03/01/19 Unknown Rx - History of Present Illness -Gen Adult Nature of Presenting Problems: Pt is a 63 y/o M returns to the ED for bilateral leg edema and pain with some SOB. He reports being D/C FROM HOSPITAL last week for CHF exceberation. He reports at home he sleeps in the recliner. denies fever, chills or chest pain. Location of Pain/Injury: reports: lower body (edema) Pain Radiation: reports: no radiation Quality of Pain: reports: dull Severity: reports: moderate Onset/Duration: reports: 1 week ago Timing: reports: getting worse Context/Activities at Onset: reports: none Modifying Factors: improves with: nothing Associated Symptoms: reports: shortness of breath. denies: back/neck pain, cough, dizziness, EENT symptoms, fever/chills, sinus congestion/drainage Similar Symptoms Previously?: Yes Recently seen or treated by another doctor?: Yes Review of Systems - Adult - REVIEW OF SYSTEMS - ADULT Constitutional: denies: chills, fever Eyes: reports: redness Ears, Nose, Mouth & Throat: denies: ear pain, throat pain Cardiovascular: reports: edema, orthopnea. denies: chest pain, palpitations Respiratory: reports: shortness of breath. denies: cough, wheezing Gastrointestinal: denies: abdominal pain, nausea, vomiting Genitourinary: denies: dysuria, discharge Musculoskeletal: denies: back pain, joint pain Integumentary: denies: itching, rash Neurological: denies: dizziness/vertigo, headache/migraines Hematologic/Lymphatic: reports: no symptoms reported Allergic/Immunologic: reports: no symptoms reported Past History - Adult - PAST MEDICAL HISTORY-ADULT Review of Records: reports: Old Records Reviewed, Nursing Assessment Review, Medications Reviewed Major Childhood Illnesses: reports: history unknown Cardiovascular: reports: CHF (ECHO 08/2015 EF 55% ), HTN, hyperlipidemia, [place] Respiratory: reports: asthma, COPD (severe on 4liters O2 qHS) Gastrointestinal: reports: GERD Obstetrical/Gynecological: reports: denies history Genitourinary: reports: kidney disease (CRI) Musculoskeletal: reports: arthritis, chronic pain Neurological: reports: denies history Psychiatric: reports: anxiety Endocrine/Immune: reports: Diabetes Other Conditions: reports: denies history - PRIOR SURGERIES/PROCEDURES Surgical/Procedure History: reports: cardiac stent (x2 last one 7 years ago), orthopedic (extremity) (thumb) - IMMUNIZATION STATUS Childhood Immunizations: See Nurse Assessment Flu Vaccine: See Nurse Assessment - FAMILY HISTORY Family History: reviewed, not pertinent - SOCIAL HISTORY Smoking: non-smoker, quit less than 1 year Living Situation: family Physical Exam-General - PHYSICAL EXAM-ADULT Initial Vital Signs Reviewed: Yes - CONSTITUTIONAL General Appearance: alert, mild distress - EYES Eyes: PERRL/EOMI - HEAD, EARS, NOSE, MOUTH & THROAT HENMT: moist mucous membranes, normal ENT inspection, pharynx normal - NECK Neck: non-tender, full range of motion, supple, normal inspection - RESPIRATORY Respiratory: lungs clear, normal breath sounds - CARDIOVASCULAR Cardiovascular: normal peripheral pulses, regular rate, rhythm, no murmur - GASTROINTESTINAL (ABDOMEN) Abdominal Exam: normal bowel sounds, non tender, soft - MUSCULOSKELETAL Back Exam: normal inspection, no CVA tenderness, no vertebral tenderness Extremity: normal range of motion, non-tender, erythema (B/L LE chronic), pedal edema (3+ bilateral lower extremities up to knees). negative: tenderness - NEUROLOGIC Neurologic: grossly normal, no motor/sensory deficits Progress - PLAN OF CARE/RESULTS Progress/Plan/Lab Results: Vital Signs - 8 hr 03/01/19 17:05 03/01/19 17:08 Temperature 98.4 F Pulse Rate 76 Respiratory Rate 20 Blood Pressure 133/90 O2 Sat by Pulse Oximetry 93 L Laboratory Results - last 24 hr 03/01/19 18:02 WBC 8.40 RBC 3.31 L Hgb 8.7 L Hct 29.0 L MCV 87.6 MCH 26.3 L MCHC 30.0 L RDW Std Deviation 18.7 H Plt Count 223 MPV 10.5 H Immature Gran % (Auto) 0.5 Neut % (Auto) 72.4 Lymph % (Auto) 15.6 L [place] % (Auto) 9.8 H Eos % (Auto) 1.1 Baso % (Auto) 0.6 Immature Gran # (Auto) 0.04 Neut # (Auto) 6.09 Lymph # (Auto) 1.31 [place] # (Auto) 0.82 H Eos # (Auto) 0.09 Baso # (Auto) 0.05 Orders Category Date Time Status cxr [CHEST-2 VIEWS] [RAD] Stat Exams 03/01/19 17:45 Completed BNP [PRO B-NATRIURETIC PEPTIDE] Stat Lab 03/01/19 18:02 Received CBC WITH ELECTRONIC DIFF [HEME] Stat Lab 03/01/19 18:02 Completed COMPREHENSIVE METABOLIC PANEL [CHEM] Stat Lab 03/01/19 18:02 Received TROPONIN T Stat Lab 03/01/19 18:02 Received CefTRIAXONE [Rocephin] 1 gm Med 03/01/19 18:31 Active 0.9% Sodium Chloride Inj [Ns] 50 ml IV NOW Furosemide [Lasix] Med 03/01/19 17:45 Discontinued 80 mg IV NOW ONE Nitroglycerin Med 03/01/19 17:45 Discontinued 0.5 inch TOP NOW ONE EKG [EKG] Stat Ther 03/01/19 17:44 Ordered Result Diagrams: 03/01/19 18:02 03/01/19 18:02 - REASSESSMENT Reassessment #1 Time Reassessed: 19:10 Status: improving - XRAY 1 XRAY Study: Chest Impression: Abnormal (EXAM: CHEST-2 VIEWS 03/01/2019 HISTORY: sob, chf TECHNIQUE: AP and lateral chest COMMENT: There is cardiomegaly and increased pulmonary vascularity. This was also the case on 02/24/2019. There is alveolar opacity in the left upper lobe posteriorly silhouetting the major fissure. This was also present previously. IMPRESSION: Cardiomegaly and increased pulmonary vascularity. Left upper lobe pneumonia. Electronically signed by Jason Bernstein 03/01/2019 6:12 PM) - CONSULTS/PCP/HOSPITALIST Notification #1 *Consult/PCP/Hospitalist*: Dr. Tacos Henley Time Discussed: 20:00 Consult Disposition: Admit (Hx, PE and patient care discussed, admitted.) Departure - Departure Date of Disposition Decision: 03/01/19 Time of Disposition Decision: 20:01 DIAGNOSIS: Pneumonia Qualifiers: Pneumonia type: due to unspecified organism Laterality: left Lung location: upper lobe of lung Qualified Code(s): J18.1 - Lobar pneumonia, unspecified organism CHF exacerbation Qualifiers: Heart failure type: unspecified Qualified Code(s): I50.9 - Heart failure, un specified Disposition: ADMITTED INPATIENT 09 Certified Medical Emergency: Emergent Condition: Stable - Critical Care Note This patient required my direct & personal management of CC.: No Attestation - Physician/ KOJO Attestation Patient care was provided by Advanced Practice Provider:: No The physician spent face to face time with patient:: Yes Advanced Practice Provider documentation review:: Supervising physician onsite and consulted in the evaluation and care of this patient. The physician did have a face to face encounter with the patient. This chart was documented by the indicated scribe, (Kevin Rodriguez Scribe) and accurately reflects the services I performed and decisions made by me, Andres Harrison MD, as attested by the provider's signature.
[2019-03-01] MEDS: DUONEB (A & A) INH SCH (23:30)
[2019-03-02] MEDS: OXY IR PO PRN (01:57)
[2019-03-02] MEDS: DUONEB (A & A) INH SCH ×6 (03:52→23:34)
[2019-03-02 05:44] LABS: CALCIUM 8.8 mg/dL (8.8-10.2); CREATININE 3.2 mg/dL (0.7-1.2); POTASSIUM 3.8 mmol/L (3.5-5.1)
[2019-03-02] MEDS: HUMULIN R SUBQ SCH ×4 (06:43→20:41)
--- NOTE | 2019-03-02 07:42 | EKG Report ---
Test Performed on : 03/02/2019 02:44:16 AM Test Reason : sob Blood Pressure : / mmHG Vent. Rate : 060 BPM Atrial Rate : 060 BPM P-R Int : 132 ms QRS Dur : 116 ms QT Int : 458 ms P-R-T Axes : -16 021 033 degrees QTc Int : 458 ms Normal sinus rhythm. Incomplete right bundle branch block Borderline ECG When compared with ECG of 24-FEB-2019 16:54, (Unconfirmed) No significant change was found Unconfirmed Result
[2019-03-02] MEDS ORDERED: OXY IR PO PRN (08:09)
[2019-03-02] MEDS ORDERED: NORVASC PO SCH (09:00)
[2019-03-02] MEDS: HEPARIN SUBQ SCH ×3 (09:49→22:20)
[2019-03-02] MEDS: LASIX IV SCH ×2 (09:49→12:47)
[2019-03-02] MEDS: APRESOLINE PO SCH ×3 (10:24→16:09)
[2019-03-02] MEDS: CATAPRES PO SCH ×3 (10:25→16:10)
[2019-03-02] MEDS: FISH OIL CONCENTRATE PO SCH (10:25)
[2019-03-02] MEDS: FOLIC ACID PO SCH (10:26)
[2019-03-02] MEDS: ASPIRIN EC PO SCH (10:26)
[2019-03-02] MEDS: ZYLOPRIM PO SCH (10:26)
[2019-03-02] MEDS: TOPROL XL PO SCH ×2 (10:26→20:42)
[2019-03-02] MEDS: FLOMAX PO SCH (10:26)
[2019-03-02] MEDS: KLONOPIN PO SCH ×2 (10:27→20:42)
[2019-03-02] MEDS: LACTULOSE PO SCH ×2 (10:27→20:42)
[2019-03-02] MEDS: ISORDIL PO SCH ×3 (10:27→20:42)
--- NOTE | 2019-03-02 12:25 | CARDIOLOGY CONSULTATION ---
DATE: 03/02/2019 REQUESTING PHYSICIAN: Hospitalist Service REASON FOR CONSULTATION: CHF and diastolic dysfunction. CHIEF COMPLAINT: Dyspnea, orthopnea, and lower extremity edema. HISTORY: Mr. La is a 63-year-old male who is well known to the services of Dr. Leggett who presented to the Emergency Room on 03/01/2019 complaining of increasing dyspnea and lower extremity edema. This has worsened over the past several days. Of note, this patient has been admitted many times to the hospital. The last few admissions since November of this year, he spent 4 days between 11/24/2018 and 11/28/2018 with "CHF". Then, between 01/21/2019 and 01/31/2019 with possible pneumonia, between 02/09/2019 and 02/13/2019 with COPD, and between 02/19/2019 and 02/21/2019 with CHF exacerbation. He went to the E.R. on 02/24 and he is back in the hospital. Recently they have found that he has cancer in both lungs in the upper lobes, especially the left, squamous cell, necrotic, poorly differentiated. This time he is being evaluated by the Oncology Team and also he is supposed to have further testing to determine feasibility of radiotherapy. The patient is not a surgical candidate per Dr. Yo who is his discovery guide. The patient denies having chest pain. He has noticed more edema than usual. PAST MEDICAL HISTORY: His past history is positive for the recent diagnosis of lung cancer. He has coronary heart disease. Many years ago he had stents. We did a heart catheterization on him in 2015 that showed patent arteries with moderate stenosis in the right coronary artery of 50% to 60% and the others in the range of 30% to 35%. Medical therapy was suggested. The most salient feature at that time was his LVEDP being significantly elevated. This appears to be the result of his chronic sleep apnea syndrome, his morbid obesity, and his chronic kidney disease. His creatinine level is significantly elevated at this time at 3.2 mg/dL. He has advanced COPD. He has hypertension. He is anemic. His hemoglobin is 8.7. He has acid reflux. PAST SURGICAL HISTORY: Previous stents. SOCIAL HISTORY: He is . He is disabled. He lives at home. He is on [employer] assistance at home to help him with his CPAP and COPD. FAMILY HISTORY: Noncontributory. MEDICATIONS: Home medications at the time of this admission included the following: He is albuterol and ipratropium, allopurinol, amlodipine, aspirin, atorvastatin 40 mg, clonazepam 1 mg at bedtime, clonidine 0.2 mg three times a day, folic acid 1 mg daily, furosemide 40 mg twice a day, hydralazine 100 mg three times a day, Lantus insulin 120 units twice a day, insulin lispro as directed, isosorbide dinitrate 60 mg t.i.d., metoprolol succinate 50 mg b.i.d., potassium chloride, Flomax, Spiriva, and oxycodone. REVIEW OF SYSTEMS: He has chronic dyspnea, chronic swelling, and chronic venous stasis dermatitis. He is morbidly obese. He has very poor functional capacity. No other positives other than what I have already reported. PHYSICAL EXAMINATION: Vital Signs: Blood pressure is 153/73, temperature 98.1, pulse 68, and respirations 13. General: He is obese, pale, and in no distress. HEENT: Unremarkable. Chest: Diffusely diminished breath sounds. Cardiovascular: Heart sounds are regular and rhythmic. I do not hear a gallop or murmur. Abdomen: His abdomen is obese and nontender. Extremities: The extremities show 2 to 3+ brawny edema with chronic stasis dermatitis of both legs and chronic dystrophic changes of his nails, toes and hands. Neurological: He follows commands and moves all extremities. LABORATORY DATA: Blood work: BUN is 41, creatinine 3.2, sodium 141, and potassium 3.8. Hemoglobin is 8.7. ProBNP is 1172. Troponin is 0.093 and 0.098. EKG shows sinus rhythm with incomplete right bundle branch block and no ischemic ST changes. Chest x-ray done in the E.R. reported cardiomegaly, increased pulmonary vascularity, and left upper lobe pneumonia. IMPRESSION: 1. A patient who has chronic lower extremity edema. This is multifactorial, result of chronic venous stasis plus morbid obesity plus sleep apnea syndrome plus chronic kidney disease plus diastolic heart failure. 2. The patient has bilateral lung cancer recently identified about a month ago by Dr. Yo. He is in the process of being evaluated as a possible candidate for radiation and chemotherapy. 3. The patient has sleep apnea syndrome, probably he has some degree cor pulmonale. 4. History of diabetes mellitus type 2. 5. History of hypertension. 6. Advanced chronic kidney disease. RECOMMENDATIONS: At this point in time I would suggest to up titrate the furosemide. He should probably be on 100 mg to 120 mg twice a day of Lasix to accomplish adequate diuresis. Otherwise, there is really no other specific medication to be given from a cardiac viewpoint. His ejection fraction per the last imaging study was normal. All of the other conditions put together are probably more serious and more life threatening at this time than his underlying cardiac disease. I would suggest to make the proper referral to a discovery guide and an oncologist as well as a residential sales consultant to help in this case. We will see the patient as needed. cc: Da Reyna MD
[2019-03-02] MEDS ORDERED: TESSALON PO PRN (15:40)
[2019-03-02] MEDS ORDERED: HALL'S COUGH LOZENGE MT PRN (15:41)
--- NOTE | 2019-03-02 17:50 | HEMO/ONC CONSULTATION ---
DATE: 03/02/2019 ADMITTING PHYSICIAN: Dr. Tacos Henley. REQUESTING PHYSICIANS: Dr. Tacos Henley. We appreciate this consult. CHIEF COMPLAINT: Non-small cell lung cancer. HISTORY OF PRESENT ILLNESS: Ms Adam La is a 63-year-old male, well known to Dr. Najera with a history of early stage non-small cell lung cancer. The patient has been seen in clinic once and was referred to Dr. Cardozo for stereotactic radiation. He has not yet undergone simulation for radiation. He is currently awaiting treatment. The patient does also have a history of diabetes mellitus type 2, congestive heart failure, peripheral arterial disease and chronic kidney disease as well as COPD on home O2. The patient presented to [facility] emergency department with reports of several days worsening shortness of breath and lower extremity swelling. He stated that his legs were swollen and painful and therefore presented to the emergency department. He was evaluated in the emergency room and was admitted for management of CHF exacerbation. PAST MEDICAL HISTORY: As in HPI. PAST SURGICAL HISTORY: 1. Left hand surgery. 2. Coronary artery stent. FAMILY HISTORY: Negative for any hematologic or oncologic problems. SOCIAL HISTORY: The patient does have a history of smoking cigarettes. He does not use alcohol or illicit drugs. MEDICATIONS ON ADMISSION: 1. Duo nebs. 2. Allopurinol. 3. Norvasc. 4. Aspirin 81 mg. 5. Lipitor. 6. Clonazepam. 7. Clonidine. 8. Folic acid. 9. Lasix. 10. Hydralazine. 11. Lantus insulin. 12. Humalog insulin. 13. Isosorbide dinitrate. 14. Lactulose. 15. Omeprazole. 16. Oxycodone. 17. Flomax . ALLERGIES: Are to Levaquin, Toradol, Cardura and ibuprofen. REVIEW OF SYSTEMS: A 14 point review of systems was obtained and is negative except as mentioned in HPI. PHYSICAL EXAM: Mr. La is a 63-year-old male lying supine in bed in no immediate distress.Vital Signs: Temperature 98.4 degrees, blood pressure 148/78, heart rate 68, respirations 18, O2 saturation is 98% on 2 L nasal cannula O2. HEENT: Normocephalic, atraumatic. Mucous membranes pale and moist. Sclerae anicteric. Extraocular movements intact. Neck: Supple. Lungs: With decreased breath sounds in the bases. CV: S1-S2 is heard. No murmurs, rubs or gallops. Abdomen: Nondistended, nontender. Bowel sounds positive all quadrants. No rebound or guarding noted. Extremities: With 2+ bilateral lower extremity edema. Dermatologic: No rashes, bruises or lesions. Neuro: The patient is awake, alert and oriented x3. He has no focal deficit. LABORATORY DATA: Hemoglobin 8.7, hematocrit 29.0, white blood cell count 8.40, platelets 223,000. Sodium 141, potassium 3.8, chloride 102, CO2 is 31, BUN 41, creatinine 3.2 and glucose is 218. ProBNP is 1172. IMAGING STUDIES: Chest x-ray reveals left upper lobe pneumonia and cardiomegaly. ASSESSMENT AND PLAN: 1. Early stage non-small cell lung cancer. Dr. Cardozo has been consulted for stereotactic radiation. The patient has yet to undergo simulation. We will notify Dr. Cardozo of the patient's admission. 2. Congestive heart failure exacerbation currently on diuretics as managed by admitting physician. 3. Chronic kidney disease stage 4. Management per hospitalist. Creatinine is currently 3.2. 4. Diabetes mellitus type 2. Glucose is currently 218. The patient remains on sliding-scale insulin. 5. Hypertension stable on current antihypertensives. Blood pressure 148/78. 6. Chronic obstructive pulmonary disease. The patient remains on nebulizers and oxygen. 7. We will follow along with you and make further recommendations pending outcomes. The above reflects the history exam assessment, plan of Dr. Najera. Dictated by ALPESH Corral for Odell Najera MD cc: ALPESH Corral MD
[2019-03-02] MEDS: ADVAIR 250/50 DISKUS INH SCH (20:12)
[2019-03-02] MEDS: LIPITOR PO SCH (20:42)
--- NOTE | 2019-03-02 22:12 | PULMONOLOGY CONSULTATION ---
DATE: 03/02/2019 REQUESTING PHYSICIAN: Da Reyna MD REASON FOR CONSULTATION: Lung cancer and cor pulmonale. HISTORY OF PRESENT ILLNESS: Mr. 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 These are believed to be 2 separate primaries. The patient has been evaluated by Dr. Petrona Cardozo, and stereotactic body radiation therapy was planned for both upper lobes. The patient has yet to undergo simulation or initiation of treatment due to recurrent admissions to the hospital. The patient has severe COPD and has been maintained on a Trilogy device. The patient also has chronic renal insufficiency and reports he drinks 2-1/2 L of fluid per day. The patient presented to the emergency room with increasing lower extremity edema. Chest x-ray reveals infiltrate in the left upper lobe along with cardiomegaly and increased pulmonary vascular congestion. PAST MEDICAL HISTORY: Problem list: 1. Bilateral lung cancer pending treatment as per above. 2. Morbid obesity. 3. Diabetes mellitus. 4. Chronic hypoxemic and chronic hypercapnic respiratory failure, on a Trilogy device. 5. Cor pulmonale with pulmonary hypertension. 6. Diastolic heart failure. 7. Chronic venous insufficiency. 8. Chronic renal insufficiency. 9. Coronary artery disease, status post PTCA. 10. Peripheral vascular disease. SOCIAL HISTORY: The patient has been a nonsmoker for 5 years. No alcohol use. He lives with his ex-. FAMILY HISTORY: Positive for diabetes and hypertension. REVIEW OF SYSTEMS: As noted in the HPI. The patient has had increased lower extremity edema and increased shortness of breath. PHYSICAL EXAMINATION: Physical exam reveals an obese white male resting comfortably, in no distress. He reports his lower extremity edema has decreased. Blood pressure 161/72, heart rate 75, respiratory rate 20, temperature 97.3 degrees, oxygen saturation 97% on 4 L per nasal cannula. HEENT: Pupils are equal and reactive. Oropharynx is clear. Neck is supple. Chest reveals prolonged expiratory phase with faint wheezing. Cardiac exam: S1, S2. Abdomen is obese and soft. Extremities reveal chronic venous insufficiency with 1+ peripheral edema. LABORATORY DATA: Sodium 141, potassium 3.8, chloride 102, bicarbonate 31, BUN 41, creatinine 3.2, glucose 218. White blood count 8.4, hemoglobin 8.7, platelet count 223,000. DIAGNOSTIC DATA: Chest x-ray reveals cardiomegaly with infiltrate versus atelectasis of the left upper lobe. IMPRESSION: A 63-year-old with: 1. Right upper lobe and left upper lobe lung cancer. 2. Severe chronic obstructive pulmonary disease. 3. Fluid overload with lower extremity edema, likely related to cor pulmonale and chronic renal failure with injudicious oral intake of fluids. 4. Abnormality in the left upper lobe which could represent atelectasis from his known tumor or could represent a postobstructive pneumonia. 5. Chronic hypoxemic and chronic hypercapnic respiratory failure. 6. Morbid obesity. 7. Diabetes mellitus. RECOMMENDATIONS: 1. Notify Dr. Cardozo. The patient does need to be simulated and be initiated on radiation therapy in an attempt to prevent recurrent postobstructive pneumonia. 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 3. Continue bronchodilators. 4. Continue Trilogy device. 5. Overall prognosis is guarded to poor. cc: Kale Yo MD
--- NOTE | 2019-03-02 22:42 | PROGRESS NOTE ---
DATE: 03/02/2019 SUBJECTIVE: The patient's breathing has overall improved. OBJECTIVE: Vital signs: Blood pressure 125/47, heart rate 72, respiratory rate 20, temperature is a 100 degrees. Cardiovascular: Regular rate and rhythm. Pulmonary: Diminished throughout. No rhonchi, no wheezing. Gastrointestinal: Soft, nontender, nondistended. Bowel sounds are positive. LABORATORY DATA: Creatinine is 3.2. No white count. PROBLEM LIST: 1. Acute congestive heart failure, diastolic exacerbation. We will continue diuretics and follow closely. 2. Hypertension is stable. 3. Chronic obstructive pulmonary disease with mild exacerbation. Continue breathing treatments and follow closely. 4. Type 2 diabetes. Continue sliding scale insulin. We will check A1c and monitor. DISPOSITION: Pending clinical status. He is admitted frequently, so will work on trying to provide as many outpatient resources as possible, assistance with medications. Follow closely. cc: Fredo Carbajal MD
[2019-03-03] MEDS ORDERED: INSULIN PEN NEEDLES ONE (00:04)
[2019-03-03] MEDS: BASAGLAR SUBQ SCH ×3 (00:12→21:17)
[2019-03-03] MEDS: LASIX IV SCH ×3 (00:13→21:18)
[2019-03-03] MEDS: DUONEB (A & A) INH SCH ×6 (04:04→23:20)
[2019-03-03] MEDS: HUMULIN R SUBQ SCH ×4 (06:43→21:17)
[2019-03-03] MEDS: PRILOSEC PO SCH (06:43)
[2019-03-03 06:57] LABS: BASO# 0.04 X1000 (0.0-0.2); BASO% 0.5 % (0.0-0.8); EOS# 0.06 X1000 (0.0-0.7); EOS% 0.8 % (0.0-10.0); HEMATOCRIT 27.1 % (42.0-52.0); IMM GRAN# 0.05 X1000 (0.0-0.04); IMM GRAN% 0.6 % (0.0-0.5); LYMPH# 1.15 X1000 (1.2-3.4); LYMPH% 14.5 % (20.5-51.1); MCH 26.1 PG (27-31); MCHC 29.5 g/dL (33-37); MCV 88.3 FL (81-99); MONO# 0.89 X1000 (0.11-0.59); MONO% 11.2 % (1.7-9.3); MPV 11.1 FL (7.4-10.4); NEUT# 5.73 X1000 (1.4-6.5); NEUT% 72.4 % (42.2-75.2); PLT 193 X1000 (130-400); RBC 3.07 XMIL (4.7-6.1); RDW 18.7 % (11.5-14.5); WBC 7.92 X1000 (4.8-10.8)
[2019-03-03] MEDS: SPIRIVA INH SCH (07:07)
[2019-03-03] MEDS: ADVAIR 250/50 DISKUS INH SCH ×2 (07:07→19:35)
[2019-03-03 07:10] LABS: CREATININE 3.4 mg/dL (0.7-1.2); MAGNESIUM 1.9 mg/dL (1.5-2.7); POTASSIUM 4.2 mmol/L (3.5-5.1)
[2019-03-03 07:11] LABS: HEMOGLOBIN A1C 9.5 % (4.8-6.0)
--- NOTE | 2019-03-03 08:25 | NEPHROLOGY CONSULTATION ---
DATE: 03/03/2019 REASON FOR ADMISSION: Lower extremity edema. REASON FOR CONSULTATION: Chronic kidney disease, fluid volume overload, assist with management. CONSULTING PHYSICIAN: Dr. Reyna. HISTORY OF PRESENT ILLNESS: This is a 63-year-old gentleman with a history of CHF, diastolic dysfunction, COPD, lung cancer and chronic kidney disease with a baseline creatinine around 3.5. The patient presented to the emergency room on the day of admission secondary to worsening lower extremity edema. He stated for couple of days prior to admission the edema was so bad that he had weeping. He got to where he could not walk and came in. At that time, he was found to have fluid volume overload, was admitted to the hospital. He has been treated with IV Lasix high dose. His creatinine on day of admission was 3.2. We have been asked to see him for his CKD stage 4 and the high risk of worsening renal function in the setting of congestive heart failure and fluid overload. Patient states that he has had no nausea or vomiting. His appetite has been okay. He has actually had minimal shortness of breath not really worse than his chronic issues. He states that he has not been able to initiate therapy for his lung cancer secondary to his multiple hospitalizations. He is quite liberal with how much fluid he drinks at home and reports much greater than 2 L daily intake. He states that today his lower extremity swelling is slightly better but he has still been unable to walk. PAST MEDICAL HISTORY: Lung cancer, diabetes type 2, CHF, diastolic dysfunction, hypertension, peripheral artery disease, hyperlipidemia, chronic kidney disease stage 4, coronary artery disease, COPD on home O2 and chronic venous stasis. SURGICAL HISTORY: Coronary stenting, left hand surgery. ALLERGIES: 1. Levaquin. 2. Toradol. 3. Cardura. 4. Ibuprofen. HOME MEDICATIONS: Include DuoNeb, allopurinol, Norvasc, aspirin, Lipitor, clonazepam, clonidine, folic acid, Lasix, hydralazine, Lantus, Humalog, isosorbide, lactulose, omeprazole, oxycodone, Flomax. FAMILY HISTORY: Noncontributory. SOCIAL HISTORY: Former smoker. No ETOH or illicit drug use. REVIEW OF SYSTEMS: Pertinent positives noted above in the HPI. PHYSICAL EXAMINATION: Vital Signs: Temperature 98.3 degrees, pulse 73, respiratory rate 20, blood pressure 139/53. Intake 1.2 L. Output 3.7 L. General: This is a middle-aged gentleman resting in bed. He is actually lying flat on his back. He has no increased work of breathing. Is able to give an appropriate history. HEENT: Normocephalic, atraumatic. His conjunctivae are pale. His oral mucosa is moist. He is on O2 supplementation via nasal cannula. Neck: Thick. Unable to discern JVD. Cardiovascular: Regular rate and rhythm. Pulmonary: Continues with some scattered rhonchi bilaterally and significantly decreased breath sounds to the bases. Abdomen: Obese and soft. Nontender. Genitourinary: Voiding. Extremities: He has greater than 3+ pitting edema up to the thighs and hips. There is no pitting on the abdominal wall. His lower extremities have vascular changes noted. There is no weeping currently. Integumentary: Skin is warm and dry otherwise. Neurologic: Grossly nonfocal. LABORATORY DATA: Sodium 140, potassium 4.2, CO2 28, BUN 43, creatinine 3.4 (3.2). ASSESSMENT AND PLAN: 1. Chronic lower extremity edema, multifactorial. He does have chronic kidney disease plus diastolic heart failure plus venous stasis plus sleep apnea, cor pulmonale. The patient also has noncompliance with fluid restriction or has never been placed on one, unclear which. The patient has responded well to IV diuretics previously ordered by Cardiology. We agree with this and make no changes. His renal function has tolerated the increased dosing. The patient has been diuresing nicely over the last 24 hours. His edema is improving. He has now been placed on a fluid restriction with strict daily weights to assist with management of his fluid volumes. The patient is at risk if worsening failure. May need HAND INSPECTOR in the future to help manage fluid volumes although at this time, he does not. We will follow closely. 2. History of right upper lobe and left upper lobe lung cancer. He is followed by Pulmonology and Radiation Oncology. 3. Electrolytes, acid-base balance. These are acceptable. 4. Fluid volumes. Again, he is in negative territory and has been placed on a strict fluid intake. Dictated by ALPESH Leung for Rocky Brown MD Face to face encounter, data reviewed, discussed with Meg Schafer on 03/03/19. I agree with the above assessment and plan of care. cc: Rocky Brown MD [facility]
[2019-03-03] MEDS: FISH OIL CONCENTRATE PO SCH (09:22)
[2019-03-03] MEDS: TOPROL XL PO SCH ×2 (09:22→21:16)
[2019-03-03] MEDS: ISORDIL PO SCH ×3 (09:22→21:16)
[2019-03-03] MEDS: KLONOPIN PO SCH ×2 (09:22→21:17)
[2019-03-03] MEDS: FLOMAX PO SCH (09:22)
[2019-03-03] MEDS: ZYLOPRIM PO SCH (09:22)
[2019-03-03] MEDS: ASPIRIN EC PO SCH (09:23)
[2019-03-03] MEDS: FOLIC ACID PO SCH (09:23)
[2019-03-03] MEDS: HEPARIN SUBQ SCH ×2 (09:23→21:16)
[2019-03-03] MEDS: CATAPRES PO SCH ×3 (09:23→18:14)
[2019-03-03] MEDS: APRESOLINE PO SCH ×3 (09:23→18:13)
[2019-03-03] MEDS: LACTULOSE PO SCH ×2 (09:23→21:16)
[2019-03-03] MEDS: LIPITOR PO SCH (21:17)
--- NOTE | 2019-03-03 23:38 | PROGRESS NOTE ---
DATE: 03/03/2019 SUBJECTIVE: The patient has no major complaints. Breathing is a bit better. OBJECTIVE: Blood pressure is 147/78, heart rate is 74, respiratory rate 20, temperature 98.6 degrees, 100% on 4 L. Cardiovascular: Regular rate and rhythm. Pulmonary: Bilateral breath sounds, clear to auscultation. GI: Soft, nontender, nondistended. Bowel sounds are positive. He has chronic venous changes on his lower extremities. LABORATORY DATA: White count 7, hemoglobin and hematocrit 8 and 27, platelets 193,000. Creatinine 3.4, albumin 3.2. ASSESSMENT AND PLAN: Problem list 1. Acute congestive heart failure exacerbation, diastolic. We will continue high-dose diuretics per Cardiology. He has renal insufficiency, so we are going to monitor that closely. 2. Type 2 diabetes. We will follow blood sugars. Continue sliding scale insulin and monitor. 3. Hypertension. Continue regular medications, adjust accordingly. 4. History of cancer, with left upper lobe disease which is concerning for right upper lobe air- space disease versus cancer. Radiation Oncology is going to follow. They have been consulted for evaluation for radiation therapy. 5. Kgleu-[id number]-qzffmei renal failure. We will continue to monitor on high-dose diuretics. Nephrology is following closely. Adjust medications accordingly. Work on compliance. 6. Disposition pending his clinical status. We will continue to follow. Appreciate consultants' assistance. cc: Fredo Carbajal MD
[2019-03-04] MEDS: MIRALAX PO SCH ×2 (02:16→09:09)
[2019-03-04] MEDS: DUONEB (A & A) INH SCH ×6 (03:28→23:39)
[2019-03-04] MEDS: PRILOSEC PO SCH (06:16)
[2019-03-04] MEDS: HUMULIN R SUBQ SCH ×4 (06:49→22:30)
[2019-03-04 07:10] LABS: BASO# 0.03 X1000 (0.0-0.2); BASO% 0.4 % (0.0-0.8); EOS# 0.07 X1000 (0.0-0.7); EOS% 0.9 % (0.0-10.0); HEMATOCRIT 27.8 % (42.0-52.0); HEMOGLOBIN 8.3 g/dL (14.0-18.0); IMM GRAN# 0.03 X1000 (0.0-0.04); IMM GRAN% 0.4 % (0.0-0.5); LYMPH# 1.17 X1000 (1.2-3.4); LYMPH% 14.6 % (20.5-51.1); MCH 26.3 PG (27-31); MCHC 29.9 g/dL (33-37); MCV 88.3 FL (81-99); MONO# 0.88 X1000 (0.11-0.59); MONO% 10.9 % (1.7-9.3); MPV 10.9 FL (7.4-10.4); NEUT# 5.86 X1000 (1.4-6.5); NEUT% 72.8 % (42.2-75.2); PLT 197 X1000 (130-400); RBC 3.15 XMIL (4.7-6.1); RDW 18.6 % (11.5-14.5); WBC 8.04 X1000 (4.8-10.8)
[2019-03-04] MEDS: SPIRIVA INH SCH (07:40)
[2019-03-04] MEDS: ADVAIR 250/50 DISKUS INH SCH ×2 (07:40→19:42)
[2019-03-04 07:47] LABS: ALBUMIN 3.5 g/dL (3.5-5.0); CALCIUM 8.3 mg/dL (8.8-10.2); CREATININE 3.4 mg/dL (0.7-1.2); PHOSPHORUS 4.1 mg/dL (2.7-4.5); POTASSIUM 3.9 mmol/L (3.5-5.1)
[2019-03-04 07:51] LABS: HEMOGLOBIN A1C 9.6 % (4.8-6.0)
[2019-03-04] MEDS: LACTULOSE PO SCH ×3 (09:09→22:40)
[2019-03-04] MEDS: ASPIRIN EC PO SCH (09:09)
[2019-03-04] MEDS: CATAPRES PO SCH ×3 (09:10→22:29)
[2019-03-04] MEDS: KLONOPIN PO SCH ×2 (09:10→22:28)
[2019-03-04] MEDS: FLOMAX PO SCH (09:10)
[2019-03-04] MEDS: FOLIC ACID PO SCH (09:10)
[2019-03-04] MEDS: ISORDIL PO SCH ×3 (09:10→22:28)
[2019-03-04] MEDS: TOPROL XL PO SCH ×2 (09:10→22:29)
[2019-03-04] MEDS: FISH OIL CONCENTRATE PO SCH (09:10)
[2019-03-04] MEDS: ZYLOPRIM PO SCH (09:10)
[2019-03-04] MEDS: APRESOLINE PO SCH ×3 (09:10→22:29)
[2019-03-04] MEDS: LASIX IV SCH ×2 (09:11→22:25)
[2019-03-04] MEDS: HEPARIN SUBQ SCH ×3 (09:11→22:39)
[2019-03-04] MEDS: BASAGLAR SUBQ SCH ×2 (10:26→22:29)
[2019-03-04] MEDS: OXY IR PO PRN ×2 (10:27→23:20)
[2019-03-04] MEDS: NEO-SYNEPHRINE 1% NASAL SPRAY NAS SCH ×2 (11:50→22:41)
--- NOTE | 2019-03-04 14:58 | NEPHROLOGY PROGRESS NOTE ---
DATE: 03/04/2019 SUBJECTIVE: He is sitting up, talking on the phone. He stated he had nosebleed overnight. Shortness of breath and swelling are improved. OBJECTIVE: Vital Signs: Blood pressure 142/61, heart rate 66, respirations 20, afebrile. Intake 700 mL. Output 1.3 L. General: No acute distress. Skin: Warm and dry. Neck: Neck veins are not appreciated in the erect position. Heart: Regular. Lungs: Equal. No crackles. Abdomen: Soft, nontender. Bowel sounds are present. Extremities: Have no edema, clubbing, or cyanosis. IMPRESSIONS: 1. Chronic kidney disease. Creatinine is at baseline. 2. Volume overload. His fluid balance is negative. As such, we will his current diuretic dosing without adjustment. 3. Hypertension. Controlled. cc: Rocky Brown MD
[2019-03-04] MEDS ORDERED: INSULIN PEN NEEDLES ONE (17:31)
--- NOTE | 2019-03-04 20:04 | PROGRESS NOTE ---
DATE: 03/04/2019 SUBJECTIVE: Patient has no major complaints. OBJECTIVE: Blood pressure is 142/78, heart rate 74, respiratory rate 16, temperature 99.6 degrees. 99% on room air, but he is on oxygen.Cardiovascular: Regular rate and rhythm. Pulmonary: Bilateral breath sounds. Clear to auscultation. Gastrointestinal: Soft, nontender, nondistended. Bowel sounds are positive. LABORATORY DATA: White count is 8, hemoglobin and hematocrit 8 and 27, platelets 197,000. Creatinine 3.4. PROBLEM LIST: 1. Volume overload, acute diastolic heart failure exacerbation. He is on 120 Lasix twice a day. We may end up switching that to p.o. He seems to be stable on those medications. 2. Type 2 diabetes. We will continue his regular medications, sliding scale. 3. Left upper lobe airspace disease which may be concerning for malignancy. I was under the impression that Rad/Onc had been consulted, but they had not been consulted, so we went ahead and consulted them. There were a lot of other consults put in and they got lost the multiplicity. 4. Acute on chronic renal failure, seems to be stable. Nephrology feels comfortable with his level. 5. Disposition: He really wants to go home. I do think we need to have radiation evaluation, but from what I understand this could not be accomplished locally, it had to be done in [place]. However, the patient is going to have trouble getting a ride and getting treatment in [place]. We will have Dr. Cardozo I guess re-evaluate and see if there is anything else that can be done. Other than that, I think he is probably close to discharge within the next day or so. cc: Fredo Carbajal MD
--- NOTE | 2019-03-04 22:25 | PULMONOLOGY PROGRESS NOTE ---
DATE: 03/04/2019 SUBJECTIVE: The patient is awake, alert, and conversant. He is without specific complaints. He reports he is ready to go home. OBJECTIVE: Vital Signs: Blood pressure 142/78, heart rate 74, respiratory rate 16, oxygen saturation 99%. HEENT: Pupils are equal and reactive. Oropharynx is clear. Neck: Supple. Chest: Reveals prolonged expiratory phase without wheezing or rhonchi. Cardiac: S1, S2. Abdomen: Obese and soft. Extremities: Reveal venous insufficiency with lower extremity dermatitis, left greater than right. LABORATORY DATA: Sodium 141, potassium 3.9, chloride 100, bicarbonate 27, BUN 47, creatinine 3.4. Glucose 282. IMPRESSION: A 63-year-old with 1. Lung cancer of the right upper lobe, pending simulation and radiation therapy. 2. Lung cancer of the left upper lobe, pending simulation and radiation therapy. 3. Fluid overload, with significant improvement. 4. Atelectasis versus pneumonia, left upper lobe. 5. Chronic hypoxemic and chronic hypercapnic respiratory failure, on a Trilogy device. 6. Morbid obesity. 7. Diabetes mellitus. RECOMMENDATIONS: 1. The patient appears to be at his baseline. Recommend patient weigh himself and use diuretics as needed at home. 2. Encourage patient to find transportation for his simulation so that he can begin his radiation therapy. 3. Continue Trilogy device. 4. Okay for discharge home from a pulmonary standpoint. 5. Overall prognosis is poor. cc: Kale Yo MD
[2019-03-04] MEDS: LIPITOR PO SCH (22:29)
[2019-03-05] MEDS: DUONEB (A & A) INH SCH ×4 (03:35→15:44)
[2019-03-05 06:44] LABS: BASO# 0.03 X1000 (0.0-0.2); BASO% 0.4 % (0.0-0.8); EOS% 1.4 % (0.0-10.0); HEMATOCRIT 26.9 % (42.0-52.0); HEMOGLOBIN 7.9 g/dL (14.0-18.0); IMM GRAN# 0.03 X1000 (0.0-0.04); IMM GRAN% 0.4 % (0.0-0.5); LYMPH# 1.23 X1000 (1.2-3.4); MCH 26.1 PG (27-31); MCHC 29.4 g/dL (33-37); MCV 88.8 FL (81-99); MONO# 0.72 X1000 (0.11-0.59); MPV 10.3 FL (7.4-10.4); NEUT# 5.11 X1000 (1.4-6.5); NEUT% 70.8 % (42.2-75.2); PLT 196 X1000 (130-400); RBC 3.03 XMIL (4.7-6.1); RDW 18.6 % (11.5-14.5); WBC 7.22 X1000 (4.8-10.8)
[2019-03-05] MEDS: PRILOSEC PO SCH (06:46)
[2019-03-05] MEDS: HUMULIN R SUBQ SCH ×3 (06:46→16:56)
[2019-03-05 07:24] LABS: ALBUMIN 3.3 g/dL (3.5-5.0); CALCIUM 8.1 mg/dL (8.8-10.2); CREATININE 3.4 mg/dL (0.7-1.2); PHOSPHORUS 4.2 mg/dL (2.7-4.5); POTASSIUM 3.8 mmol/L (3.5-5.1)
[2019-03-05] MEDS: ADVAIR 250/50 DISKUS INH SCH (08:05)
[2019-03-05] MEDS: SPIRIVA INH SCH (08:05)
[2019-03-05] MEDS: LASIX IV SCH (09:08)
[2019-03-05] MEDS: FLOMAX PO SCH (09:08)
[2019-03-05] MEDS: ASPIRIN EC PO SCH (09:09)
[2019-03-05] MEDS: APRESOLINE PO SCH ×2 (09:09→16:56)
[2019-03-05] MEDS: TOPROL XL PO SCH (09:09)
[2019-03-05] MEDS: KLONOPIN PO SCH (09:09)
[2019-03-05] MEDS: FISH OIL CONCENTRATE PO SCH (09:09)
[2019-03-05] MEDS: FOLIC ACID PO SCH (09:09)
[2019-03-05] MEDS: CATAPRES PO SCH ×2 (09:09→16:56)
[2019-03-05] MEDS: ZYLOPRIM PO SCH (09:09)
[2019-03-05] MEDS: ISORDIL PO SCH ×2 (09:10→16:56)
[2019-03-05] MEDS: HEPARIN SUBQ SCH (09:10)
[2019-03-05] MEDS: MIRALAX PO SCH (09:11)
[2019-03-05] MEDS: NEO-SYNEPHRINE 1% NASAL SPRAY NAS SCH (09:11)
[2019-03-05] MEDS: LACTULOSE PO SCH (09:11)
[2019-03-05] MEDS: BASAGLAR SUBQ SCH (09:27)
--- NOTE | 2019-03-05 09:56 | NEPHROLOGY PROGRESS NOTE ---
DATE: 03/05/2019 SUBJECTIVE: He is expecting discharge today. His shortness of breath is at baseline. Weight is down. OBJECTIVE: Vital Signs: Blood pressure 125/54, heart rate 70, respirations 20, afebrile. Weight today 143 kg. General: No acute distress. Skin: Warm and dry. HEENT: Oropharynx is dry. Neck: Neck veins are not visible. Heart: Regular. Lungs: Equal. No crackles or wheezes. Abdomen: Soft, obese, nontender. Bowel sounds present. Extremities: 1+ edema left greater than right. IMPRESSION: 1. Chronic kidney disease. Labs are pending today but he has been at his baseline during this hospitalization. We will arrange for outpatient followup. 2. Volume overload, improved. I would recommend discharging him with metolazone 5 mg to take any time his daily weight is up more than 5 pounds. cc: Rocky Brown MD
--- NOTE | 2019-03-05 10:31 | HEMO/ONC PROGRESS NOTE ---
DATE: 03/05/2019 CHIEF COMPLAINT: No new complaints. SUBJECTIVE: The patient is lying supine in bed in no immediate distress. OBJECTIVE: Vital Signs:: Temp 98.0 degrees, blood pressure 118/54, heart rate 74, respirations 18, O2 saturation 94% on 4 L nasal cannula O2. HEENT: Normocephalic, atraumatic. Mucous membranes are slightly pale and moist. Sclerae anicteric. Extraocular movements intact. Neck: Supple. Lungs: Clear to auscultation bilaterally. Chest: Expansion equal bilaterally. CV: S1, S2 is heard. No murmurs, rubs or gallops. Abdomen: Nondistended. Extremities: With 1+ bilateral lower extremity edema. Dermatologic: No rashes, bruises or lesions. Neurologic: The patient is awake, alert, and oriented x3. He has no focal deficits. ASSESSMENT AND PLAN: 1. Non-small cell lung cancer, early stage. For stereotactic radiation therapy with Dr. Cardozo when feasible. 2. Acute diastolic heart failure with exacerbation on Lasix b.i.d. 3. Acute on chronic renal failure per renal. 4. We will sign off at this time. We will schedule the patient for follow up with Dr. Najera as an outpatient. Dictated by ALPESH Corral for Ro Álvarez MD cc: ALPESH Corral MD I have seen and examined the patient and the above note reflects my history, physical, assessment and plan. Ro Álvarez MD [facility]
[2019-03-05 11:18] VITALS: BP 111/77
--- NOTE | 2019-03-05 14:16 | CONSULTATION ---
DATE OF CONSULTATION: 03/05/2019 REASON FOR CONSULTATION: Lung cancer. CONSULTING PHYSICIAN: Hospitalist Service. HISTORY: I was consulted to see Mr. La while he was hospitalized several weeks ago. We made plans for him to start radiation therapy as an outpatient. Unfortunately, multiple hospitalizations later he has not been able to get into my clinic to see me. He has another appointment to see me Friday morning at 10:00 in the morning. Hopefully, we will be able to get started with his radiation therapy then. cc: Petrona Cardozo MD
[2019-03-05] MEDS ORDERED: CARDIZEM IV ONE (17:20)
--- NOTE | 2019-03-06 05:00 | DISCHARGE SUMMARY ---
ADMISSION DATE: 03/01/2019 DISCHARGE DATE: 03/05/2019 DISCHARGE DIAGNOSES: 1. Volume overload. 2. Type 2 diabetes. 3. Diastolic heart failure exacerbation. 4. Airspace disease related most likely to malignancy. 5. Acute on chronic renal failure. CONSULTATIONS: 1. Dr. Reyna, who then also consulted Dr. Brown, nephrology. 2. Dr. Álvarez, hematology/oncology. 3. Dr. Yo, pulmonary, 4. Dr. Cardozo, radiation oncology. HOSPITAL COURSE: The patient came in with shortness of breath, edema of his legs. He has got renal failure stage 4, he has got diastolic dysfunction. He was placed on diuretics, cardiology was consulted, which the patient reports he says his heart is fine, but he has been on higher dose Lasix. Ejection fraction was stable. Chest x-ray showed some pulmonary edema, left upper lobe airspace disease. Hem/Onc was consulted, per Dr. Álvarez they recommended Dr. Cardozo. He was supposed to get stereotactic radiation for nonsmall cell cancer. He was placed on breathing treatments. Nephrology was consulted, and they recommended adjusting his diuretic dosing. He was placed on metolazone. Dr. Serrano recommended 100 to 120 twice a day of diuretic. He reports that he had been on 80 b.i.d., but his Lasix does that I have is 40 b.i.d., not quite sure which dose he was on. In any case, I bumped him up to 80 b.i.d. and we ordered the metolazone. Dr. Brown recommendations were to take the metolazone only when his daily weight is up more than 5 pounds. In any case, the day of discharge he is breathing comfortably. Dr. Cardozo was consulted per Dr. Yo's request, and she stated that he has been due for outpatient evaluation, but he has been unable to pursue that due to various reasons, some of it is recurrent hospitalizations, but she recommended follow up on Friday, which is 2 days from now, to set up for his radiation therapy. In any case, the patient was discharged in stable condition. DISCHARGE MEDICATIONS: Advair 250-50 b.i.d., allopurinol 100 daily, Klonopin 0.5 in the evening, 0.5 during the day, 0.2 clonidine t.i.d., DuoNeb q.6 hours, Ecotrin 81 daily, fish oil daily, Humalog, Isordil 60 t.i.d., Lantus 120 b.i.d., MiraLAX 34 daily, nitroglycerin, Prilosec 40, potassium 10 daily, Spiriva 18 daily, Toprol-XL 50 b.i.d., Lipitor 40 daily, hydralazine 100 t.i.d., Flomax 0.4 daily, folic acid 1 daily, lactulose 30 b.i.d. Lasix was increased to 80 b.i.d., metolazone 5 daily, again, to be used if more than 5 pounds weight gain, Norvasc 10 daily, Oxy IR 5 q.4 hours. DISCHARGE CONDITION: Stable. We will continue to follow closely. TIME SPENT: This is a 32 minute discharge. cc: MD Terrie Rogers MD Luis N. Villanueva, MD James E. Boyle, MD Traci C. McCormick, MD Reginald D. Gladish, MD
== END 2019-03-05 20:12 | disposition home or self-care (01) | DRG 291 ==
LOC: SUPCPDRO → ED 16:48 → EDIPHOLD 22:44 → SUATTDRO 22:44 → 4N 03-02 02:48
PROVIDERS: ATTEND Internal Medicine
CPT/HCPCS: 71020; 71046; 80048; 80053; 80069; 82040; 82948; 83036; 83735; 83880; 84145; 84443; 84484; 85025; 93005; 94640; 94761; 96365; 96372; 96375; 96376; 99285; A9270; J0696; J1644; J1940; XXXXX

== ENCOUNTER 2019-03-10 15:21 | Inpatient (IN) ==
--- NOTE | 2019-03-10 15:28 | EKG Report ---
Test Performed on : 03/10/2019 3:26:29 PM Test Reason : cp Blood Pressure : / mmHG Vent. Rate : 072 BPM Atrial Rate : 072 BPM P-R Int : 108 ms QRS Dur : 100 ms QT Int : 434 ms P-R-T Axes : -22 014 099 degrees QTc Int : 475 ms Sinus rhythm. with short OH with occasional premature ventricular complexes. Incomplete right bundle branch block T wave abnormality, consider lateral ischemia Prolonged QT Abnormal ECG When compared with ECG of 02-MAR-2019 02:44, (Unconfirmed) premature ventricular complexes. are now present Unconfirmed Result
[2019-03-10] MEDS ORDERED: ASPIRIN PO ONE (16:12)
[2019-03-10] MEDS ORDERED: ASPIRIN PR ONE (16:12)
[2019-03-10 16:35] LABS: BASO# 0.03 X1000 (0.0-0.2); BASO% 0.4 % (0.0-0.8); EOS# 0.09 X1000 (0.0-0.7); EOS% 1.3 % (0.0-10.0); HEMATOCRIT 31.4 % (42.0-52.0); HEMOGLOBIN 9.6 g/dL (14.0-18.0); IMM GRAN# 0.03 X1000 (0.0-0.04); IMM GRAN% 0.4 % (0.0-0.5); LYMPH# 1.04 X1000 (1.2-3.4); MCH 26.5 PG (27-31); MCHC 30.6 g/dL (33-37); MCV 86.7 FL (81-99); MONO# 0.67 X1000 (0.11-0.59); MONO% 9.7 % (1.7-9.3); MPV 9.9 FL (7.4-10.4); NEUT# 5.08 X1000 (1.4-6.5); NEUT% 73.2 % (42.2-75.2); PLT 253 X1000 (130-400); RBC 3.62 XMIL (4.7-6.1); RDW 18.4 % (11.5-14.5); WBC 6.94 X1000 (4.8-10.8)
--- NOTE | 2019-03-10 16:57 | Diag Imaging Result Doc PS360 ---
EXAM: CHEST-2 VIEWS HISTORY: cp TECHNIQUE: Chest three views COMPARISON: 03/01/2019 FINDINGS: The lungs are well expanded. The heart is enlarged. The vessels are mildly distended. There is increased density in the left apex which remains. No pleural effusions. IMPRESSION: Cardiomegaly with central vascular prominence. No improvement in the left upper lung infiltrate. Electronically signed by Jordan Madera 03/10/2019 4:55 PM
[2019-03-10 17:08] LABS: PTT 44.7 Seconds (22.3-41.8)
[2019-03-10 17:17] LABS: ALBUMIN 3.6 g/dL (3.5-5.0); CALCIUM 8.4 mg/dL (8.8-10.2); CREATININE 3.2 mg/dL (0.7-1.2); POTASSIUM 4.3 mmol/L (3.5-5.1); TOTAL BILIRUBIN 0.19 mg/dL (0.20-1.00); TOTAL PROTEIN 7.3 g/dL (6.3-8.3)
--- NOTE | 2019-03-10 17:30 | PROVIDER DOCUMENTATION ---
This chart was entered by Shirley Pollack Scribe, acting as scribe for Chris Corrigan MD. HPI-Chest Pain - General Chief Complaint: Chest Pain Stated Complaint: CHEST PAIN Time Seen by Provider: 03/10/19 15:57 Source: patient Allergies/Adverse Reactions: Patient Allergies Allergy/AdvReac Type Severity Reaction Status Date / Time doxazosin mesylate * Allergy Severe SHORTNESS Verified 03/10/19 16:20 [From Cardura] OF BREATH ketorolac tromethamine * Allergy Severe SHORTNESS Verified 03/10/19 16:20 [From Toradol] OF BREATH almond Allergy Intermediate RASH Verified 03/10/19 16:20 ibuprofen [From Motrin] AdvReac Intermediate FLUSHING Verified 03/10/19 16:20 levofloxacin AdvReac Mild NAUSEA Verified 03/10/19 16:20 Home Medications: Home Medication List Medication Instructions Recorded Confirmed Last Taken Type Aspirin [Ecotrin] 81 mg PO QAM 12/11/14 03/10/19 02/18/19 History Potassium Chloride 10 meq PO QAM 12/11/14 03/10/19 02/18/19 History ATORVAstatin [Lipitor] 40 mg PO QHS #90 tab 12/19/17 03/10/19 02/18/19 Rx Isosorbide Dinitrate [Isordil] 60 mg PO TID 04/30/18 03/10/19 02/18/19 History Metoprolol Succinate E.r. [Toprol 50 mg PO BID 04/30/18 03/10/19 02/18/19 History Xl] Folic Acid 1 mg PO DAILY #90 tab 08/26/18 03/10/19 02/18/19 Rx Amlodipine [Norvasc] 10 mg PO DAILY 30 Days #30 tab 09/19/18 03/10/19 02/18/19 Rx Hydralazine [Apresoline] 100 mg PO TID #120 tab 09/19/18 03/10/19 02/18/19 Rx Tamsulosin [Flomax] 0.4 mg PO DAILY capsule 10/16/18 03/10/19 02/18/19 Rx Insulin Glargine [Lantus] 120 unit SUBQ BID 11/03/18 03/10/19 02/18/19 History Omeprazole 40 mg PO DAILY 11/24/18 03/01/19 02/18/19 History Lactulose 30 ml PO BID udc 01/31/19 03/10/19 02/18/19 Rx Allopurinol 100 mg PO QAM 02/09/19 03/10/19 02/18/19 History Clonazepam 1 mg PO DAILY 02/09/19 03/01/19 02/18/19 History Clonidine HCl 0.2 mg PO TID 02/09/19 03/10/19 02/18/19 History Insulin Lispro [Humalog Kwikpen See Protocol SUBQ DIRECTED 02/09/19 03/10/19 Unknown History U-100] Tiotropium Antoine Inhaler 1 cap INH QAM 02/09/19 03/10/19 02/18/19 History [Spiriva] Albuterol 2.5MG/Ipratrop 0.5MG 3 ml INH Q6H PRN PRN 02/19/19 03/10/19 02/18/19 History [Duoneb (A & A)] Clonazepam 0.5 mg PO TID 02/19/19 03/01/19 02/18/19 History Fluticasone/[place]met 250/50 INH 1 puff INH RTBID 02/19/19 03/10/19 02/18/19 History [Advair 250/50 Diskus] Nitroglycerin 0.4 mg SUBLINGUAL Q5MX3 02/19/19 03/01/19 Unknown History Jay-3 Fatty Acids/Fish Oil [Fish 1 ea PO DAILY 02/19/19 03/10/19 Unknown History Oil 1,000 mg Softgel] Polyethylene Glycol 3350 [Miralax] 34 gm PO DAILY PRN PRN 03/03/19 03/10/19 Unknown History Furosemide [Lasix] 80 mg PO BID #60 tab 03/05/19 03/10/19 Unknown Rx Metolazone 5 mg PO DAILY #30 tab 03/05/19 Unknown Rx Hydrocodone/Acetaminophen [[place] 1 ea PO Q6H PRN PRN 03/10/19 03/10/19 03/10/19 09:00 History 7.5-325 Tablet] - History of Present Illness-CP Nature of Presenting Problem: Patient is a 63 year old male who presents to the ED via EMS with chest pain that started this afternoon. Reports pain is 6/10. States EMS gave him nitro and aspirin prior to arrival and improved pain. History of UT and stent placement. Does not report headache or nausea. Location: reports: central Chest Pain Radiation: reports: no radiation Quality of Pain: reports: aching Onset/Duration: this afternoon Timing: improving Context/Activities at Onset: reports: light activity Modifying Factors: improves with: nothing Associated Symptoms: reports: denies symptoms Nitro Today/Relief: 0.4 mg x 1, provided by EMS, mild relief Aspirin Treatment Today: 81 mg x 4, provided by EMS Prior Chest Pain/Cardiac Workup: reports: heart attack Similar Symptoms Previously?: No Recently Seen Here or By Another Healthcare Provider: Yes Review of Systems - Adult - REVIEW OF SYSTEMS - ADULT Constitutional: reports: no symptoms reported. denies: chills, fever, fatique Eyes: reports: no symptoms reported Ears, Nose, Mouth & Throat: reports: no symptoms reported Cardiovascular: reports: no symptoms reported, chest pain. denies: heart murmur, irregular heart rate Respiratory: reports: no symptoms reported Gastrointestinal: reports: no symptoms reported. denies: diarrhea, nausea, vomiting Genitourinary: reports: no symptoms reported Musculoskeletal: reports: no symptoms reported Integumentary: reports: no symptoms reported Neurological: reports: no symptoms reported Psychiatric: reports: no symptoms reported Endocrine: reports: no symptoms reported Hematologic/Lymphatic: reports: no symptoms reported Allergic/Immunologic: reports: no symptoms reported All Other Systems: Reviewed and Negative Past History - Adult - PAST MEDICAL HISTORY-ADULT Review of Records: reports: Nursing Assessment Review, Medications Reviewed, Social history reviewed & non-contributory. Major Childhood Illnesses: reports: history unknown Cardiovascular: reports: CHF (ECHO 08/2015 EF 55% ), HTN, hyperlipidemia, UT Respiratory: reports: asthma, COPD (severe on 4liters O2 qHS), cancer Gastrointestinal: reports: GERD Obstetrical/Gynecological: reports: denies history Genitourinary: reports: kidney disease (CRI) Musculoskeletal: reports: arthritis, chronic pain Neurological: reports: denies history Psychiatric: reports: anxiety Endocrine/Immune: reports: Diabetes Other Conditions: reports: denies history - PRIOR SURGERIES/PROCEDURES Surgical/Procedure History: reports: cardiac stent (x2 last one 7 years ago), orthopedic (extremity) (thumb) - IMMUNIZATION STATUS Childhood Immunizations: See Nurse Assessment Flu Vaccine: See Nurse Assessment - FAMILY HISTORY Family History: reviewed, not pertinent - SOCIAL HISTORY Smoking: cigarettes (former) Substance Use: denies Physical Exam-General - PHYSICAL EXAM-ADULT Initial Vital Signs Reviewed: Yes - CONSTITUTIONAL General Appearance: alert, no apparent distress, obese. negative: lethargic, slow to respond - RESPIRATORY Respiratory: chest non-tender, lungs clear, normal breath sounds. negative: crackles, rhonchi - CARDIOVASCULAR Cardiovascular: normal peripheral pulses, regular rate, rhythm. negative: tachycardia, systolic murmur - GASTROINTESTINAL (ABDOMEN) Abdominal Exam: normal bowel sounds, non tender, soft. negative: guarding, rebound - SKIN Integumentary: normal color, normal turgor, warm/dry. negative: cyanosis, ecchymosis, erythema, jaundice - NEUROLOGIC Neurologic: grossly normal. negative: aphasia, facial droop - PSYCHIATRIC Psych/Mental Status: normal mood/affect, oriented x 3. negative: paranoid - HEART Score HEART Score: History: Moderately Suspicious HEART Score: ECG: Non-Specific Repolarization Disturbance/LBBB/PM HEART Score: Age: 45-65 Years HEART Score: Risk Factors for Atherosclerotic Disease: > or = 3 Risk Factors or History of Atherosclerotic Disease HEART Score: Troponin: < or = Normal Limit Total HEART Score:: 5 Progress - PLAN OF CARE/RESULTS Progress/Plan/Lab Results: Laboratory Results - last 24 hr 03/10/19 03/10/19 03/10/19 16:10 16:10 16:10 WBC 6.94 RBC 3.62 L Hgb 9.6 L Hct 31.4 L MCV 86.7 MCH 26.5 L MCHC 30.6 L RDW Std Deviation 18.4 H Plt Count 253 MPV 9.9 Immature Gran % (Auto) 0.4 Neut % (Auto) 73.2 Lymph % (Auto) 15.0 L [place] % (Auto) 9.7 H Eos % (Auto) 1.3 Baso % (Auto) 0.4 Immature Gran # (Auto) 0.03 Neut # (Auto) 5.08 Lymph # (Auto) 1.04 L [place] # (Auto) 0.67 H Eos # (Auto) 0.09 Baso # (Auto) 0.03 PT INR PTT (Actin FS) Sodium 143 Potassium 4.3 Chloride 101 Carbon Dioxide 26 Anion Gap 16 BUN 51 H Creatinine 3.2 H Estimated GFR/1.73 m2 20 BUN/Creatinine Ratio 16 Glucose 300 H Calculated Osmolality 310 Calcium 8.4 L Total Bilirubin 0.19 L AST 10 ALT 15 Alkaline Phosphatase 145 H Creatine Kinase 116 Troponin T Qyy-M-Iqabrlyticv Pept 1084 H Total Protein 7.3 Albumin 3.6 Globulin 3.7 Albumin/Globulin Ratio 1.0 03/10/19 03/10/19 03/10/19 16:10 16:10 18:33 WBC RBC Hgb Hct MCV MCH MCHC RDW Std Deviation Plt Count MPV Immature Gran % (Auto) Neut % (Auto) Lymph % (Auto) [place] % (Auto) Eos % (Auto) Baso % (Auto) Immature Gran # (Auto) Neut # (Auto) Lymph # (Auto) [place] # (Auto) Eos # (Auto) Baso # (Auto) PT 14.0 INR 1.00 PTT (Actin FS) 44.7 H Sodium Potassium Chloride Carbon Dioxide Anion Gap BUN Creatinine Estimated GFR/1.73 m2 BUN/Creatinine Ratio Glucose Calculated Osmolality Calcium Total Bilirubin AST ALT Alkaline Phosphatase Creatine Kinase Troponin T 0.078 0.078 Tzr-R-Mogcyyvrrvh Pept Total Protein Albumin Globulin Albumin/Globulin Ratio Orders Category Date Time Status Admit - [facility] Routine AdmDCTranf 03/10/19 18:33 Active Activity - Up with Assistance ORDERED Care 03/10/19 18:33 Active Cardiac Monitoring DIRECTED Care 03/10/19 16:12 Completed FSBS/Accucheck Result AC + HS Care 03/10/19 18:32 Active Intake and Output-Strict ORDERED Care 03/10/19 18:33 Active Oxygen Therapy- ED Nursing DIRECTED Care 03/10/19 16:12 Completed Saline Loc NOW Care 03/10/19 16:12 Active Vital Signs Order Q 8-HR ASSESS Care 03/10/19 18:33 Active Z-Document. for Tele Applied ORDERED Care 03/10/19 18:33 Completed Diabetic Diet Diet 03/10/19 18:33 Active CHEST-2 VIEWS [RAD] Stat Exams 03/10/19 16:12 Completed BASIC METABOLIC PANEL [CHEM] Routine Lab 03/11/19 06:00 Ordered CBC WITH DIFF [HEME] Routine Lab 03/11/19 06:00 Ordered CBC WITH ELECTRONIC DIFF [HEME] Stat Lab 03/10/19 16:10 Completed CK PROFILE [SP CHEM] Stat Lab 03/10/19 16:10 Completed COMPREHENSIVE METABOLIC PANEL [CHEM] Stat Lab 03/10/19 16:10 Completed MAGNESIUM [CHEM] Routine Lab 03/11/19 06:00 Ordered PRO B-NATRIURETIC PEPTIDE Stat Lab 03/10/19 16:10 Completed PROTIME WITH INR [COAG] Stat Lab 03/10/19 16:10 Completed PTT [COAG] Stat Lab 03/10/19 16:10 Completed TROPONIN T Lab 03/10/19 18:33 Completed TROPONIN T Lab 03/11/19 05:00 Ordered TROPONIN T Lab 03/11/19 13:00 Ordered TROPONIN T Stat Lab 03/10/19 16:10 Completed ATORVAstatin [Lipitor] Med 03/10/19 21:07 Active 40 mg PO QHS Albuterol 2.5MG/Ipratrop 0.5MG [Duoneb (A & A)] Med 03/10/19 21:07 Discontinued 3 ml INH Q2H PRN PRN Albuterol 2.5MG/Ipratrop 0.5MG [Duoneb (A & A)] Med 03/10/19 21:07 Active 3 ml INH Q6H PRN PRN Allopurinol [Zyloprim] Med 03/11/19 09:00 Active 100 mg PO QAM Amlodipine [Norvasc] Med 03/11/19 09:00 Active 10 mg PO DAILY Aspirin Med 03/10/19 16:12 Discontinued 300 mg NH NOW ONE Aspirin Med 03/10/19 16:12 Discontinued 325 mg PO NOW ONE Aspirin EC Med 03/11/19 09:00 Active 81 mg PO QAM Clonazepam [Klonopin] Med 03/11/19 09:00 Active 0.5 mg PO DAILY Clonazepam [Klonopin] Med 03/10/19 21:07 Active 1 mg PO QPM Clonidine [Catapres] Med 03/10/19 21:00 Active 0.2 mg PO TID@0900,1500,2100 Fluticasone/[place] 250/50 INH [Advair 250/50 Diskus] Med 03/10/19 21:07 Active 1 puff INH RTBID Folic Acid Med 03/11/19 09:00 Active 1 mg PO DAILY Furosemide [Lasix] Med 03/10/19 21:07 Active 80 mg PO BID Heparin Med 03/10/19 18:45 Active 5,000 unit SUBQ Q12H Hydralazine [Apresoline] Med 03/10/19 21:00 Active 100 mg PO TID@0900,1500,2100 Hydrocodone/APAP 7.5 mg/325 mg [[place]-7.5] Med 03/10/19 21:07 Active 1 each PO Q12H PRN PRN Insulin Glargine [Lantus Insulin] Med 03/10/19 21:07 Active 120 unit SUBQ BID Insulin Human Regular [Humulin R] Med 03/10/19 21:07 Active See Protocol SUBQ 0700,1100,1600,2100 Isosorbide Dinitrate [Isordil] Med 03/10/19 21:00 Active 60 mg PO TID@0900,1500,2100 Lactulose Med 03/10/19 21:07 Active 30 ml PO BID Metoprolol Succinate E.r. [Toprol Xl] Med 03/10/19 21:07 Active 50 mg PO BID Jay-3 Fatty Acids [Fish Oil Concentrate] Med 03/11/19 09:00 Active 1,000 mg PO DAILY Omeprazole [Prilosec] Med 03/11/19 09:00 Active 40 mg PO DAILY Polyethylene Glycol 3350 [Miralax] Med 03/10/19 21:07 Active 34 gm PO DAILY PRN PRN Tamsulosin [Flomax] Med 03/11/19 09:00 Active 0.4 mg PO DAILY Aerosol Treatments Routine Oth 03/10/19 21:07 Completed Aerosol Treatments Routine Oth 03/10/19 21:07 Completed Aerosol Treatments Stat Oth 03/10/19 21:07 Completed Aerosol Treatments Stat Oth 03/10/19 21:07 Completed CP/SOB/Palp >45 yrs of Age Stat Oth 03/10/19 16:12 Ordered MDI Treatments Stat Oth 03/10/19 21:07 Completed Telemetry [OM.EQ] Routine Oth 03/10/19 18:33 Active EKG [EKG] Routine Ther 03/11/19 06:00 Ordered EKG [EKG] Stat Ther 03/10/19 15:21 Draft Transfer/Admit Order [TRANSFER] Routine Transfer 03/10/19 18:25 Completed Result Diagrams: 03/10/19 16:10 03/10/19 16:10 - EKG 1 Time of EKG reading by physician:: 15:26 EKG Read and Signed by:: Chris Corrigan EKG Interpretation (*Must complete 3 of following elements*): Abnormal (prolonged QT) Rate: 72 Rhythm: sinus rhythm with short NH with occasional premature ventricular complexes QRS: RBB NH Interval: normal Comments: T wave abnormality, consider lateral ischemia - XRAY 1 XRAY Study: Chest Impression: See EMR Report ( EXAM: CHEST-2 VIEWS HISTORY: cp TECHNIQUE: Chest three views COMPARISON: 03/01/2019 FINDINGS: The lungs are well expanded. The heart is enlarged. The vessels are mildly distended. There is increased density in the left apex which remains. No pleural effusions. IMPRESSION: Cardiomegaly with central vascular prominence. No improvement in the left upper lung infiltrate. Electronically signed by Jordan Madera 03/10/2019 4:55 PM 03/10/19 1655 Interpreting Physician: Jordan Madera MD Dictated Date/Time: 03/10/19 165 cc: Chris Corrigan MD; Terrie Judge) Departure - Departure Date of Disposition Decision: 03/10/19 Time of Disposition Decision: 20:00 DIAGNOSIS: Chest pain Disposition: ADMITTED INPATIENT 09 Certified Medical Emergency: Emergent Condition: Serious - Critical Care Note This patient required my direct & personal management of CC.: No Attestation - Physician/ KOJO Attestation The physician spent face to face time with patient:: Yes Advanced Practice Provider documentation review:: Supervising physician onsite and consulted in the evaluation and care of this patient. The physician did have a face to face encounter with the patient. This chart was documented by the indicated scribe, (Shirley Pollack Scribe) and accurately reflects the services I performed and decisions made by me, Chris Corrigan MD, as attested by the provider's signature.
--- NOTE | 2019-03-10 20:13 | HISTORY AND PHYSICAL ---
CHIEF COMPLAINT: Chest pain. HISTORY OF PRESENT ILLNESS: A 63-year-old, obese male with a past medical history of diabetes type 2, lung cancer, CHF, diastolic dysfunction, peripheral arterial disease, CKD, COPD on home O2. Presented to the emergency department with a chief complaint of chest pain that started today around 3 p.m. He described the pain as a pressure-like, nonradiated, that actually got better after receiving treatment in the ambulance. At the beginning it was 8/10 and now is around 3/10. The pain has radiated a little bit up close to his neck, he was evaluated in the emergency department. First set of troponins were negative at 0.078. I checked his previous troponins, and it has been around that range and actually higher than that. This patient will be admitted, hopefully he can be discharged in 1 or 2 days, we will continue trending the troponins. We will repeat an EKG in the morning. I will put this patient on his home medications to see how he does. He denies nausea, vomiting, diarrhea, constipation, shortness of breath, weakness, dizziness, headache, he will be admitted to the medical floor with telemetry. REVIEW OF SYSTEMS: All 14-point review of systems were reviewed. All of them negative except as per HPI. PAST MEDICAL HISTORY: Lung cancer, diabetes, CHF, diastolic dysfunction, hypertension, peripheral artery disease, hyperlipidemia, CKD stage 4, coronary artery disease, COPD on home O2, and chronic venous stasis. PAST SURGICAL HISTORY: Coronary stent, left hand surgery, and recent bronchoscopy. ALLERGIES: To Levaquin, Toradol, Cardura and ibuprofen. SOCIAL HISTORY: He is a former smoker. No history of alcohol or illicit drugs. FAMILY HISTORY: No history of coronary artery disease. PHYSICAL EXAMINATION: VITAL SIGNS: Temperature 98.1, pulse 67, respiratory rate 14, blood pressure 158/82. Oxygen saturation 99 on 4 L of nasal cannula. HEENT: Head normocephalic. No trauma. PERRLA. NECK: Supple. No JVD. No masses. Central trachea. CHEST: Decreased breath sounds globally with prolonged expiratory phase. No wheezing. No rales. CARDIOVASCULAR: Regular rate and rhythm. ABDOMEN: Soft, obese, protuberant. Nontender, nondistended. No hepatosplenomegaly. EXTREMITIES: Trace lower extremity edema. No clubbing. No cyanosis. NEUROLOGICAL: The patient is alert and oriented x3. No focal neurological deficits. LABORATORY: WBC 6.9, hemoglobin 9.6, hematocrit 31.4, platelets 253. Sodium 143, potassium 4.3, chloride 101, bicarbonate 26, BUN 51, creatinine 3.2, glucose 300, calcium 8.4, AST 10, ALT 15, alkaline phosphatase 145. Troponin 0.078. ProBNP 1084. ASSESSMENT AND PLAN: 1. Chest pain, it looks atypical for me, but we will continue monitoring this patient with telemetry. We will ask for a new EKG in the morning and we will do serial troponins, he is not a good candidate for any kind of procedure at this moment. We will continue to monitor this patient closely. His pain seems to be better. 2. History of congestive heart failure, diastolic dysfunction. He seems to be stable. I will continue with the same management that he is getting at home. 3. Lower extremity edema, mild just trace edema. We will continue with diuresis. 4. History of coronary artery disease, now presented with chest pain, aware. 5. Chronic kidney disease stage 4. This is his baseline. 6. Type 2 diabetes. I will continue with the home medications, which is a long-acting insulin and I will add pattern of blood sugar and sliding scale insulin. 7. Hypertension. Continue with his home medications. 8. History of chronic obstructive pulmonary disease, aware. I will continue with breathing treatment as needed. 9. Lung cancer. Aware. Will monitor. cc: Tyrone Lorenzo MD
[2019-03-10] MEDS ORDERED: LIPITOR PO SCH (21:07)
[2019-03-10] MEDS ORDERED: DUONEB (A & A) INH PRN ×2 (21:07)
[2019-03-10] MEDS ORDERED: MIRALAX PO PRN (21:07)
[2019-03-10] MEDS ORDERED: NORCO-7.5 PO PRN (21:07)
[2019-03-10] MEDS ORDERED: KLONOPIN PO SCH (21:07)
[2019-03-10] MEDS: ADVAIR 250/50 DISKUS INH SCH (22:00)
[2019-03-10] MEDS: LACTULOSE PO SCH (22:28)
[2019-03-10] MEDS: LASIX PO SCH (22:29)
[2019-03-10] MEDS: TOPROL XL PO SCH (22:29)
[2019-03-10] MEDS: ISORDIL PO SCH (22:29)
[2019-03-10] MEDS: HUMULIN R SUBQ SCH (22:30)
[2019-03-10] MEDS: CATAPRES PO SCH (22:30)
[2019-03-10] MEDS: APRESOLINE PO SCH (22:30)
[2019-03-10] MEDS: HEPARIN SUBQ SCH (22:30)
[2019-03-10] MEDS: LANTUS INSULIN SUBQ SCH (22:30)
[2019-03-11] MEDS: HUMULIN R SUBQ SCH ×2 (06:23→11:20)
[2019-03-11 07:53] LABS: BASO# 0.04 X1000 (0.0-0.2); BASO% 0.5 % (0.0-0.8); EOS# 0.09 X1000 (0.0-0.7); EOS% 1.1 % (0.0-10.0); HEMATOCRIT 29.2 % (42.0-52.0); HEMOGLOBIN 8.7 g/dL (14.0-18.0); IMM GRAN# 0.04 X1000 (0.0-0.04); IMM GRAN% 0.5 % (0.0-0.5); LYMPH# 1.45 X1000 (1.2-3.4); LYMPH% 17.4 % (20.5-51.1); MCH 26.1 PG (27-31); MCHC 29.8 g/dL (33-37); MCV 87.7 FL (81-99); MONO# 0.84 X1000 (0.11-0.59); MONO% 10.1 % (1.7-9.3); MPV 9.5 FL (7.4-10.4); NEUT# 5.86 X1000 (1.4-6.5); NEUT% 70.4 % (42.2-75.2); PLT 253 X1000 (130-400); RBC 3.33 XMIL (4.7-6.1); RDW 18.6 % (11.5-14.5); WBC 8.32 X1000 (4.8-10.8)
[2019-03-11] MEDS: LASIX PO SCH (08:08)
[2019-03-11] MEDS: APRESOLINE PO SCH ×2 (08:08→15:24)
[2019-03-11] MEDS: LANTUS INSULIN SUBQ SCH (08:08)
[2019-03-11] MEDS: CATAPRES PO SCH ×2 (08:09→15:24)
[2019-03-11] MEDS: HEPARIN SUBQ SCH ×2 (08:09→11:05)
[2019-03-11] MEDS: ISORDIL PO SCH ×2 (08:09→15:23)
[2019-03-11] MEDS: TOPROL XL PO SCH (08:09)
[2019-03-11] MEDS: LACTULOSE PO SCH (08:09)
--- NOTE | 2019-03-11 08:10 | EKG Report ---
Test Performed on : 03/11/2019 07:40:30 AM Test Reason : CP Blood Pressure : / mmHG Vent. Rate : 062 BPM Atrial Rate : 062 BPM P-R Int : 138 ms QRS Dur : 116 ms QT Int : 466 ms P-R-T Axes : -15 024 043 degrees QTc Int : 472 ms Normal sinus rhythm. Incomplete right bundle branch block Borderline ECG When compared with ECG of 10-MAR-2019 15:26, (Unconfirmed) premature ventricular complexes. are no longer present HI interval has increased Nonspecific T wave abnormality has replaced inverted T waves in Lateral leads Confirmed by Burak MARINELLI, David Jenkins ([id number]) on 03/11/2019 8:47:22 AM
[2019-03-11 08:35] LABS: CALCIUM 8.6 mg/dL (8.8-10.2); CREATININE 2.8 mg/dL (0.7-1.2); MAGNESIUM 2.2 mg/dL (1.5-2.7); POTASSIUM 4.2 mmol/L (3.5-5.1)
[2019-03-11] MEDS: ADVAIR 250/50 DISKUS INH SCH (08:59)
[2019-03-11] MEDS ORDERED: FISH OIL CONCENTRATE PO SCH (09:00)
[2019-03-11] MEDS ORDERED: ZYLOPRIM PO SCH (09:00)
[2019-03-11] MEDS ORDERED: FLOMAX PO SCH (09:00)
[2019-03-11] MEDS ORDERED: KLONOPIN PO SCH (09:00)
[2019-03-11] MEDS ORDERED: NORVASC PO SCH (09:00)
[2019-03-11] MEDS ORDERED: FOLIC ACID PO SCH (09:00)
[2019-03-11] MEDS ORDERED: PRILOSEC PO SCH (09:00)
[2019-03-11] MEDS ORDERED: ASPIRIN EC PO SCH (09:00)
[2019-03-11 11:51] VITALS: BP 111/46
--- NOTE | 2019-03-11 15:19 | DISCHARGE SUMMARY ---
ADMISSION DATE: 03/10/2019 DISCHARGE DATE: 03/11/2019 DISCHARGE DIAGNOSES: 1. Chest pain, acute coronary syndrome has been ruled out. 2. History of congestive heart failure, diastolic dysfunction. 3. Lower extremity edema. 4. History of coronary artery disease. 5. Chronic kidney disease stage IV. 6. Type 2 diabetes. 7. Hypertension. 8. History of chronic obstructive pulmonary disease, not in exacerbation. 9. Lung cancer. PROCEDURES PERFORMED: 1. EKG dated 03/10/2019 impression: Sinus rhythm with short [place] and occasional PVCs. 2. Chest x-ray dated 03/10/2019 impression: Cardiomegaly with central vascular prominence. No improvement in the left upper lung infiltrate. 3. EKG dated 03/11/2019 impression: Sinus rhythm with short [place] and occasional PVCs. HOSPITAL COURSE: A 63-year-old obese male, well known by our service, with a past medical history of diabetes, lung cancer, CHF, diastolic dysfunction, peripheral arterial disease, CKD, COPD on home O2, presented to the emergency department with chief complaint of chest pain that started yesterday around 3 p.m. He was hospitalized yesterday 03/10/2019. He described the pain as a pressure-like, nonradiating, that actually got better after receiving treatment in the ambulance. At the beginning, it was around 8.8/10 and, at the moment of my physical exam yesterday, was 3/10. Today, it was completely gone. The pain radiated a little bit up close to the neck. He was evaluated in the emergency department. We had 3 sets of troponins that all of them were negative. The patient was admitted. We checked a new electrocardiogram in the morning. I put him back on his home medication, and he has been asymptomatic today. He is feeling fine and this is his baseline. He will be discharged home today with a strict followup by all his doctors, including the primary care doctor, cancer doctor, invasive physician in 1 or 2 weeks. PHYSICAL EXAMINATION: Vital Signs: Temperature 98.4 degrees, pulse 64, respiratory rate 14, blood pressure 111/46, oxygen saturation 98 on 4 L of nasal cannula. HEENT: Head normocephalic, no trauma. PERRLA. Neck: Supple. No JVD. No masses. Central trachea. Chest: Decreased breath sounds globally with prolonged expiratory phase. No wheezing. Some crepitus at the upper right lung area, Cardiovascular: RRR. Abdomen: Soft, protuberant, nontender, nondistended. No hepatosplenomegaly. Extremities: Trace lower extremity edema. No clubbing. No cyanosis. Neurological examination: The patient is alert and oriented x3. No focal deficits. LABORATORY: Today WBC 8.3, hemoglobin 8.7, hematocrit 29.2, platelets 253. Sodium 139, potassium 4.2, chloride 98, bicarbonate 28. BUN 51, creatinine 2.8, glucose 229, calcium 8.6, magnesium 2.2. Troponins negative x4: The first one negative 0.078, then 0.078, then 0.076 and then 0.066. DISCHARGE MEDICATIONS: This patient will continue with the same medications that he was taking at home including DuoNeb 3 mL inhaler q. 6 hours as needed, allopurinol 100 mg p.o. q.a.m., amlodipine 10 mg p.o. daily, aspirin 81 mg p.o. q.a.m., atorvastatin 40 mg p.o. at bedtime, clonazepam 0.5 mg p.o. t.i.d. and 1 mg p.o. at bedtime, clonidine 0.2 mg p.o. t.i.d., Advair Diskus 250/50 one puff inhaler twice a day, folic acid 1 mg p.o. daily, furosemide 80 mg p.o. b.i.d., hydralazine 100 mg p.o. t.i.d., [place] 7.5 one tablet p.o. q. 6 hours as needed, Lantus 120 units subcutaneous b.i.d., insulin lispro sliding scale as directed, isosorbide dinitrate 60 mg p.o. t.i.d., lactulose 30 mg p.o. b.i.d., metolazone 5 mg p.o. daily, metoprolol succinate ER 50 mg p.o. b.i.d., nitroglycerin 0.4 mg sublingual every 5 minutes x3 as needed, fish oil 1000 mg soft gel 1 each p.o. daily, omeprazole 40 mg p.o. daily, MiraLAX 34 g p.o. daily as needed, potassium chloride 10 mg p.o. q.a.m., tamsulosin 0.4 mg p.o. daily and Spiriva 1 capsule inhaled q.a.m. DISPOSITION: The patient seems to be doing good. This is basically his baseline stable medical condition. He will go home with the same medications. TIME DISCHARGING THIS PATIENT: 35 minutes. cc: Tyrone Lorenzo MD
== END 2019-03-11 15:32 | disposition home or self-care (01) | DRG 313 ==
LOC: SUPCPDRO → ED 15:21 → 3N 19:57
PROVIDERS: ATTEND Internal Medicine
CPT/HCPCS: 71020; 71046; 80048; 80053; 82550; 82948; 83735; 83880; 84484; 85025; 85610; 85730; 93005; 93010; 94640; 94761; 99285; A9270; J1644; J1815; XXXXX

== ENCOUNTER 2019-03-23 10:58 | Inpatient (IN) ==
[2019-03-23] MEDS ORDERED: ASPIRIN PO ONE (11:12)
[2019-03-23] MEDS ORDERED: NITROGLYCERIN SL PRN (11:12)
[2019-03-23 11:52] LABS: BASO# 0.05 X1000 (0.0-0.2); BASO% 0.6 % (0.0-0.8); EOS% 1.2 % (0.0-10.0); HEMATOCRIT 30.1 % (42.0-52.0); HEMOGLOBIN 9.3 g/dL (14.0-18.0); IMM GRAN# 0.02 X1000 (0.0-0.04); IMM GRAN% 0.2 % (0.0-0.5); LYMPH# 1.24 X1000 (1.2-3.4); MCH 26.5 PG (27-31); MCHC 30.9 g/dL (33-37); MCV 85.8 FL (81-99); MONO# 0.94 X1000 (0.11-0.59); MONO% 11.4 % (1.7-9.3); MPV 10.4 FL (7.4-10.4); NEUT# 5.92 X1000 (1.4-6.5); NEUT% 71.6 % (42.2-75.2); PLT 238 X1000 (130-400); RBC 3.51 XMIL (4.7-6.1); RDW 18.3 % (11.5-14.5); WBC 8.27 X1000 (4.8-10.8)
[2019-03-23 11:58] LABS: PROTIME 13.3 Seconds (11.0-16.0)
--- NOTE | 2019-03-23 11:58 | Diag Imaging Result Doc PS360 ---
EXAM: CHEST-2 VIEWS HISTORY: cp TECHNIQUE: Chest two views COMPARISON: 03/10/2019 FINDINGS: Area of increased density in the left apex. This could be a mass or pneumonia. The heart is enlarged and there is pulmonary edema. Increased AP diameter to the chest. IMPRESSION: Left upper lobe mass or pneumonia. Cardiomegaly and pulmonary edema as well. Electronically signed by Jordan Madera 03/23/2019 11:56 AM
[2019-03-23 11:59] LABS: INR 0.94; PTT 43.5 Seconds (22.3-41.8)
--- NOTE | 2019-03-23 12:32 | EKG Report ---
Test Performed on : 03/23/2019 11:03:53 AM Test Reason : cp Blood Pressure : / mmHG Vent. Rate : 064 BPM Atrial Rate : 064 BPM P-R Int : 138 ms QRS Dur : 118 ms QT Int : 460 ms P-R-T Axes : 003 028 036 degrees QTc Int : 474 ms Normal sinus rhythm. Incomplete right bundle branch block Cannot rule out Anterior infarct , age undetermined Abnormal ECG When compared with ECG of 11-MAR-2019 07:40, No significant change was found Unconfirmed Result
[2019-03-23 12:39] LABS: CALCIUM 8.6 mg/dL (8.8-10.2); CREATININE 3.3 mg/dL (0.7-1.2); POTASSIUM 4.2 mmol/L (3.5-5.1); TOTAL BILIRUBIN 0.16 mg/dL (0.20-1.00); TOTAL PROTEIN 7.7 g/dL (6.3-8.3)
[2019-03-23 12:40] LABS: ALB/GLOB RATIO 0.9; ALBUMIN 3.7 g/dL (3.5-5.0)
--- NOTE | 2019-03-23 13:29 | Diag Imaging Result Doc PS360 ---
EXAM: CT THORAX W/O CONTRAST 03/23/2019 HISTORY: cp TECHNIQUE: This exam was performed using automated exposure control, adjustment of mA or kV according to patient size, and/or use of iterative reconstruction technique. COMMENT: The current examination is compared with the previous study of 01/24/2019. There is some emphysematous change. There are multiple nodules in the right middle and lower lobes which have not changed in appearance since the previous study. There is opacity posteriorly in the right upper lobe which has increased in size since the previous study measuring over 5 cm in anterior posterior dimension compared to 4.6 cm previously. There is a pleural-based nodule on image 73 in the left lower lobe which was also present on the previous study on image 59. There is platelike atelectasis in both posterior costophrenic sulci. There is a prevertebral node measuring over 17 mm which has not changed significantly in appearance since the previous study. There are calcified granulomatous nodes in the right hilum. There is extensive coronary calcification. There are degenerative changes present in the right glenohumeral joint. Subchondral cyst formation is present. There is no evidence of acute bony abnormality. Compared to the previous study there has been no significant change. IMPRESSION: Persistent opacification and volume loss in the posterior left upper lobe. This may have worsened slightly since the previous examination but otherwise are has been no significant change in the appearance of the chest. Electronically signed by Jason Bernstein 03/23/2019 1:27 PM
--- NOTE | 2019-03-23 13:56 | PROVIDER DOCUMENTATION ---
This chart was entered by Janie Forrest Scribe, acting as scribe for Clotilde Andrews MD. HPI-Chest Pain - General Chief Complaint: Chest Pain Stated Complaint: CHEST PAIN Time Seen by Provider: 03/23/19 11:05 Source: patient, family Allergies/Adverse Reactions: Patient Allergies Allergy/AdvReac Type Severity Reaction Status Date / Time doxazosin mesylate * Allergy Severe SHORTNESS Verified 03/10/19 16:20 [From Cardura] OF BREATH ketorolac tromethamine * Allergy Severe SHORTNESS Verified 03/10/19 16:20 [From Toradol] OF BREATH almond Allergy Intermediate RASH Verified 03/10/19 16:20 ibuprofen [From Motrin] AdvReac Intermediate FLUSHING Verified 03/10/19 16:20 levofloxacin AdvReac Mild NAUSEA Verified 03/10/19 16:20 Home Medications: Home Medication List Medication Instructions Recorded Confirmed Last Taken Type Aspirin [Ecotrin] 81 mg PO QAM 12/11/14 03/10/19 02/18/19 History Potassium Chloride 10 meq PO QAM 12/11/14 03/10/19 02/18/19 History ATORVAstatin [Lipitor] 40 mg PO QHS #90 tab 12/19/17 03/10/19 02/18/19 Rx Isosorbide Dinitrate [Isordil] 60 mg PO TID 04/30/18 03/10/19 02/18/19 History Metoprolol Succinate E.r. [Toprol 50 mg PO BID 04/30/18 03/10/19 02/18/19 History Xl] Folic Acid 1 mg PO DAILY #90 tab 08/26/18 03/10/19 02/18/19 Rx Amlodipine [Norvasc] 10 mg PO DAILY 30 Days #30 tab 09/19/18 03/10/19 02/18/19 Rx Hydralazine [Apresoline] 100 mg PO TID #120 tab 09/19/18 03/10/19 02/18/19 Rx Tamsulosin [Flomax] 0.4 mg PO DAILY capsule 10/16/18 03/10/19 02/18/19 Rx Insulin Glargine [Lantus] 120 unit SUBQ BID 11/03/18 03/10/19 02/18/19 History Omeprazole 40 mg PO DAILY 11/24/18 03/01/19 02/18/19 History Lactulose 30 ml PO BID udc 01/31/19 03/10/19 02/18/19 Rx Allopurinol 100 mg PO QAM 02/09/19 03/10/19 02/18/19 History Clonazepam 1 mg PO DAILY 02/09/19 03/01/19 02/18/19 History Clonidine HCl 0.2 mg PO TID 02/09/19 03/10/19 02/18/19 History Insulin Lispro [Humalog Kwikpen See Protocol SUBQ DIRECTED 02/09/19 03/10/19 Unknown History U-100] Tiotropium [place] Inhaler 1 cap INH QAM 02/09/19 03/10/19 02/18/19 History [Spiriva] Albuterol 2.5MG/Ipratrop 0.5MG 3 ml INH Q6H PRN PRN 02/19/19 03/10/19 02/18/19 History [Duoneb (A & A)] Clonazepam 0.5 mg PO TID 02/19/19 03/01/19 02/18/19 History Fluticasone/[place] 250/50 INH 1 puff INH RTBID 02/19/19 03/10/19 02/18/19 History [Advair 250/50 Diskus] Nitroglycerin 0.4 mg SUBLINGUAL Q5MX3 02/19/19 03/01/19 Unknown History [place]-3 Fatty Acids/Fish Oil [Fish 1 ea PO DAILY 02/19/19 03/10/19 Unknown History Oil 1,000 mg Softgel] Polyethylene Glycol 3350 [Miralax] 34 gm PO DAILY PRN PRN 03/03/19 03/10/19 Unknown History Furosemide [Lasix] 80 mg PO BID #60 tab 03/05/19 03/10/19 Unknown Rx Metolazone 5 mg PO DAILY #30 tab 03/05/19 Unknown Rx Hydrocodone/APAP 7.5 mg/325 mg 1 ea PO Q12H PRN PRN #20 tab 03/11/19 Unknown Rx [[place]-7.5] - History of Present Illness-CP Nature of Presenting Problem: 63 yom presents to the ed with c/o chest pain that has been constant since onset this am. pt has left arm and jaw pain and sts had similar episode 2 weeks prior but it resolved on its on. Location: reports: other (left anterior chest pain) Chest Pain Radiation: reports: jaw, arms Quality of Pain: reports: pressure Severity in ED: moderate Onset/Duration: this morning Timing: still present, constant Context/Activities at Onset: reports: light activity Modifying Factors: improves with: nothing Associated Symptoms: denies: abdominal pain, back pain, fatigue, nausea, shortness of breath, vomiting Nitro Today/Relief: 0.4 mg x 1, provided by ED, mild relief Aspirin Treatment Today: 325 mg x 1, provided by ED Prior Chest Pain/Cardiac Workup: reports: echocardiography, heart attack, stress test Similar Symptoms Previously?: Yes (2 weeks prior) Recently Seen Here or By Another Healthcare Provider: No (did not seek tx) Review of Systems - Adult - REVIEW OF SYSTEMS - ADULT Constitutional: denies: chills, fever Eyes: reports: no symptoms reported Ears, Nose, Mouth & Throat: reports: no symptoms reported Cardiovascular: reports: see HPI, edema. denies: palpitations, syncope Respiratory: denies: shortness of breath, wheezing Gastrointestinal: denies: abdominal pain, diarrhea, nausea, vomiting Genitourinary: reports: no symptoms reported Musculoskeletal: reports: see HPI, other (left [place] jaw pain). denies: back pain, neck pain Integumentary: reports: no symptoms reported Neurological: denies: dizziness/vertigo, headache/migraines, slurred speech, syncope, tremors Psychiatric: reports: no symptoms reported Endocrine: reports: no symptoms reported Hematologic/Lymphatic: reports: no symptoms reported Allergic/Immunologic: reports: no symptoms reported All Other Systems: Reviewed and Negative Past History - Adult - PAST MEDICAL HISTORY-ADULT Review of Records: reports: Nursing Assessment Review, Medications Reviewed Major Childhood Illnesses: reports: history unknown Cardiovascular: reports: CHF (ECHO 08/2015 EF 55% ), HTN, hyperlipidemia, ID Respiratory: reports: asthma, COPD (severe on 4liters O2 qHS), cancer Gastrointestinal: reports: GERD Genitourinary: reports: kidney disease (CRI) Musculoskeletal: reports: arthritis, chronic pain Neurological: reports: denies history Psychiatric: reports: anxiety Endocrine/Immune: reports: Diabetes Other Conditions: reports: denies history - PRIOR SURGERIES/PROCEDURES Surgical/Procedure History: reports: cardiac stent (x2 last one 7 years ago), orthopedic (extremity) (thumb) - IMMUNIZATION STATUS Childhood Immunizations: See Nurse Assessment Flu Vaccine: See Nurse Assessment - FAMILY HISTORY Family History: reviewed, not pertinent - SOCIAL HISTORY Smoking: quit greater than 1 year Substance Use: denies Living Situation: family Physical Exam-General - PHYSICAL EXAM-ADULT Initial Vital Signs Reviewed: Yes - CONSTITUTIONAL General Appearance: appears well, alert, mild distress - EYES Eyes: PERRL/EOMI, pink conjunctivae - HEAD, EARS, NOSE, MOUTH & THROAT HENMT: moist mucous membranes, normal ENT inspection - NECK Neck: full range of motion, supple, normal inspection, other (jaw pain) - RESPIRATORY Respiratory: chest non-tender, lungs clear, normal breath sounds, no pleuratic chest pain, no respiratory distress, no accessory muscle use - CARDIOVASCULAR Cardiovascular: normal peripheral pulses, regular rate, rhythm - GASTROINTESTINAL (ABDOMEN) Abdominal Exam: normal bowel sounds, non tender, soft - LYMPHATIC Lymphatic: no adenopathy - MUSCULOSKELETAL Back Exam: normal inspection, no CVA tenderness, no vertebral tenderness Extremity: normal range of motion, non-tender, normal gait, normal inspection, no pedal edema, no calf tenderness, normal capillary refill, pelvis stable - SKIN Integumentary: normal color, normal turgor, warm/dry - NEUROLOGIC Neurologic: grossly normal, no motor/sensory deficits - PSYCHIATRIC Psych/Mental Status: normal mood/affect, normal thought content, normal thought process, oriented x 3 Progress - PLAN OF CARE/RESULTS Progress/Plan/Lab Results: Vital Signs - 8 hr 03/23/19 11:08 03/23/19 11:11 03/23/19 11:15 Temperature 97.6 F Pulse Rate 63 63 Respiratory Rate 21 20 Blood Pressure 157/72 157/72 O2 Sat by Pulse Oximetry 97 98 98 03/23/19 11:30 03/23/19 12:00 03/23/19 12:30 Temperature Pulse Rate 60 61 58 L Respiratory Rate 19 13 14 Blood Pressure O2 Sat by Pulse Oximetry 95 97 97 Laboratory Results - last 24 hr 03/23/19 03/23/19 03/23/19 11:13 11:13 11:13 WBC 8.27 RBC 3.51 L Hgb 9.3 L Hct 30.1 L MCV 85.8 MCH 26.5 L MCHC 30.9 L RDW Std Deviation 18.3 H Plt Count 238 MPV 10.4 Immature Gran % (Auto) 0.2 Neut % (Auto) 71.6 Lymph % (Auto) 15.0 L [place] % (Auto) 11.4 H Eos % (Auto) 1.2 Baso % (Auto) 0.6 Immature Gran # (Auto) 0.02 Neut # (Auto) 5.92 Lymph # (Auto) 1.24 [place] # (Auto) 0.94 H Eos # (Auto) 0.10 Baso # (Auto) 0.05 PT INR PTT (Actin FS) Sodium 135 L Potassium 4.2 Chloride 95 L Carbon Dioxide 26 Anion Gap 14 BUN 60 H Creatinine 3.3 H Estimated GFR/1.73 m2 19 BUN/Creatinine Ratio 18 Glucose 244 H Calculated Osmolality 295 Calcium 8.6 L Total Bilirubin 0.16 L AST 9 L ALT 13 Alkaline Phosphatase 132 H Creatine Kinase 202 Troponin T Obb-R-Aicdtunpstg Pept 1111 H Total Protein 7.7 Albumin 3.7 Globulin 4.0 Albumin/Globulin Ratio 0.9 03/23/19 03/23/19 03/23/19 11:13 11:13 13:19 WBC RBC Hgb Hct MCV MCH MCHC RDW Std Deviation Plt Count MPV Immature Gran % (Auto) Neut % (Auto) Lymph % (Auto) [place] % (Auto) Eos % (Auto) Baso % (Auto) Immature Gran # (Auto) Neut # (Auto) Lymph # (Auto) [place] # (Auto) Eos # (Auto) Baso # (Auto) PT 13.3 INR 0.94 PTT (Actin FS) 43.5 H Sodium Potassium Chloride Carbon Dioxide Anion Gap BUN Creatinine Estimated GFR/1.73 m2 BUN/Creatinine Ratio Glucose Calculated Osmolality Calcium Total Bilirubin AST ALT Alkaline Phosphatase Creatine Kinase Troponin T 0.072 0.071 Bjq-O-Iyfahjlmvco Pept Total Protein Albumin Globulin Albumin/Globulin Ratio Orders Category Date Time Status Cardiac Monitoring DIRECTED Care 03/23/19 11:14 Active Oxygen Therapy- ED Nursing DIRECTED Care 03/23/19 11:14 Active Saline Loc NOW Care 03/23/19 11:14 Active CHEST-2 VIEWS [RAD] Stat Exams 03/23/19 11:[address] THORAX W/O CONTRAST [CT] Stat Exams 03/23/19 12:15 Completed CBC WITH ELECTRONIC DIFF [HEME] Stat Lab 03/23/19 11:13 Completed CK PROFILE [SP CHEM] Stat Lab 03/23/19 11:13 Completed CK PROFILE [SP CHEM] Stat Lab 03/23/19 13:19 Received COMPREHENSIVE METABOLIC PANEL [CHEM] Stat Lab 03/23/19 11:13 Completed PRO B-NATRIURETIC PEPTIDE Stat Lab 03/23/19 11:13 Completed PROTIME WITH INR [COAG] Stat Lab 03/23/19 11:13 Completed PTT [COAG] Stat Lab 03/23/19 11:13 Completed TROPONIN T Stat Lab 03/23/19 11:13 Completed TROPONIN T Stat Lab 03/23/19 13:19 Completed Aspirin Med 03/23/19 11:12 Discontinued 325 mg PO NOW ONE Nitroglycerin Sl [Nitroglycerin] Med 03/23/19 11:12 Active 0.4 mg SL Q5M PRN PRN CP/SOB/Palp >45 yrs of Age Stat Oth 03/23/19 11:12 Ordered EKG [EKG] Stat Ther 03/23/19 11:14 Draft EKG [EKG] Stat Ther 03/23/19 12:55 Ordered Result Diagrams: 03/23/19 11:13 03/23/19 11:13 - EKG 1 Time of EKG reading by physician:: 11:03 EKG Read and Signed by:: Clotilde Andrews EKG Interpretation (*Must complete 3 of following elements*): Abnormal Rate: 64 Rhythm: nsr Lyons: normal QRS: RBB (incomplete) CT Interval: normal ST Wave: normal Comments: cannot rule out anterior infarct, age undetermined - XRAY 1 XRAY: Bilateral XRAY Study: Chest Impression: See EMR Report (EXAM: CHEST-2 VIEWS HISTORY: cp TECHNIQUE: Chest two views COMPARISON: 03/10/2019 FINDINGS: Area of increased density in the left apex. This could be a mass or pneumonia. The heart is enlarged and there is pulmonary edema. Increased AP diameter to the chest. IMPRESSION: L eft upper lobe mass or pneumonia. Cardiomegaly and pulmonary edema as well. Electronically signed by Jordan Madera 03/23/2019 11:56 AM 03/23/19 1156 Interpreting Physician: Jordan Madera MD Dictated Date/Time: 03/23/19 1153 cc: Clotilde Andrews MD; Terrie Judge) - CONSULTS/PCP/HOSPITALIST Notification #1 *Consult/PCP/Hospitalist*: Charles Roberto Time Discussed: 13:55 Consult Disposition: Admit Departure - Departure Date of Disposition Decision: 03/23/19 Time of Disposition Decision: 13:56 DIAGNOSIS: ACS (acute coronary syndrome), Lung nodule Disposition: ADMITTED INPATIENT 09 Certified Medical Emergency: Emergent Condition: Stable Referrals and Follow-Ups: Terrie Judge [Primary Care Provider] - - Critical Care Note This patient required my direct & personal management of CC.: No Attestation - Physician/ KOJO Attestation Patient care was provided by Advanced Practice Provider:: No The physician spent face to face time with patient:: Yes Advanced Practice Provider documentation review:: Supervising physician onsite and consulted in the evaluation and care of this patient. The physician did have a face to face encounter with the patient. This chart was documented by the indicated scribe, (Janie Forrest Scribe) and accurately reflects the services I performed and decisions made by me, Clotilde Andrews MD, as attested by the provider's signature.
[2019-03-23] MEDS ORDERED: TYLENOL PO PRN (14:13)
[2019-03-23] MEDS ORDERED: LOVENOX SUBQ SCH (14:15)
[2019-03-23] MEDS ORDERED: MIRALAX PO PRN (14:17)
[2019-03-23 14:21] LABS: CK INDEX 1.9 (0.0-2.5); CK-MB 3.87 ng/mL (0.0-5.0)
[2019-03-23 14:24] LABS: URINE SOURCE CLEAN CATCH
[2019-03-23 14:58] LABS: BILIRUBIN URINE NEGATIVE (NEGATIVE); BLOOD URINE NEGATIVE (NEGATIVE); COLOR STRAW; GLUCOSE URINE 150 mg/dL (NEGATIVE); KETONE URINE NEGATIVE (NEGATIVE); LEUKOCYTES URINE NEGATIVE (NEGATIVE); NITRITE URINE NEGATIVE (NEGATIVE); PH URINE 6.5; PROTEIN URINE 70 mg/dL (NEGATIVE); TURBIDITY URINE CLEAR (CLEAR); UR EPITHELIAL CELLS <10 /HPF (<10); URINE BACTERIA NEGATIVE /HPF; URINE RBC <10 /HPF (<10); URINE WBC <10 /HPF (<10); UROBILINOGEN URINE NORMAL (NORMAL)
[2019-03-23] MEDS: CATAPRES PO SCH (16:40)
[2019-03-23] MEDS: APRESOLINE PO SCH (18:18)
[2019-03-23] MEDS: ISORDIL PO SCH (18:18)
[2019-03-23] MEDS ORDERED: DUONEB (A & A) ONE (19:13)
[2019-03-23] MEDS: ADVAIR 250/50 DISKUS INH SCH (19:29)
[2019-03-23 20:50] LABS: CK INDEX 1.9 (0.0-2.5); CK-MB 4.32 ng/mL (0.0-5.0)
--- NOTE | 2019-03-23 20:56 | HISTORY AND PHYSICAL ---
CHIEF COMPLAINT: Chest pain. HISTORY OF PRESENT ILLNESS: This is a 63-year-old gentleman with a history of non-small cell lung cancer, hypertension, congestive heart failure who presents to the emergency room complaining of chest pain that started this morning. He describes this as a pressure-type pain in his left anterior chest. It goes up into his left jaw and bilateral arms. He has had an episode like this once in the past, although he did not seek evaluation at this time bilateral arms. He denied any accompanying symptoms. He did have a recent episode similar to this for which he was hospitalized March 10 to March 11, and acute coronary syndrome was ruled out. In the emergency room, troponins were negative x2, and EKG revealed sinus rhythm with an incomplete right bundle branch block. Stable EKG. PAST MEDICAL HISTORY: Non-small cell lung cancer, diabetes mellitus, diastolic dysfunction, hypertension, peripheral artery disease, hyperlipidemia, chronic kidney disease stage 4, COPD on home O2 for chronic venous stasis. PAST SURGICAL HISTORY: Coronary stents, left hand surgery, bronchoscopy. SOCIAL HISTORY: He is a former smoker. Denies any alcohol or illicit drug use. ALLERGIES: Levaquin, Toradol, Cardura, and ibuprofen. MEDICATIONS: Home medications list will be obtained by the nursing staff, and once reviewed, we will restart as appropriate. REVIEW OF SYSTEMS: Discussed with patient with pertinent positives stated in HPI. He denied any syncope, dizziness, any palpitations, increasing shortness of breath, cough, fever, chills, any night sweats, any nausea, vomiting, diarrhea, constipation, black or bloody vomitus or stools, any hematuria, dysuria, frequency, urgency. PHYSICAL EXAMINATION: GENERAL: This is a 63-year-old gentleman who is lying on the stretcher in the emergency room in no distress. VITAL SIGNS: Blood pressure is 160/80 with a heart rate of 71, respirations are 18, temperature is 97.8 degrees, O2 sats 96% to 98% on 2 L nasal cannula. EYES: Pupils equal, round, reactive to light. EOMs are intact. Sclerae anicteric. HENT: Head is normocephalic, atraumatic. Mucous membranes are moist. NECK: Supple. Trachea midline. There is no JVD. CARDIOVASCULAR: Regular rate and rhythm. S1 and S2 are appreciated. He has no murmurs. He has no lower extremity edema. The calves nontender bilaterally. PULMONARY: Breath sounds are clear. No increased work of breathing noted. Chest rise and fall symmetric with respiration. GASTROINTESTINAL: Soft, nontender, nondistended with bowel sounds in all 4 quadrants. GENITOURINARY: He has no CVA or suprapubic tenderness. NEUROLOGIC: He is alert and oriented x3. SKIN: Warm and dry. LABORATORY DATA: WBC is 8.2 with hemoglobin 9.3, hematocrit 30.1 and platelets 238,000. Sodium 135, potassium 4.2, BUN 60, creatinine 3.3 with a glucose of 244. Troponins were negative on multiple occasions. Urinalysis is essentially negative. IMAGIN. Chest x-ray revealed left upper lobe mass or pneumonia, cardiomegaly and pulmonary edema as well. 2. Chest CT reveals persistent opacification and volume loss in the posterior left upper lobe, which may have worsened slightly since the previous exam. Otherwise, there is no significant change in the appearance of the chest. ASSESSMENT AND PLAN: 1. Chest pain. We will continue to rule out, trend troponins, EKG. We will continue telemetry, and we will follow. 2. History of end-stage non-small cell lung cancer followed by Dr. Najera. We will notify him of admission. 3. Chronic obstructive pulmonary disease on home O2. We will continue to supplement oxygen to keeping saturation greater than 90. He will have DuoNebs q.6 hours p.r.n. 4. Diabetes mellitus type 2. Add pattern blood glucose with sliding scale insulin. 5. Hypertension. We will identify his home medications and continue as appropriate. 6. Chronic congestive heart failure with diastolic dysfunction. He is noted to have an ejection fraction of 60% from echocardiogram, November 2018. 7. Chronic lower extremity edema, aware. 8. Chronic kidney disease stage 4. This is stable. 9. For deep venous thrombosis prophylaxis, we will use Lovenox. Further treatment is pending hospital course. Dictated by ALPESH Turner for Bruce Reno MD cc: ALPESH Turner
[2019-03-23] MEDS ORDERED: LIPITOR PO SCH (21:00)
[2019-03-23] MEDS: TOPROL XL PO SCH (22:12)
[2019-03-23] MEDS: HUMALOG SUBQ SCH (22:13)
[2019-03-24] MEDS: DUONEB (A & A) INH PRN ×2 (02:56→09:36)
[2019-03-24] MEDS: HUMALOG SUBQ SCH ×2 (06:07→11:53)
[2019-03-24] MEDS ORDERED: PRILOSEC PO SCH (07:00)
[2019-03-24] MEDS ORDERED: SPIRIVA INH SCH (07:30)
[2019-03-24] MEDS ORDERED: NORCO-7.5 PO PRN (07:34)
[2019-03-24 07:37] LABS: HEMATOCRIT 29.5 % (42.0-52.0); MCH 26.9 PG (27-31); MCHC 30.5 g/dL (33-37); MCV 88.3 FL (81-99); RBC 3.34 XMIL (4.7-6.1); RDW 18.4 % (11.5-14.5); WBC 7.81 X1000 (4.8-10.8)
[2019-03-24 08:07] LABS: CALCIUM 8.5 mg/dL (8.8-10.2); CREATININE 3.3 mg/dL (0.7-1.2); POTASSIUM 4.7 mmol/L (3.5-5.1)
[2019-03-24] MEDS: CATAPRES PO SCH (08:39)
[2019-03-24] MEDS: ISORDIL PO SCH (08:39)
[2019-03-24] MEDS: APRESOLINE PO SCH (08:39)
[2019-03-24] MEDS: TOPROL XL PO SCH (08:39)
[2019-03-24] MEDS ORDERED: ZAROXOLYN PO SCH (09:00)
[2019-03-24] MEDS ORDERED: FLOMAX PO SCH (09:00)
[2019-03-24] MEDS ORDERED: KLOR-CON PO SCH (09:00)
[2019-03-24] MEDS ORDERED: ZYLOPRIM PO SCH (09:00)
[2019-03-24] MEDS ORDERED: FISH OIL CONCENTRATE PO SCH (09:00)
[2019-03-24] MEDS ORDERED: NORVASC PO SCH (09:00)
[2019-03-24] MEDS ORDERED: FOLIC ACID PO SCH (09:00)
[2019-03-24] MEDS ORDERED: ASPIRIN EC PO SCH (09:00)
[2019-03-24] MEDS: ADVAIR 250/50 DISKUS INH SCH (09:36)
[2019-03-24 11:35] VITALS: BP 132/66
--- NOTE | 2019-03-25 02:07 | DISCHARGE SUMMARY ---
ADMISSION DATE: 03/23/2019 DISCHARGE DATE: 03/24/2019 DIAGNOSES: 1. Chest pain, resolved. He is ruled out for myocardial infarction. 2. History of end-stage non-small cell lung cancer, followed by Dr. Najera. 3. Chronic obstructive pulmonary disease, on chronic home oxygen. 4. Diabetes mellitus type 2. 5. Hypertension. 6. Chronic congestive heart failure with diastolic dysfunction with an ejection fraction of 60% in November 2018. 7. Chronic lower extremity edema. 8. Chronic kidney disease stage 4, stable. DIAGNOSTICS: 1. 03/23/2019 chest x-ray: Left upper lobe mass or pneumonia, cardiomegaly, pulmonary edema as well. 2. CT of the chest revealed persistent opacification and volume loss in the posterior left upper lobe. This may have worsened since the previous exam, but otherwise there have been no significant change in appearance of the chest. HOSPITAL COURSE: Mr. La presented to the emergency room complaining of chest pain in his left anterior chest that did radiate at times to his left jaw and bilateral arms. This has been chronic with his last episode being March 10 to March 11 when he was hospitalized. At that time, acute coronary syndrome was ruled out. Thankfully, it has once again been ruled out with this admission. Chest x-ray was read as a left upper lobe mass or pneumonia. Follow-up CT revealed persistent opacification with volume loss which may have worsened since the previous exam. O2 saturation stayed 97 to 100 percent on 3 L nasal cannula. He had no further complaints of any chest pain and thankfully he is ready to be discharged. DISCHARGE VITAL SIGNS: Blood pressure is 132/66, heart rate of 64, respirations 18, temperature 98.3 degrees oral with O2 saturations that are 96-98% on 3 L nasal cannula. DISCHARGE PHYSICAL EXAMINATION: Cardiovascular: Regular rate and rhythm. S1, S2 appreciated. He has no murmurs. Calves are nontender bilateral. Pulmonary: Breath sounds have some end- expiratory wheezes throughout. He does have rhonchi that mostly clear to cough. Chest rises and falls symmetric with respiration. Gastrointestinal: Abdomen is soft, nontender, nondistended with bowel sounds in all 4 quadrants. Neurologic: He is alert and oriented x3. DISCHARGE MEDICATIONS: 1. Advair 250/50 one puff p.o. b.i.d. 2. Allopurinol 100 mg p.o. q.a.m. 3. Clonazepam 0.5 p.o. t.i.d. 4. Clonazepam 1 mg p.o. at bedtime. 5. Clonidine 0.2 mg p.o. t.i.d. 6. Norvasc 10 mg p.o. daily. 7. Folic acid 1 mg p.o. daily. 8. Lasix 80 mg p.o. b.i.d. 9. Hydralazine 100 mg p.o. b.i.d. 10. [place] 7.5 q.12 hours as directed. 11. Lantus insulin 120 units subcutaneous b.i.d. 12. Humalog KwikPen with sliding scale as per his home protocol. 13. Isordil 60 mg p.o. t.i.d. 14. Lactulose 30 mL p.o. b.i.d. 15. Metolazone 5 mg p.o. daily. 16. Toprol-XL 50 mg p.o. b.i.d. 17. Fish oil omega-3 fatty acids 1 p.o. daily. 18. Omeprazole 40 mg p.o. daily. 19. MiraLAX 34 g p.o. p.r.n. 20. Potassium chloride 10 mEq p.o. q.a.m. 21. Tamsulosin 0.4 mg p.o. daily. 22. Spiriva 1 cap inhaled q.a.m. FOLLOW-UP: He is to follow up with his primary care provider, Dr. Terrie Judge, in 1 week. He needs to call to schedule an appointment. He has been instructed to call to be seen sooner or return to the ER for any syncope, dizziness, chest pain, recurring palpitations, any increasing shortness of breath, temperature greater than 101, any nausea, vomiting, diarrhea, constipation, black or bloody vomitus or stools, any hematuria, dysuria, frequency, urgency. He is being discharged home in stable condition with his caregiver, Esthela La, in stable condition. TIME SPENT: This is a greater than 30 minute discharge. Dictated by ALPESH Turner for Bruce Reno MD cc: ALPESH Turner MD
== END 2019-03-24 12:57 | disposition home or self-care (01) | DRG 313 ==
LOC: SUPCPDRO → ED 10:58 → EDIPHOLD 16:22 → 3N 17:01
PROVIDERS: ATTEND Internal Medicine
CPT/HCPCS: 71020; 71046; 71250; 80048; 80053; 81001; 82550; 82553; 82948; 83880; 84484; 85025; 85027; 85610; 85730; 93005; 94640; 94761; 96372; 99285; A9270; J1650; J1815; XXXXX

== ENCOUNTER 2019-04-06 18:56 | Observation (INO) ==
[2019-04-06] MEDS ORDERED: ASPIRIN PO ONE (19:33)
[2019-04-06 19:51] LABS: BASO# 0.05 X1000 (0.0-0.2); BASO% 0.5 % (0.0-0.8); EOS# 0.09 X1000 (0.0-0.7); HEMATOCRIT 32.2 % (42.0-52.0); HEMOGLOBIN 10.4 g/dL (14.0-18.0); IMM GRAN# 0.02 X1000 (0.0-0.04); IMM GRAN% 0.2 % (0.0-0.5); LYMPH# 1.44 X1000 (1.2-3.4); LYMPH% 15.8 % (20.5-51.1); MCH 26.6 PG (27-31); MCHC 32.3 g/dL (33-37); MCV 82.4 FL (81-99); MONO# 0.73 X1000 (0.11-0.59); MPV 10.2 FL (7.4-10.4); NEUT# 6.77 X1000 (1.4-6.5); NEUT% 74.5 % (42.2-75.2); PLT 248 X1000 (130-400); RBC 3.91 XMIL (4.7-6.1); RDW 16.7 % (11.5-14.5)
[2019-04-06 19:59] LABS: INR 0.97; PROTIME 13.7 Seconds (11.0-16.0)
[2019-04-06 20:01] LABS: PTT 44.7 Seconds (22.3-41.8)
[2019-04-06 20:11] LABS: ALB/GLOB RATIO 0.8; ALBUMIN 3.6 g/dL (3.5-5.0); CALCIUM 8.5 mg/dL (8.8-10.2); CREATININE 3.5 mg/dL (0.7-1.2); POTASSIUM 3.6 mmol/L (3.5-5.1); TOTAL BILIRUBIN 0.18 mg/dL (0.20-1.00)
--- NOTE | 2019-04-06 20:22 | Diag Imaging Result Doc PS360 ---
CHEST-2 VIEWS - 04/06/2019 INDICATION: CHEST PAIN COMPARISON: 03/23/2019 FINDINGS: Stable cardiomegaly and pulmonary vascular congestion. Lungs are hyperexpanded compatible with COPD. No infiltrates or edema. No pneumothorax or pleural effusion. IMPRESSION: Cardiomegaly and pulmonary vascular congestion. COPD. Electronically signed by Prakash Butts 04/06/2019 8:20 PM
[2019-04-06] MEDS ORDERED: MORPHINE IV ONE (20:56)
--- NOTE | 2019-04-06 23:29 | PROVIDER DOCUMENTATION ---
This chart was entered by Shirley Serna Scribe, acting as scribe for Clotilde Andrews MD. HPI-Chest Pain - General Chief Complaint: Chest Pain Stated Complaint: dizzy Time Seen by Provider: 04/06/19 20:44 Source: patient Allergies/Adverse Reactions: Patient Allergies Allergy/AdvReac Type Severity Reaction Status Date / Time doxazosin mesylate * Allergy Severe SHORTNESS Verified 04/06/19 19:16 [From Cardura] OF BREATH ketorolac tromethamine * Allergy Severe SHORTNESS Verified 04/06/19 19:16 [From Toradol] OF BREATH almond Allergy Intermediate RASH Verified 04/06/19 19:16 ibuprofen [From Motrin] AdvReac Intermediate FLUSHING Verified 04/06/19 19:16 levofloxacin AdvReac Mild NAUSEA Verified 04/06/19 19:16 Home Medications: Home Medication List Medication Instructions Recorded Confirmed Last Taken Type Aspirin [Ecotrin] 81 mg PO QAM 12/11/14 03/23/19 02/18/19 History Potassium Chloride 10 meq PO QAM 12/11/14 03/23/19 02/18/19 History ATORVAstatin [Lipitor] 40 mg PO QHS #90 tab 12/19/17 03/23/19 02/18/19 Rx Isosorbide Dinitrate [Isordil] 60 mg PO TID 04/30/18 03/23/19 02/18/19 History Metoprolol Succinate E.r. [Toprol 50 mg PO BID 04/30/18 03/23/19 02/18/19 History Xl] Folic Acid 1 mg PO DAILY #90 tab 08/26/18 03/23/19 02/18/19 Rx Amlodipine [Norvasc] 10 mg PO DAILY 30 Days #30 tab 09/19/18 03/23/19 02/18/19 Rx Hydralazine [Apresoline] 100 mg PO TID #120 tab 09/19/18 03/23/19 02/18/19 Rx Tamsulosin [Flomax] 0.4 mg PO DAILY capsule 10/16/18 03/23/19 02/18/19 Rx Insulin Glargine [Lantus] 120 unit SUBQ BID 11/03/18 03/23/19 02/18/19 History Omeprazole 40 mg PO DAILY 11/24/18 03/23/19 02/18/19 History Lactulose 30 ml PO BID udc 01/31/19 03/23/19 02/18/19 Rx Allopurinol 100 mg PO QAM 02/09/19 03/23/19 02/18/19 History Clonazepam 1 mg PO DAILY 02/09/19 03/23/19 02/18/19 History Clonidine HCl 0.2 mg PO TID 02/09/19 03/23/19 02/18/19 History Insulin Lispro [Humalog Kwikpen See Protocol SUBQ DIRECTED 02/09/19 03/23/19 Unknown History [id number]] Tiotropium [place] Inhaler 1 cap INH QAM 02/09/19 03/23/19 02/18/19 History [Spiriva] Albuterol 2.5MG/Ipratrop 0.5MG 3 ml INH Q6H PRN PRN 02/19/19 03/23/19 02/18/19 History [Duoneb (A & A)] Clonazepam 0.5 mg PO TID 02/19/19 03/23/19 02/18/19 History Fluticasone/Salmet 250/50 INH 1 puff INH RTBID 02/19/19 03/23/19 02/18/19 History [Advair 250/50 Diskus] Nitroglycerin 0.4 mg SUBLINGUAL Q5MX3 02/19/19 03/23/19 Unknown History [place]-3 Fatty Acids/Fish Oil [Fish 1 ea PO DAILY 02/19/19 03/23/19 Unknown History Oil 1,000 mg Softgel] Polyethylene Glycol 3350 [Miralax] 34 gm PO DAILY PRN PRN 03/03/19 03/23/19 Unknown History Furosemide [Lasix] 80 mg PO BID #60 tab 03/05/19 03/23/19 Unknown Rx Metolazone 5 mg PO DAILY #30 tab 03/05/19 03/23/19 Unknown Rx Hydrocodone/APAP 7.5 mg/325 mg 1 ea PO Q12H PRN PRN #20 tab 03/11/19 03/23/19 Unknown Rx [[place]-7.5] - History of Present Illness-CP Nature of Presenting Problem: 63 yom c/o pt arrived via ems due to shooting cp 8/10, consistent, 30 min uniform [employer], nausea, sob, dizzy, and warm to touch. pt is on home o2- 4L. pt has lung cancer and was supposed to go to radiation today but was canceled to get dose correct for pt. pt denies diaphoresis, v/d. pt was seen in er 5-[address] andrews w/similar symptoms. Location: reports: substernal Chest Pain Radiation: reports: no radiation Quality of Pain: reports: other (shooting) Severity in ED: mild Onset/Duration: just prior to arrival Review of Systems - Adult - REVIEW OF SYSTEMS - ADULT Constitutional: reports: no symptoms reported. denies: chills, fever, fatique Eyes: reports: no symptoms reported Ears, Nose, Mouth & Throat: reports: no symptoms reported Cardiovascular: reports: see HPI, chest pain. denies: heart murmur, irregular heart rate, orthopnea Respiratory: reports: see HPI, shortness of breath. denies: cough, pleurisy, wheezing Gastrointestinal: reports: see HPI, nausea. denies: abdominal pain, diarrhea, vomiting Genitourinary: reports: no symptoms reported Musculoskeletal: reports: no symptoms reported Integumentary: reports: no symptoms reported Neurological: reports: see HPI, dizziness/vertigo. denies: loss of balance, syncope, tremors Psychiatric: reports: no symptoms reported Endocrine: reports: no symptoms reported. denies: change in skin pigment, excessive sweating Hematologic/Lymphatic: reports: no symptoms reported Allergic/Immunologic: reports: no symptoms reported All Other Systems: Reviewed and Negative Past History - Adult - PAST MEDICAL HISTORY-ADULT Review of Records: reports: Old Records Reviewed, Nursing Assessment Review, Medications Reviewed, Social history reviewed & non-contributory. Major Childhood Illnesses: reports: history unknown Cardiovascular: reports: CHF (ECHO 08/2015 EF 55% ), HTN, hyperlipidemia, PR Respiratory: reports: asthma, COPD (severe on 4liters O2 qHS), cancer Gastrointestinal: reports: GERD Obstetrical/Gynecological: reports: denies history Genitourinary: reports: kidney disease (CRI) Musculoskeletal: reports: arthritis, chronic pain Neurological: reports: denies history Psychiatric: reports: anxiety Endocrine/Immune: reports: Diabetes Other Conditions: reports: denies history - PRIOR SURGERIES/PROCEDURES Surgical/Procedure History: reports: cardiac stent (x2 last one 7 years ago), orthopedic (extremity) (thumb) - IMMUNIZATION STATUS Childhood Immunizations: See Nurse Assessment Flu Vaccine: See Nurse Assessment - FAMILY HISTORY Family History: reviewed, not pertinent - SOCIAL HISTORY Smoking: other (former) Substance Use: none/never Physical Exam-General - PHYSICAL EXAM-ADULT Initial Vital Signs Reviewed: Yes - CONSTITUTIONAL General Appearance: appears well, alert, no apparent distress, obese. negative: thin, anxious, lethargic - EYES Eyes: PERRL/EOMI, pink conjunctivae - HEAD, EARS, NOSE, MOUTH & THROAT HENMT: normocephalic/atraumatic, moist mucous membranes - NECK Neck: non-tender, full range of motion, supple, normal inspection - RESPIRATORY Respiratory: chest non-tender, lungs clear, normal breath sounds, no pleuratic chest pain, no respiratory distress, no accessory muscle use. negative: respiratory distress, decreased breath sounds, prolonged expiration - CARDIOVASCULAR Cardiovascular: normal peripheral pulses, regular rate, rhythm, no edema, no gallop, no JVD, no murmur. negative: JVD, bradycardia, tachycardia - GASTROINTESTINAL (ABDOMEN) Abdominal Exam: normal bowel sounds, non tender, soft, no organomegaly, no pulsatile mass. negative: guarding, rigid, tenderness - LYMPHATIC Lymphatic: no adenopathy - MUSCULOSKELETAL Back Exam: normal inspection, no CVA tenderness, no vertebral tenderness Extremity: normal range of motion, non-tender, normal inspection Peripheral Pulses: radial (R): 2+, radial (L): 2+ - SKIN Integumentary: normal color, normal turgor, warm/dry - NEUROLOGIC Neurologic: grossly normal, no motor/sensory deficits - PSYCHIATRIC Psych/Mental Status: normal mood/affect, normal thought content, normal thought process, oriented x 3 - HEART Score HEART Score: History: Moderately Suspicious HEART Score: ECG: Non-Specific Repolarization Disturbance/LBBB/PM HEART Score: Age: 45-65 Years HEART Score: Risk Factors for Atherosclerotic Disease: > or = 3 Risk Factors or History of Atherosclerotic Disease HEART Score: Troponin: 1-3x Normal Limit Total HEART Score:: 6 Progress - PLAN OF CARE/RESULTS Progress/Plan/Lab Results: Vital Signs - 8 hr 04/06/19 19:10 04/06/19 19:11 04/06/19 19:20 Temperature 98.4 F Pulse Rate 71 72 72 Respiratory Rate 18 21 23 Blood Pressure 139/100 139/100 O2 Sat by Pulse Oximetry 99 98 97 04/06/19 19:30 04/06/19 19:32 04/06/19 19:40 Temperature Pulse Rate 69 69 69 Respiratory Rate 18 13 13 Blood Pressure 143/75 O2 Sat by Pulse Oximetry 96 97 97 04/06/19 20:00 04/06/19 20:03 04/06/19 20:10 Temperature Pulse Rate 69 67 74 Respiratory Rate 15 15 22 Blood Pressure 141/68 O2 Sat by Pulse Oximetry 96 98 97 04/06/19 20:20 04/06/19 20:30 04/06/19 20:33 Temperature Pulse Rate 77 66 66 Respiratory Rate 16 24 15 Blood Pressure 145/71 O2 Sat by Pulse Oximetry 97 98 97 04/06/19 20:40 04/06/19 20:50 04/06/19 21:00 Temperature Pulse Rate 67 68 66 Respiratory Rate 17 18 19 Blood Pressure O2 Sat by Pulse Oximetry 96 96 96 04/06/19 21:09 04/06/19 21:10 04/06/19 21:20 Temperature Pulse Rate 67 66 66 Respiratory Rate 16 23 14 Blood Pressure 154/86 O2 Sat by Pulse Oximetry 98 97 97 04/06/19 21:30 04/06/19 21:40 04/06/19 21:50 Temperature Pulse Rate 66 65 64 Respiratory Rate 18 13 16 Blood Pressure O2 Sat by Pulse Oximetry 96 98 96 04/06/19 22:00 Temperature Pulse Rate 66 Respiratory Rate 18 Blood Pressure O2 Sat by Pulse Oximetry 97 Laboratory Results - last 24 hr 04/06/19 04/06/19 04/06/19 19:15 19:15 19:15 WBC 9.10 RBC 3.91 L Hgb 10.4 L Hct 32.2 L MCV 82.4 MCH 26.6 L MCHC 32.3 L RDW Std Deviation 16.7 H Plt Count 248 MPV 10.2 Immature Gran % (Auto) 0.2 Neut % (Auto) 74.5 Lymph % (Auto) 15.8 L Bath % (Auto) 8.0 Eos % (Auto) 1.0 Baso % (Auto) 0.5 Immature Gran # (Auto) 0.02 Neut # (Auto) 6.77 H Lymph # (Auto) 1.44 Bath # (Auto) 0.73 H Eos # (Auto) 0.09 Baso # (Auto) 0.05 PT INR PTT (Actin FS) Sodium 132 L Potassium 3.6 Chloride 90 L Carbon Dioxide 25 Anion Gap 17 BUN 77 H Creatinine 3.5 H Estimated GFR/1.73 m2 18 BUN/Creatinine Ratio 22 Glucose 366 H Calculated Osmolality 302 Calcium 8.5 L Total Bilirubin 0.18 L AST 8 L ALT 11 Alkaline Phosphatase 134 H Creatine Kinase 166 Troponin T Qft-T-Riwkymtwopr Pept 1646 H Total Protein 8.0 Albumin 3.6 Globulin 4.4 Albumin/Globulin Ratio 0.8 04/06/19 04/06/19 04/06/19 19:15 19:15 21:23 WBC RBC Hgb Hct MCV MCH MCHC RDW Std Deviation Plt Count MPV Immature Gran % (Auto) Neut % (Auto) Lymph % (Auto) Bath % (Auto) Eos % (Auto) Baso % (Auto) Immature Gran # (Auto) Neut # (Auto) Lymph # (Auto) Bath # (Auto) Eos # (Auto) Baso # (Auto) PT 13.7 INR 0.97 PTT (Actin FS) 44.7 H Sodium Potassium Chloride Carbon Dioxide Anion Gap BUN Creatinine Estimated GFR/1.73 m2 BUN/Creatinine Ratio Glucose Calculated Osmolality Calcium Total Bilirubin AST ALT Alkaline Phosphatase Creatine Kinase 182 Troponin T 0.090 Iup-D-Wuwxvtxwomo Pept Total Protein Albumin Globulin Albumin/Globulin Ratio 04/06/19 21:23 WBC RBC Hgb Hct MCV MCH MCHC RDW Std Deviation Plt Count MPV Immature Gran % (Auto) Neut % (Auto) Lymph % (Auto) Bath % (Auto) Eos % (Auto) Baso % (Auto) Immature Gran # (Auto) Neut # (Auto) Lymph # (Auto) Bath # (Auto) Eos # (Auto) Baso # (Auto) PT INR PTT (Actin FS) Sodium Potassium Chloride Carbon Dioxide Anion Gap BUN Creatinine Estimated GFR/1.73 m2 BUN/Creatinine Ratio Glucose Calculated Osmolality Calcium Total Bilirubin AST ALT Alkaline Phosphatase Creatine Kinase Troponin T 0.095 H Faz-Z-Brhplvunaxd Pept Total Protein Albumin Globulin Albumin/Globulin Ratio Orders Category Date Time Status Cardiac Monitoring DIRECTED Care 04/06/19 19:34 Active Oxygen Therapy- ED Nursing DIRECTED Care 04/06/19 19:34 Active Saline Loc NOW Care 04/06/19 19:34 Active Update & Confirm Home Medicati ROUTINE Care 04/06/19 23:19 Active CHEST-2 VIEWS [RAD] Stat Exams 04/06/19 19:34 Completed CBC WITH ELECTRONIC DIFF [HEME] Stat Lab 04/06/19 19:15 Completed CK PROFILE [SP CHEM] Stat Lab 04/06/19 19:15 Completed CK PROFILE [SP CHEM] Stat Lab 04/06/19 21:23 Completed COMPREHENSIVE METABOLIC PANEL [CHEM] Stat Lab 04/06/19 19:15 Completed PRO B-NATRIURETIC PEPTIDE Stat Lab 04/06/19 19:15 Completed PROTIME WITH INR [COAG] Stat Lab 04/06/19 19:15 Completed PTT [COAG] Stat Lab 04/06/19 19:15 Completed TROPONIN T Stat Lab 04/06/19 19:15 Completed TROPONIN T Stat Lab 04/06/19 21:23 Completed Aspirin Med 04/06/19 19:33 Discontinued 325 mg PO NOW ONE Morphine Med 04/06/19 20:56 Discontinued 4 mg IV NOW ONE CP/SOB/Palp >45 yrs of Age Stat Oth 04/06/19 19:33 Ordered EKG [EKG] Stat Ther 04/06/19 19:12 Ordered EKG [EKG] Stat Ther 04/06/19 20:56 Ordered Transfer/Admit Order [TRANSFER] Routine Transfer 04/06/19 23:20 Ordered Result Diagrams: 04/06/19 19:15 04/06/19 19:15 - EKG 1 Time of EKG reading by physician:: 19:15 EKG Read and Signed by:: Ryanne Shrestha EKG Interpretation (*Must complete 3 of following elements*): Abnormal Rate: 70 Rhythm: NSR [place]: normal QRS: RBB (incomplete) PA Interval: normal ST Wave: normal - XRAY 1 XRAY: Bilateral XRAY Study: Chest (CHEST-2 VIEWS - 04/06/2019 INDICATION: CHEST PAIN COMPARIS ON: 03/23/2019 FINDINGS: Stable cardiomegaly and pulmonary vascular congestion. Lungs are hyperexpanded compatible with COPD. No infiltrates or edema. No pneumothorax or pleural effusion. IMPRESSION: Cardiomegaly and pulmonary vascular congestion. COPD. Electronically signed by Prakash Butts 04/06/2019 8:20 PM) Impression: Abnormal Comparison with other Films: changes noted - CONSULTS/PCP/HOSPITALIST Notification #1 *Consult/PCP/Hospitalist*: DR. FLANAGAN Time Discussed: 22:24 Consult Disposition: Admit #2 Consult: DR. LOPEZ Time Discussed: 22:24 (EVALUATE ) Consult Disposition: Will see in ED Departure - Departure Date of Disposition Decision: 04/06/19 Time of Disposition Decision: 23:28 DIAGNOSIS: Chest pain Disposition: ADMITTED INPATIENT 09 Certified Medical Emergency: Emergent Condition: Stable Referrals and Follow-Ups: None,PCP [Primary Care Provider] - - Critical Care Note This patient required my direct & personal management of CC.: No Attestation - Physician/ KOJO Attestation Patient care was provided by Advanced Practice Provider:: No The physician spent face to face time with patient:: Yes Advanced Practice Provider documentation review:: Supervising physician onsite and consulted in the evaluation and care of this patient. The physician did have a face to face encounter with the patient. This chart was documented by the indicated scribe, (Shirley Serna Scribe) and accurately reflects the services I performed and decisions made by me, Clotilde Andrews MD, as attested by the provider's signature.
[2019-04-07] MEDS ORDERED: ZOFRAN IV PRN ×2 (02:12)
[2019-04-07] MEDS ORDERED: TYLENOL PO PRN (02:12)
[2019-04-07] MEDS ORDERED: NORCO-7.5 PO ONE (04:43)
[2019-04-07 05:24] LABS: BASO# 0.04 X1000 (0.0-0.2); BASO% 0.4 % (0.0-0.8); EOS# 0.15 X1000 (0.0-0.7); EOS% 1.5 % (0.0-10.0); HEMATOCRIT 34.6 % (42.0-52.0); IMM GRAN# 0.02 X1000 (0.0-0.04); IMM GRAN% 0.2 % (0.0-0.5); LYMPH# 2.08 X1000 (1.2-3.4); LYMPH% 20.4 % (20.5-51.1); MCH 26.4 PG (27-31); MCHC 31.8 g/dL (33-37); MONO# 0.94 X1000 (0.11-0.59); MONO% 9.2 % (1.7-9.3); MPV 9.7 FL (7.4-10.4); NEUT# 6.99 X1000 (1.4-6.5); NEUT% 68.3 % (42.2-75.2); PLT 277 X1000 (130-400); RBC 4.17 XMIL (4.7-6.1); WBC 10.22 X1000 (4.8-10.8)
[2019-04-07 06:02] LABS: CALCIUM 9.1 mg/dL (8.8-10.2); CREATININE 3.4 mg/dL (0.7-1.2); POTASSIUM 3.8 mmol/L (3.5-5.1)
[2019-04-07] MEDS ORDERED: DUONEB (A & A) INH PRN (06:06)
[2019-04-07] MEDS ORDERED: MIRALAX PO PRN (06:06)
[2019-04-07] MEDS ORDERED: NITROGLYCERIN SL PRN (06:15)
[2019-04-07] MEDS: HEPARIN SUBQ SCH ×3 (06:47→22:42)
[2019-04-07] MEDS: HUMALOG SUBQ SCH ×5 (06:48→22:43)
--- NOTE | 2019-04-07 07:26 | EKG Report ---
Test Performed on : 04/06/2019 7:13:24 PM Test Reason : CP/SOB Blood Pressure : / mmHG Vent. Rate : 070 BPM Atrial Rate : 070 BPM P-R Int : 152 ms QRS Dur : 106 ms QT Int : 442 ms P-R-T Axes : 022 024 047 degrees QTc Int : 477 ms Normal sinus rhythm. Incomplete right bundle branch block Borderline ECG When compared with ECG of 23-MAR-2019 11:03, (Unconfirmed) No significant change was found Unconfirmed Result
--- NOTE | 2019-04-07 07:40 | HISTORY AND PHYSICAL ---
CHIEF COMPLAINT: Chest pain. PRIMARY CARE PROVIDER: Dr. Terrie Judge. HISTORY OF PRESENT ILLNESS: Mr. Adam La is a 63-year-old male, very well known to our service. Has a history of non-small cell lung cancer, hypertension, congestive heart failure who presents to the emergency room complaining of chest pain. Reportedly, the pain was 8/10, shooting, lasted 30 minutes prior to arrival. He had nausea, shortness of breath and dizziness. He is on home O2 4 liters. He was supposed to go to radiation which was cancelled to get correct dose. He denied vomiting, diarrhea and diaphoresis. He was seen for similar symptoms in the emergency room on 03/23 and admitted for chest pain. He will be admitted in observation status for further evaluation and treatment. PAST MEDICAL HISTORY: 1. Non-small cell lung cancer. 2. Diabetes mellitus. 3. Diastolic dysfunction. 4. Hypertension. 5. PAD. 6. Hyperlipidemia. 7. Chronic kidney disease stage 4. 8. COPD on home O2. 9. Chronic venous stasis. PAST SURGICAL HISTORY: 1. Coronary stenting. 2. Left hand surgery. 3. Bronchoscopy. SOCIAL HISTORY: Former smoker. No tobacco, alcohol or illicit drugs. FAMILY HISTORY: Heart disease, diabetes. Both parents of cancer. ALLERGIES: Levaquin, Toradol, Cardura and ibuprofen. HOME MEDICATIONS: Home medications are not available at the time of admission. An order was placed for nursing to reconcile home medications. These will be restarted when appropriate. REVIEW OF SYSTEMS: Fourteen point review of systems conducted with the patient. Pertinent positives listed above in the HPI. All other systems reviewed and found to be negative. PHYSICAL EXAMINATION: VITAL SIGNS: Temp 98.4 degrees, pulse 77, respirations 16, blood pressure 141/68, oxygen saturation 97% on 2 liters nasal cannula. GENERAL: 63-year-old male lying in the ER stretcher. Answers all questions appropriately, in no acute distress. HEENT: Head is atraumatic, normocephalic. Pupils equal, round and react to light. Extraocular eye movement intact. Sclerae anicteric. Conjunctivae mildly pale. Oral mucosa is dry. NECK: Supple. No JVD. No thyromegaly. Trachea midline. No cervical lymphadenopathy. CARDIAC: S1, S2 appreciated. No murmurs, gallops, rubs. LUNGS: Decreased bilaterally. Mild increased work of breathing. No rhonchi. No rales. Symmetric rise and fall of respirations. ABDOMEN: Soft, nondistended, nontender. Bowel sounds present in all 4 quadrants. Normoactive. No pulsatile mass or organomegaly. EXTREMITIES: No cyanosis, clubbing or edema. GENITOURINARY: No bladder distention. No suprapubic tenderness. Otherwise deferred. NEUROLOGICAL: Alert and oriented x3. No focal motor deficits. Otherwise nonfocal examination. DIAGNOSTIC DATA: Chest x-ray shows cardiomegaly and COPD. LABORATORY DATA: WBC 9.10, hemoglobin 10.4, hematocrit 32.2, platelet count 248,000. Sodium 132, potassium 3.6, chloride 90, carbon dioxide 25, BUN 77, creatinine 3.5, glucose 366. Troponin 0.090 and then recheck was 0.095. ASSESSMENT AND PLAN: 1. Chest pain, rule out acute myocardial infarction. Continue patient's medications. Trend cardiac enzymes. Consult Cardiology. 2. Small cell lung cancer. Was supposed to receive radiation; however, they cancelled related to dose. Aware. 3. COPD with home O2. Continue supplemental oxygen. Continue DuoNeb. He does not appear to be in acute exacerbation. 4. Diabetes mellitus type 2. Now insulin dependent. Sliding scale insulin with fingerstick blood sugars. 5. Chronic diastolic heart failure. Continue patient's Lasix. Further recommendations per the patient's clinical course. Dictated by ALPESH Alcantara for Tacos Henley MD I have performed a face to face diagnostic evaluation. Labs/ Xrays- reviewed. Exam- Chest- clear, CV- regular. Dr. Henley cc: ALPESH Alcantara MD Faye Wilson, MD MTDD
[2019-04-07] MEDS: PRILOSEC PO SCH (07:57)
[2019-04-07] MEDS ORDERED: FISH OIL CONCENTRATE PO SCH (09:00)
[2019-04-07] MEDS: LACTULOSE PO SCH ×3 (09:00→21:01)
[2019-04-07] MEDS: KLOR-CON PO SCH (09:28)
[2019-04-07] MEDS: FLOMAX PO SCH (09:28)
[2019-04-07] MEDS: APRESOLINE PO SCH ×3 (09:28→18:05)
--- NOTE | 2019-04-07 09:29 | EKG Report ---
Test Performed on : 04/07/2019 09:15:48 AM Test Reason : cp Blood Pressure : / mmHG Vent. Rate : 063 BPM Atrial Rate : 063 BPM P-R Int : 142 ms QRS Dur : 110 ms QT Int : 452 ms P-R-T Axes : -14 027 048 degrees QTc Int : 462 ms Normal sinus rhythm. Incomplete right bundle branch block Septal infarct , age undetermined Abnormal ECG When compared with ECG of 06-APR-2019 19:13, (Unconfirmed) Septal infarct is now present Confirmed by Burak MARINELLI, David Jenkins ([id number]) on 04/08/2019 6:38:23 PM
[2019-04-07] MEDS: ZAROXOLYN PO SCH (09:31)
[2019-04-07] MEDS: TOPROL XL PO SCH ×2 (09:31→21:01)
[2019-04-07] MEDS: LASIX PO SCH ×2 (09:31→21:01)
[2019-04-07] MEDS: ISORDIL PO SCH ×3 (09:32→18:06)
[2019-04-07] MEDS: FOLIC ACID PO SCH (09:32)
[2019-04-07] MEDS: ZYLOPRIM PO SCH (09:32)
[2019-04-07] MEDS: NORVASC PO SCH (09:32)
[2019-04-07] MEDS: CATAPRES PO SCH ×3 (09:32→17:00)
[2019-04-07] MEDS: ASPIRIN EC PO SCH (09:33)
[2019-04-07] MEDS: FISH OIL CONCENTRATE PO SCH (09:34)
[2019-04-07] MEDS: ADVAIR 250/50 DISKUS INH SCH ×2 (09:36→21:51)
[2019-04-07] MEDS: SPIRIVA INH SCH (09:37)
[2019-04-07] MEDS: LANTUS INSULIN SUBQ SCH ×2 (09:48→22:42)
[2019-04-07] MEDS: KLONOPIN PO SCH ×3 (10:50→18:09)
--- NOTE | 2019-04-07 12:52 | CONSULTATION ---
DATE OF CONSULTATION: 04/07/2019 IMPRESSION: 1. Episodic chest discomfort atypical for myocardial ischemia. 2. Non-small cell lung cancer. 3. Chronic obstructive pulmonary disease, severe, requiring chronic home oxygen. 4. Chronic kidney disease stage IV. 5. Hypertension. 6. Diabetes mellitus. RECOMMENDATIONS: 1. Follow up cardiac enzymes. Currently patient demonstrates slight troponin elevation; this is probably related to his renal dysfunction. 2. Repeat limited echocardiography given the cardiomegaly on chest x-ray just to make sure there has not been a precipitous drop in left ventricular ejection fraction or presence of pericardial effusion. Previous echocardiography in November this year indicated normal left ventricular ejection fraction and normal central venous pressure. 3. Conservative cardiovascular management overall. HISTORY: This 63-year-old white male with past history of non-small cell lung cancer, hypertension, chronic kidney disease stage IV, diabetes mellitus, and severe COPD was admitted to the emergency room with chest pain. Cardiology consult regarding patient's chest discomfort. Patient describes a nonexertional low-grade dull discomfort in the center of the chest accompanied by fleeting episodes of sharp discomfort. Discomfort is neither pleuritic nor positional. Discomfort was relieved with morphine. He has had some cough productive of white sputum. He is not aware of any fever. There has been no orthopnea. He has had previous evaluation for cardiac disease in the past including echocardiography in November this year, which indicated normal left ventricular ejection fraction. Central venous pressure is also felt to be normal based on inspection of inferior vena cava. Stress myocardial perfusion study last year revealed no evidence of inducible myocardial ischemia, and also indicated normal left ventricular ejection fraction. PAST MEDICAL HISTORY: 1. Non-small cell lung cancer. 2. Atherosclerotic coronary disease with previous coronary stents in the past. Coronary angiography 2016 noteworthy for moderate stenosis in the right coronary artery and mild coronary atherosclerosis in other vessels. Medical management recommended. Last stress myocardial perfusion study May of 2018, negative for evidence of inducible myocardial ischemia. 3. Chronic left ventricular diastolic function. Left ventricular end-diastolic pressure elevated on previous cardiac catheterization study. 4. Obesity. 5. Obstructive sleep apnea. 6. Chronic kidney disease stage IV. 7. Hypertensive cardiovascular disease and renal disease. 8. Diabetes mellitus. 9. Gastroesophageal reflux disease. 10. Severe chronic obstructive pulmonary disease requiring chronic home oxygen. PAST SURGICAL HISTORY: Includes unspecified left hand surgery. ALLERGIES: He is allergic or intolerant to Levaquin, Toradol, Cardura and ibuprofen. MEDICATIONS PRIOR TO ADMISSION: As listed. SOCIAL HISTORY: He has history of previous cigarette use in the past, but no longer smokes. He is disabled. FAMILY HISTORY: Negative for premature coronary disease. REVIEW OF SYSTEMS: Pulmonary: Noteworthy for atypical chest pain and cough productive of white sputum. Gastrointestinal: Noteworthy for nausea. Constitutional: Negative for fever. Remainder of review of systems negative/noncontributory with 14 total systems reviewed. PHYSICAL EXAMINATION: General: This is an obese, older, middle-aged white male in no distress on supplemental oxygen per nasal cannula. Vital signs: Blood pressure 124/78, heart rate 67, oxygen saturation 95% on nasal cannula oxygen. HEENT Exam: Extraocular movements intact. Mucous membranes are moist. Neck: Supple without jugular venous distention evident. Chest: Clear to auscultation with the exception of a few scant rhonchi. Cardiac Exam: Reveals a regular rate and rhythm without appreciable murmur or gallop. Abdomen: Soft. Bowel sounds audible. Extremities: Without edema with chronic venous stasis changes evident. Neurologic exam: Reveals him to be alert and fully oriented. Speech is fluent. Moves all 4 extremities equally well. Skin: Warm and dry. Psychiatric: Exam reveals to be appropriate. DIAGNOSTIC DATA: A 12 lead EKG demonstrates normal sinus rhythm, incomplete right bundle branch block. LABORATORY DATA: Includes a white blood cell count of 10.22, hematocrit 34.6, hemoglobin 11.8, platelet count 277. Sodium 139, potassium 3.8, chloride 93, carbon dioxide 26, BUN 76, creatinine 3.4, glucose 242. Initial troponin 0.095; followup troponin 0.107. CPK 182. cc: Guillermo Fuentes MD
[2019-04-07] MEDS ORDERED: LIPITOR PO SCH (21:00)
[2019-04-07] MEDS: NORCO-7.5 PO PRN (22:41)
[2019-04-08] MEDS: HUMALOG SUBQ SCH ×5 (02:57→18:38)
[2019-04-08] MEDS: HEPARIN SUBQ SCH ×2 (06:36→13:47)
[2019-04-08] MEDS: PRILOSEC PO SCH (06:36)
[2019-04-08 07:38] LABS: HEMATOCRIT 30.5 % (42.0-52.0); HEMOGLOBIN 9.6 g/dL (14.0-18.0); MCHC 31.5 g/dL (33-37); MCV 85.7 FL (81-99); MPV 10.1 FL (7.4-10.4); RBC 3.56 XMIL (4.7-6.1); WBC 7.92 X1000 (4.8-10.8)
[2019-04-08] MEDS: SPIRIVA INH SCH ×2 (07:52→10:05)
[2019-04-08] MEDS: ADVAIR 250/50 DISKUS INH SCH (07:52)
[2019-04-08 08:02] LABS: ALBUMIN 3.4 g/dL (3.5-5.0); CALCIUM 9.2 mg/dL (8.8-10.2); CREATININE 3.6 mg/dL (0.7-1.2); PHOSPHORUS 5.2 mg/dL (2.7-4.5); POTASSIUM 3.2 mmol/L (3.5-5.1)
[2019-04-08] MEDS: ZYLOPRIM PO SCH (10:02)
[2019-04-08] MEDS: LACTULOSE PO SCH (10:02)
[2019-04-08] MEDS: ZAROXOLYN PO SCH (10:02)
[2019-04-08] MEDS: FISH OIL CONCENTRATE PO SCH (10:03)
[2019-04-08] MEDS: ISORDIL PO SCH ×3 (10:03→16:46)
[2019-04-08] MEDS: NORVASC PO SCH (10:03)
[2019-04-08] MEDS: KLONOPIN PO SCH ×3 (10:03→16:45)
[2019-04-08] MEDS: FLOMAX PO SCH (10:03)
[2019-04-08] MEDS: CATAPRES PO SCH ×3 (10:03→16:46)
[2019-04-08] MEDS: ASPIRIN EC PO SCH (10:04)
[2019-04-08] MEDS: LASIX PO SCH (10:04)
[2019-04-08] MEDS: KLOR-CON PO SCH (10:04)
[2019-04-08] MEDS: TOPROL XL PO SCH (10:04)
[2019-04-08] MEDS: FOLIC ACID PO SCH (10:04)
[2019-04-08] MEDS: APRESOLINE PO SCH ×3 (10:04→16:46)
[2019-04-08] MEDS: LANTUS INSULIN SUBQ SCH (10:10)
[2019-04-08] MEDS: NORCO-7.5 PO PRN (10:22)
--- NOTE | 2019-04-08 15:36 | PROGRESS NOTE ---
DATE: 04/08/2019 SUBJECTIVE: Today Mr. La refers to be feeling a whole lot better. He denies any chest pain, no shortness of breath. Mr. La got admitted yesterday because of chest pain. His troponin was slightly elevated. He was seen by Cardiology and they have recommended conservative management. OBJECTIVE: Vital Signs: Current vitals: Blood pressure is 134/87, pulse of 64, respiration is 13, temperature is 98.6. Patient is saturating 98% on nasal cannula. General: Mr. La is a 63- year-old male. He is in bed, no distress. HEENT: Mucosa is pink and moist. Anicteric. Acyanotic. Neck: Supple. Chest was clear. Cardiovascular: Regular rate and rhythm. Abdomen: Soft, distended, but nontender. Bowel sounds present. Extremities: No pedal edema. Central Nervous System: Patient is awake, alert. IMAGING STUDIES: A chest x-ray on admission did show cardiomegaly and pulmonary vascular congestion, some COPD. LABORATORY: CBC has been reviewed. Hemoglobin is 9.6. Chemistry is also reviewed. Creatinine is 3.6, but that is his baseline. We are still pending the report on the echocardiogram. ASSESSMENT: 1. Chest pain with minimally elevated troponin, questionable for demand ischemia. The patient has been evaluated by Cardiology. Their recommendation is conservative management. 2. 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 The patient has been evaluated. Has been mapped for radiation therapy and he is actually pending before he got admitted. 3. History of chronic obstructive pulmonary disease, on home 2 oxygen. 4. Diabetes mellitus, controlled. 5. History of chronic diastolic heart failure. PLAN: In general, I think Mr. La is fairly stable. He has been moving around in his wheelchair on the entire floor. He has been asymptomatic. We are pending the official report on the echocardiogram and then final recommendations from Cardiology. I think we might be able to discharge Mr. La later on today. cc: Romaine Munoz MD
[2019-04-08 15:49] VITALS: BP 129/68
--- NOTE | 2019-04-08 16:30 | ECHO REPORT ---
ORDER DATE: 04/07/2019 This is a limited study to assess left ventricular systolic function ECHOCARDIOGRAPHIC MEASUREMENTS: 1. Interventricular septum 1.1 2. Left ventricular posterior wall 1.1. 3. Diastolic diameter 5.6. 4. Very poor acoustic windows. Other measures measurements could not be accurately obtained. 5. Aortic valve leaflets are trileaflet. 6. Pulmonic valve not well visualized. 7. Mitral valve not well visualized. 8. Tricuspid valve not well visualized. 9. The valves were noted in the subcostal view in which the tricuspid valve appeared to be normal. 10. There was mitral annular calcification. 11. Definity was injected. 12. Normal left ventricular cavity size. 13. Estimated ejection fraction of 60% to. 14. There is no pericardial. cc: MD Guillermo Lindo MD
--- NOTE | 2019-04-09 12:05 | DISCHARGE SUMMARY ---
ADMISSION DATE: 04/07/2019 DISCHARGE DATE: 04/08/2019 DISPOSITION: Home. FOLLOW-UP: 1. Dr. Fuentes 2. Dr. Cardozo. CONSULTATIONS DURING THIS ADMISSION: Cardiology was consulted. Patient was seen by Dr. Fuentes. INVASIVE PROCEDURES DONE DURING THIS ADMISSION: None. IMAGING STUDIES OF SIGNIFICANCE: A limited echocardiogram has shown a normal EF of 60% with no abnormality. ADMISSION DIAGNOSES: 1. Chest pain, rule out myocardial infarction. 2. Small-cell lung cancer. 3. Chronic obstructive pulmonary disease on home 2 oxygen. 4. Diabetes mellitus. 5. Chronic diastolic heart failure. DIAGNOSES AT TIME OF DISCHARGE: 1. Chest pain with minimal elevated troponin questionable for non STEMI. The patient has been evaluated by Cardiology. Echocardiogram is normal. They recommend a conservative management. 3. 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 The patient has been mapped for radiation. He will follow up with Dr. Cardozo. 4. History of chronic obstructive pulmonary disease on home 2 oxygen. 5. Diabetes mellitus controlled. 6. History of chronic diastolic heart failure. 7. Obesity with BMI of 36.1. 8. Chronic normocytic anemia. 9. Chronic kidney disease stage 4. DISCHARGE MEDICATIONS: 1. Aspirin 81 mg daily. 2. Metoprolol 50 mg b.i.d. 3. Atorvastatin 40 mg p.o. daily. 4. Isordil 60 mg 3 times per day. 5. Amlodipine 10 mg p.o. daily. 6. Hydralazine 100 mg 3 times per day. 7. Flomax 0.4 p.o. daily. 8. Insulin glargine 120 units b.i.d. 9. Omeprazole 40 mg p.o. daily. 10. Lactulose 30 mg b.i.d. 11. Allopurinol 100 mg p.o. daily. 12. Clonidine 0.2 p.o. 3 times per day. 13. Sliding scale insulin. 14. Klonopin. 15. Furosemide 80 mg b.i.d. 16. Metolazone 5 mg p.o. daily. 17. [place]. PRESENTING COMPLAINT: Chest pain. HISTORY OF PRESENT COMPLAINT: Mr. La is a 63-year-old male who is known to have multiple comorbidities, came in presenting with some chest discomfort. The patient was evaluated. Troponin's were minimally elevated, and he was admitted for further medical care. HOSPITAL COURSE: Mr. La was admitted to the medical floor. Chest pain completely resolved. Troponin's were minimally elevated. Cardiology was consulted. He was evaluated by Dr. Fuentes. A limited echocardiogram was done which came back completely normal. Cardiology recommended that the patient can be discharged, and follow up with them on outpatient. At the time of the discharge, Mr. La was completely asymptomatic. He is also advised to follow up with Nephrology. All of the discharge instruction discussed, and he voiced understanding. He has also been advised to follow up with Dr. Cardozo for his radiation therapy to start. TIME SPENT: Time spent for discharge is 33 minutes. cc: MD Dr. Juliane Pabon MD Reginald D. Gladish, MD MTDD
== END 2019-04-08 19:30 | disposition home or self-care (01) ==
LOC: ED 18:56 → EDIPHOLD 18:56 → SUATTDRO 04-07 03:57 → SUPCPDRO 04-07 03:57 → 3N 04-07 21:46
PROVIDERS: ATTEND Internal Medicine
CPT/HCPCS: 71020; 71046; 80048; 80053; 80061; 80069; 82550; 82948; 83721; 83880; 84484; 85025; 85027; 85610; 85730; 93005; 93306; 93308; 94640; 94761; 96372; 96374; 99285; A9270; C8924; J1644; J1815; J2270; Q9957; XXXXX

== ENCOUNTER 2019-04-16 23:21 | Observation (INO) ==
[2019-04-17] MEDS ORDERED: DUONEB (A & A) INH ONE (01:42)
[2019-04-17] MEDS ORDERED: SOLU-MEDROL IV ONE (01:42)
[2019-04-17 02:54] LABS: HEMATOCRIT 34.2 % (42.0-52.0); HEMOGLOBIN 11.3 g/dL (14.0-18.0); RBC 4.21 XMIL (4.7-6.1); WBC 10.25 X1000 (4.8-10.8)
[2019-04-17 02:55] LABS: BASO# 0.04 X1000 (0.0-0.2); BASO% 0.4 % (0.0-0.8); EOS# 0.09 X1000 (0.0-0.7); EOS% 0.9 % (0.0-10.0); IMM GRAN# 0.02 X1000 (0.0-0.04); IMM GRAN% 0.2 % (0.0-0.5); LYMPH# 1.13 X1000 (1.2-3.4); MCH 26.8 PG (27-31); MCV 81.2 FL (81-99); MONO% 6.8 % (1.7-9.3); MPV 10.3 FL (7.4-10.4); NEUT# 8.27 X1000 (1.4-6.5); NEUT% 80.7 % (42.2-75.2); PLT 279 X1000 (130-400); RDW 16.6 % (11.5-14.5)
[2019-04-17 03:16] LABS: CREATININE 4.1 mg/dL (0.7-1.2); POTASSIUM 3.6 mmol/L (3.5-5.1); TOTAL BILIRUBIN 0.32 mg/dL (0.20-1.00); TOTAL PROTEIN 8.1 g/dL (6.3-8.3)
[2019-04-17] MEDS ORDERED: ASPIRIN PO ONE (03:19)
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
[2019-04-17] MEDS ORDERED: TYLENOL PO PRN (06:28)
[2019-04-17] MEDS ORDERED: ZOFRAN IV PRN (06:28)
[2019-04-17] MEDS ORDERED: PRILOSEC PO SCH ×2 (07:00→09:00)
[2019-04-17] MEDS: DUONEB (A & A) INH SCH ×3 (07:30→15:46)
--- NOTE | 2019-04-17 08:33 | Diag Imaging Result Doc PS360 ---
EXAM: CHEST-2 VIEWS INDICATION: sob TECHNIQUE: 2 views COMPARISON: 04/15/2019 FINDINGS: The left upper lobe consolidation is stable. Mild pulmonary venous congestion is unchanged. The minimal subsegmental atelectasis at the left lung base appears to have improved. No new consolidation is identified. Cardiac silhouette is stable. IMPRESSION: Improvement of left basilar atelectasis. Stable chest, otherwise. Electronically signed by Jake Serna 04/17/2019 8:31 AM
[2019-04-17] MEDS: HUMULIN R SUBQ SCH ×4 (08:35→19:17)
[2019-04-17] MEDS: PERCOCET-5 PO PRN ×2 (08:38→14:22)
[2019-04-17] MEDS ORDERED: TOPROL XL PO SCH (09:00)
[2019-04-17] MEDS ORDERED: FISH OIL CONCENTRATE PO SCH (09:00)
[2019-04-17] MEDS ORDERED: FLOMAX PO SCH (09:00)
[2019-04-17] MEDS ORDERED: ASPIRIN PO SCH (09:00)
[2019-04-17] MEDS ORDERED: ZYLOPRIM PO SCH (09:00)
[2019-04-17] MEDS ORDERED: ZAROXOLYN PO SCH (09:00)
[2019-04-17] MEDS ORDERED: NORVASC PO SCH (09:00)
[2019-04-17] MEDS ORDERED: FOLIC ACID PO SCH (09:00)
[2019-04-17] MEDS ORDERED: LACTULOSE PO SCH (09:00)
[2019-04-17] MEDS ORDERED: LASIX PO SCH (09:00)
[2019-04-17] MEDS ORDERED: ASPIRIN EC PO SCH (09:00)
[2019-04-17 09:07] VITALS: BP 159/77
[2019-04-17] MEDS: APRESOLINE PO SCH ×2 (13:59→14:17)
[2019-04-17] MEDS: ISORDIL PO SCH ×2 (14:00→14:17)
[2019-04-17] MEDS: CATAPRES PO SCH ×2 (14:11→14:20)
[2019-04-17] MEDS: KLONOPIN PO SCH ×2 (14:12→14:23)
[2019-04-17] MEDS ORDERED: LANTUS INSULIN SUBQ ONE (14:33)
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
[2019-04-17] MEDS ORDERED: LIPITOR PO SCH (21:00)
--- NOTE | 2019-04-19 09:26 | EKG Report ---
Test Performed on : 04/17/2019 09:37:47 AM Test Reason : chest pain Blood Pressure : / mmHG Vent. Rate : 070 BPM Atrial Rate : 070 BPM P-R Int : 148 ms QRS Dur : 112 ms QT Int : 464 ms P-R-T Axes : 043 035 033 degrees QTc Int : 501 ms Normal sinus rhythm. Incomplete right bundle branch block Prolonged QT Abnormal ECG When compared with ECG of 15-APR-2019 01:51, (Unconfirmed) premature ventricular complexes. are no longer present Confirmed by Shiloh MARINELLI, Abhijeet Can ([id number]) on 04/20/2019 9:59:50 AM
--- NOTE | 2019-04-19 10:10 | EKG Report ---
Test Performed on : 04/17/2019 03:37:48 AM Test Reason : SOB Blood Pressure : / mmHG Vent. Rate : 064 BPM Atrial Rate : 064 BPM P-R Int : 126 ms QRS Dur : 116 ms QT Int : 452 ms P-R-T Axes : -22 027 022 degrees QTc Int : 466 ms Normal sinus rhythm. Incomplete right bundle branch block Borderline ECG No previous ECGs available Unconfirmed Result
== END 2019-04-17 19:00 | disposition home or self-care (01) ==
LOC: 3N 23:21 → ED 23:21 → SUATTDRO 04-17 07:52
PROVIDERS: ATTEND Internal Medicine
CPT/HCPCS: 71020; 71046; 80053; 82550; 82948; 83880; 84484; 85025; 93005; 93010; 94640; 94761; A9270; J1815; J2930; XXXXX

== ENCOUNTER 2019-05-08 20:51 | Observation (INO) ==
[2019-05-08] MEDS ORDERED: CATAPRES PO ONE (21:08)
[2019-05-08 21:43] LABS: BASO# 0.02 X1000 (0.0-0.2); BASO% 0.4 % (0.0-0.8); EOS# 0.08 X1000 (0.0-0.7); EOS% 1.7 % (0.0-10.0); HEMATOCRIT 34.4 % (42.0-52.0); LYMPH% 10.9 % (20.5-51.1); MCH 27.4 PG (27-31); MCV 85.6 FL (81-99); MONO# 0.39 X1000 (0.11-0.59); MONO% 8.5 % (1.7-9.3); MPV 10.2 FL (7.4-10.4); NEUT# 3.61 X1000 (1.4-6.5); NEUT% 78.5 % (42.2-75.2); PLT 120 X1000 (130-400); RBC 4.02 XMIL (4.7-6.1); RDW 18.2 % (11.5-14.5)
--- NOTE | 2019-05-08 21:48 | Diag Imaging Result Doc PS360 ---
EXAM: CHEST-1 VIEW 05/08/2019 HISTORY: CP/SOB TECHNIQUE: AP portable at 2136 COMMENT: There is increased pulmonary vascularity which is similar in appearance to 05/06/2019. Overall there has been no appreciable change. The parahilar opacity in the left upper lobe has not changed significantly. IMPRESSION: Left upper lobe atelectasis. Electronically signed by Jason Bernstein 05/08/2019 9:46 PM
[2019-05-08 22:21] LABS: AGAP 16; ALBUMIN 3.1 g/dL (3.5-5.0); ALKALINE PHOSPHATASE 112 U/L (32-122); BUN 58 mg/dL (8-22); CALCIUM 7.5 mg/dL (8.8-10.2); CHLORIDE 102 mmol/L (98-107); COSMO 311; CREATININE 3.3 mg/dL (0.7-1.2); ESTIMATED GFR 19; GLUCOSE 316 mg/dL (70-104); GOT 12 U/L (10-34); GPT 16 U/L (10-44); POTASSIUM 3.5 mmol/L (3.5-5.1); SODIUM 142 mmol/L (136-145); TCO2 24 mmol/L (25-35); TOTAL BILIRUBIN < 0.15 mg/dL (0.20-1.00); TOTAL PROTEIN 6.2 g/dL (6.3-8.3)
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
--- NOTE | 2019-05-09 00:41 | HISTORY AND PHYSICAL ---
PRIMARY CARE PHYSICIAN: Dr. Terrie Judge. CHIEF COMPLAINT: Headache. HISTORY OF PRESENT ILLNESS: This is a 64-year-old male with a history of multiple chronic illnesses including lung cancer, COPD on home oxygen, chronic kidney disease, chronic angina, hypertension, diabetes mellitus type 2, who had presented to emergency department with complaint of having headache that was persistent for the past 3 weeks. He states it was going up from his neck and he was having persistent dull headache. He apparently had come to the ER almost every week with similar complaints, he states. However, they had sent home. He was complaining of worsening symptoms and subsequently it was thought that we will place him for observation for further evaluation and management. At the time of my examination, patient denied any fever, chills, nausea, vomiting, diarrhea, hemoptysis, melena, weight changes, but complained of a persistent headache. PAST MEDICAL HISTORY: Includes lung cancer, COPD on home oxygen, chronic kidney disease, chronic angina, hypertension, diabetes mellitus type 2. PAST SURGICAL HISTORY: Coronary stent, left hand surgery. ALLERGIES: Levaquin, Toradol, Cardizem, ibuprofen, doxazosin. SOCIAL HISTORY: He is a former smoker. No history of alcohol or illicit drug use. CURRENT MEDICATIONS: Allopurinol 100 mg p.o. q.a.m., aspirin 81 mg p.o. q.a.m., atorvastatin 40 mg p.o. at bedtime, clonazepam 0.5 mg p.o. t.i.d., clonidine 0.2 mg p.o. t.i.d., folic acid 1 mg p.o. daily, Lasix 40 mg p.o. b.i.d., hydralazine 100 mg p.o. t.i.d., [place] 7.5 one p.o. q.8 hours, Lantus 120 units subcutaneous b.i.d., isosorbide nitrate 60 mg p.o. t.i.d., metolazone 5 mg p.o. daily, metoprolol 50 mg p.o. b.i.d., omeprazole 40 mg p.o. daily, tamsulosin 0.4 mg p.o. daily. FAMILY HISTORY: No history of coronary artery disease. REVIEW OF SYSTEMS: Fourteen point review of systems as listed in HPI. Other systems negative. PHYSICAL EXAMINATION: GENERAL: Cooperative, friendly male. He is resting more comfortably now. VITAL SIGNS: Temperature 98.2 degrees, pulse 71, respirations 16, blood pressure 173/78. HEENT: Atraumatic, normocephalic. Extraocular movements intact. PERRLA. NECK: No masses. CHEST: Clear to auscultation. CARDIOVASCULAR: Regular rate and rhythm. ABDOMEN: Soft, obese, positive bowel sounds. EXTREMITIES: +1 edema. NEUROLOGIC: He is awake, alert, oriented x3. Other exam is nonfocal. GENITOURINARY: No bladder distention. SKIN: Warm. LABORATORIES AND STUDIES: WBCs 4.60, hemoglobin 11.1, hematocrit 34.4, platelets 120,000. Sodium 142, potassium 3.5, chloride 102, CO2 of 24, BUN is 58, creatinine is 3.3, glucose is 360. Chest x-ray shows left upper lobe atelectasis. ASSESSMENT: This is a 64-year-old male with a history of chronic obstructive pulmonary disease, chronic kidney disease, chronic angina, hypertension, diabetes mellitus type 2, who had presented to emergency department with complaint of 3 weeks history of having persistent headache. We will place the patient for observation for further evaluation and management. 1. Persistent headache. 2. Chronic obstructive pulmonary disease. 3. Chronic angina. 4. Hypertension. 5. Diabetes mellitus type 2. PLAN: 1. We will admit patient to medical floor with telemetry. 2. We will get will obtain a CT of the head without. 3. Give patient appropriate analgesics. 4. Continue with DuoNebs p.r.n. and supplement oxygen. 5. Monitor blood pressure closely. 6. Put patient on sliding scale insulin regimen. 7. Resume other home medications. 8. Put patient on DVT prophylaxis with SCD. 9. We will continue to follow, and reassess and make further recommendation based on patient's clinical course. cc: Tacos Henley MD
[2019-05-09] MEDS ORDERED: ZOFRAN IV PRN (04:42)
[2019-05-09] MEDS: PERCOCET-5 PO PRN ×4 (05:13→23:28)
[2019-05-09] MEDS: HUMULIN R SUBQ SCH ×4 (06:44→21:20)
[2019-05-09 07:13] LABS: BASO# 0.01 X1000 (0.0-0.2); BASO% 0.2 % (0.0-0.8); EOS# 0.12 X1000 (0.0-0.7); EOS% 2.7 % (0.0-10.0); HEMOGLOBIN 9.8 g/dL (14.0-18.0); LYMPH# 0.64 X1000 (1.2-3.4); LYMPH% 14.3 % (20.5-51.1); MCH 26.4 PG (27-31); MCHC 30.6 g/dL (33-37); MCV 86.3 FL (81-99); MONO# 0.54 X1000 (0.11-0.59); MONO% 12.1 % (1.7-9.3); MPV 10.7 FL (7.4-10.4); NEUT# 3.17 X1000 (1.4-6.5); NEUT% 70.7 % (42.2-75.2); PLT 120 X1000 (130-400); RBC 3.71 XMIL (4.7-6.1); RDW 18.2 % (11.5-14.5); WBC 4.48 X1000 (4.8-10.8)
[2019-05-09 07:34] LABS: CALCIUM 7.8 mg/dL (8.8-10.2); CREATININE 3.2 mg/dL (0.7-1.2); POTASSIUM 3.6 mmol/L (3.5-5.1)
--- NOTE | 2019-05-09 08:53 | Diag Imaging Result Doc PS360 ---
CT HEAD W/O CONTRAST - 05/08/2019 INDICATION: headache COMPARISON: 05/06/2019 FINDINGS: There is stable mild periventricular white matter chronic microvascular disease. No mass or hemorrhage. The skull is intact. The sinuses are clear. IMPRESSION: No acute disease or change from prior. This exam was performed using automated exposure control, adjustment of mA or kV according to patient size, and/or use of iterative reconstruction technique Electronically signed by Prakash Butts 05/09/2019 8:51 AM
[2019-05-09] MEDS ORDERED: ALBUTEROL NEB INH PRN (14:19)
[2019-05-09] MEDS ORDERED: MBX SOLUTION MT PRN (14:54)
[2019-05-09] MEDS: CATAPRES PO SCH ×2 (15:29→21:20)
--- NOTE | 2019-05-09 16:03 | PROGRESS NOTE ---
DATE: 05/09/2019 INTERVAL HISTORY: Mr. La was admitted for headache and migraine. CT scan of head overnight did not have any acute abnormalities. SUBJECTIVE: Patient complains of now right-sided shoulder pain which is radiating to right upper back and which is also radiating to right side of the shoulder and he tells me that he would like to remain inside the hospital until we figure this out since previously he was diagnosed with pneumonia which was actually turned out to be cancer and now he wants me to evaluate his shoulder. He states that his shoulder pain has been going on for many months to years now but he never got it evaluated. It specially gets worse when he tries to do overhead abduction. His headache is all and his shoulder pain gets worse on movement. He has longstanding history of diabetes. No 1 has ever diagnosed him with frozen shoulder. He also complains of chronic back pain. His headache is bilateral, episodic since last 3 weeks without any aggravating or relieving factor. He denies any nausea, vomiting, blurring of vision or photophobia with that. VITALS: Temperature 97.8 degrees, pulse 57, respiratory 20, blood pressure is 149/87, he is saturating 100% on 3 L nasal cannula. PHYSICAL EXAMINATION: General: Does not appear in acute distress. Oral cavity is moist. Decreased sound bilaterally because of thick chest wall. No wheeze or rhonchi. S1, S2 normal. No murmur, rub, or gallop. Abdomen soft, nontender. No lower extremity edema. He does not have any occipital or frontal tenderness. He does not have any tenderness over maxillary sinuses. He has significant tenderness around right wing of scapula. He also has tenderness on right shoulder line especially on overhead abduction, on active and passive movements and external rotation. He is not able to touch his back with his right shoulder. LABS: Suggestive of WBC 4.4, hemoglobin 9.8, platelet of 120,000. Normal electrolytes with chronic kidney disease stage 4 and hyperglycemia. ASSESSMENT AND PLAN: 1. Headache and right shoulder pain. I will get x-ray of the shoulder and ultrasound to evaluate for frozen shoulder or any shoulder osteoarthritis. I will continue him as needed Erie for pain. 2. Others. For history of coronary artery disease requiring stent in 2008 and essential hypertension I will resume his home medications of aspirin, clonidine, hydralazine, isosorbide and metoprolol. 3. History of chronic obstructive pulmonary disease and chronic hypoxic respiratory failure on home oxygen. I will continue him on his albuterol, fluticasone, salmeterol. 4. History of non-small cell lung cancer bilateral and current radiation therapy. I will continue him on his Magic mouthwash solution. 5. History of insulin-dependent diabetes mellitus type 2. I will continue him on as needed insulin. DISPOSITION: Patient wants his shoulder pain to get evaluated before going home. If his x-ray and ultrasound unremarkable my plan is to discharge him later today or early tomorrow. Plan of care discussed with him. All of his questions have been answered. cc: Dom Tobin MD MTDShelly
--- NOTE | 2019-05-09 16:34 | Diag Imaging Result Doc PS360 ---
SHOULDER-RIGHT - 05/09/2019 INDICATION: Evaluate for arthritis TECHNIQUE: Two views COMPARISON: None FINDINGS: No fracture or dislocation. There is moderate osteoarthritis of both the glenohumeral and acromioclavicular joint. No bony erosions. IMPRESSION: Moderate osteoarthritis of the shoulder. Electronically signed by Prakash Butts 05/09/2019 4:32 PM
[2019-05-09] MEDS: KLONOPIN PO SCH (17:06)
[2019-05-09] MEDS: APRESOLINE PO SCH (17:06)
[2019-05-09] MEDS: ISORDIL PO SCH (17:06)
[2019-05-09] MEDS: ZOSTRIX TOP SCH ×2 (17:11→21:23)
[2019-05-09] MEDS: ADVAIR 250/50 DISKUS INH SCH (19:55)
--- NOTE | 2019-05-09 20:53 | Diag Imaging Result Doc PS360 ---
US NON VASC EXTREMITY LIMITED - 05/09/2019 INDICATION: Right shoulder to evaluate for Frozen shoulder. TECHNIQUE: Ultrasound of the soft tissues around the right shoulder COMPARISON: X-rays from 05/09/2019 FINDINGS: There is no mass or fluid collection. Soft tissue echotexture is normal. IMPRESSION: Negative exam. Electronically signed by Prakash Butts 05/09/2019 8:50 PM
[2019-05-09] MEDS: LASIX PO SCH (21:20)
[2019-05-10] MEDS: PERCOCET-5 PO PRN ×2 (06:18→11:50)
[2019-05-10] MEDS: HUMULIN R SUBQ SCH ×2 (06:19→11:46)
[2019-05-10] MEDS ORDERED: PRILOSEC PO SCH (07:00)
[2019-05-10] MEDS: CATAPRES PO SCH ×3 (07:32→15:19)
[2019-05-10] MEDS: FOLIC ACID PO SCH ×2 (07:32→09:47)
[2019-05-10] MEDS: KLONOPIN PO SCH ×3 (07:32→15:19)
[2019-05-10] MEDS: ASPIRIN PO SCH ×2 (07:32→09:48)
[2019-05-10] MEDS: LASIX PO SCH ×2 (07:33→09:47)
[2019-05-10] MEDS: ISORDIL PO SCH ×3 (07:33→15:19)
[2019-05-10] MEDS: TOPROL XL PO SCH ×2 (07:33→09:47)
[2019-05-10] MEDS: ZYLOPRIM PO SCH ×2 (07:33→09:46)
[2019-05-10] MEDS: FLOMAX PO SCH ×2 (07:33→09:47)
[2019-05-10] MEDS: APRESOLINE PO SCH ×3 (07:33→15:19)
[2019-05-10] MEDS: ADVAIR 250/50 DISKUS INH SCH (07:47)
--- NOTE | 2019-05-10 07:58 | EKG Report ---
Test Performed on : 05/08/2019 9:23:00 PM Test Reason : CP/SOB Blood Pressure : / mmHG Vent. Rate : 066 BPM Atrial Rate : 066 BPM P-R Int : 156 ms QRS Dur : 118 ms QT Int : 442 ms P-R-T Axes : 043 017 038 degrees QTc Int : 463 ms Normal sinus rhythm. Incomplete right bundle branch block Borderline ECG When compared with ECG of 06-MAY-2019 13:31, (Unconfirmed) Criteria for Septal infarct are no longer present Unconfirmed Result
[2019-05-10] MEDS ORDERED: LANTUS INSULIN SUBQ SCH (11:15)
[2019-05-10] MEDS: ZOSTRIX TOP SCH (11:49)
[2019-05-10 14:01] VITALS: BP 152/76
--- NOTE | 2019-05-11 08:40 | DISCHARGE SUMMARY ---
ADMISSION DATE: 05/09/2019 DISCHARGE DATE: 05/10/2019 DISCHARGE DISPOSITION: Home. DISCHARGE DIAGNOSES: 1. Headache. 2. Essential hypertension. 3. Right shoulder osteoarthritis. 4. Anxiety related to health problems. OTHER DIAGNOSES: 1. History of multiple hospital admissions. 2. History of coronary artery disease with percutaneous intervention in 2008. 3. Essential hypertension. 4. History of chronic obstructive pulmonary disease. 5. Chronic hypoxic respiratory failure on home oxygen, who quit smoking. 6. History of bilateral non-small cell lung cancer on current radiation therapy. 7. History of insulin-dependent diabetes mellitus type 2. 8. History of anxiety. 9. Chronic kidney disease stage 4. CONSULTATIONS DURING HOSPITALIZATION: None. PROCEDURES DURING HOSPITALIZATION: None. DISCHARGE MEDICATIONS: 1. Advair 250/50 Diskus 1 puff inhaled b.i.d. 2. Albuterol sulfate 2.5 mg inhalation as needed for shortness of breath. 3. Allopurinol 100 mg in the morning time. 4. Aspirin 81 mg daily. 5. Clonazepam 0.5 mg t.i.d. 6. Clonidine 2.2 mg t.i.d. 7. Insulin lispro as per sliding scale. 8. Isosorbide dinitrate 60 mg t.i.d. 9. Insulin glargine 120 units subcutaneous b.i.d. 10. Furosemide 40 mg b.i.d. 11. Magic Mouthwash solution 15 mL every 2 hours as needed for soreness in the mouth. 12. Nitroglycerin 0.4 mg sublingual as needed for chest pain. 13. Omeprazole 40 mg daily. 14. Prednisone 20 mg daily. The indication of this is unclear. 15. Metoprolol succinate 50 mg b.i.d. The patient was advised to discuss the dosing with her regular doctor. 16. Hydralazine 100 mg t.i.d. 17. Tamsulosin 0.4 mg daily. 18. Folic Acid 1 mg daily. 19. Percocet 5 mg every 6 hours as needed for headache 8 tablets have been prescribed. 20. Capsaicin 0.0 75% cream 1 application t.i.d. as needed for shoulder pain. VITALS: At the time of discharge, temperature 98.1 degrees, pulse 64, respiratory rate 20, and blood pressure 132/80. He is saturating 99% on room air. PHYSICAL EXAMINATION: Morbidly obese not in any acute distress. Oral cavity is moist. Air entry bilaterally equal. No wheeze or rhonchi. Mild inspiratory crackles bilateral bases. S1, S2 normal. No murmur, rub, or gallop. The breath sounds bilaterally was diminished because of his thick chest wall. Abdomen is obese, soft, and nontender. He does not have lower extremity edema. On admission examination, he had significant tenderness on the right shoulder as well as over scapula. His active and passive range of movement on right shoulder was diminished, especially overhead abduction and external rotation. LABORATORY: Labs during hospital admission and discharge, WBC 4.4, hemoglobin 9.8, platelet 120,000, BUN 54, creatinine 3.2, GFR of 20. Blood sugar of 307. MICROBIOLOGY: No data. IMAGING: Chest x-ray on admission had left upper lobe atelectasis. Head CT without contrast did not have any acute disease except mild periventricular white matter and chronic microvascular ischemic changes. Right shoulder ultrasound did not have any mass or fluid collection, and soft tissue echo structure was normal. Shoulder x-ray of the right shoulder had moderate osteoarthritis of the shoulder. HOSPITAL COURSE SUMMARY: Mr. La is 64 year old man with anxiety disorder on multiple hospital admissions over the last several months for one or the other problems, and came in with chief complaint of headache which was persistent for 3 weeks. He states it was affecting his right shoulder and then crawling towards the back of his right back and crawling up to neck and going to his head and involving the entire headache. He has had intermittent type such chest pain. He was evaluated in the emergency room, and as per hospital admission was requested. He was kept under observation. On my evaluation, he denied any blurring of vision, watering from the eyes, nausea, vomiting with headache. He did not have any specific aggravating or relieving factor. He did not have any photophobia. His headache was bilateral. He was initially treated with Percocet which helped with his headache. He also started complaining of right shoulder pain, so ultrasound and x-ray were performed to rule out any frozen shoulder. X-ray of his shoulder suggested moderate osteoarthritis of acromioclavicular and glenohumeral joint. The patient was discharged on p.o. Percocet, and was advised to follow up with orthopedic doctor as an outpatient. All of his home medications were continued at the time of discharge, and a prescription of Percocet were given. The patient is currently receiving radiation therapy, which he would resume after going home tomorrow for his bilateral non-small cell lung cancer. TIME SPENT: More than 30 minutes spent in discharging this patient. cc: Dom Tobin MD
== END 2019-05-10 17:39 | disposition home or self-care (01) ==
LOC: SUPCPDRO → ED 20:51 → SUATTDRO 05-09 00:05 → INTOOBSV 05-09 00:05 → 3N 05-09 00:05
PROVIDERS: ATTEND Internal Medicine
CPT/HCPCS: 70450; 71010; 71045; 73030; 76882; 80048; 80053; 82948; 83880; 84484; 85025; 93005; 94640; 94761; A9270; J1815; XXXXX

== ENCOUNTER 2019-07-12 23:23 | Inpatient (IN) ==
[2019-07-13 01:36] LABS: BASO# 0.04 X1000 (0.0-0.2); BASO% 0.6 % (0.0-0.8); EOS# 0.09 X1000 (0.0-0.7); EOS% 1.3 % (0.0-10.0); HEMATOCRIT 35.2 % (42.0-52.0); HEMOGLOBIN 11.4 g/dL (14.0-18.0); IMM GRAN# 0.05 X1000 (0.0-0.04); IMM GRAN% 0.7 % (0.0-0.5); LYMPH# 0.85 X1000 (1.2-3.4); LYMPH% 11.8 % (20.5-51.1); MCH 28.1 PG (27-31); MCHC 32.4 g/dL (33-37); MCV 86.9 FL (81-99); MONO# 0.65 X1000 (0.11-0.59); MPV 10.4 FL (7.4-10.4); NEUT# 5.51 X1000 (1.4-6.5); NEUT% 76.6 % (42.2-75.2); PLT 223 X1000 (130-400); RBC 4.05 XMIL (4.7-6.1); RDW 18.2 % (11.5-14.5); WBC 7.19 X1000 (4.8-10.8)
[2019-07-13 02:38] LABS: ALB/GLOB RATIO 1.4; ALBUMIN 4.2 g/dL (3.5-5.0); CREATININE 3.5 mg/dL (0.7-1.2); POTASSIUM 4.2 mmol/L (3.5-5.1); TOTAL BILIRUBIN 0.2 mg/dL (0.20-1.00); TOTAL PROTEIN 7.3 g/dL (6.3-8.3)
[2019-07-13] MEDS ORDERED: LEVAQUIN 750 MG/D5W 750 MG/150 ML IVPB IV ONE (03:15)
[2019-07-13] MEDS ORDERED: PREDNISONE PO ONE (03:15)
[2019-07-13] MEDS ORDERED: DUONEB (A & A) INH ONE (03:16)
--- NOTE | 2019-07-13 04:07 | PROVIDER DOCUMENTATION ---
This chart was entered by Shirley Serna Scribe, acting as scribe for Amelia Moore DO. HPI-Respiratory General - General Stated Complaint: sob Time Seen by Provider: 07/12/19 23:54 Source: patient Allergies/Adverse Reactions: Patient Allergies Allergy/AdvReac Type Severity Reaction Status Date / Time doxazosin mesylate * Allergy Severe SHORTNESS Verified 04/26/19 18:05 [From Cardura] OF BREATH ketorolac tromethamine * Allergy Severe SHORTNESS Verified 04/26/19 18:05 [From Toradol] OF BREATH almond Allergy Intermediate RASH Verified 04/26/19 18:05 ibuprofen [From Motrin] AdvReac Intermediate FLUSHING Verified 04/26/19 18:05 levofloxacin AdvReac Mild NAUSEA Verified 04/26/19 18:05 Home Medications: Home Medication List Medication Instructions Recorded Confirmed Last Taken Type Isosorbide Dinitrate [Isordil] 60 mg PO TID 04/30/18 05/08/19 02/18/19 History Metoprolol Succinate E.r. [Toprol 50 mg PO BID 04/30/18 05/08/19 02/18/19 History Xl] Folic Acid 1 mg PO DAILY #90 tab 08/26/18 05/08/19 02/18/19 Rx Hydralazine [Apresoline] 100 mg PO TID #120 tab 09/19/18 05/08/19 02/18/19 Rx Tamsulosin [Flomax] 0.4 mg PO DAILY capsule 10/16/18 05/08/19 02/18/19 Rx Insulin Glargine [Lantus] 120 unit SUBQ BID 11/03/18 05/08/19 02/18/19 History Omeprazole 40 mg PO DAILY 11/24/18 05/08/19 02/18/19 History Allopurinol 100 mg PO QAM 02/09/19 05/08/19 02/18/19 History Clonidine HCl 0.2 mg PO TID 02/09/19 05/08/19 02/18/19 History Insulin Lispro [Humalog Kwikpen See Protocol SUBQ DIRECTED 02/09/19 05/08/19 Unknown History U-100] Clonazepam 0.5 mg PO TID 02/19/19 05/08/19 02/18/19 History Fluticasone/Salmet 250/50 INH 1 puff INH RTBID 02/19/19 05/08/19 02/18/19 History [Advair 250/50 Diskus] Nitroglycerin 0.4 mg SUBLINGUAL Q5MX3 02/19/19 05/08/19 Unknown History Furosemide [Lasix] 40 mg PO BID 04/29/19 05/08/19 Unknown History Albuterol Sulfate 2.5 mg INHALATION PRN PRN 05/08/19 05/08/19 Unknown History Aspirin 81 mg PO DAILY 05/08/19 05/08/19 Unknown History Diphenhyramine/Al&mg Oh/Lido [Mbx 15 ml MT Q2H PRN PRN 05/08/19 05/08/19 Unknown History Solution] Insulin Lispro [Humalog Kwikpen 100 unit SQ DIRECTED 05/08/19 05/08/19 Unknown History U-100] Prednisone 20 mg PO DAILY 05/08/19 05/08/19 Unknown History Capsaicin 0.075% Cream [Zostrix] 1 applic TOP BID PRN #1 tube 05/10/19 Unknown Rx Oxycodone/APAP 5 mg/325 mg 1 ea PO Q6H PRN PRN #8 tab 05/10/19 Unknown Rx [Percocet-5] Azithromycin [Zithromax Z-Chetan] 250 mg PO DIRECTED #1 pkg 07/07/19 Unknown Rx - History of Present Illness-Resp Nature of Presenting Problem: 64 yowm c/.o sob, chest tightness and intermittent coughing up blood for 3 wks. pt was seen in ed 07-[address] Wong for similar symptoms. pt sts was given zpack, has taken pain pill at 2130 tonight w/ no relief. pt hx of NC, 4 stents, copd, dm and CHF. pt sts can't see pcp. pt is obese, a&ox3. denies smoking, stating he stopped 4 years ago. He is home O2 dependent. Quality of Pain: reports: tightness (chest) Onset/Duration: reports: other (3 wks) Timing: reports: still present Cough Quality/Degree: reports: blood streaked sputum Review of Systems - Adult - REVIEW OF SYSTEMS - ADULT Constitutional: reports: no symptoms reported. denies: fever, fatique, night sweats Eyes: reports: no symptoms reported Ears, Nose, Mouth & Throat: reports: no symptoms reported. denies: epistaxis, sinus problem, nose pain Cardiovascular: reports: see HPI, chest pain (tightness). denies: heart murmur, irregular heart rate, orthopnea Respiratory: reports: see HPI, hemoptysis, shortness of breath. denies: chronic cough, cough, wheezing Gastrointestinal: reports: no symptoms reported Genitourinary: reports: no symptoms reported Musculoskeletal: reports: no symptoms reported Integumentary: reports: no symptoms reported Neurological: reports: no symptoms reported Psychiatric: reports: no symptoms reported Endocrine: reports: no symptoms reported Hematologic/Lymphatic: reports: no symptoms reported Allergic/Immunologic: reports: no symptoms reported All Other Systems: Reviewed and Negative Past History - Adult - PAST MEDICAL HISTORY-ADULT Review of Records: reports: Old Records Reviewed, Nursing Assessment Review, Medications Reviewed, Social history reviewed & non-contributory. Major Childhood Illnesses: reports: history unknown Cardiovascular: reports: CHF (ECHO 08/2015 EF 55% ), HTN, hyperlipidemia, NC Respiratory: reports: asthma, COPD (severe on 4liters O2 qHS), cancer Gastrointestinal: reports: GERD Obstetrical/Gynecological: reports: denies history Genitourinary: reports: kidney disease (CRI) Musculoskeletal: reports: arthritis, chronic pain Neurological: reports: denies history Psychiatric: reports: anxiety Endocrine/Immune: reports: Diabetes Other Conditions: reports: denies history - PRIOR SURGERIES/PROCEDURES Surgical/Procedure History: reports: cardiac stent (x2 last one 7 years ago), orthopedic (extremity) (thumb) - IMMUNIZATION STATUS Childhood Immunizations: See Nurse Assessment Flu Vaccine: See Nurse Assessment - FAMILY HISTORY Family History: reviewed, not pertinent - SOCIAL HISTORY Smoking: denies, other (former smoker) Substance Use: none/never Physical Exam-General - PHYSICAL EXAM-ADULT Initial Vital Signs Reviewed: Yes - CONSTITUTIONAL General Appearance: appears well, alert, no apparent distress, obese. negative: anxious, obtunded, combative - EYES Eyes: PERRL/EOMI, pink conjunctivae - HEAD, EARS, NOSE, MOUTH & THROAT HENMT: normocephalic/atraumatic, moist mucous membranes, normal ENT inspection - NECK Neck: non-tender, full range of motion, supple, normal inspection - RESPIRATORY Respiratory: lungs clear, normal breath sounds, no pleuratic chest pain, no respiratory distress, no accessory muscle use, other (chest tender to palp). negative: chest non-tender, respiratory distress, decreased breath sounds, wheezing - CARDIOVASCULAR Cardiovascular: normal peripheral pulses, regular rate, rhythm - GASTROINTESTINAL (ABDOMEN) Abdominal Exam: normal bowel sounds, non tender, soft - LYMPHATIC Lymphatic: no adenopathy - MUSCULOSKELETAL Back Exam: normal inspection, no CVA tenderness, no vertebral tenderness Extremity: normal range of motion, non-tender, normal inspection Peripheral Pulses: radial (R): 2+, radial (L): 2+ - SKIN Integumentary: normal color, normal turgor, warm/dry - NEUROLOGIC Neurologic: grossly normal, no motor/sensory deficits - PSYCHIATRIC Psych/Mental Status: normal mood/affect, normal thought content, normal thought process, oriented x 3 Progress - PLAN OF CARE/RESULTS Progress/Plan/Lab Results: Vital Signs - 8 hr 07/13/19 00:12 Temperature 98.6 F Pulse Rate 85 Respiratory Rate 21 Blood Pressure 160/85 O2 Sat by Pulse Oximetry 94 L Laboratory Results - last 24 hr 07/13/19 07/13/19 07/13/19 00:35 00:35 00:35 WBC 7.19 RBC 4.05 L Hgb 11.4 L Hct 35.2 L MCV 86.9 MCH 28.1 MCHC 32.4 L RDW Std Deviation 18.2 H Plt Count 223 MPV 10.4 Immature Gran % (Auto) 0.7 H Neut % (Auto) 76.6 H Lymph % (Auto) 11.8 L Reynolds % (Auto) 9.0 Eos % (Auto) 1.3 Baso % (Auto) 0.6 Immature Gran # (Auto) 0.05 H Neut # (Auto) 5.51 Lymph # (Auto) 0.85 L Reynolds # (Auto) 0.65 H Eos # (Auto) 0.09 Baso # (Auto) 0.04 Sodium 136 Potassium 4.2 Chloride 95 L Carbon Dioxide 25 Anion Gap 16 BUN 75 H Creatinine 3.5 H Estimated GFR/1.73 m2 18 BUN/Creatinine Ratio 21 Glucose 459 H* Calculated Osmolality 315 Calcium 9.0 Total Bilirubin 0.20 AST 11 ALT 17 Alkaline Phosphatase 162 H Troponin T Mcz-P-Dyftqlnrwgk Pept 488 H Total Protein 7.3 Albumin 4.2 Globulin 3.1 Albumin/Globulin Ratio 1.4 07/13/19 00:35 WBC RBC Hgb Hct MCV MCH MCHC RDW Std Deviation Plt Count MPV Immature Gran % (Auto) Neut % (Auto) Lymph % (Auto) Reynolds % (Auto) Eos % (Auto) Baso % (Auto) Immature Gran # (Auto) Neut # (Auto) Lymph # (Auto) Reynolds # (Auto) Eos # (Auto) Baso # (Auto) Sodium Potassium Chloride Carbon Dioxide Anion Gap BUN Creatinine Estimated GFR/1.73 m2 BUN/Creatinine Ratio Glucose Calculated Osmolality Calcium Total Bilirubin AST ALT Alkaline Phosphatase Troponin T 0.085 Fob-S-Snzhxavxoaq Pept Total Protein Albumin Globulin Albumin/Globulin Ratio Orders Category Date Time Status Update & Confirm Home Medicati ROUTINE Care 07/13/19 03:40 Active CHEST-1 VIEW [RAD] Stat Exams 07/13/19 00:12 Taken Chest [CT THORAX W/O CONTRAST] [CT] Stat Exams 07/13/19 03:39 Ordered BLOOD CULTURE [BLDCUL] Stat Lab 07/13/19 03:45 Uncollected CBC WITH ELECTRONIC DIFF [HEME] Stat Lab 07/13/19 00:35 Completed COMPREHENSIVE METABOLIC PANEL [CHEM] Stat Lab 07/13/19 00:35 Completed PRO B-NATRIURETIC PEPTIDE Stat Lab 07/13/19 00:35 Completed TROPONIN T Stat Lab 07/13/19 00:35 Completed Albuterol 2.5MG/Ipratrop 0.5MG [Duoneb (A & A)] Med 07/13/19 03:16 Discontinued 3 ml INH NOW ONE Levofloxacin 750 mg/D5w [Levaquin 750 mg/D5w] Med 07/13/19 03:15 Active 750 mg in 150 ml IV NOW Prednisone Med 07/13/19 03:15 Discontinued 60 mg PO NOW ONE Aerosol Treatments Routine Oth 07/13/19 03:16 Active Aerosol Treatments Stat Oth 07/13/19 03:16 Active EKG [EKG] Stat Ther 07/13/19 00:12 Ordered Transfer/Admit Order [TRANSFER] Routine Transfer 07/13/19 03:40 Ordered Result Diagrams: 07/13/19 00:35 07/13/19 00:35 Departure - Departure Date of Disposition Decision: 07/13/19 Time of Disposition Decision: 03:00 DIAGNOSIS: COPD exacerbation, Hemoptysis Disposition: ADMITTED INPATIENT 09 Certified Medical Emergency: Emergent Condition: Fair Referrals and Follow-Ups: Terrie Judge [Primary Care Provider] - - Critical Care Note This patient required my direct & personal management of CC.: No Attestation - Physician/ KOJO Attestation Patient care was provided by Advanced Practice Provider:: No The physician spent face to face time with patient:: Yes Advanced Practice Provider documentation review:: Supervising physician onsite and consulted in the evaluation and care of this patient. The physician did have a face to face encounter with the patient. This chart was documented by the indicated scribe, (Shilrey Serna, Dez) and accurately reflects the services I performed and decisions made by me, Amelia Moore DO, as attested by the provider's signature.
[2019-07-13] MEDS ORDERED: ZOFRAN IV PRN (05:08)
[2019-07-13] MEDS ORDERED: TYLENOL PO PRN (05:08)
--- NOTE | 2019-07-13 05:18 | EKG Report ---
Test Performed on : 07/13/2019 02:40:52 AM Test Reason : CP. Blood Pressure : / mmHG Vent. Rate : 064 BPM Atrial Rate : 064 BPM P-R Int : 164 ms QRS Dur : 110 ms QT Int : 450 ms P-R-T Axes : 059 047 060 degrees QTc Int : 464 ms Normal sinus rhythm. Incomplete right bundle branch block Septal infarct , age undetermined Abnormal ECG When compared with ECG of 13-JUL-2019 02:40, (Unconfirmed) No significant change was found Unconfirmed Result
--- NOTE | 2019-07-13 05:28 | HISTORY AND PHYSICAL ---
CHIEF COMPLAINT: Shortness of breath. HISTORY OF PRESENT ILLNESS: Mr. La is a 64-year-old male, very well known to our service. He has multiple chronic illnesses including a history of lung cancer, COPD, on home O2, CHF, chronic kidney disease, chronic anemia, hypertension, diabetes mellitus type 2, which is poorly controlled and chronic angina. He comes into the emergency room with complaint of not being able to breathe well as well as having blood-streaked sputum for the past three days. He stated that he spoke to his doctor and she told him to come into the emergency room. Initial workup in the ER. All labs are at baseline. Glucose is elevated as per his usual. Chest x-ray shows chronic COPD changes. The patient does have an expiratory wheeze. He will be admitted for further evaluation and treatment. PAST MEDICAL HISTORY: See HPI. PAST SURGICAL HISTORY: 1. Coronary stenting. 2. Left hand surgery. SOCIAL HISTORY: Former smoker. No alcohol. No illicit drugs. FAMILY HISTORY: Heart disease, diabetes. Both parents of cancer. ALLERGIES: Doxazosin, Toradol, ibuprofen, Levaquin causing mild nausea, however, he had it in the emergency room tonight with no problem. HOME MEDICATIONS: A list of home medications has not been reconciled. Order was placed for nursing to reconcile home medication. REVIEW OF SYSTEMS: Fourteen point review of systems conducted with the patient. Pertinent positives listed above in the HPI. All other systems reviewed and found to be negative. PHYSICAL EXAMINATION: VITAL SIGNS: Temp 98.6 degrees, pulse 85, respirations 21, blood pressure 160/85, oxygen saturation 99% on his normal 4 liters of home O2. GENERAL: A 64-year-old male lying in the ER stretcher. He is friendly and cooperative. Nontoxic appearing. In no acute distress. HEENT: Head is atraumatic, normocephalic. Pupils equal, round and react to light. Extraocular eye movement intact. Sclerae anicteric. Conjunctivae is pale. Oral mucosa is moist. NECK: Supple. No JVD. No thyromegaly. Trachea midline. No cervical lymphadenopathy. CARDIAC: S1, S2 appreciated. No murmurs, gallops, rubs. LUNGS: Expiratory wheeze. Decreased bilaterally. No rhonchi or rales. Symmetric rise and fall of respirations. ABDOMEN: Soft, nondistended, nontender. Bowel sounds present in all four quadrants, is protuberant. No pulsatile mass or organomegaly. EXTREMITIES: No cyanosis, clubbing or edema, 2+ pedal pulse bilaterally. GENITOURINARY: Patient voids. Otherwise deferred. NEUROLOGICAL: Alert and oriented x3. No focal motor deficits. Otherwise nonfocal examination. SKIN: Warm, dry and intact. No acute lesions or rash. DIAGNOSTIC DATA: Chest x-ray shows chronic COPD changes. LABORATORY DATA: Hemoglobin 11.4, hematocrit 35.2, platelet count 223,000. BUN 75, creatinine 3.5, glucose 459. ASSESSMENT AND PLAN: 1. COPD with exacerbation. Will order a CT scan of his thorax to rule out infiltrates. Also order blood cultures. The patient did list a mild allergy to Levaquin but he took it without any problem in the emergency room. Will continue Levaquin daily, bronchodilators and low dose steroids x3 doses. 2. CHF with no exacerbation. Will continue to monitor the patient's fluid volume status and restart home medications when appropriate. 3. Chronic angina. He did not complain of chest pain at this time. Will continue to monitor. 4. Hypertension. Continue home medications. 5. Diabetes mellitus type 2 which is poorly controlled. Hemoglobin A1c, fingerstick blood sugars q.4.h with sliding scale insulin. Will continue home long-acting insulin when reconciled. Further recommendations per the patient's clinical course. Dictated by ALPESH Alcantara for Laci Carvalho MD cc: ALPESH Alcantara MD Faye Wilson, MD Independent exam performed by me at bedside and only notable for diffuse wheezes bilat. and decreased air entry bilat. Need to rule out PNA and if +, will need to change abx coverage to HCAP coverage. CT non contrast thorax ordered. Discussed plan of care with TYPING ELEMENT MACHINE OPERATOR. JIM
[2019-07-13] MEDS ORDERED: ROCEPHIN 1 GM in NS 50 ML IV SCH (05:30)
[2019-07-13 05:41] LABS: HEMOGLOBIN A1C 8.9 % (4.8-6.0)
[2019-07-13] MEDS: HEPARIN SUBQ SCH ×3 (05:44→20:28)
[2019-07-13] MEDS: HUMALOG SUBQ SCH ×6 (05:45→22:33)
--- NOTE | 2019-07-13 06:32 | Diag Imaging Result Doc PS360 ---
CT THORAX W/O CONTRAST - 07/13/2019 INDICATION: pneumonia? COMPARISON: Chest x-ray 07/13/2019, chest CT 03/23/2019 FINDINGS: Stable hyperexpanded lungs with COPD changes. There is persistent dense atelectasis of the apical posterior segment of the left upper lobe. The degree of atelectasis has improved since prior. No new infiltrates. No mass or adenopathy. Advanced triple-vessel calcified coronary artery disease. Heart size is normal with no pericardial effusion. Upper abdominal images are unremarkable. There are moderate degenerative changes of the spine. No acute or suspicious bony lesion. IMPRESSION: Persistent dense collapse of the apicoposterior segment of the left upper lobe. Overall improved from the prior CT. This exam was performed using automated exposure control, adjustment of mA or kV according to patient size, and/or use of iterative reconstruction technique Electronically signed by Prakash Butts 07/13/2019 6:30 AM
--- NOTE | 2019-07-13 07:02 | Diag Imaging Result Doc PS360 ---
EXAM: CHEST-1 VIEW 07/13/2019 HISTORY: sob TECHNIQUE: AP portable at 0022 COMMENT: There is increased pulmonary vascularity. There is slightly increased interstitial opacity which has not changed significantly since 07/07/2019. IMPRESSION: Minimal pulmonary edema. Stable ill-defined opacity in the left upper lobe. Electronically signed by Jason Bernstein 07/13/2019 6:59 AM
[2019-07-13] MEDS: DUONEB (A & A) INH SCH ×4 (09:36→21:48)
[2019-07-13] MEDS ORDERED: ZOSTRIX TOP PRN (11:33)
[2019-07-13] MEDS: TOPROL XL PO SCH ×2 (11:52→20:28)
[2019-07-13] MEDS: LASIX PO SCH ×2 (11:52→20:28)
[2019-07-13] MEDS: NORCO-7.5 PO SCH ×3 (11:52→20:29)
[2019-07-13] MEDS: ADVAIR 250/50 DISKUS INH SCH ×2 (12:53→21:47)
[2019-07-13] MEDS: APRESOLINE PO SCH ×3 (13:58→20:28)
[2019-07-13] MEDS: CATAPRES PO SCH ×2 (13:59→20:29)
[2019-07-13] MEDS ORDERED: ROCEPHIN 2 GM in NS 50 ML IV SCH (14:13)
[2019-07-13] MEDS ORDERED: MIRALAX PO PRN (14:35)
[2019-07-13] MEDS ORDERED: LACTULOSE PO PRN (14:35)
[2019-07-13] MEDS: LANTUS INSULIN SUBQ ONE ×2 (15:45→15:59)
[2019-07-13] MEDS: KLONOPIN PO SCH (20:29)
[2019-07-13] MEDS ORDERED: LANTUS INSULIN SUBQ SCH (21:00)
[2019-07-14] MEDS: HUMALOG SUBQ SCH ×8 (00:46→23:17)
[2019-07-14] MEDS ORDERED: LEVAQUIN 750 MG in NS 150 ML IV SCH (03:00)
[2019-07-14] MEDS: DUONEB (A & A) INH SCH ×6 (03:52→22:42)
[2019-07-14] MEDS: ROCEPHIN 2 GM in NS 50 ML IV SCH (05:06)
[2019-07-14] MEDS: HEPARIN SUBQ SCH ×3 (05:06→23:08)
[2019-07-14] MEDS: PRILOSEC PO SCH ×2 (05:07→06:33)
[2019-07-14 06:00] LABS: HEMATOCRIT 34.1 % (42.0-52.0); MCH 27.8 PG (27-31); MCHC 32.3 g/dL (33-37); MCV 86.3 FL (81-99); MPV 9.9 FL (7.4-10.4); NEUT% 80.5 % (42.2-75.2); PLT 215 X1000 (130-400); RBC 3.95 XMIL (4.7-6.1); RDW 17.9 % (11.5-14.5); WBC 8.21 X1000 (4.8-10.8)
[2019-07-14 06:01] LABS: BASO# 0.02 X1000 (0.0-0.2); BASO% 0.2 % (0.0-0.8); EOS# 0.08 X1000 (0.0-0.7); IMM GRAN# 0.04 X1000 (0.0-0.04); IMM GRAN% 0.5 % (0.0-0.5); LYMPH# 0.77 X1000 (1.2-3.4); LYMPH% 9.4 % (20.5-51.1); MONO# 0.69 X1000 (0.11-0.59); MONO% 8.4 % (1.7-9.3); NEUT# 6.61 X1000 (1.4-6.5)
[2019-07-14 06:49] LABS: CREATININE 3.5 mg/dL (0.7-1.2); POTASSIUM 3.3 mmol/L (3.5-5.1)
[2019-07-14] MEDS: LASIX PO SCH ×2 (09:18→23:08)
[2019-07-14] MEDS: NORCO-7.5 PO SCH ×3 (09:18→23:07)
[2019-07-14] MEDS: ZYLOPRIM PO SCH (09:18)
[2019-07-14] MEDS: FOLIC ACID PO SCH (09:18)
[2019-07-14] MEDS: KLONOPIN PO SCH ×2 (09:18→23:07)
[2019-07-14] MEDS: APRESOLINE PO SCH ×3 (09:18→17:44)
[2019-07-14] MEDS: CATAPRES PO SCH ×3 (09:18→17:44)
[2019-07-14] MEDS: FLOMAX PO SCH (09:18)
[2019-07-14] MEDS: ASPIRIN PO SCH (09:18)
[2019-07-14] MEDS: TOPROL XL PO SCH ×2 (09:18→23:07)
[2019-07-14] MEDS: LANTUS INSULIN SUBQ SCH ×2 (09:20→23:08)
[2019-07-14] MEDS: ADVAIR 250/50 DISKUS INH SCH ×2 (10:54→19:42)
[2019-07-14] MEDS ORDERED: SOLU-MEDROL IV SCH (11:00)
[2019-07-14] MEDS ORDERED: VENOFER 500 MG in NS 250 ML IV ONE (11:01)
[2019-07-14] MEDS ORDERED: TESSALON PO PRN (11:02)
--- NOTE | 2019-07-14 12:57 | PROGRESS NOTE ---
DATE: 07/14/2019 SUBJECTIVE: Patient reports feeling fine and better in comparing with yesterday. Denies any chest pain or shortness of breath. OBJECTIVE: Vital Signs: Temperature 97.2 degrees, heart rate 60, respiratory rate 20, blood pressure 148/83, and O2 saturation 100% on room air. General: This is a 64-year-old chronically ill-appearing and obese male lying in bed in no acute distress. Cardiovascular: S1, S2 heard. No murmurs, gallops, or rubs. Regular rate and rhythm. Respiratory: Minimal wheezing noted in both pulmonary dillon mostly noted in both bases. Patient not using any accessory muscle or work of breathing. Abdomen: Soft. Nondistended. Nontender to palpation. Bowel sounds present. No organomegaly. Extremities: No clubbing, cyanosis, or edema. Peripheral pulses present in both legs. Neurological: Patient is alert and oriented x3. Moves all four extremities. LABORATORY DATA: White cell count 8.21, hemoglobin 11.0, hematocrit 34.1, and platelets 215,000. Potassium 3.3 and creatinine 3.5. ASSESSMENT AND PLAN: 1. Chronic obstructive pulmonary disease exacerbation. CT of the chest showed an infiltrate, but apparently patient said that he had lung cancer treated with radiotherapy, and apparently was following with Dr. Cardozo. In any case, we have provided actually IV antibiotics in this case and Levaquin. We will continue with the same management. We will continue with bronchodilators. 2. CHF not on any exacerbation. We will continue to monitor this patient closely, and continue with home medications. 3. Hypertension. Blood pressure is under control. We will continue with same management. 4. Diabetes mellitus type 2. We will continue with sliding scale insulin. Accu-Chek before meals and also at bedtime. cc: Ric Keith MD
[2019-07-15] MEDS: DUONEB (A & A) INH SCH ×3 (03:54→12:01)
[2019-07-15] MEDS: PRILOSEC PO SCH ×2 (04:39→07:25)
[2019-07-15] MEDS: ROCEPHIN 2 GM in NS 50 ML IV SCH (04:40)
[2019-07-15] MEDS: HEPARIN SUBQ SCH (04:40)
[2019-07-15] MEDS: HUMALOG SUBQ SCH ×2 (04:47→09:39)
--- NOTE | 2019-07-15 05:25 | PULMONOLOGY CONSULTATION ---
DATE: 07/14/2019 REQUESTING PHYSICIAN: Dr. Alaniz. REASON FOR CONSULTATION: COPD exacerbation with possible lung cancer. HISTORY OF PRESENT ILLNESS: Mr. 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 He was referred to Dr. Tish Cardozo. He underwent stereotactic body radiotherapy. The patient has not been seen in my office due to multiple missed visits. The patient indicates he recently underwent a PET scan and was seen approximately [address] Cardozo, and was told that he currently has no evidence of active disease. He reports he is scheduled for a follow-up PET scan in 3 months. The patient presented to the emergency room with an increased cough, blood-tinged sputum, and increased dyspnea. He was admitted for COPD exacerbation. He has had no additional bleeding. He reports he continues to improve and is anxious to go home. PAST MEDICAL HISTORY/PROBLEM LIST: 1. Right upper lobe cancer and left upper lobe cancer, as per above, status post radiation therapy. 2. Severe chronic obstructive pulmonary disease. 3. Chronic hypoxemic respiratory failure. 4. Diabetes mellitus. 5. Cor pulmonale with pulmonary hypertension. 6. Chronic venous insufficiency. 7. Chronic renal insufficiency. 8. Coronary artery disease status post stent placement. 9. Peripheral vascular disease. 10. History of diastolic heart failure. SOCIAL HISTORY: The patient has been a nonsmoker for 5 years. Denies alcohol use. He has been living with his ex- for a while. FAMILY HISTORY: Positive for hypertension, diabetes mellitus. REVIEW OF SYSTEMS: As noted in the HPI. PHYSICAL EXAMINATION: General: Reveals an obese white male with a BMI of 40, resting comfortably in no distress. Vital signs: BP 155/95, heart rate 66, respiratory rate 20, oxygen saturation 98% on 4 L per nasal cannula. HEENT: Pupils are equal and reactive. Oropharynx is clear. Neck: Supple. Chest: Reveals markedly diminished breath sounds bilaterally. Cardiac: S1, S2. Abdomen: Obese and soft. Extremities: Reveal trace to 1+ peripheral edema. LABORATORIES: Sodium 139, potassium 3.3, chloride 95, bicarbonate 28, BUN 69, creatinine 3.5. Glucose 215. Hemoglobin A1c is 8.9. CT scan of the thorax reveals hyperinflation consistent with COPD, post radiation changes in the left upper lobe, advanced 3-vessel coronary artery disease. IMPRESSION: A 64-year-old with: 1. Chronic obstructive pulmonary disease exacerbation. 2. Status post radiation therapy for cancer in the entrance of the right upper lobe and the left upper lobe. 3. Morbid obesity. 4. Chronic hypoxemic respiratory failure. 5. Poorly controlled diabetes mellitus. 6. Stage 4 kidney disease/kidney failure. DISCUSSION: A 64-year-old with problems outlined above. He appears to be improving from his chronic obstructive pulmonary disease exacerbation. No current recommendations regarding prior lung cancer treatment given his recent follow-up with Dr. Petrona Cardozo. RECOMMENDATIONS: 1. Continue treatment for COPD exacerbation. 2. Complete outpatient course of antibiotics. 3. Anticipate discharge soon if he continues to improve. cc: Kale Yo MD
[2019-07-15 06:51] LABS: HEMOGLOBIN 10.7 g/dL (14.0-18.0); IMM GRAN# 0.04 X1000 (0.0-0.04); IMM GRAN% 0.4 % (0.0-0.5); LYMPH% 5.3 % (20.5-51.1); MCH 28.1 PG (27-31); MCHC 32.4 g/dL (33-37); MCV 86.6 FL (81-99); MONO# 0.52 X1000 (0.11-0.59); MONO% 5.5 % (1.7-9.3); MPV 10.6 FL (7.4-10.4); NEUT# 8.46 X1000 (1.4-6.5); NEUT% 88.8 % (42.2-75.2); PLT 209 X1000 (130-400); RBC 3.81 XMIL (4.7-6.1); RDW 18.1 % (11.5-14.5); WBC 9.52 X1000 (4.8-10.8)
[2019-07-15 07:00] LABS: CALCIUM 8.6 mg/dL (8.8-10.2); CREATININE 3.5 mg/dL (0.7-1.2); POTASSIUM 4.3 mmol/L (3.5-5.1)
[2019-07-15 07:44] LABS: BASO 1 % (0-1); LYMPHS 4 % (21-51); MONO 2 % (1-9); SEGS 93 % (42-75)
[2019-07-15] MEDS: ADVAIR 250/50 DISKUS INH SCH (08:43)
[2019-07-15] MEDS: APRESOLINE PO SCH (09:34)
[2019-07-15] MEDS: LASIX PO SCH (09:34)
[2019-07-15] MEDS: TOPROL XL PO SCH (09:34)
[2019-07-15] MEDS: FLOMAX PO SCH (09:34)
[2019-07-15] MEDS: ZYLOPRIM PO SCH (09:35)
[2019-07-15] MEDS: NORCO-7.5 PO SCH (09:35)
[2019-07-15] MEDS: FOLIC ACID PO SCH (09:35)
[2019-07-15] MEDS: ASPIRIN PO SCH (09:35)
[2019-07-15] MEDS: CATAPRES PO SCH (09:35)
[2019-07-15] MEDS: LANTUS INSULIN SUBQ SCH (09:35)
[2019-07-15] MEDS: KLONOPIN PO SCH (09:35)
[2019-07-15 12:10] VITALS: BP 142/91
--- NOTE | 2019-07-16 13:47 | DISCHARGE SUMMARY ---
ADMISSION DATE: 07/13/2019 DISCHARGE DATE: 07/15/2019 DIAGNOSES: 1. Chronic obstructive pulmonary disease with acute exacerbation, resolved. 2. History of congestive heart failure with no exacerbation. 3. Chronic angina with no chest pain at this time. 4. Hypertension. 5. Diabetes mellitus type 2, poorly controlled, with a hemoglobin A1c of 8.9. DIAGNOSTICS: Chest x-ray revealed minimal pulmonary edema. Stable ill-defined opacity in the left upper lobe. CT of the chest revealed persistent dense collapse of the apicoposterior segment of the left upper lobe which is improved from prior CT of 03/23/2019. Microbiology: Blood cultures revealed no growth after 48 hours. CONSULTANTS: Dr. Kale Yo. HOSPITAL COURSE: Mr. La presented to the emergency room complaining of increased cough with blood-tinged sputum and increased dyspnea. He was admitted for COPD exacerbation, treated with DuoNebs, antibiotics low-dose steroids. Thankfully, he has improved. He was evaluated by Dr. Yo of Pulmonology with treatments continued. Thankfully, he improved. Denying any chest pain or shortness of breath and is ready for discharge. DISCHARGE VITAL SIGNS: Blood pressure is 142/91 with a heart rate of 69, respirations 20, temperature 98 degrees, with O2 saturations 98% to 99% percent on 4 L nasal cannula which is his home dose. DISCHARGE PHYSICAL EXAMINATION: Cardiovascular: Regular rate and rhythm. S1 and S2 appreciated. He has a 1+ lower extremity edema. Calves are nontender with pulses palpable x4 extremities. Pulmonary: Breath sounds were diminished throughout with prolonged expiration. Clear with equal chest rise and fall with respiration. Gastrointestinal: Abdomen is soft, nontender, nondistended. Bowel sounds in all 4 quadrants. Neurologic: Alert and oriented x3. DISCHARGE MEDICATIONS: 1. Flomax 0.4 mg p.o. daily. 2. MiraLAX 17 g p.o. daily. 3. Omeprazole 40 mg p.o. daily. 4. Metoprolol succinate 50 mg p.o. b.i.d. 5. Medrol Dosepak take as directed. 6. Lactulose 60 mL p.o. daily p.r.n. constipation. 7. Isordil 60 mg p.o. t.i.d. 8. Humalog Quick Pen U100 take as per his home protocol. 9. Lantus insulin 120 units subcutaneous b.i.d. 10. [place] 7.5/325 t.i.d. 11. Apresoline 100 mg p.o. t.i.d. 12. Lasix 40 mg p.o. b.i.d. 13. Folic acid 1 mg p.o. daily. 14. Advair 250/50 one puff b.i.d. 15. Clonidine 0.2 mg p.o. t.i.d. 16. Omnicef 300 mg p.o. b.i.d. x7 days. 17. Capsaicin cream 1 application b.i.d. over the shoulder at the pain site. 18. Aspirin 81 mg p.o. daily. 19. Allopurinol 100 mg p.o. daily. 20. DuoNeb 4 times a day. FOLLOWUP: Dr. Terrie Judge on 07/22/2019 at 1:00 p.m. INSTRUCTIONS: The patient has been instructed to return to the emergency room or call to be seen sooner for any syncope, dizziness, chest pain, palpitations, increasing shortness of breath, recurrent hemoptysis, temperature greater than 101, nausea, vomiting, diarrhea, constipation, black or bloody vomitus or stools, hematuria, dysuria, frequency, urgency, or for any questions or concerns that he may have. He is being discharged home in stable condition with family members. TIME SPENT: This is a greater than 30 minute discharge. Dictated by ALPESH Turner for Ric Keith MD Addendum: Patient seen and examined by myself. Agree with ALPESH note. It reflects my assessment and plan. Patient is being discharged in stable condition. Will be seen by PCP in a week. cc: ALPESH Turner MD [facility]
== END 2019-07-15 13:35 | disposition home or self-care (01) | DRG 191 ==
LOC: SUPCPDRO → ED 23:23 → 4N 07-13 04:07 → SUATTDRO 07-13 04:07
PROVIDERS: ATTEND Internal Medicine

== ENCOUNTER 2019-10-03 16:32 | Inpatient (IN) ==
[2019-10-03 17:10] LABS: BASO# 0.03 X1000 (0.0-0.2); BASO% 0.4 % (0.0-0.8); EOS% 1.2 % (0.0-10.0); HEMATOCRIT 34.2 % (42.0-52.0); HEMOGLOBIN 10.7 g/dL (14.0-18.0); IMM GRAN# 0.03 X1000 (0.0-0.04); IMM GRAN% 0.4 % (0.0-0.5); LYMPH% 11.9 % (20.5-51.1); MCH 28.3 PG (27-31); MCHC 31.3 g/dL (33-37); MCV 90.5 FL (81-99); MONO# 0.72 X1000 (0.11-0.59); MONO% 8.6 % (1.7-9.3); MPV 9.7 FL (7.4-10.4); NEUT# 6.54 X1000 (1.4-6.5); NEUT% 77.5 % (42.2-75.2); PLT 260 X1000 (130-400); RBC 3.78 XMIL (4.7-6.1); RDW 16.8 % (11.5-14.5); WBC 8.42 X1000 (4.8-10.8)
[2019-10-03 17:18] LABS: INR 1.07
[2019-10-03 17:19] LABS: PTT 44.4 Seconds (22.3-41.8)
[2019-10-03 17:37] LABS: ALB/GLOB RATIO 1.3; ALBUMIN 3.8 g/dL (3.5-5.0); CREATININE 3.9 mg/dL (0.7-1.2); TOTAL BILIRUBIN 0.23 mg/dL (0.20-1.00); TOTAL PROTEIN 6.8 g/dL (6.3-8.3)
--- NOTE | 2019-10-03 17:48 | EKG Report ---
Test Performed on : 10/03/2019 4:45:05 PM Test Reason : CP Blood Pressure : / mmHG Vent. Rate : 063 BPM Atrial Rate : 063 BPM P-R Int : 158 ms QRS Dur : 104 ms QT Int : 450 ms P-R-T Axes : 061 033 062 degrees QTc Int : 460 ms Normal sinus rhythm. Incomplete right bundle branch block Septal infarct , age undetermined Abnormal ECG When compared with ECG of 23-AUG-2019 13:06, (Unconfirmed) Septal infarct is now present Unconfirmed Result
--- NOTE | 2019-10-03 18:27 | Diag Imaging Result Doc PS360 ---
EXAM: CHEST-2 VIEWS INDICATION: CP TECHNIQUE: 3 views COMPARISON: 08/23/2019 FINDINGS: There is a stable focal opacity in the left upper lobe that is also seen on previous CT from last month. There is stable chronic appearing interstitial thickening bilaterally. There is no discrete pleural fluid collection or pneumothorax. The cardiac silhouette is somewhat prominent but stable. IMPRESSION: Stable chronic changes as described. Electronically signed by Jake Serna 10/03/2019 6:25 PM
--- NOTE | 2019-10-03 18:53 | ED EKG INTERP ---
This chart was entered by Kevin Rodriguez Scribe, acting as scribe for Manuel Milner MD. EKG Interpretation - EKG Time of EKG reading by physician:: 16:45 EKG Read and Signed by:: Manuel Milner EKG Interpretation (*Must complete 3 of following elements*): Abnormal Rate: 63 Rhythm: NSR QRS: RBB (incomplete) Comments: septal infarct, age undetermined Attestation - Physician/ KOJO Attestation Patient care was provided by Advanced Practice Provider:: No The physician spent face to face time with patient:: Yes Advanced Practice Provider documentation review:: Supervising physician onsite and consulted in the evaluation and care of this patient. The physician did have a face to face encounter with the patient. This chart was documented by the indicated scribe, (Kevin Rodriguez Scribe) and accurately reflects the services I performed and decisions made by me, Manuel Milner MD, as attested by the provider's signature.
--- NOTE | 2019-10-03 18:54 | PROVIDER DOCUMENTATION ---
This chart was entered by Og Mccann Scribe, acting as scribe for Manuel Milner MD. HPI-Chest Pain - General Source: patient - History of Present Illness-CP Location: reports: central Chest Pain Radiation: reports: arms (Left arm), back Quality of Pain: reports: aching, burning Severity in ED: mild Onset/Duration: 3 days ago Timing: still present, getting worse Associated Symptoms: reports: dizziness, headache, nausea, shortness of breath Nitro Today/Relief: no nitro taken today Prior Chest Pain/Cardiac Workup: reports: cardiac cath, heart attack Similar Symptoms Previously?: Yes Recently Seen Here or By Another Healthcare Provider: No <Manuel Milner - Last Filed: 10/03/19 18:53> <Kp Gil - Last Filed: 10/03/19 19:12> - General Chief Complaint: Chest Pain Stated Complaint: CP Time Seen by Provider: 10/03/19 18:18 Allergies/Adverse Reactions: Patient Allergies Allergy/AdvReac Type Severity Reaction Status Date / Time doxazosin mesylate * Allergy Severe SHORTNESS Verified 07/28/19 18:55 [From Cardura] OF BREATH ketorolac tromethamine * Allergy Severe SHORTNESS Verified 07/28/19 18:55 [From Toradol] OF BREATH almond Allergy Intermediate RASH Verified 07/28/19 18:55 levofloxacin AdvReac Severe ANAPHYLAXIS Verified 07/28/19 18:55 ibuprofen [From Motrin] AdvReac Intermediate FLUSHING Verified 07/28/19 18:55 Home Medications: Home Medication List Medication Instructions Recorded Confirmed Last Taken Type Isosorbide Dinitrate [Isordil] 60 mg PO TID 04/30/18 08/23/19 07/12/19 History Metoprolol Succinate E.r. [Toprol 50 mg PO BID 04/30/18 08/23/19 07/12/19 History Xl] Folic Acid 1 mg PO DAILY #90 tab 08/26/18 08/23/19 07/12/19 Rx Hydralazine [Apresoline] 100 mg PO TID #120 tab 09/19/18 08/23/19 07/12/19 Rx Tamsulosin [Flomax] 0.4 mg PO DAILY capsule 10/16/18 08/23/19 07/12/19 Rx Insulin Glargine [Lantus] 120 unit SUBQ BID 11/03/18 08/23/19 07/12/19 History Allopurinol 100 mg PO QAM 02/09/19 08/23/19 07/12/19 History Clonidine HCl 0.2 mg PO TID 02/09/19 08/23/19 07/12/19 History Insulin Lispro [Humalog Kwikpen See Protocol SUBQ DIRECTED 02/09/19 08/23/19 07/12/19 History U-100] Clonazepam 0.5 mg PO TID 02/19/19 08/23/19 07/12/19 History Fluticasone/[place] 250/50 INH 1 puff INH RTBID 02/19/19 08/23/19 07/12/19 History [Advair 250/50 Diskus] Nitroglycerin 0.4 mg SUBLINGUAL Q5MX3 PRN 02/19/19 08/23/19 Unknown History Furosemide [Lasix] 40 mg PO BID 04/29/19 08/23/19 07/12/19 History Aspirin 81 mg PO DAILY 05/08/19 08/23/19 07/12/19 History Capsaicin 0.075% Cream [Zostrix] 1 applic TOP BID PRN #1 tube 05/10/19 08/23/19 07/12/19 Rx Hydrocodone/Acetaminophen [[place] 7.5 dose PO TID PRN 07/13/19 08/23/19 Unknown History 7.5-325 Tablet] Lactulose 60 ml PO DAILY PRN 07/13/19 08/23/19 07/11/19 21:00 History 60 ml Polyethylene Glycol 3350 [Miralax] 2 packet PO DAILY PRN 07/13/19 08/23/19 07/11/19 21:00 History 2 packets Cefdinir 300 mg PO BID #14 cap 07/15/19 08/23/19 Unknown Rx ATORVAstatin [Lipitor] 40 mg PO QHS 08/23/19 08/23/19 Unknown History Ipratropium/Albuterol Sulfate 3 ml INHALATION TID 08/23/19 08/23/19 Unknown History [Iprat-Albut 0.5-3(2.5) mg/3 ml] [place]-3 Fatty Acids/Fish Oil [Fish 1,000 mg PO DAILY 08/23/19 08/23/19 Unknown History Oil 1,000 mg Capsule] Omeprazole 40 mg PO DAILY 08/23/19 08/23/19 Unknown History - History of Present Illness-CP Nature of Presenting Problem: Pt is a 64 yom who presents to the ED with a CC of chest pain. Pt reports he beg an having chest pain three days ago and states his pain is getting worse. Pt reports his chest pain radiates into his left arm and into his back. Pt describes his pain as a burning sensation. Pt also complains of a headache, shortness of breath, nausea, and dizziness. Pt reports a large cardiac hx. Pt reports his PCP wants a stress test to be renewed. (Manuel Milner) Review of Systems - Adult - REVIEW OF SYSTEMS - ADULT Constitutional: reports: see HPI Eyes: reports: no symptoms reported Ears, Nose, Mouth & Throat: reports: no symptoms reported Cardiovascular: reports: see HPI, chest pain Respiratory: reports: see HPI, shortness of breath Gastrointestinal: reports: see HPI, nausea Genitourinary: reports: no symptoms reported Musculoskeletal: reports: see HPI, back pain, joint pain Integumentary: reports: no symptoms reported Neurological: reports: see HPI, headache/migraines Psychiatric: reports: no symptoms reported Endocrine: reports: no symptoms reported Hematologic/Lymphatic: reports: no symptoms reported Allergic/Immunologic: reports: no symptoms reported All Other Systems: Reviewed and Negative <Manuel Milner - Last Filed: 10/03/19 18:53> Past History - Adult - PAST MEDICAL HISTORY-ADULT Review of Records: reports: Old Records Reviewed, Nursing Assessment Review, Medications Reviewed, Social history reviewed & non-contributory. Major Childhood Illnesses: reports: history unknown Cardiovascular: reports: CAD, CHF (ECHO 08/2015 EF 55% ), HTN, hyperlipidemia, ID Respiratory: reports: asthma, COPD (severe on 4liters O2 qHS), cancer, sleep apnea Gastrointestinal: reports: GERD Obstetrical/Gynecological: reports: denies history Genitourinary: reports: kidney disease (CRI) Musculoskeletal: reports: arthritis, chronic pain Neurological: reports: denies history Psychiatric: reports: anxiety Endocrine/Immune: reports: Diabetes Other Conditions: reports: denies history - PRIOR SURGERIES/PROCEDURES Surgical/Procedure History: reports: cardiac stent (x2 last one 7 years ago), orthopedic (extremity) (thumb), other - IMMUNIZATION STATUS Childhood Immunizations: See Nurse Assessment Flu Vaccine: See Nurse Assessment - FAMILY HISTORY Family History: reviewed, not pertinent - SOCIAL HISTORY Smoking: cigarettes, less than 1 pack/day Substance Use: none/never, denies Alcohol Use Frequency: never <Manuel Milner - Last Filed: 10/03/19 18:53> Physical Exam-General - PHYSICAL EXAM-ADULT Initial Vital Signs Reviewed: Yes - CONSTITUTIONAL General Appearance: alert, mild distress - EYES Eyes: PERRL/EOMI, pink conjunctivae - HEAD, EARS, NOSE, MOUTH & THROAT HENMT: normocephalic/atraumatic, moist mucous membranes - NECK Neck: non-tender, full range of motion - RESPIRATORY Respiratory: lungs clear, normal breath sounds - CARDIOVASCULAR Cardiovascular: normal peripheral pulses, regular rate, rhythm - MUSCULOSKELETAL Extremity: normal range of motion, non-tender - SKIN Integumentary: normal color, warm/dry - NEUROLOGIC Neurologic: grossly normal, no motor/sensory deficits - PSYCHIATRIC Psych/Mental Status: normal mood/affect, normal thought content, normal thought process, oriented x 3 <Manuel Milner - Last Filed: 10/03/19 18:53> - HEART Score HEART Score: History: Moderately Suspicious HEART Score: ECG: Non-Specific Repolarization Disturbance/LBBB/PM HEART Score: Age: > or = 65 Years HEART Score: Risk Factors for Atherosclerotic Disease: > or = 3 Risk Factors or History of Atherosclerotic Disease HEART Score: Troponin: < or = Normal Limit Total HEART Score:: 6 <Manuel Milner - Last Filed: 10/03/19 18:53> Progress - PLAN OF CARE/RESULTS Result Diagrams: 10/03/19 16:52 10/03/19 16:52 - CHANGE OF SHIFT REPORT (ED Provider) 1 Report Given and Care Transferred to:: Dr Gil Time of Transfer: 19:00 Items Pending: CT/MRI Results, Physician Consult/Arrival <Manuel Milner - Last Filed: 10/03/19 18:53> - PLAN OF CARE/RESULTS Result Diagrams: 10/03/19 16:52 10/03/19 16:52 <Kp Gil - Last Filed: 10/03/19 19:12> - PLAN OF CARE/RESULTS Progress/Plan/Lab Results: Vital Signs - 8 hr 10/03/19 16:45 Temperature 97.9 F Pulse Rate 61 Respiratory Rate 20 Blood Pressure 162/83 O2 Sat by Pulse Oximetry 97 Laboratory Results - last 24 hr 10/03/19 10/03/19 10/03/19 16:52 16:52 16:52 WBC 8.42 RBC 3.78 L Hgb 10.7 L Hct 34.2 L MCV 90.5 MCH 28.3 MCHC 31.3 L RDW Std Deviation 16.8 H Plt Count 260 MPV 9.7 Immature Gran % (Auto) 0.4 Neut % (Auto) 77.5 H Lymph % (Auto) 11.9 L Emanuel % (Auto) 8.6 Eos % (Auto) 1.2 Baso % (Auto) 0.4 Immature Gran # (Auto) 0.03 Neut # (Auto) 6.54 H Lymph # (Auto) 1.00 L Emanuel # (Auto) 0.72 H Eos # (Auto) 0.10 Baso # (Auto) 0.03 PT INR PTT (Actin FS) Sodium 139 Potassium 4.0 Chloride 97 L Carbon Dioxide 27 Anion Gap 15 BUN 78 H Creatinine 3.9 H Estimated GFR/1.73 m2 16 BUN/Creatinine Ratio 20 Glucose 173 H Calculated Osmolality 305 Calcium 9.0 Total Bilirubin 0.23 AST 10 ALT 14 Alkaline Phosphatase 155 H Creatine Kinase 158 Troponin T Lva-K-Quhrwlwjhkc Pept 636 H Total Protein 6.8 Albumin 3.8 Globulin 3.0 Albumin/Globulin Ratio 1.3 10/03/19 10/03/19 16:52 16:52 WBC RBC Hgb Hct MCV MCH MCHC RDW Std Deviation Plt Count MPV Immature Gran % (Auto) Neut % (Auto) Lymph % (Auto) Emanuel % (Auto) Eos % (Auto) Baso % (Auto) Immature Gran # (Auto) Neut # (Auto) Lymph # (Auto) Emanuel # (Auto) Eos # (Auto) Baso # (Auto) PT 14.0 INR 1.07 PTT (Actin FS) 44.4 H Sodium Potassium Chloride Carbon Dioxide Anion Gap BUN Creatinine Estimated GFR/1.73 m2 BUN/Creatinine Ratio Glucose Calculated Osmolality Calcium Total Bilirubin AST ALT Alkaline Phosphatase Creatine Kinase Troponin T 0.096 H Hsd-V-Tmninulzsob Pept Total Protein Albumin Globulin Albumin/Globulin Ratio Orders Category Date Time Status Cardiac Monitoring DIRECTED Care 10/03/19 16:56 Active Oxygen Therapy- ED Nursing DIRECTED Care 10/03/19 16:56 Active Saline Loc NOW Care 10/03/19 16:56 Active CHEST-2 VIEWS [RAD] Stat Exams 10/03/19 16:56 Completed CBC WITH ELECTRONIC DIFF [HEME] Stat Lab 10/03/19 16:52 Completed CK PROFILE [SP CHEM] Stat Lab 10/03/19 16:52 Completed COMPREHENSIVE METABOLIC PANEL [CHEM] Stat Lab 10/03/19 16:52 Completed PRO B-NATRIURETIC PEPTIDE Stat Lab 10/03/19 16:52 Completed PROTIME WITH INR [COAG] Stat Lab 10/03/19 16:52 Completed PTT [COAG] Stat Lab 10/03/19 16:52 Completed TROPONIN T Stat Lab 10/03/19 16:52 Completed TROPONIN T Stat Lab 10/03/19 18:52 Ordered CP/SOB/Palp >45 yrs of Age Stat Oth 10/03/19 16:56 Ordered EKG [EKG] Stat Ther 10/03/19 16:56 Draft Pt signed out to me by Dr. Henley, spoke with Dr. Henley and he will accept the admission (Kp Gil) Departure - Departure Date of Disposition Decision: 10/03/19 Certified Medical Emergency: Emergent - Critical Care Note This patient required my direct & personal management of CC.: No <Manuel Milner - Last Filed: 10/03/19 18:53> - Departure Time of Disposition Decision: 19:12 Certified Medical Emergency: Emergent <Kp Gil - Last Filed: 10/03/19 19:12> - Departure DIAGNOSIS: Chest pain Qualifiers: Chest pain type: other chest pain Qualified Code(s): R07.89 - Other chest pain; R07.8 - Other chest pain Disposition: ADMITTED INPATIENT 09 Condition: Fair Additional Instructions: ED Follow Up Instructions: You have been treated by a care provider in the Emergency Department. These ins tructions are being provided to you so you can have an understanding of how to care for yourself upon discharge. Upon discharge from the Emergency Department, you are responsible for making arrangements for follow-up care by a physician of your choice. Take all prescribed medications as directed. Return to the Emergency Department immediately for any new or worsening symptoms. You may call the Physician Referral phone number at [phone] to obtain a list of Physicians who are taking new patients. Referrals and Follow-Ups: Terrie Judge [Primary Care Provider] - Attestation - Physician/ KOJO Attestation Patient care was provided by Advanced Practice Provider:: No The physician spent face to face time with patient:: Yes Advanced Practice Provider documentation review:: Supervising physician onsite and consulted in the evaluation and care of this patient. The physician did have a face to face encounter with the patient. <Manuel Milner - Last Filed: 10/03/19 18:53> This chart was documented by the indicated scribe, (Og Mccann, Scribe) and accurately reflects the services I performed and decisions made by me, Manuel Milner MD, as attested by the provider's signature.
[2019-10-03] MEDS ORDERED: TYLENOL PO PRN (21:18)
[2019-10-03] MEDS ORDERED: ZOFRAN IV PRN (21:18)
[2019-10-03] MEDS ORDERED: NITROGLYCERIN SL PRN (21:18)
[2019-10-03 21:39] LABS: HEMOGLOBIN A1C 8.6 % (4.8-6.0)
--- NOTE | 2019-10-03 21:54 | HISTORY AND PHYSICAL ---
CHIEF COMPLAINT: Chest pain. HISTORY OF PRESENT ILLNESS: Mr. La is a 64-year-old patient well known to our service. He has frequent admissions for COPD exacerbations as well as chest pain. States that he began having chest pain 3 days ago. They got worse and worse until he came into the emergency room. It radiates into his left arm and into his back. He describes it as a burning sensation. Also has a headache, shortness of breath, nausea. No vomiting and dizziness. He has chronic kidney disease. However, his troponins were elevated. He will be admitted for further evaluation and treatment. PAST MEDICAL HISTORY: Lung cancer, COPD with home O2, CHF, CKD stage 3-4, chronic anemia, hypertension, diabetes mellitus type 2 which is poorly controlled and chronic angina. PREVIOUS SURGICAL HISTORY: Cardiac stenting, left hand surgery. SOCIAL HISTORY: Former smoker. No alcohol or illicit drugs. FAMILY HISTORY: Positive for heart disease, diabetes. Both parents of cancer. ALLERGIES: Doxazosin, Toradol, ibuprofen, Levaquin causing mild nausea. HOME MEDICATIONS: Order has not been reconciled. Order was placed for Nursing to place home medications in the computer. The patient stated that he did not know his home medication list. REVIEW OF SYSTEMS: Fourteen-point review of systems conducted with the patient. Pertinent positives listed above in the HPI. All other systems reviewed and found to be negative. PHYSICAL EXAMINATION: VITAL SIGNS: Temperature 97.9, pulse 61, respirations 20, blood pressure 162/83, oxygen saturation 97% on 4 L nasal cannula. GENERAL: Chronically ill-appearing 64-year-old male lying in the ER stretcher. He is nontoxic appearing, in no acute distress. He is friendly and cooperative. HEENT: Head is atraumatic, normocephalic. Pupils equal, round, reactive to light. Extraocular eye movement is intact. Sclera is anicteric. Conjunctiva is pale. Oral mucosa is moist. NECK: Supple. No JVD. No thyromegaly. Trachea is midline. No cervical lymphadenopathy. CARDIAC: S1, S2 appreciated. No murmurs, gallops, rubs. LUNGS: Expiratory wheezing, prolonged expiratory phase. No rhonchi. No rales. Symmetric rise and fall with respirations. ABDOMEN: Soft, nondistended, nontender. Bowel sounds present all 4 quadrants, normoactive. No pulsatile mass. No organomegaly. EXTREMITIES: No clubbing, cyanosis or edema. Two-plus pedal pulses bilaterally. GENITOURINARY: Patient voids. Otherwise deferred. NEUROLOGICAL: Alert and oriented times 3. Cranial nerves 2 through 12 grossly intact. DIAGNOSTIC DATA: Chest x-ray: Stable x-ray with no acute abnormality. EKG: Normal sinus rhythm, rate 63, incomplete right bundle branch block. LABORATORY DATA: WBC 8.42. Hemoglobin 10.7. Hematocrit 34.2. Platelet count 260. Sodium 139. Potassium 4. Chloride 97. Carbon dioxide 27. BUN 78. Creatinine 3.9. Glucose 173. Troponin 0.096. ASSESSMENT: 1. Chest pain, rule out acute myocardial infarction. 2. 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 Patient is right around baseline. 3. Chronic obstructive pulmonary disease, not in acute exacerbation. 4. Diastolic heart failure. 5. Coronary artery disease. PLAN: Admit patient to the medical floor. Trend cardiac enzymes. Morphine as needed for pain. Zofran as needed for nausea. Consult Cardiology. NPO after midnight. Defer to Cardiology if they would like to do a stress test or cardiac catheterization. We will restart home medications when reconciled. DuoNebs q.6. Further recommendations per patient clinical course. Dictated by ALPESH Alcantara for Tacos Henley MD I have performed a face to face diagnostic evaulation. Labs/ xrays- reviewed. Exam- Chest- clear, CV- regular. A/P- Chest pain- Admit, cardiac work up, serial cardiac enzymes, cardiology consult. Dr. Henley cc: ALPESH Alcantara MD [facility]
[2019-10-03] MEDS: LOVENOX SUBQ SCH (21:59)
[2019-10-03] MEDS: HUMALOG SUBQ SCH (22:00)
[2019-10-03] MEDS: DUONEB (A & A) INH SCH (23:04)
[2019-10-03] MEDS: DILAUDID IV PRN (23:38)
[2019-10-04] MEDS: DUONEB (A & A) INH SCH ×4 (03:32→23:12)
[2019-10-04] MEDS: HUMALOG SUBQ SCH ×4 (06:00→20:49)
[2019-10-04] MEDS: DILAUDID IV PRN ×3 (06:13→23:31)
--- NOTE | 2019-10-04 07:27 | EKG Report ---
Test Performed on : 10/04/2019 07:15:54 AM Test Reason : cp Blood Pressure : / mmHG Vent. Rate : 060 BPM Atrial Rate : 060 BPM P-R Int : 166 ms QRS Dur : 110 ms QT Int : 466 ms P-R-T Axes : 027 031 045 degrees QTc Int : 466 ms Normal sinus rhythm. Incomplete right bundle branch block Minimal voltage criteria for LVH, may be normal variant Borderline ECG When compared with ECG of 03-OCT-2019 16:45, (Unconfirmed) Criteria for Septal infarct are no longer present Confirmed by Kirit MARINELLI, P.J.M ([id number]) on 10/04/2019 6:32:54 PM
[2019-10-04 08:04] LABS: CALCIUM 9.2 mg/dL (8.8-10.2); CREATININE 4.2 mg/dL (0.7-1.2); POTASSIUM 3.7 mmol/L (3.5-5.1)
[2019-10-04] MEDS ORDERED: ASPIRIN PO SCH (09:00)
[2019-10-04] MEDS ORDERED: NITROGLYCERIN SL PRN (10:26)
[2019-10-04] MEDS ORDERED: MIRALAX PO PRN (10:26)
[2019-10-04] MEDS: FISH OIL CONCENTRATE PO SCH (11:30)
[2019-10-04] MEDS: FLOMAX PO SCH (11:30)
[2019-10-04] MEDS: FOLIC ACID PO SCH (11:30)
[2019-10-04] MEDS: ZYLOPRIM PO SCH (11:30)
[2019-10-04] MEDS: LASIX PO SCH ×2 (11:31→20:52)
[2019-10-04] MEDS: PRILOSEC PO SCH (11:31)
[2019-10-04] MEDS: TOPROL XL PO SCH ×2 (11:31→20:52)
[2019-10-04 11:44] LABS: CK INDEX 1.7 (0.0-2.5); CK-MB 3.99 ng/mL (0.0-5.0)
[2019-10-04 12:25] LABS: ALLEN TEST YES; BE 2.4 mmoll (-3.0-3.0); BLOOD TYPE ARTERIAL; HCO3-(ACT) 26.7 mmoll (20.0-26.0); METHB 0.8 % (0.0-1.5); O2(CT) 17.4 mL/dL (15.0-23.0); O2HB 95.1 % (95.0-99.0); PCO2(98.6) 42 mmHg (35-45); PO2(98.6) 83 mmHg (60-100); SAMPLE BLOOD; SAO2 96.6 % (95.0-100.0); pH(98.6) 7.42 (7.35-7.45)
[2019-10-04 12:26] LABS: MODALITY CANNULA
[2019-10-04] MEDS: CATAPRES PO SCH ×2 (12:29→18:29)
[2019-10-04] MEDS: APRESOLINE PO SCH ×2 (12:29→17:42)
[2019-10-04] MEDS: KLONOPIN PO SCH ×2 (12:29→17:42)
[2019-10-04] MEDS: ISORDIL PO SCH ×2 (15:26→20:52)
--- NOTE | 2019-10-04 18:37 | PROGRESS NOTE ---
DATE: 10/04/2019 SUBJECTIVE: Today Mr. La refers to be doing fairly okay and still has some on and off chest pain. He was upset because apparently his room had some louis, which the staff thought it was from his personal belongings so most of them were sent home including his wheelchair and his CPAP machine. OBJECTIVE: Current vitals: Blood pressure is 188/79, pulse of 67, respirations 20, temperature 97.6 degrees. The patient is saturating 98%. General: Mr. La is a 64-year-old gentleman. He is in bed in no distress. HEENT: Mucosa is pink and moist. Anicteric. Acyanotic. Neck: Supple. Chest: Clear to auscultation. Cardiovascular: Regular rate and rhythm. Abdomen: Soft, nontender. Bowel sounds present. Extremities: No pedal edema. Central nervous system: Patient is awake, alert and oriented. LABORATORY DATA: No CBC today. Chemistry is reviewed. Creatinine is 4.2. Patient's baseline seems to be around 2.8. ASSESSMENT: 1. Atypical chest pain to rule out coronary artery disease. 2. Chronic kidney disease stage 3B to 4. 3. History of chronic obstructive pulmonary disease, currently not in exacerbation. 4. Elevated troponin concerning acute coronary syndrome; however, in the context of abnormal renal function, this could also be elevated. Of note Mr. La has had this elevation in his troponin every now and then so he is pending a stress test tomorrow. He has been evaluated by Cardiology. 5. History of lung squamous cell carcinoma. 6. Morbid obesity with BMI of 34.5. 7. History of obstructive sleep apnea. cc: Romaine Munoz MD
[2019-10-04 20:07] LABS: CK INDEX 1.6 (0.0-2.5); CK-MB 4.84 ng/mL (0.0-5.0)
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
[2019-10-04] MEDS: LANTUS INSULIN SUBQ SCH (20:49)
[2019-10-04] MEDS: LOVENOX SUBQ SCH (20:51)
[2019-10-04] MEDS: LIPITOR PO SCH (20:52)
[2019-10-04] MEDS: HALL'S COUGH LOZENGE MT PRN (22:39)
[2019-10-04] MEDS: ADVAIR 250/50 DISKUS INH SCH (23:12)
[2019-10-05] MEDS: DUONEB (A & A) INH SCH ×4 (03:20→23:35)
[2019-10-05] MEDS: HUMALOG SUBQ SCH ×4 (06:14→21:05)
--- NOTE | 2019-10-05 07:23 | EKG Report ---
Test Performed on : 10/05/2019 07:12:50 AM Test Reason : Chest pain Blood Pressure : / mmHG Vent. Rate : 075 BPM Atrial Rate : 075 BPM P-R Int : 168 ms QRS Dur : 114 ms QT Int : 452 ms P-R-T Axes : 055 042 075 degrees QTc Int : 504 ms Sinus rhythm. with frequent premature ventricular complexes. in a pattern of bigeminy. Incomplete right bundle branch block Borderline ECG When compared with ECG of 04-OCT-2019 07:15, premature ventricular complexes. are now present Confirmed by Kirit MARINELLI, P.J.M ([id number]) on 10/06/2019 3:09:11 PM
[2019-10-05] MEDS: ADVAIR 250/50 DISKUS INH SCH ×2 (07:33→23:38)
[2019-10-05 07:47] LABS: HEMATOCRIT 33.9 % (42.0-52.0); HEMOGLOBIN 10.7 g/dL (14.0-18.0); MCH 29.2 PG (27-31); MCHC 31.6 g/dL (33-37); MCV 92.4 FL (81-99); MPV 9.7 FL (7.4-10.4); RBC 3.67 XMIL (4.7-6.1); RDW 16.9 % (11.5-14.5); WBC 5.53 X1000 (4.8-10.8)
[2019-10-05 08:21] LABS: ALBUMIN 3.5 g/dL (3.5-5.0); CALCIUM 8.7 mg/dL (8.8-10.2); CREATININE 4.2 mg/dL (0.7-1.2); MAGNESIUM 2.4 mg/dL (1.5-2.7); PHOSPHORUS 5.1 mg/dL (2.7-4.5); POTASSIUM 3.8 mmol/L (3.5-5.1)
[2019-10-05] MEDS: KLONOPIN PO SCH ×3 (08:35→21:02)
[2019-10-05] MEDS: FOLIC ACID PO SCH (08:35)
[2019-10-05] MEDS: FISH OIL CONCENTRATE PO SCH (08:36)
[2019-10-05] MEDS: TOPROL XL PO SCH ×2 (08:36→21:03)
[2019-10-05] MEDS: FLOMAX PO SCH (08:36)
[2019-10-05] MEDS: CATAPRES PO SCH ×3 (08:36→21:02)
[2019-10-05] MEDS: ASPIRIN PO SCH (08:36)
[2019-10-05] MEDS: ZYLOPRIM PO SCH (08:36)
[2019-10-05] MEDS: LASIX PO SCH ×2 (08:36→21:03)
[2019-10-05] MEDS: APRESOLINE PO SCH ×3 (08:36→21:02)
[2019-10-05] MEDS: PRILOSEC PO SCH (08:36)
[2019-10-05] MEDS: ISORDIL PO SCH ×3 (08:37→21:03)
[2019-10-05] MEDS: LANTUS INSULIN SUBQ SCH ×2 (08:38→21:05)
[2019-10-05] MEDS: NORCO-7.5 PO PRN ×2 (09:49→21:01)
[2019-10-05] MEDS ORDERED: LEXISCAN ONE (12:56)
[2019-10-05] MEDS: SPIRIVA INH SCH (15:21)
--- NOTE | 2019-10-05 15:59 | Diag Imaging Result Document ---
PROCEDURE NAME: MYOCARDIAL PERF SCAN, STR/REST - 10/05/2019 STUDY: Rest/stress Lexiscan myocardial perfusion study. INDICATION: Chest pain, coronary heart disease, COPD. DESCRIPTION: The patient came into the nuclear laboratory, received resting injection of technetium 99 sestamibi 15.5 mCi. Multiple tomographic views of the cardiac structures were obtained at rest. Subsequently, the patient underwent a Lexiscan infusion, 0.4 mg of Lexiscan infused. At peak infusion, injected with technetium 99 sestamibi 47.0 mCi. Multiple tomographic views of the cardiac structures were obtained following completion of the exercise protocol. SUMMARY OF THE ELECTROCARDIOGRAPHIC PORTION OF THE STUDY: Resting ECG shows sinus rhythm, rate 67 beats per minute. Resting blood pressure 143/76. Resting ECG looks basically normal. During infusion, the heart rate increased to 78 beats per minute. Blood pressure dropped to 110/58. The patient reported no chest pain, shortness of breath, or palpitations. The ECG showed no significant changes. In summary, electrocardiographic response to infusion of Lexiscan is unremarkable. SUMMARY OF THE MYOCARDIAL PERFUSION PORTION OF THE STUDY: Poststress tomographic views of the left ventricle showed essentially normal myocardial perfusion. There is a decreased uptake of radiotracer in the inferior wall, in the apical inferior wall, as well as the basal inferior wall. The rest images suggest that this defect is mostly fixed. There is no convincing evidence of ischemia. The polar plots revealed the same. There is suggestion of attenuation artifact at the level of the inferior wall of [id number] severity. No convincing indication of ischemia is noted. Gated SPECT, rest images ejection fraction was 64%, poststress 66%. Using the alternative protocol, resting ejection fraction 54%, poststress 73%. That is a normal change from rest to stress. The lung/heart ratio is normal, TID is normal. SUMMARY: This study shows: 1. Normal electrocardiographic response to a Lexiscan infusion. 2. Probably normal poststress myocardial perfusion scan. There is no convincing scintigraphic evidence of pharmacologic-induced myocardial ischemia. 3. The basal inferior wall as well as apical inferior defect noted on both rest and stress images probably represent diaphragmatic attenuation. The patient is obese with COPD. There is no convincing evidence of inducible ischemia. 4. Preserved ejection fraction of left ventricle estimated at 66% with normal ventricular volumes, no wall motion abnormality. Clinical correlation is recommended. cc: MD Stacia Pappas PA
[2019-10-05] MEDS: LIPITOR PO SCH (21:02)
[2019-10-05] MEDS: HALL'S COUGH LOZENGE MT PRN (21:03)
[2019-10-05] MEDS: LOVENOX SUBQ SCH (21:04)
[2019-10-06] MEDS: DUONEB (A & A) INH SCH ×2 (03:36→07:35)
[2019-10-06] MEDS: DILAUDID IV PRN ×2 (04:03→09:41)
[2019-10-06] MEDS: HUMALOG SUBQ SCH (06:45)
[2019-10-06] MEDS: ADVAIR 250/50 DISKUS INH SCH (07:35)
[2019-10-06] MEDS: SPIRIVA INH SCH (07:35)
[2019-10-06 07:39] LABS: ALBUMIN 3.6 g/dL (3.5-5.0); CALCIUM 8.5 mg/dL (8.8-10.2); CREATININE 4.5 mg/dL (0.7-1.2); PHOSPHORUS 3.9 mg/dL (2.7-4.5); POTASSIUM 4.3 mmol/L (3.5-5.1)
[2019-10-06 07:49] VITALS: BP 136/72
--- NOTE | 2019-10-06 08:12 | CARDIOLOGY PROGRESS NOTE ---
DATE: 10/06/2019 CHIEF COMPLAINT: Chest pain. SUBJECTIVE: Mr. La in general is feeling better. He is less short of breath. He is not wheezing. His not coughing as much. His chest pain is better controlled. His nuclear stress test, which I reported yesterday, does not suggest inducible ischemia within the territory of the LAD or circumflex. He has essentially attenuation artifacts noted. His ejection fraction by nuclear imaging is normal. OBJECTIVE: Vital signs: Blood pressure 136/72, temperature 98.7, pulse 64, respirations 15. General: The patient is awake, alert, in no distress, he is on oxygen. HEENT: No significant abnormalities. Chest: Diminished breath sounds diffusely without obvious rales today. Heart: Sounds are regular. I do not hear any obvious gallop or murmur. His EKG from 10/05 shows sinus rhythm with PVCs in a bigeminy pattern. His abdomen is obese. Extremities showed no edema. Neurologic exam: Follows commands, moves 4 extremities. BLOOD WORK: Hemoglobin 10.7, hematocrit 33.9. His sodium is 136, potassium 4.3, BUN is 74, creatinine 4.5. IMPRESSION: 1. Patient who presented with a very atypical chest pain. His nuclear stress test from yesterday does not support a presumptive diagnosis of myocardial ischemia. His pain also is not typical of ischemic cardiac pain. 2. History of previous stent to left anterior descending in the past. 3. Chronic obstructive lung disease oxygen-dependent. His blood gases on 2 L of nasal cannula on 10/04 showed a pCO2 of 42, a pO2 of 83, pH of 7.42. 4. He has advanced chronic kidney disease. His creatinine currently is 4.5 mg/dL. 5. Sleep apnea syndrome. 6. Obesity, body mass index 35. RECOMMENDATIONS: From my viewpoint, the patient may be discharged. His chest pain as I said does not appear to be cardiac. This patient has other reasons to have chest pain including the fact that he has bilateral lung cancer. He may be instructed to continue all of his home medications and follow up with his usual physicians including his primary care provider, Nephrology, Pulmonary, and eventually at some point with Cardiology. Again, his chest pain is not cardiac and his stress test is negative for ischemia. cc: Da Reyna MD
[2019-10-06] MEDS: CATAPRES PO SCH (09:38)
[2019-10-06] MEDS: ZYLOPRIM PO SCH (09:38)
[2019-10-06] MEDS: KLONOPIN PO SCH (09:38)
[2019-10-06] MEDS: ASPIRIN PO SCH (09:38)
[2019-10-06] MEDS: FOLIC ACID PO SCH (09:38)
[2019-10-06] MEDS: PRILOSEC PO SCH (09:38)
[2019-10-06] MEDS: ISORDIL PO SCH (09:38)
[2019-10-06] MEDS: TOPROL XL PO SCH (09:38)
[2019-10-06] MEDS: FLOMAX PO SCH (09:38)
[2019-10-06] MEDS: FISH OIL CONCENTRATE PO SCH (09:38)
[2019-10-06] MEDS: LANTUS INSULIN SUBQ SCH (09:39)
[2019-10-06] MEDS: LASIX PO SCH (09:39)
[2019-10-06] MEDS: APRESOLINE PO SCH (09:39)
--- NOTE | 2019-10-07 12:26 | DISCHARGE SUMMARY ---
ADMISSION DATE: 10/03/2019 DISCHARGE DATE: 10/06/2019 DISPOSITION: Home. FOLLOWUP: 1. Dr. Terrie Judge. 2. Dr. Reyna. CONSULTATIONS DURING THIS ADMISSION: Cardiology was consulted. Patient was seen by Dr. Reyna. INVASIVE PROCEDURES DONE DURING THIS ADMISSION: None. IMAGING STUDIES OF SIGNIFICANCE: 1. A chest x-ray showed stable chronic changes. 2. A myocardial perfusion scan showed no convincing scintigraphic evidence of pharmacologically- induced myocardial ischemia. Ejection fraction of 66%. ADMISSION DIAGNOSES: 1. Chest pain. 2. Chronic kidney disease stage 3 to 4. 3. Chronic obstructive pulmonary disease. 4. Diastolic heart failure. 5. Coronary artery disease. DIAGNOSES AT THE TIME OF DISCHARGE: 1. Atypical chest pain with unremarkable studies, most likely noncardiac. 2. Chronic kidney disease stage IIIB to IV. 3. History of chronic obstructive pulmonary disease, currently not in exacerbation. 4. Elevated troponin on admission, presumably demand mismatch versus elevation in the face of renal impairment. 5. History of squamous cell lung cancer. 6. Morbid obesity with body mass index of 34.6. 7. History of obstructive sleep apnea. 8. Normocytic anemia. DISCHARGE MEDICATIONS: 1. Metoprolol 50 mg b.i.d. 2. Isordil 60 mg 3 times per day. 3. Folic acid 1 mg daily. 4. Hydralazine 100 mg 3 times per day. 5. Tamsulosin 0.4 mg b.i.d. 6. Lantus 120 subcutaneously b.i.d. 7. Allopurinol 100 mg p.o. q.a.m. 8. Clonidine 0.2 p.o. 3 times per day. 9. Klonopin 0.5 three times per day. 10. Nitroglycerin 0.4 sublingual. 11. Lasix 40 mg b.i.d. 12. Aspirin 81 mg p.o. daily. 13. [place]. 14. Tamms-3 fatty acids. 15. Omeprazole 40 mg p.o. daily. 16. Atorvastatin 40 mg p.o. at bedtime. 17. Albuterol. PRESENTING COMPLAINT: Chest pain. HISTORY OF PRESENTING COMPLAINT: Mr. 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 He does have multiple comorbidities including coronary artery disease so he was admitted for cardiac risk stratification. HOSPITAL COURSE: Mr. La was admitted. He did have minimally elevated troponins which got normalized during the hospital course. His chest pain also got subsided. Cardiology evaluated him. A decision was made to do a stress test which came back completely normal. Mr. La was evaluated by Dr. Reyna and his dictation did suggest that the pain was not typical of any ischemic pain and that from a cardiology standpoint, the patient can be discharged. This morning, Mr. La refers to be doing a lot better. His current vitals, blood pressure is 136/72, pulse of 64, respirations are 15, temperature is 98.7 degrees. He is currently asymptomatic. We think he is stable for discharge. He has been advised to continue followup with cardiology and also with nephrology, and with his primary care doctor. All the discharge instructions discussed with him. He voiced understanding. Time spent for discharge is 33 minutes. cc: Romaine Munoz MD MTDD
== END 2019-10-06 13:22 | disposition home or self-care (01) ==
LOC: SUPCPDRO → ED 16:32 → 3N 21:12 → SUATTDRO 21:12 → INTOOBSV 21:12 → 3N 10-04 17:28
PROVIDERS: ATTEND Internal Medicine

== ENCOUNTER 2020-02-24 11:02 | Inpatient (IN) ==
[2020-02-24] MEDS ORDERED: ASPIRIN PO ONE (11:03)
[2020-02-24 11:27] LABS: BASO# 0.13 X1000 (0.0-0.2); BASO% 1.1 % (0.0-0.8); EOS# 0.08 X1000 (0.0-0.7); EOS% 0.7 % (0.0-10.0); HEMATOCRIT 33.7 % (42.0-52.0); HEMOGLOBIN 10.6 g/dL (14.0-18.0); IMM GRAN# 0.06 X1000 (0.0-0.04); IMM GRAN% 0.5 % (0.0-0.5); LYMPH# 0.97 X1000 (1.2-3.4); LYMPH% 8.2 % (20.5-51.1); MCHC 31.5 g/dL (33-37); MCV 88.9 FL (81-99); MONO# 0.64 X1000 (0.11-0.59); MONO% 5.4 % (1.7-9.3); MPV 10.2 FL (7.4-10.4); NEUT# 9.88 X1000 (1.4-6.5); NEUT% 84.1 % (42.2-75.2); PLT 220 X1000 (130-400); RBC 3.79 XMIL (4.7-6.1); RDW 16.2 % (11.5-14.5); WBC 11.76 X1000 (4.8-10.8)
[2020-02-24 11:40] LABS: INR 0.92; PROTIME 12.4 Seconds (11.0-16.0)
[2020-02-24 11:41] LABS: PTT 38.6 Seconds (22.3-41.8)
--- NOTE | 2020-02-24 11:42 | Diag Imaging Result Doc PS360 ---
EXAM: CHEST-PORTABLE 02/24/2020 HISTORY: CP TECHNIQUE: AP portable at 1119 COMMENT: There is some volume loss on the left and increased opacity in the left upper lobe. There is also ill-defined opacity in the retrocardiac left lower lobe partially obscuring the hemidiaphragm. These findings are slightly improved since 02/06/2020. IMPRESSION: Chronic atelectasis particularly in the left upper lobe. The possibility of an endobronchial obstruction cannot be excluded. Electronically signed by Jason Bernstein 02/24/2020 11:40 AM
[2020-02-24 11:55] LABS: ALBUMIN 3.5 g/dL (3.5-5.0); CALCIUM 8.8 mg/dL (8.8-10.2); CREATININE 3.8 mg/dL (0.7-1.2); POTASSIUM 4.5 mmol/L (3.5-5.1); TOTAL BILIRUBIN 0.27 mg/dL (0.20-1.00)
--- NOTE | 2020-02-24 11:55 | EKG Report ---
Test Performed on : 02/24/2020 11:11:57 AM Test Reason : CP Blood Pressure : / mmHG Vent. Rate : 078 BPM Atrial Rate : 078 BPM P-R Int : 140 ms QRS Dur : 096 ms QT Int : 400 ms P-R-T Axes : 026 039 069 degrees QTc Int : 456 ms Normal sinus rhythm. Incomplete right bundle branch block Nonspecific T wave abnormality Abnormal ECG When compared with ECG of 06-FEB-2020 21:57, (Unconfirmed) No significant change was found Unconfirmed Result
[2020-02-24] MEDS ORDERED: HUMALOG SUBQ ONE (12:17)
[2020-02-24 13:52] LABS: URINE SOURCE CLEAN CATCH
[2020-02-24 13:56] LABS: BILIRUBIN URINE NEGATIVE (NEGATIVE); BLOOD URINE NEGATIVE (NEGATIVE); COLOR YELLOW; GLUCOSE URINE >1000 mg/dL (NEGATIVE); KETONE URINE NEGATIVE (NEGATIVE); LEUKOCYTES URINE NEGATIVE (NEGATIVE); NITRITE URINE NEGATIVE (NEGATIVE); PROTEIN URINE 200 mg/dL (NEGATIVE); SP GRAVITY URINE 1.012; TURBIDITY URINE CLEAR (CLEAR); UROBILINOGEN URINE NORMAL (NORMAL)
[2020-02-24 13:57] LABS: UR EPITHELIAL CELLS <10 /HPF (<10); URINE BACTERIA NEGATIVE /HPF; URINE RBC <10 /HPF (<10); URINE WBC <10 /HPF (<10)
--- NOTE | 2020-02-24 14:24 | PROVIDER DOCUMENTATION ---
This chart was entered by Ruth Ann Hidalgo Scribe, acting as scribe for Phuong Parkinson CRNP. HPI-Chest Pain - General Stated Complaint: HTN/CP Time Seen by Provider: 02/24/20 11:02 Source: patient Allergies/Adverse Reactions: Patient Allergies Allergy/AdvReac Type Severity Reaction Status Date / Time doxazosin mesylate * Allergy Severe SHORTNESS Verified 02/06/20 23:08 [From Cardura] OF BREATH ketorolac tromethamine * Allergy Severe SHORTNESS Verified 02/06/20 23:08 [From Toradol] OF BREATH almond Allergy Intermediate RASH Verified 02/06/20 23:08 levofloxacin AdvReac Severe ANAPHYLAXIS Verified 02/06/20 23:08 ibuprofen [From Motrin] AdvReac Intermediate FLUSHING Verified 02/06/20 23:08 Home Medications: Home Medication List Medication Instructions Recorded Confirmed Last Taken Type Isosorbide Dinitrate [Isordil] 60 mg PO TID 04/30/18 02/06/20 10/20/19 History Metoprolol Succinate E.r. [Toprol 50 mg PO BID 04/30/18 02/06/20 10/20/19 Histo ry Xl] Folic Acid 1 mg PO DAILY #90 tab 08/26/18 02/06/20 10/20/19 Rx Hydralazine [Apresoline] 100 mg PO TID #120 tab 09/19/18 02/06/20 10/20/19 Rx Tamsulosin [Flomax] 0.4 mg PO DAILY capsule 10/16/18 02/06/20 10/20/19 Rx Insulin Glargine [Lantus] 120 unit SUBQ BID 11/03/18 02/06/20 10/20/19 History Allopurinol 100 mg PO QAM 02/09/19 02/06/20 10/20/19 History Clonidine HCl 0.2 mg PO TID 02/09/19 02/06/20 10/20/19 History Insulin Lispro [Humalog Kwikpen See Protocol SUBQ DIRECTED 02/09/19 02/06/20 10/20/19 History U-100] Clonazepam 0.5 mg PO TID 02/19/19 02/06/20 10/20/19 History Fluticasone/Salmet 250/50 INH 1 puff INH RTBID 02/19/19 02/06/20 10/20/19 Histor y [Advair 250/50 Diskus] Nitroglycerin 0.4 mg SUBLINGUAL Q5MX3 PRN 02/19/19 02/06/20 10/20/19 History Furosemide [Lasix] 40 mg PO BID 04/29/19 02/06/20 10/20/19 History Aspirin 81 mg PO DAILY 05/08/19 02/06/20 10/20/19 History Hydrocodone/Acetaminophen [Boissevain 7.5 dose PO TID PRN 07/13/19 02/06/20 10/20/19 History 7.5-325 Tablet] ATORVAstatin [Lipitor] 40 mg PO QHS 08/23/19 02/06/20 10/20/19 History [place]-3 Fatty Acids/Fish Oil [Fish 1,000 mg PO DAILY 08/23/19 02/06/20 10/20/19 History Oil 1,000 mg Capsule] Omeprazole 40 mg PO DAILY 08/23/19 02/06/20 10/20/19 History Tiotropium Keo Inhaler 18 mcg INH DAILY 10/03/19 02/06/20 10/20/19 History [Spiriva] Doxycycline Monohydrate 100 mg PO BID #20 cap 11/05/19 02/06/20 Unknown Rx Amoxicillin/Pot Clavulanate 875 mg PO Q12HR #14 tab 12/01/19 02/06/20 Unknown Rx [Augmentin] - History of Present Illness-CP Nature of Presenting Problem: pt is a 64 yr old male presenting with central chest pain, pain is sharp and radiates to back, pt admits nausea with pain onset, admits chronic cough and shortness of breath. pt denies any change in cough or shortness of breath, pt last seen in ER 2 weeks ago. pt denies vomiting with pain. onset just after waking this AM Location: reports: central Chest Pain Radiation: reports: back Quality of Pain: reports: sharp Severity in ED: moderate Onset/Duration: this morning Timing: still present Context/Activities at Onset: reports: rest Modifying Factors: improves with: nothing Associated Symptoms: reports: back pain, nausea, shortness of breath (chronic-no change). denies: dizziness Nitro Today/Relief: no nitro taken today Aspirin Treatment Today: no aspirin today Similar Symptoms Previously?: Yes Recently Seen Here or By Another Healthcare Provider: Yes (last ER visit 2 weeks ago) Review of Systems - Adult - REVIEW OF SYSTEMS - ADULT Constitutional: denies: chills, fever Eyes: reports: no symptoms reported Ears, Nose, Mouth & Throat: reports: no symptoms reported Cardiovascular: reports: chest pain. denies: palpitations, syncope Respiratory: reports: chronic cough, shortness of breath (chronic-no change) Gastrointestinal: reports: nausea. denies: vomiting Genitourinary: reports: no symptoms reported Musculoskeletal: reports: no symptoms reported Integumentary: reports: no symptoms reported Neurological: denies: dizziness/vertigo, headache/migraines Psychiatric: reports: no symptoms reported Endocrine: reports: no symptoms reported Hematologic/Lymphatic: reports: no symptoms reported Allergic/Immunologic: reports: no symptoms reported All Other Systems: Reviewed and Negative Past History - Adult - PAST MEDICAL HISTORY-ADULT Review of Records: reports: Old Records Reviewed, Nursing Assessment Review, Medications Reviewed, Social history reviewed & non-contributory. Major Childhood Illnesses: reports: history unknown Cardiovascular: reports: CAD, CHF (ECHO 08/2015 EF 55% ), HTN, hyperlipidemia, VT Respiratory: reports: asthma, COPD (severe on 4liters O2 qHS), cancer, sleep apnea Gastrointestinal: reports: GERD Obstetrical/Gynecological: reports: denies history Genitourinary: reports: kidney disease (CRI) Musculoskeletal: reports: arthritis, chronic pain Neurological: reports: denies history Psychiatric: reports: anxiety Endocrine/Immune: reports: Diabetes Other Conditions: reports: denies history - PRIOR SURGERIES/PROCEDURES Surgical/Procedure History: reports: cardiac stent (x2 last one 7 years ago), orthopedic (extremity) (thumb), other - IMMUNIZATION STATUS Childhood Immunizations: See Nurse Assessment Flu Vaccine: See Nurse Assessment - FAMILY HISTORY Family History: reviewed, not pertinent - SOCIAL HISTORY Smoking: cigarettes Provider spent 3-5 mins advising pt. on dangers of tobacco.: Discussed manners to quit use, and f/u contacts for add'l counseling. Living Situation: family Physical Exam-General - PHYSICAL EXAM-ADULT Initial Vital Signs Reviewed: Yes - CONSTITUTIONAL General Appearance: appears well, alert, no apparent distress, obese - EYES Eyes: PERRL/EOMI - HEAD, EARS, NOSE, MOUTH & THROAT HENMT: normocephalic/atraumatic, moist mucous membranes, normal ENT inspection - NECK Neck: non-tender, full range of motion, supple, normal inspection - RESPIRATORY Respiratory: lungs clear, normal breath sounds, no respiratory distress, no accessory muscle use, other (sternal tenderness) - CARDIOVASCULAR Cardiovascular: normal peripheral pulses, regular rate, rhythm, no edema - GASTROINTESTINAL (ABDOMEN) Abdominal Exam: normal bowel sounds, non tender, soft - LYMPHATIC Lymphatic: no adenopathy - MUSCULOSKELETAL Back Exam: normal inspection Extremity: normal range of motion, non-tender, normal inspection - SKIN Integumentary: normal color, normal turgor, warm/dry - NEUROLOGIC Neurologic: grossly normal, no motor/sensory deficits - PSYCHIATRIC Psych/Mental Status: normal mood/affect, normal thought content, normal thought process, oriented x 3 - HEART Score HEART Score: History: Moderately Suspicious HEART Score: ECG: Non-Specific Repolarization Disturbance/LBBB/PM HEART Score: Age: > or = 65 Years HEART Score: Risk Factors for Atherosclerotic Disease: > or = 3 Risk Factors or History of Atherosclerotic Disease HEART Score: Troponin: 1-3x Normal Limit Total HEART Score:: 7 Progress - PLAN OF CARE/RESULTS Progress/Plan/Lab Results: Vital Signs - 8 hr 02/24/20 11:04 02/24/20 12:59 02/24/20 13:56 Temperature 100.3 F H 98.5 F Pulse Rate 80 77 Respiratory Rate 16 18 Blood Pressure 162/92 114/72 O2 Sat by Pulse Oximetry 100 99 02/24/20 11:32 Influenza Screen - Final Nasopharyngeal 02/24/20 11:32 Group A Strep Rapid Antigen - Final Throat Laboratory Results - last 24 hr 02/24/20 02/24/20 02/24/20 11:17 11:17 11:17 WBC 11.76 H RBC 3.79 L Hgb 10.6 L Hct 33.7 L MCV 88.9 MCH 28.0 MCHC 31.5 L RDW Std Deviation 16.2 H Plt Count 220 MPV 10.2 Immature Gran % (Auto) 0.5 Neut % (Auto) 84.1 H Lymph % (Auto) 8.2 L Benton % (Auto) 5.4 Eos % (Auto) 0.7 Baso % (Auto) 1.1 H Immature Gran # (Auto) 0.06 H Neut # (Auto) 9.88 H Lymph # (Auto) 0.97 L Benton # (Auto) 0.64 H Eos # (Auto) 0.08 Baso # (Auto) 0.13 PT INR PTT (Actin FS) Sodium 137 Potassium 4.5 Chloride 98 Carbon Dioxide 23 L Anion Gap 16 BUN 55 H Creatinine 3.8 H Estimated GFR/1.73 m2 16 BUN/Creatinine Ratio 14 Glucose 437 H* POC Glucose Calculated Osmolality 308 Calcium 8.8 Total Bilirubin 0.27 AST 30 ALT 68 H Alkaline Phosphatase 208 H Troponin T High Sens 99 H Agj-M-Afnnocroitl Pept Total Protein 7.0 Albumin 3.5 Globulin 3.5 Albumin/Globulin Ratio 1.0 Urine Source Urine Color Urine Turbidity Urine pH Ur Specific [place] Urine Protein Ur Glucose (Stick) Ur Ketones (Stick) Urine Blood Urine Nitrite Urine Bilirubin Urobilinogen Dipstick Urine Leukocytes Urine WBC (Auto) Urine RBC (Auto) U Epithel Cells (Auto) Urine Bacteria (Auto) 02/24/20 02/24/20 02/24/20 11:17 11:17 13:37 WBC RBC Hgb Hct MCV MCH MCHC RDW Std Deviation Plt Count MPV Immature Gran % (Auto) Neut % (Auto) Lymph % (Auto) Benton % (Auto) Eos % (Auto) Baso % (Auto) Immature Gran # (Auto) Neut # (Auto) Lymph # (Auto) Benton # (Auto) Eos # (Auto) Baso # (Auto) PT 12.4 INR 0.92 PTT (Actin FS) 38.6 Sodium Potassium Chloride Carbon Dioxide Anion Gap BUN Creatinine Estimated GFR/1.73 m2 BUN/Creatinine Ratio Glucose POC Glucose 343 H D Calculated Osmolality Calcium Total Bilirubin AST ALT Alkaline Phosphatase Troponin T High Sens Die-I-Afcmepoclff Pept 1023 H Total Protein Albumin Globulin Albumin/Globulin Ratio Urine Source Urine Color Urine Turbidity Urine pH Ur Specific [place] Urine Protein Ur Glucose (Stick) Ur Ketones (Stick) Urine Blood Urine Nitrite Urine Bilirubin Urobilinogen Dipstick Urine Leukocytes Urine WBC (Auto) Urine RBC (Auto) U Epithel Cells (Auto) Urine Bacteria (Auto) 02/24/20 02/24/20 13:41 13:41 WBC RBC Hgb Hct MCV MCH MCHC RDW Std Deviation Plt Count MPV Immature Gran % (Auto) Neut % (Auto) Lymph % (Auto) [place] % (Auto) Eos % (Auto) Baso % (Auto) Immature Gran # (Auto) Neut # (Auto) Lymph # (Auto) Benton # (Auto) Eos # (Auto) Baso # (Auto) PT INR PTT (Actin FS) Sodium Potassium Chloride Carbon Dioxide Anion Gap BUN Creatinine Estimated GFR/1.73 m2 BUN/Creatinine Ratio Glucose POC Glucose Calculated Osmolality Calcium Total Bilirubin AST ALT Alkaline Phosphatase Troponin T High Sens 101 H* Pnm-Z-Blsoxickqco Pept Total Protein Albumin Globulin Albumin/Globulin Ratio Urine Source CLEAN CATCH Urine Color YELLOW Urine Turbidity CLEAR Urine pH 6.0 Ur Specific [place] 1.012 Urine Protein 200 A Ur Glucose (Stick) >1000 A Ur Ketones (Stick) NEGATIVE Urine Blood NEGATIVE Urine Nitrite NEGATIVE Urine Bilirubin NEGATIVE Urobilinogen Dipstick NORMAL Urine Leukocytes NEGATIVE Urine WBC (Auto) <10 Urine RBC (Auto) <10 U Epithel Cells (Auto) <10 Urine Bacteria (Auto) NEGATIVE Orders Category Date Time Status Saline Loc NOW Care 02/24/20 11:04 Active cxr [CHEST-PORTABLE] [RAD] Stat Exams 02/24/20 11:03 Completed BNP [PRO B-NATRIURETIC PEPTIDE] Stat Lab 02/24/20 11:17 Completed CBC WITH ELECTRONIC DIFF [HEME] Stat Lab 02/24/20 11:17 Completed COMPREHENSIVE METABOLIC PANEL [CHEM] Stat Lab 02/24/20 11:17 Completed INFLUENZA SCREEN A/B Stat Lab 02/24/20 11:32 Completed PROTIME WITH INR [COAG] Stat Lab 02/24/20 11:17 Completed PTT [COAG] Stat Lab 02/24/20 11:17 Completed Strep [DIRECT STREP] Stat Lab 02/24/20 11:32 Completed TROPONIN T HIGH SENSITIVITY Stat Lab 02/24/20 11:17 Completed TROPONIN T HIGH SENSITIVITY Stat Lab 02/24/20 13:41 Completed UA NIMS W/REFLEX CULT [URINALYSIS] Stat Lab 02/24/20 13:41 Completed Aspirin Med 02/24/20 11:03 Discontinued 325 mg PO NOW ONE Insulin Lispro [Humalog] Med 02/24/20 12:17 Discontinued 15 units SUBQ NOW ONE EKG [EKG] Stat Ther 02/24/20 11:03 Draft Result Diagrams: 02/24/20 11:17 02/24/20 11:17 - REASSESSMENT Reassessment #1 Time Reassessed: 13:00 Status: unchanged (pt denies CP, SOB currently reports " i always have a low fever like that". explained need for second troponin. pt is in agreement with this POC) - EKG 1 Time of EKG reading by physician:: 11:15 EKG Read and Signed by:: Doug Grissom EKG Interpretation (*Must complete 3 of following elements*): Abnormal (NSR NAD R hemiblock high voltage) Rate: 75 Rhythm: nsr [place]: normal QRS: RBB (incomplete) - XRAY 1 XRAY Study: Chest Impression: See EMR Report ( EXAM: CHEST-PORTABLE 02/24/2020 HISTORY: CP TECHNIQUE: AP portable at 1119 COMMENT: There is some volume loss on the left and increased opacity in the left upper lobe. There is also ill-defined opacity in the retrocardiac left lower lobe partially obscuring the hemidiaphragm. These findings are slightly improved since 02/06/2020. IMPRESSION: Chronic atelectasis particularly in the left upper lobe. The possibility of an endobronchial obstruction cannot be excluded. 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 d/w Dr. Grissom who agrees no treatment is indicated at this time. Pt sats 100% on RA) - CONSULTS/PCP/HOSPITALIST Notification #1 *Consult/PCP/Hospitalist*: ALPESH Prado Time Discussed: 14:20 Consult Disposition: Admit Departure - Departure Date of Disposition Decision: 02/24/20 Time of Disposition Decision: 14:24 DIAGNOSIS: Diabetes, Chest pain, Chronic renal failure, stage 4 (severe), Dyspnea, Tobacco use disorder Disposition: ADMITTED INPATIENT 09 Certified Medical Emergency: Emergent Condition: Stable Referrals and Follow-Ups: Terrie Judge [Primary Care Provider] - - Critical Care Note This patient required my direct & personal management of CC.: No Attestation - Physician/ KOJO Attestation Patient care was provided by Advanced Practice Provider:: Yes Advanced Practice Provider:: Phuong Parkinson Advanced Practice Provider documentation review:: The Mid-level provider documentation, treatment plan and medical decision making was reviewed by the physician who agrees with all treatment and medical decision making by the MLP. The physician spent face to face time with patient:: Yes (Dr. Grissom) Advanced Practice Provider documentation review:: Supervising physician onsite and consulted in the evaluation and care of this patient. The physician did have a face to face encounter with the patient. This chart was documented by the indicated scribe, (Ruth Ann Hidalgo Scribe) and accurately reflects the services I performed and decisions made by , Phuong Parkinson CRNP, as attested by the provider's signature.
[2020-02-24] MEDS ORDERED: ISORDIL PO SCH (17:00)
[2020-02-24] MEDS: HUMULIN R SUBQ SCH ×2 (18:26→22:30)
[2020-02-24 20:02] LABS: ALBUMIN 3.7 g/dL (3.5-5.0); CALCIUM 8.9 mg/dL (8.8-10.2); CREATININE 3.8 mg/dL (0.7-1.2); PHOSPHORUS 3.7 mg/dL (2.7-4.5); POTASSIUM 4.3 mmol/L (3.5-5.1)
[2020-02-24] MEDS: DUONEB (A & A) INH SCH ×2 (20:05→23:00)
[2020-02-24] MEDS: ADVAIR 250/50 DISKUS INH SCH (20:05)
--- NOTE | 2020-02-24 20:19 | HISTORY AND PHYSICAL ---
CHIEF COMPLAINT: Chest pain. HISTORY OF PRESENT ILLNESS: This is a 64-year-old gentleman who presents to the emergency room complaining of central chest pain. He describes this as a sharp pain that radiates to his back. He had a sudden onset this morning. It can be reproduced with palpation, movement and coughing. He does state that sitting still and not moving does relieve the pain. He denies any nausea or vomiting, any palpitations. He does have a chronic cough and shortness of breath. He states this is unchanged. PAST MEDICAL HISTORY: 1. Lung cancer, COPD on home O2. 2. Congestive heart failure with an ejection fraction of 60% in March of 2019. 3. COPD. 4. Chronic kidney disease stage 3 to 4. 5. Coronary artery disease. 6. Chronic chest wall pain. PAST SURGICAL HISTORY: Cardiac stents, left hand surgery. SOCIAL HISTORY: He denies any alcohol, tobacco, or illicit drug use. ALLERGIES: Doxazosin, Toradol, ibuprofen, and Levaquin which causes nausea. HOME MEDICATIONS: A list will be obtained by the nursing staff, and once verified, we will review and restart as appropriate. REVIEW OF SYSTEMS: Discussed with patient with pertinent positives stated in the HPI. He denies any syncope or dizziness, any palpitations, any fevers or chills, any vomiting, diarrhea, constipation, black or bloody vomitus or stools, hematuria, dysuria, frequency, urgency. PHYSICAL EXAMINATION: GENERAL: This is a 64-year-old gentleman who is sitting up on the side of the bed in no distress. VITAL SIGNS: Blood pressure is 115/72 with a heart rate of 66, respirations are 20, temperature is 98.5 degrees oral with room air saturations 98% to 99%. EYES: Pupils equal, round, react to light. EOMs are intact. Sclerae anicteric. HEENT: Head is normocephalic, atraumatic. Mucous membranes are moist. NECK: Supple with trachea midline. CARDIOVASCULAR: Regular rate and rhythm. S1 and S2 appreciated. PULMONARY: Breath sounds are clear with no increased work of breathing noted. Chest rise and fall symmetric with respirations. Chest wall is tender mid sternum GASTROINTESTINAL: Abdomen is soft, nontender, nondistended with bowel sounds in all 4 quadrants. NEUROLOGIC: He is alert and oriented x3. SKIN: Warm and dry. LABORATORY DATA: WBC is 11.7 with hemoglobin 10.6, hematocrit 33.7, and platelets of 220,000. Sodium 137, potassium 4.5, BUN 55, creatinine 3.8 with a blood sugar of 437. Troponin was 99, 101, 100. Urinalysis is essentially negative. Acetone is negative. Group A strep is negative. Influenza A and B are negative. ASSESSMENT: This is a 64-year-old gentleman with: 1. Chest pain. 2. Chronic kidney disease stage 4. 3. Diabetes mellitus. 4. Chronic obstructive pulmonary disease on home O2 at 4 L nasal cannula. 5. Diastolic heart failure. 6. Chronic kidney disease with a baseline creatinine of 3.7 to 4. PLAN: 1. Admit on telemetry. 2. Diabetic diet. 3. Continue to trend troponin. 4. CBC, cardiac profile, and renal profile in the morning. 5. Repeat EKG in the morning. 6. Continue home medications as appropriate once verified. 7. Pattern blood glucose with sliding scale insulin. 8. Strict intake and output. 9. Daily weights. 10. Further treatments pending hospital course. Dictated by ALPESH Turner for Charissa Zhang MD cc: ALPESH Turner MD
[2020-02-24] MEDS ORDERED: LIPITOR PO SCH (21:00)
[2020-02-24] MEDS: NORCO-7.5 PO PRN (22:27)
[2020-02-24] MEDS: TOPROL XL PO SCH (22:29)
[2020-02-24] MEDS: LASIX PO SCH (22:29)
[2020-02-24] MEDS: KLONOPIN PO SCH (22:29)
[2020-02-24] MEDS: APRESOLINE PO SCH (22:30)
[2020-02-24] MEDS: ISORDIL PO SCH (22:30)
[2020-02-24] MEDS: LANTUS INSULIN SUBQ SCH (22:31)
[2020-02-25] MEDS: HUMULIN R SUBQ SCH ×4 (02:38→14:32)
[2020-02-25] MEDS: DUONEB (A & A) INH SCH ×3 (03:45→10:47)
[2020-02-25] MEDS ORDERED: PRILOSEC PO SCH (07:00)
--- NOTE | 2020-02-25 07:13 | EKG Report ---
Test Performed on : 02/25/2020 06:54:06 AM Test Reason : chest pain Blood Pressure : / mmHG Vent. Rate : 079 BPM Atrial Rate : 079 BPM P-R Int : 144 ms QRS Dur : 104 ms QT Int : 412 ms P-R-T Axes : 049 027 079 degrees QTc Int : 472 ms Normal sinus rhythm. Incomplete right bundle branch block Nonspecific T wave abnormality Prolonged QT Abnormal ECG When compared with ECG of 24-FEB-2020 11:11, (Unconfirmed) No significant change was found Confirmed by Shiloh MARINELLI, Abhijeet Can ([id number]) on 02/25/2020 9:25:16 AM
[2020-02-25] MEDS ORDERED: SPIRIVA INH SCH (07:30)
[2020-02-25 07:32] LABS: HEMOGLOBIN 10.3 g/dL (14.0-18.0); MCH 28.9 PG (27-31); MCHC 32.2 g/dL (33-37); MCV 89.6 FL (81-99); MPV 10.4 FL (7.4-10.4); RBC 3.57 XMIL (4.7-6.1); RDW 16.3 % (11.5-14.5); WBC 8.94 X1000 (4.8-10.8)
[2020-02-25 07:53] LABS: ALBUMIN 3.3 g/dL (3.5-5.0); CALCIUM 8.9 mg/dL (8.8-10.2); CREATININE 3.8 mg/dL (0.7-1.2); PHOSPHORUS 4.2 mg/dL (2.7-4.5); POTASSIUM 4.1 mmol/L (3.5-5.1)
[2020-02-25] MEDS: ADVAIR 250/50 DISKUS INH SCH (08:04)
[2020-02-25] MEDS: LANTUS INSULIN SUBQ SCH (08:38)
[2020-02-25] MEDS: APRESOLINE PO SCH ×2 (08:38→14:32)
[2020-02-25] MEDS: TOPROL XL PO SCH (08:39)
[2020-02-25] MEDS: ISORDIL PO SCH ×2 (08:39→14:32)
[2020-02-25] MEDS: KLONOPIN PO SCH ×2 (08:39→14:32)
[2020-02-25] MEDS: LASIX PO SCH (08:39)
[2020-02-25] MEDS ORDERED: ZOFRAN IV PRN (08:43)
[2020-02-25] MEDS ORDERED: FOLIC ACID PO SCH (09:00)
[2020-02-25] MEDS ORDERED: FLOMAX PO SCH (09:00)
[2020-02-25] MEDS ORDERED: ZYLOPRIM PO SCH (09:00)
[2020-02-25] MEDS ORDERED: ASPIRIN PO SCH (09:00)
[2020-02-25] MEDS: NORCO-7.5 PO PRN (10:13)
--- NOTE | 2020-02-25 10:49 | CARDIOLOGY CONSULTATION ---
DATE: 02/25/2020 CHIEF COMPLAINT ON PRESENTATION: Chest pain. HISTORY OF PRESENT ILLNESS: Mr. La is a 64-year-old, white male with a history of coronary artery disease, COPD, diastolic heart failure, chronic kidney disease. He presents for chief complaint of chest pain. This occurred yesterday at home; it was described as a pressure-like sensation occurring at rest. He said his blood pressure at that time was in the 240s. He reports compliance with his medications, as well as his diet. He did not have any exertional component to the sensation. He has had no orthopnea. He has had no recent cough, no fevers. He believes he has been sticking to his salt restriction diet. PAST MEDICAL HISTORY: 1. Coronary disease with history of last cardiac cath in September 2016. At that time, his left main was normal. His LAD had proximal diffuse disease with a patent LAD stent, distal had diffuse disease. Diagonals had minimal disease. Circumflex had diffuse disease with a proximal 35% lesion. RCA was a dominant and had a proximal 50 to 60 percent lesion, distal 35 percent lesion. Normal PDA. EF on that study was 60% with an elevated LVEDP. 2. Per history in the chart, it appears that he has a history of lung cancer, as well as COPD on home oxygen therapy. 3. Morbid obesity with sleep apnea. 4. Chronic arthritis. 5. Peripheral vascular disease. 6. Chronic kidney disease. 7. Diabetes. 8. Hypertension. 9. Hyperlipidemia. 10. Diastolic heart failure. Last echocardiogram noted in March of 2019. The EF is 60%. Last stress test noted in September 2019 showed what appeared to be inferior soft tissue attenuation. Ejection fraction is 66% with no wall motion abnormalities. SOCIAL HISTORY: No alcohol, tobacco or illicit drugs. FAMILY HISTORY: Hypertension. REVIEW OF SYSTEMS: A 10 system review of systems is negative, except for those things mentioned in HPI. PHYSICAL EXAMINATION: Vital Signs: The patient is afebrile. Heart rate of 77. His blood pressure is 194/86. Generally: He is in no acute distress. HEENT: Oropharynx is moist. Poor dentition. Eye examination is pink conjunctivae, white sclerae. Neck: Examination shows no obvious thyromegaly or thyroid tenderness. Cardiovascular: He sounds to be in a regular rate and rhythm. He has somewhat distant heart sounds. He has no lower extremity edema. He has warm and well perfused extremities. Chest: Exam sounds relatively clear. He has no increased work of breathing. Abdomen: Soft, nontender, nondistended. He has no obvious organomegaly. Skin: Exam is warm and dry throughout without any rashes. Neurological: He is moving all extremities well. He has no lateralizing deficits. PERTINENT DATA: His chest x-ray shows chronic atelectasis in the left upper lobe, possibility of an endobronchial obstruction cannot be completely ruled out. EKG tracing reviewed by me on the at 1111 hours shows sinus rhythm, no ischemic changes. Subsequent EKG on the shows sinus rhythm, no ischemic changes. His lab data shows a white count 8.9, hematocrit 32, platelet count 197. His sodium is 135, potassium 4.1, BUN 54, creatinine 3.8. His troponins have been flat, ranging between 99 and 105 during the course of the evaluation. His proBNP was 1023. ASSESSMENT: Mr. La is a 64-year-old gentleman, who presented with chest pain, markedly elevated blood pressure. PLAN: At this point, I would not pursue an ischemic evaluation. He had nonexertional chest pain occurring at the time of a markedly elevated blood pressure in the setting of flat enzymes and markedly abnormal kidney function. I would increase his antianginal therapy. His medication list shows that he is on metoprolol and ISDN. Dr. Leggett had him on last visit in August 2019 also on Norvasc. Certainly it seems like compliance may be a bit of an issue. I have added back in Norvasc at 5 mg daily. I certainly would reduce the dose of hydralazine in an effort to increase his Norvasc in the future if low blood pressure becomes an issue. Presently, I do not have any acute recommendations. From a cardiovascular standpoint, he can likely be discharged home. cc: MD JIM Fields
[2020-02-25 11:25] VITALS: BP 177/77
[2020-02-26] MEDS ORDERED: NORVASC PO SCH (09:00)
--- NOTE | 2020-02-28 22:57 | DISCHARGE SUMMARY ---
ADMISSION DATE: 02/24/2020 DISCHARGE DATE: 02/25/2020 FINAL DISCHARGE DIAGNOSES: 1. Chest pain. 2. Uncontrolled hypertension. 3. Chronic kidney disease stage 4. 4. Chronic obstructive pulmonary disease. 5. History of squamous cell lung cancer. 6. Morbid obesity with a body mass index of 36. 7. Obstructive sleep apnea. 8. Chronic constipation. 9. Chronic diastolic congestive heart failure. 10. Coronary artery disease. CONSULTATIONS: Cardiology consultation with Dr. Abdullahi. HOSPITAL COURSE: Mr. La is a 64-year-old male with a history of multiple medical problems who presented to the ER with a chief complaint of chest pain. Upon arrival to the ER the patient was noted to have a blood pressure of 162/92. Also he was noted to have a troponin of 101. Given the patient's extensive cardiac history, he was admitted to the hospitalist service for observation. Cardiology was consulted as well. After reviewing the patient's laboratory studies and EKGs as well as prior cardiac history, it was decided that the patient did not require further cardiac workup and Norvasc was added to the patient's antihypertensive regimen. The patient had no further chest pain and his blood pressure was noted to be improved. He was cleared for discharge home. DISCHARGE MEDICATIONS: 1. Norvasc 5 mg oral daily. 2. Toprol-XL 50 mg oral twice a day. 3. Isordil 60 mg oral 3 times a day. 4. Folic acid 1 mg oral daily. 5. Hydralazine 100 mg oral 3 times a day. 6. Flomax 0.4 mg oral daily. 7. Lantus 120 units subcutaneous twice a day. 8. Allopurinol 100 mg oral every morning. 9. Clonidine 0.2 mg oral 3 times a day. 10. Lispro sliding scale insulin. 11. Clonazepam 0.5 mg oral 3 times a day. 12. Advair 250/50 one puff inhaled twice a day. 13. Lasix 40 mg p.o. twice a day. 14. Nitroglycerin 0.4 mg sublingual every 5 minutes p.r.n. for chest pain. 15. Aspirin 81 mg oral daily. 16. [place] 7.5/325 one tab oral 3 times a day p.r.n. for pain. 17. Omeprazole 40 mg p.o. daily. 18. Fish oil 1000 mg oral daily. 19. Lipitor 40 mg oral at bedtime. 20. Spiriva 18 mcg inhaled daily. DISCHARGE DIET: 1800 ADA diet, low-sodium diet. DISCHARGE INSTRUCTIONS: The patient will need to follow up with Dr. Leggett as scheduled by his clinic. cc: Charissa Zhang MD
== END 2020-02-25 15:34 | disposition home or self-care (01) | DRG 313 ==
LOC: SUPCPDRO → ED 11:02 → 3N 17:33
PROVIDERS: ATTEND Internal Medicine